=== PATIENT | female | born 1935 | race Caucasian/White ===

== ENCOUNTER → 2020-04-17 08:10 | Outpatient (REF) | payer MEDICARE, SELFPAY ==
--- NOTE | 2020-04-17 08:30 | CA_ITS ---
Transthoracic Echocardiogram Patient (Last, First, Middle): Ruth Ann Nunes A Gender: Female Date of : 1935 Age: 85 Procedure Date: 04/17/2020 Procedure Type: Transthoracic Echocardiogram Location: OP Height: 152.4 cm Weight: 79.38 kg BSA: 1.76 m2 Heart Rate: bpm BP: 180 / 82 mmHg Music Arranger: Referring MD: Yovany Garibay MD Symptoms: Chest pain Study Quality: Good ECG Rhythm: Atrial Fibrillation Conclusions: - The left ventricular systolic function is normal. The visually estimated ejection fraction is between 55-60%. - The left atrium is moderately dilated. - There is mild aortic valve regurgitation. - There is mild mitral valve regurgitation. - There is mild tricuspid valve regurgitation. - Mild to moderate pulmonary hypertension is present. Findings Procedure Information Contrast agent, definity, is being given per protocol without apparent complications. Left Ventricle Normal left ventricular cavity size. There is mildly increased left ventricular wall thickness. The left ventricular systolic function is normal. The visually estimated ejection fraction is between 55-60%. There is no evidence of regional wall motion abnormalities. Right Ventricle Normal right ventricular cavity size and systolic function. Atria The left atrium is moderately dilated. The right atrium is normal in size. Aortic Valve There is a normal trileaflet aortic valve. There is no aortic valve stenosis. There is mild aortic valve regurgitation. Mitral Valve The mitral valve appears normal. There is mild mitral valve regurgitation. There is no mitral valve stenosis. Pulmonic Valve The pulmonic valve was not well visualized. There is trace pulmonic valve regurgitation. Tricuspid Valve Normal tricuspid valve structure. There is mild tricuspid valve regurgitation. The right ventricular systolic pressure is 48 mmHg. Mild to moderate pulmonary hypertension is present. Great Vessels The aortic annulus, sinuses of valsalva, and asc aorta are normal in size. Venous The inferior vena cava is normal in size and collapses greater than 50% with inspiration. Pericardium/Pleural There is no evidence of pericardial effusion. Prior Study Comparison Changes noted compared to prior study dated: 09/24/2014. RVSP is higher. Measurements 2D Linear Measurements RVADd: 0.49 RVIDd: 2.95 IVSd: 1.07 0.6-0.9/0.6-1.0 cm LVIDd: 4.63 3.9-5.3/4.2-5.9 cm LVIDs: 3.50 2.0-3.6 cm LVPWd: 1.05 0.7-1.1 cm Ao Root: 3.03 2.1-3.5 cm LA Diam: 4.50 2.7-3.8/3.0-4.0 cm LV Mass: 216.40 67-162/88-224 g LVOT Diam: 2.14 3.0+(-)1.3 cm Mitral Valve MR VTI: 1.62 Aortic Valve AoV Pk Andrew: 1.17 AoV Mn Andrew: 0.92 AoV VTI: 0.27 AoV Pk Grad: 5.52 Aov Mn Grad: 3.61 LVOT LVOT Pk Andrew: 0.94 LVOT Mn Andrew: 0.58 LVOT VTI: 0.18 LVOT Pk Grad: 3.52 LVOT Mn Grad: 1.52 LVOT Diam: 2.14 LVOT Area: 3.59 Tricuspid Valve TR Pk Andrew: 3.44 TR Pk Grad: 47.46 RA Press: 3.00 RVSP: 48.00 Great Vessels Aorta Ao Root-2D: 3.03 2.0-3.7 cm Ao Asc: 3.65 2.1-3.4 cm Ao Arch: 3.14 Updated in Other Vendor System with Status of Final Yovany Garibay MD electronically signed on 04/19/2020 9:49:47 AM with status of Final
--- NOTE | 2020-04-17 09:50 | NM_ITS ---
Lexiscan Myocardial perfusion study Indication: Chest pain, atrial fibrillation, assess for coronary disease and ischemia Technique: The patient was brought in for a Lexiscan perfusion study on 04/17/2020 and was injected 0.4 mg of Lexiscan intravenously. Within a minute of this injection 30 mCi of sestamibi was given intravenously. Images were obtained using the SPECT gamma camera interlaced with the gating device. Images were obtained in supine position. Resting perfusion study was performed on 04/21/2020. Patient was administered 30 mCi of sestamibi intravenously at rest. Images were then obtained in supine position. Total DLP 97mGy-cm. Images were processed with the software and compared side to side in short axis, horizontal long axis and vertical long axis views. Findings: Raw acquisition was reviewed. The stress perfusion study showed mildly diminished tracer uptake along the apex and apical inferior wall. With CT attenuation correction this seems to improve significantly suggestive of diaphragmatic attenuation artifact. There is also the basal septal perfusion defect that is persisting with CT attenuation correction The gated study shows normal LV systolic function with calculated LVEF of 64%. LV cavity is normal in size. The gated study shows normal wall thickening and contraction of segments. Resting study shows mildly diminished tracer uptake along the apex and apical anterior wall, most likely from soft tissue attenuation artifact. There is some improvement with CT attenuation correction. Gating at rest reveals normal wall motion with ejection fraction at 53%. The findings are consistent with reversible basal septal perfusion defect. Impression: 1. Myocardial perfusion imaging study shows mild reversible defect in the basal septum. This could be artifactual in nature. Less likely ischemic. 2. Gated LVEF is normal. 3. Transient ischemic dilatation not present. EKG component of the test reported separately.
--- NOTE | 2020-04-17 10:00 | ECG_ITS ---
Hook-up date: 2020-04-17 10:07:00 Duration: 47:59:00 Test Indications: PERSISTANT AFIB Medications: 59320 QRS complexes 59680 Ventricular ectopics which represent 11 % of total QRS comp. * Supraventricular ectopics which represent % of total QRS comp. * Paced QRS complexs which represent % of total QRS comp. VENTRICULAR ECTOPY 73925 Isolated 223 Bigeminal Cycles 20 Couplets 3 Runs 9 Beats in Runs 3 Beats LONGEST at 151 BPM at 10:22:45 2020-04-17 3 Beats FASTEST at 151 BPM at 10:22:45 2020-04-17 SUPRAVENTRICULAR ECTOPY * Isolated * Couplets * Runs * Beats in Runs * Beats LONGEST at * BPM at :: -- * Beats FASTEST at * BPM at :: -- HEART RATES 31 MIN at 20:14:21 2020-04-17 61 AVG 174 MAX at 11:09:46 2020-04-17 LONGEST RR 2.5440 secs at 20:31:38 2020-04-17 S-T LEVELS Channel 1 - 128 mm at 10:07:00 2020-04-17 - 128 mm at 10:07:00 2020-04-17 Channel 2 - 128 mm at 10:07:00 2020-04-17 - 128 mm at 10:07:00 2020-04-17 Channel 3 - 128 mm at 02:92:61 -- - 128 mm at 02:92:61 Underlying rhythm is atrial fibrillation; Average ventricular rate 61/min; range 31-174/min; Most rates are between 60-100/min; About 5% of the time, ventricular rate >100/min about 14% of rates are <60/min; Frequent ventricular ectopy- about 10,000 over 48 Hrs (12%); longest run 3 beats; Overall, reasonable rate control but also with some tachy as well as zainab episodes (lowest HR at 20:14); Shortness of breath, pain in right arm without any definite correlations. Referred By: Kanika Davis Overread By: KANIKA DAVIS
--- NOTE | 2020-04-17 10:35 | CA_ITS ---
Acquisition Time: 2020-04-17 09:27:04 Total Exercise Time: 00:02:00 Test Indications: Abnormal ECG Medications: ASA FUROSEMIDE ATENLOL VALSARTAN HYDRALAZINE COUMADIN KLOR PRILOSEC TIMOLOL EYE DROPS Protocol: LEXISCAN Max HR: 133 BPM 97% of Pred: 136 BPM Max BP: 138/072 mmHG Max Work Load: 1.0 METS Pharmacological stress test using Lexiscan while sitting. Pt tolerated well, SOB after Maria Isabel. Reversed with Aminophyline 75 mg IV. no other anginal sx. EKG with A-fib and occ. PVC's. Non-diagnostic for ischemia. Nuclear images to follow. Normotensive response to test. Test reviewed with Dr. Garibay Referred By: Yovany Garibay Overread By: Madeleine Murray
== END ==
LOC: HO.CARD 08:10
PROVIDERS: PCP Internal Medicine; Visit Provider Internal Medicine
DX: R07.2 Precordial pain (principal); I48.19 Other persistent atrial fibrillation; R06.02 Shortness of breath
CPT/HCPCS: 78452; 93017; 93225; 93226; 93306; A9500; J0280; J2785; Q9957

== ENCOUNTER 2020-04-29 08:11 | Outpatient (REF) | payer MEDICARE, SELFPAY ==
[2020-04-29 10:21] LABS: MANUAL DIFF FLAG NO
[2020-04-29 10:45] LABS: Basophils Absolute Auto 0.1 X10*3/uL (0.0-0.2); Basophils Percent Auto 0.5 % (0-2); Eosinophils Absolute Auto 0.1 X10*3/uL (0.0-0.4); Eosinophils Percent Auto 0.6 % (0-4); Hematocrit 40.5 % (37-47); Hemoglobin 12.9 g/dl (12.0-16.0); Imm Gran Abs Auto 0.03 X10*3/uL (0.00-0.03); Imm Gran Pct Auto 0.3 % (0.0-0.4); Lymphocytes Absolute Auto 1.7 X10*3/uL (1.2-4.9); Lymphocytes Percent Auto 15.8 % (20-40); Mean Corpuscular HGB Conc 31.9 g/dl (31.0-35.0); Mean Corpuscular Hemoglobin 31.4 pg (27.0-33.0); Mean Corpuscular Volume 98.5 fL (80-98); Mean Platelet Volume 11.7 fL (9.4-12.3); Monocytes Absolute Auto 1.3 X10*3/uL (0.1-1.2); Monocytes Percent Auto 11.5 % (2-11); Neutrophils Absolute Auto 7.8 X10*3/uL (2.0-8.3); Neutrophils Percent Auto 71.3 % (45-73); Platelet Count 243 X10*3/uL (160-400); Red Blood Count 4.11 X10*6/uL (4.20-5.50); Red Cell Distribution Width 14.4 % (11.0-16.0); White Blood Count 10.9 X10*3/uL (4.8-10.8)
[2020-04-29 11:27] LABS: Anion Gap 11 (12-20); Blood Urea Nitrogen 24 mg/dL (9-16); Carbon Dioxide 28 mmol/L (22-29); Chloride 104 mmol/L (96-108); Cholesterol 137 mg/dL; Estimated Glomerular Filt Rate > 60; Glucose Fasting 86 mg/dL (60-99); HDL Cholesterol 46 mg/dL; LDL Cholesterol Calculated 66 mg/dl; Potassium 4.3 mmol/l (3.3-5.1); Sodium 139 mmol/L (135-145); Triglycerides 127 mg/dL
== END 2020-04-29 08:12 | disposition home or self-care (01) ==
LOC: HO.10HDL 08:11
PROVIDERS: Visit Provider Nurse Practitioner Family
DX: I15.0 Renovascular hypertension (principal)
CPT/HCPCS: 36415; 80048; 80061; 85025

== ENCOUNTER → 2020-05-04 08:42 | Outpatient (BNVA) | payer MEDICARE, SELFPAY | PROVIDERS: PCP Internal Medicine; Visit Provider Internal Medicine | DX: I48.0 Paroxysmal atrial fibrillation (principal); Z51.81 Encounter for therapeutic drug level monitoring; Z79.01 Long term (current) use of anticoagulants | CPT/HCPCS: 85610; 99211 ==

== ENCOUNTER → 2020-05-07 12:13 | Outpatient (BNVA) | payer MEDICARE, SELFPAY | PROVIDERS: PCP Internal Medicine; Visit Provider Internal Medicine | DX: I11.0 Hypertensive heart disease with heart failure (principal); I50.32 Chronic diastolic (congestive) heart failure; R07.2 Precordial pain; I48.19 Other persistent atrial fibrillation; R94.39 Abnormal result of other cardiovascular function study; Z79.01 Long term (current) use of anticoagulants; Z79.899 Other long term (current) drug therapy | CPT/HCPCS: 99212 ==

== ENCOUNTER 2020-05-25 08:36 | Outpatient (REF) | payer MEDICARE, SELFPAY ==
[2020-05-25 10:50] LABS: Anion Gap 16 (12-20); B Type Natriuretic Peptide 318 pg/mL (<100); Blood Urea Nitrogen 29 mg/dL (9-16); Calcium 9.7 mg/dL (8.4-10.2); Carbon Dioxide 25 mmol/L (22-29); Chloride 104 mmol/L (96-108); Estimated Glomerular Filt Rate > 60; Glucose Random 91 mg/dL (60-115); Sodium 140 mmol/L (135-145)
== END 2020-05-25 08:37 | disposition home or self-care (01) ==
LOC: HO.10HDL 08:36
PROVIDERS: Visit Provider Internal Medicine
DX: I50.32 Chronic diastolic (congestive) heart failure (principal)
CPT/HCPCS: 80048; 83880

== ENCOUNTER → 2020-05-28 08:54 | Outpatient (BNVA) | payer MEDICARE, SELFPAY | PROVIDERS: PCP Internal Medicine; Visit Provider Internal Medicine | DX: I48.0 Paroxysmal atrial fibrillation (principal); Z51.81 Encounter for therapeutic drug level monitoring; Z79.01 Long term (current) use of anticoagulants | CPT/HCPCS: 85610; 99211 ==

== ENCOUNTER → 2020-06-18 08:42 | Outpatient (BNVA) | payer MEDICARE, SELFPAY | PROVIDERS: PCP Internal Medicine; Visit Provider Internal Medicine | DX: I48.0 Paroxysmal atrial fibrillation (principal); Z51.81 Encounter for therapeutic drug level monitoring; Z79.01 Long term (current) use of anticoagulants | CPT/HCPCS: 85610; 99211 ==

== ENCOUNTER → 2020-06-22 09:52 | Outpatient (BNVA) | payer MEDICARE, SELFPAY | PROVIDERS: PCP Internal Medicine; Visit Provider Internal Medicine | DX: I50.32 Chronic diastolic (congestive) heart failure (principal); I11.0 Hypertensive heart disease with heart failure; I48.19 Other persistent atrial fibrillation; R07.2 Precordial pain; R06.02 Shortness of breath; R94.39 Abnormal result of other cardiovascular function study | CPT/HCPCS: 99212 ==

== ENCOUNTER 2020-07-06 07:42 | Outpatient (REF) | payer MEDICARE, SELFPAY ==
[2020-07-06 10:56] LABS: Anion Gap 14 (12-20); Blood Urea Nitrogen 36 mg/dL (9-16); Carbon Dioxide 31 mmol/L (22-29); Chloride 101 mmol/L (96-108); Estimated Glomerular Filt Rate > 60; Glucose Random 85 mg/dL (60-115); Potassium 4.8 mmol/l (3.3-5.1); Sodium 141 mmol/L (135-145)
[2020-07-06 11:00] LABS: B Type Natriuretic Peptide 410 pg/mL (<100)
== END 2020-07-06 07:43 | disposition home or self-care (01) ==
LOC: HO.10HDL 07:42
PROVIDERS: Visit Provider Internal Medicine
DX: I50.32 Chronic diastolic (congestive) heart failure (principal)
CPT/HCPCS: 80048; 83880

== ENCOUNTER → 2020-07-16 08:52 | Outpatient (BNVA) | payer MEDICARE, SELFPAY | PROVIDERS: PCP Internal Medicine; Visit Provider Internal Medicine | DX: I48.0 Paroxysmal atrial fibrillation (principal); Z51.81 Encounter for therapeutic drug level monitoring; Z79.01 Long term (current) use of anticoagulants | CPT/HCPCS: 85610; 99211 ==

== ENCOUNTER → 2020-07-20 08:13 | Outpatient (BNVA) | payer MEDICARE, SELFPAY | PROVIDERS: PCP Internal Medicine; Visit Provider Internal Medicine | DX: I50.32 Chronic diastolic (congestive) heart failure (principal); I11.0 Hypertensive heart disease with heart failure; I48.19 Other persistent atrial fibrillation; R07.2 Precordial pain; R06.02 Shortness of breath; R94.39 Abnormal result of other cardiovascular function study | CPT/HCPCS: 99212 ==

== ENCOUNTER 2020-07-30 08:16 | Outpatient (REF) | payer MEDICARE, SELFPAY ==
[2020-07-30 10:48] LABS: Anion Gap 14 (12-20); Blood Urea Nitrogen 44 mg/dL (9-16); Calcium 9.9 mg/dL (8.4-10.2); Carbon Dioxide 30 mmol/L (22-29); Chloride 102 mmol/L (96-108); Estimated Glomerular Filt Rate > 60; Glucose Random 94 mg/dL (60-115); Potassium 4.6 mmol/l (3.3-5.1); Sodium 141 mmol/L (135-145)
[2020-07-30 11:01] LABS: B Type Natriuretic Peptide 383 pg/mL (<100)
== END 2020-07-30 08:17 | disposition home or self-care (01) ==
LOC: HO.10HDL 08:16
PROVIDERS: Visit Provider Internal Medicine
DX: I50.32 Chronic diastolic (congestive) heart failure (principal)
CPT/HCPCS: 36415; 80048; 83880

== ENCOUNTER 2020-08-12 | Outpatient (REF) | payer MEDICARE, SELFPAY | END 2020-08-12 00:01 | disposition home or self-care (01) | LOC: HO.VC | PROVIDERS: Visit Provider Internal Medicine | DX: Z23 Encounter for immunization (principal) | CPT/HCPCS: 0011A ==

== ENCOUNTER → 2020-08-13 08:53 | Outpatient (BNVA) | payer MEDICARE, SELFPAY | PROVIDERS: PCP Internal Medicine; Visit Provider Internal Medicine | DX: I48.0 Paroxysmal atrial fibrillation (principal); Z51.81 Encounter for therapeutic drug level monitoring; Z79.01 Long term (current) use of anticoagulants | CPT/HCPCS: 85610; 99211 ==

== ENCOUNTER 2020-09-08 | Outpatient (REF) | payer MEDICARE, SELFPAY | END 2020-09-08 00:01 | disposition home or self-care (01) | LOC: HO.VC | PROVIDERS: Visit Provider Internal Medicine | DX: Z23 Encounter for immunization (principal) | CPT/HCPCS: 0012A ==

== ENCOUNTER → 2020-09-08 13:17 | Outpatient (BNVA) | payer MEDICARE, SELFPAY | PROVIDERS: PCP Internal Medicine; Visit Provider Internal Medicine | DX: I48.0 Paroxysmal atrial fibrillation (principal); Z51.81 Encounter for therapeutic drug level monitoring; Z79.01 Long term (current) use of anticoagulants | CPT/HCPCS: 85610; 99211 ==

== ENCOUNTER → 2020-09-17 08:41 | Outpatient (BNVA) | payer MEDICARE, SELFPAY | PROVIDERS: PCP Internal Medicine; Visit Provider Internal Medicine | DX: R07.2 Precordial pain (principal); I11.0 Hypertensive heart disease with heart failure; I50.32 Chronic diastolic (congestive) heart failure; I48.19 Other persistent atrial fibrillation; R06.02 Shortness of breath; R94.39 Abnormal result of other cardiovascular function study; Z79.899 Other long term (current) drug therapy | CPT/HCPCS: 99212 ==

== ENCOUNTER 2020-09-22 07:54 | Outpatient (REF) | payer MEDICARE, SELFPAY ==
[2020-09-22 10:50] LABS: Anion Gap 12 (12-20); Blood Urea Nitrogen 26 mg/dL (9-16); Calcium 9.7 mg/dL (8.4-10.2); Carbon Dioxide 30 mmol/L (22-29); Chloride 105 mmol/L (96-108); Estimated Glomerular Filt Rate > 60; Glucose Random 88 mg/dL (60-115); Potassium 4.5 mmol/L (3.3-5.1); Sodium 142 mmol/L (135-145)
[2020-09-22 11:09] LABS: B Type Natriuretic Peptide 408 pg/mL (<100)
== END 2020-09-22 07:55 | disposition home or self-care (01) ==
LOC: HO.10HDL 07:54
PROVIDERS: Visit Provider Internal Medicine
DX: I50.32 Chronic diastolic (congestive) heart failure (principal)
CPT/HCPCS: 36415; 80048; 83880

== ENCOUNTER → 2020-10-01 08:34 | Outpatient (BNVA) | payer MEDICARE, SELFPAY | PROVIDERS: PCP Internal Medicine; Visit Provider Internal Medicine | DX: I48.0 Paroxysmal atrial fibrillation (principal); Z51.81 Encounter for therapeutic drug level monitoring; Z79.01 Long term (current) use of anticoagulants | CPT/HCPCS: 85610; 99211 ==

== ENCOUNTER → 2020-10-29 08:55 | Outpatient (BNVA) | payer MEDICARE, SELFPAY | PROVIDERS: PCP Internal Medicine; Visit Provider Internal Medicine | DX: I48.0 Paroxysmal atrial fibrillation (principal); Z79.01 Long term (current) use of anticoagulants; Z51.81 Encounter for therapeutic drug level monitoring | CPT/HCPCS: 85610; 99211 ==

== ENCOUNTER → 2020-11-26 08:38 | Outpatient (BNVA) | payer MEDICARE, SELFPAY | PROVIDERS: Visit Provider Internal Medicine | DX: I48.0 Paroxysmal atrial fibrillation (principal); Z51.81 Encounter for therapeutic drug level monitoring; Z79.01 Long term (current) use of anticoagulants | CPT/HCPCS: 85610; 99211 ==

== ENCOUNTER → 2020-12-24 08:47 | Outpatient (BNVA) | payer MEDICARE, SELFPAY | PROVIDERS: PCP Internal Medicine; Visit Provider Internal Medicine | DX: I48.0 Paroxysmal atrial fibrillation (principal); Z51.81 Encounter for therapeutic drug level monitoring; Z79.01 Long term (current) use of anticoagulants | CPT/HCPCS: 85610; 99211 ==

== ENCOUNTER → 2021-01-04 08:44 | Outpatient (BNVA) | payer MEDICARE, SELFPAY | PROVIDERS: PCP Internal Medicine; Visit Provider Internal Medicine | DX: I11.0 Hypertensive heart disease with heart failure (principal); I50.32 Chronic diastolic (congestive) heart failure; I48.19 Other persistent atrial fibrillation; R94.39 Abnormal result of other cardiovascular function study | CPT/HCPCS: 93005; 99212 ==

== ENCOUNTER 2021-01-22 12:50 | Outpatient (REF) | payer MEDICARE, SELFPAY ==
--- NOTE | ~2021-01-22 | CT_ITS ---
EXAMINATION: CT HEAD WITHOUT CONTRAST CLINICAL INFORMATION: 85-year-old with sudden vision loss. Unspecified eye. COMPARISON: None TECHNIQUE: Contiguous axial imaging was performed from the skull base to vertex without intravenous administration of contrast. This CT examination was performed using dose optimization techniques as appropriate, variously including the following: *Automated exposure control *Adjustment of mA and/or kV according to patient size (this includes techniques or standardized protocols for targeted exams where dose is matched to indication/reason for exam; i.e. extremities or head) *Use of iterative reconstruction technique DLP: 770.00 mGy-cm FINDINGS: Brain Volume: There is [id number] generalized diffuse nonspecific brain parenchymal volume loss. Structural: No malformations. Brain and Meninges: The brain parenchyma is normal in morphology and attenuation. There is no evidence for hemorrhage, territorial infarction, extra-axial fluid collection, space-occupying process or mass effect. Roblero-white matter differentiation is maintained. Bilateral ICA and vertebral artery calcifications are noted. Ventricles and Subarachnoid Spaces: The ventricular system and subarachnoid spaces are consistent with [id number] volume loss. There is no hydrocephalus. Orbital Structures: Grossly unremarkable within the limitations of the study. Bony Structures: Intact. Air Spaces: Unopacified. 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 CT/CT head/brain wo con IMPRESSION: 1. No acute intracranial process. Specifically, no evidence for infarction, hemorrhage, space-occupying process or mass effect. 2. Mild to moderate generalized volume loss without hydrocephalus.
== END 2021-01-22 12:51 | disposition home or self-care (01) ==
LOC: HO.CT 12:50
PROVIDERS: PCP Internal Medicine; Visit Provider Internal Medicine
DX: H53.139 Sudden visual loss, unspecified eye (principal)
CPT/HCPCS: 70450

== ENCOUNTER → 2021-01-28 08:48 | Outpatient (BNVA) | payer MEDICARE, SELFPAY | PROVIDERS: PCP Internal Medicine; Visit Provider Internal Medicine | DX: I48.0 Paroxysmal atrial fibrillation (principal); Z51.81 Encounter for therapeutic drug level monitoring; Z79.01 Long term (current) use of anticoagulants | CPT/HCPCS: 85610; 99211 ==

== ENCOUNTER 2021-02-03 07:45 | Outpatient (REF) | payer MEDICARE, SELFPAY ==
[2021-02-03 08:48] LABS: Anion Gap 16 (12-20); Blood Urea Nitrogen 39 mg/dL (9-16); Calcium 10.2 mg/dL (8.4-10.2); Carbon Dioxide 28 mmol/L (22-29); Chloride 101 mmol/L (96-108); Estimated Glomerular Filt Rate 58; Glucose Random 103 mg/dL (60-115); Potassium 4.5 mmol/L (3.3-5.1); Sodium 140 mmol/L (135-145)
[2021-02-03 08:52] LABS: B Type Natriuretic Peptide 532 pg/mL (<100)
== END 2021-02-03 07:46 | disposition home or self-care (01) ==
LOC: HO.LAB 07:45
PROVIDERS: Absent Provider Internal Medicine; PCP Internal Medicine; Visit Provider Internal Medicine
DX: I50.32 Chronic diastolic (congestive) heart failure (principal)
CPT/HCPCS: 36415; 80048; 83880

== ENCOUNTER → 2021-02-25 09:16 | Outpatient (BNVA) | payer MEDICARE, SELFPAY | PROVIDERS: PCP Internal Medicine; Visit Provider Internal Medicine ==

== ENCOUNTER → 2021-03-05 08:30 | Outpatient (BNVA) | payer MEDICARE, SELFPAY | PROVIDERS: PCP Internal Medicine; Visit Provider Internal Medicine | DX: I48.0 Paroxysmal atrial fibrillation (principal); Z51.81 Encounter for therapeutic drug level monitoring; Z79.01 Long term (current) use of anticoagulants | CPT/HCPCS: 85610; 99211 ==

== ENCOUNTER → 2021-03-29 08:44 | Outpatient (BNVA) | payer MEDICARE, SELFPAY | PROVIDERS: PCP Internal Medicine; Visit Provider Internal Medicine | DX: I11.0 Hypertensive heart disease with heart failure (principal); I50.32 Chronic diastolic (congestive) heart failure; I48.19 Other persistent atrial fibrillation; R94.39 Abnormal result of other cardiovascular function study | CPT/HCPCS: 99212 ==

== ENCOUNTER → 2021-04-01 08:30 | Outpatient (BNVA) | payer MEDICARE, SELFPAY | PROVIDERS: PCP Internal Medicine; Visit Provider Internal Medicine | DX: I48.0 Paroxysmal atrial fibrillation (principal); Z51.81 Encounter for therapeutic drug level monitoring; Z79.01 Long term (current) use of anticoagulants | CPT/HCPCS: 85610; 99211 ==

== ENCOUNTER 2021-04-15 09:11 | Outpatient (REF) | payer MEDICARE, SELFPAY ==
[2021-04-15 10:58] LABS: Anion Gap 14 (12-20); Blood Urea Nitrogen 47 mg/dL (9-16); Calcium 9.8 mg/dL (8.4-10.2); Carbon Dioxide 29 mmol/L (22-29); Chloride 102 mmol/L (96-108); Estimated Glomerular Filt Rate 53; Glucose Random 100 mg/dL (60-115); Potassium 4.5 mmol/L (3.3-5.1); Sodium 140 mmol/L (135-145)
[2021-04-15 10:59] LABS: B Type Natriuretic Peptide 337 pg/mL (<100)
== END 2021-04-15 09:12 | disposition home or self-care (01) ==
LOC: HO.10HDL 09:11
PROVIDERS: Visit Provider Internal Medicine
DX: I50.32 Chronic diastolic (congestive) heart failure (principal)
CPT/HCPCS: 36415; 80048; 83880

== ENCOUNTER → 2021-04-29 08:55 | Outpatient (BNVA) | payer MEDICARE, SELFPAY | PROVIDERS: PCP Internal Medicine; Visit Provider Internal Medicine | DX: I48.0 Paroxysmal atrial fibrillation (principal); Z51.81 Encounter for therapeutic drug level monitoring; Z79.01 Long term (current) use of anticoagulants | CPT/HCPCS: 85610; 99211 ==

== ENCOUNTER → 2021-05-27 08:52 | Outpatient (BNVA) | payer MEDICARE, SELFPAY | PROVIDERS: PCP Internal Medicine; Visit Provider Internal Medicine | DX: I48.0 Paroxysmal atrial fibrillation (principal); Z51.81 Encounter for therapeutic drug level monitoring; Z79.01 Long term (current) use of anticoagulants | CPT/HCPCS: 85610; 99211 ==

== ENCOUNTER → 2021-06-24 08:55 | Outpatient (BNVA) | payer MEDICARE, SELFPAY | PROVIDERS: PCP Internal Medicine; Visit Provider Internal Medicine | DX: I48.0 Paroxysmal atrial fibrillation (principal); Z51.81 Encounter for therapeutic drug level monitoring; Z79.01 Long term (current) use of anticoagulants | CPT/HCPCS: 85610; 99211 ==

== ENCOUNTER → 2021-07-22 08:48 | Outpatient (BNVA) | payer MEDICARE, SELFPAY | PROVIDERS: PCP Internal Medicine; Visit Provider Internal Medicine | DX: I48.0 Paroxysmal atrial fibrillation (principal); Z51.81 Encounter for therapeutic drug level monitoring; Z79.01 Long term (current) use of anticoagulants | CPT/HCPCS: 85610; 99211 ==

== ENCOUNTER → 2021-07-29 08:49 | Outpatient (BNVA) | payer MEDICARE, SELFPAY | PROVIDERS: PCP Internal Medicine; Referring Provider Internal Medicine; Visit Provider Internal Medicine | DX: I11.0 Hypertensive heart disease with heart failure (principal); I50.32 Chronic diastolic (congestive) heart failure; I48.19 Other persistent atrial fibrillation; R94.39 Abnormal result of other cardiovascular function study | CPT/HCPCS: 99212 ==

== ENCOUNTER 2021-08-04 07:53 | Outpatient (REF) | payer MEDICARE, SELFPAY ==
[2021-08-04 10:43] LABS: MANUAL DIFF FLAG NO
[2021-08-04 10:48] LABS: Basophils Absolute Auto 0.1 X10*3/uL (0.0-0.2); Basophils Percent Auto 0.6 % (0-2); Eosinophils Absolute Auto 0.1 X10*3/uL (0.0-0.4); Eosinophils Percent Auto 1.5 % (0-4); Hemoglobin 13.5 g/dl (12.0-16.0); Imm Gran Abs Auto 0.07 X10*3/uL (0.00-0.03); Imm Gran Pct Auto 0.8 % (0.0-0.4); Lymphocytes Absolute Auto 1.1 X10*3/uL (1.2-4.9); Lymphocytes Percent Auto 11.7 % (20-40); Mean Corpuscular HGB Conc 32.1 g/dl (31.0-35.0); Mean Corpuscular Volume 99.5 fL (80.0-98.0); Mean Platelet Volume 11.6 fL (9.4-12.3); Monocytes Percent Auto 10.5 % (2-11); Neutrophils Absolute Auto 6.8 x10*3/uL (2.0-8.3); Neutrophils Percent Auto 74.9 % (45-73); Platelet Count 225 X10*3/uL (160-400); Red Blood Count 4.22 X10*6/uL (4.20-5.50); Red Cell Distribution Width 13.4 % (11.0-16.0); White Blood Count 9.1 X10*3/uL (4.8-10.8)
[2021-08-04 11:12] LABS: Alanine Aminotransferase 20 U/L (0-31); Albumin Level 4.6 g/dL (3.5-5.0); Alkaline Phosphatase 62 U/L (39-117); Anion Gap 15 (12-20); Aspartate Amino Transferase 22 U/L (5-31); B Type Natriuretic Peptide 342 pg/mL (<100); Bilirubin Total 0.6 mg/dL (0.0-1.0); Blood Urea Nitrogen 40 mg/dL (9-16); Calcium 10.3 mg/dL (8.4-10.2); Carbon Dioxide 28 mmol/L (22-29); Chloride 101 mmol/L (96-108); Cholesterol 179 mg/dL; Estimated Glomerular Filt Rate 44; Glucose Fasting 85 mg/dL (60-99); HDL Cholesterol 44 mg/dL; LDL Cholesterol Calculated 109 mg/dl; Potassium 4.3 mmol/L (3.3-5.1); Sodium 140 mmol/L (135-145); Total Protein 8.1 g/dL (6.5-8.0); Triglycerides 131 mg/dL
== END 2021-08-04 07:54 | disposition home or self-care (01) ==
LOC: HO.10HDL 07:53
PROVIDERS: Absent Provider Nurse Practitioner Family; Referring Provider Internal Medicine; Visit Provider Internal Medicine
DX: D64.9 Anemia, unspecified (principal); I50.32 Chronic diastolic (congestive) heart failure; E78.5 Hyperlipidemia, unspecified; Z13.1 Encounter for screening for diabetes mellitus; Z13.220 Encounter for screening for lipoid disorders
CPT/HCPCS: 36415; 80048; 80053; 80061; 83880; 85025

== ENCOUNTER → 2021-08-19 08:41 | Outpatient (BNVA) | payer MEDICARE, SELFPAY | PROVIDERS: PCP Internal Medicine; Visit Provider Internal Medicine | DX: I48.0 Paroxysmal atrial fibrillation (principal); Z51.81 Encounter for therapeutic drug level monitoring; Z79.01 Long term (current) use of anticoagulants | CPT/HCPCS: 85610; 99211 ==

== ENCOUNTER → 2021-09-21 09:19 | Outpatient (BNVA) | payer MEDICARE, SELFPAY | PROVIDERS: PCP Internal Medicine; Visit Provider Internal Medicine | DX: I48.0 Paroxysmal atrial fibrillation (principal); Z79.01 Long term (current) use of anticoagulants; Z51.81 Encounter for therapeutic drug level monitoring | CPT/HCPCS: 85610; 99211 ==

== ENCOUNTER → 2021-10-14 08:52 | Outpatient (BNVA) | payer MEDICARE, SELFPAY | PROVIDERS: PCP Internal Medicine; Visit Provider Internal Medicine | DX: I48.0 Paroxysmal atrial fibrillation (principal); Z51.81 Encounter for therapeutic drug level monitoring; Z79.01 Long term (current) use of anticoagulants | CPT/HCPCS: 85610; 99211 ==

== ENCOUNTER 2021-10-26 08:53 | Outpatient (REF) | payer MEDICARE, SELFPAY ==
[2021-10-26 10:50] LABS: B Type Natriuretic Peptide 598 pg/mL (<100)
[2021-10-26 10:53] LABS: Anion Gap 13 (12-20); Blood Urea Nitrogen 33 mg/dL (9-16); Calcium 10.6 mg/dL (8.4-10.2); Carbon Dioxide 27 mmol/L (22-29); Chloride 104 mmol/L (96-108); Cholesterol 145 mg/dL; Estimated Glomerular Filt Rate > 60; Glucose Random 101 mg/dL (60-115); HDL Cholesterol 42 mg/dL; LDL Cholesterol Calculated 84 mg/dl; Potassium 3.8 mmol/L (3.3-5.1); Sodium 140 mmol/L (135-145); Triglycerides 95 mg/dL; Uric Acid 9.3 mg/dL (2.4-5.7)
== END 2021-10-26 08:54 | disposition home or self-care (01) ==
LOC: HO.LAB 08:53
PROVIDERS: Absent Provider Nurse Practitioner Family; PCP Internal Medicine; Referring Provider Internal Medicine; Visit Provider Internal Medicine
DX: Z13.220 Encounter for screening for lipoid disorders (principal); I11.0 Hypertensive heart disease with heart failure; I50.32 Chronic diastolic (congestive) heart failure; I48.91 Unspecified atrial fibrillation; R94.39 Abnormal result of other cardiovascular function study; M10.9 Gout, unspecified
CPT/HCPCS: 36415; 80048; 80061; 83880; 84550; 99212

== ENCOUNTER → 2021-11-02 09:03 | Outpatient (BNVA) | payer MEDICARE, SELFPAY | PROVIDERS: PCP Internal Medicine; Visit Provider Internal Medicine | DX: I48.0 Paroxysmal atrial fibrillation (principal); Z79.01 Long term (current) use of anticoagulants; Z51.81 Encounter for therapeutic drug level monitoring | CPT/HCPCS: 85610; 99211 ==

== ENCOUNTER → 2021-11-25 08:54 | Outpatient (BNVA) | payer MEDICARE, SELFPAY | PROVIDERS: PCP Internal Medicine; Visit Provider Internal Medicine | DX: I48.0 Paroxysmal atrial fibrillation (principal); Z79.01 Long term (current) use of anticoagulants; Z51.81 Encounter for therapeutic drug level monitoring | CPT/HCPCS: 85610; 99211 ==

== ENCOUNTER → 2021-12-09 09:01 | Outpatient (BNVA) | payer MEDICARE, SELFPAY | PROVIDERS: PCP Internal Medicine; Visit Provider Internal Medicine | DX: I48.0 Paroxysmal atrial fibrillation (principal); Z79.01 Long term (current) use of anticoagulants; Z51.81 Encounter for therapeutic drug level monitoring | CPT/HCPCS: 85610; 99211 ==

== ENCOUNTER → 2021-12-23 09:10 | Outpatient (BNVA) | payer MEDICARE, SELFPAY | PROVIDERS: PCP Internal Medicine; Visit Provider Internal Medicine | DX: I48.0 Paroxysmal atrial fibrillation (principal); Z79.01 Long term (current) use of anticoagulants; Z51.81 Encounter for therapeutic drug level monitoring | CPT/HCPCS: 85610; 99211 ==

== ENCOUNTER → 2022-01-20 08:56 | Outpatient (BNVA) | payer MEDICARE, SELFPAY | PROVIDERS: PCP Internal Medicine; Visit Provider Internal Medicine | DX: I48.0 Paroxysmal atrial fibrillation (principal); Z79.01 Long term (current) use of anticoagulants; Z51.81 Encounter for therapeutic drug level monitoring | CPT/HCPCS: 85610; 99211 ==

== ENCOUNTER 2022-02-01 08:24 | Inpatient (IN) | payer MEDICARE, SELFPAY ==
--- NOTE | ~2022-02-01 | US_ITS ---
EXAMINATION: US VENOUS ULTRASOUND WITH DOPPLER LOWER EXTREMITY, LEFT CLINICAL INFORMATION: Lower extremity edema and pain. COMPARISON: None TECHNIQUE: Ultrasound of the deep veins is performed from the hip to the calf with compression sonography and color and pulse Doppler assessment. Spectral analysis with color-flow imaging is performed. FINDINGS: There is normal venous compression and respiratory variation and augmented flow. The visualized common femoral vein, superficial femoral vein, profunda femoral vein, popliteal vein, and the trifurcation region shows no evidence of deep venous thrombosis. There is no significant popliteal fossa cyst. If the patient's symptoms persist, followup ultrasound in 5 days 7 days might be of value to exclude proximal propagation from a non-visualized calf vein. US/US venous duplex LE IMPRESSION: No DVT identified in the left lower extremity.
--- NOTE | ~2022-02-01 | XR_ITS ---
EXAMINATION: LEFT KNEE SERIES. LEFT HIP WITH PELVIS SERIES. CLINICAL INFORMATION: Knee pain COMPARISON: X-rays of the left knee July 2015 TECHNIQUE: 4 views of the left knee. 2 views of the left hip. Single view the pelvis. FINDINGS: Left knee: There is chondrocalcinosis. There are marginal osteophytes about all compartments. Prominent marginal osteophyte in the distal patella. Joint space narrowing lateral compartment. No effusion. No fracture. Arterial calcification. Left hip: There is chondrocalcinosis. Hip joint otherwise appears normal surrounding bone normal. Pelvis: Left hip as above slight widening of the symphysis pubis compatible with degenerative and/or erosive change. Chondrocalcinosis. Chondrocalcinosis in the right hip. Spondylosis of the partially visualized lumbar sacral spine. XR/XR knee LT 4V IMPRESSION: Mild to moderate osteoarthritis of the left knee. Chondrocalcinosis. Slightly progressing degenerative changes involving the patellofemoral compartment. Left hip: Chondrocalcinosis. 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
--- NOTE | ~2022-02-01 | XR_ITS ---
EXAMINATION: LEFT KNEE SERIES. LEFT HIP WITH PELVIS SERIES. CLINICAL INFORMATION: Knee pain COMPARISON: X-rays of the left knee July 2015 TECHNIQUE: 4 views of the left knee. 2 views of the left hip. Single view the pelvis. FINDINGS: Left knee: There is chondrocalcinosis. There are marginal osteophytes about all compartments. Prominent marginal osteophyte in the distal patella. Joint space narrowing lateral compartment. No effusion. No fracture. Arterial calcification. Left hip: There is chondrocalcinosis. Hip joint otherwise appears normal surrounding bone normal. Pelvis: Left hip as above slight widening of the symphysis pubis compatible with degenerative and/or erosive change. Chondrocalcinosis. Chondrocalcinosis in the right hip. Spondylosis of the partially visualized lumbar sacral spine. XR/XR hip LT w PEL1V IMPRESSION: Mild to moderate osteoarthritis of the left knee. Chondrocalcinosis. Slightly progressing degenerative changes involving the patellofemoral compartment. Left hip: Chondrocalcinosis. 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
[2022-02-01 09:27] VITALS: BP 131/52; PULSE 71; RESP 19; TEMP 35.8; O2SAT 97; BMI 34.5
--- NOTE | 2022-02-01 10:28 | ED_ITS ---
HPI - Extremity Problem General Chief complaint: Extremity Problem <Carline Canales CNP - Last Filed: 02/01/22 15:51> Stated complaint: L leg/hip pain <Carline Canales CNP - Last Filed: 02/01/22 15:51> Time Seen by Provider: 02/01/22 08:36 <Carline Canales GAGE - Last Filed: 02/01/22 15:51> Source: patient <Carline Canales CNP - Last Filed: 02/01/22 15:51> Mode of arrival: ambulatory <Carline Canales CNP - Last Filed: 02/01/22 15:51> Limitations: no limitations <Carline Canales CNP - Last Filed: 02/01/22 15:51> History of Present Illness HPI Narrative: Patient presents emergency department for evaluation of pain to the left leg. She reports onset of pain to be 2 days ago. Pain is felt from her left knee and she feels it radiate up to the left hip. She is having difficulty getting out of bed. Feels that the pain is worse at night. She reports a history of arthritis, chronic left knee pain, and history of gout to the bilateral great toes. She denies any injury, no recent falls. She states that she is on Coumadin for AFib, has her INR checked monthly, and reports compliance. She has chronic lower extremity swelling, however the left leg is more swollen than the right, and she does feel that it is more swollen than typical. Denies fevers, chills, chest pain, palpitations, shortness of breath, difficulty breathing, rashes, redness to the leg. <Carline Canales CNP - Last Filed: 02/01/22 15:51> Related Data Home medications: Home Medications Medication Instructions Recorded Confirmed aspirin 81 mg tablet,delayed 81 mg PO DAILY 05/07/20 01/26/22 release acetaminophen 500 mg tablet 500 mg PO Q6H PRN 05/18/21 01/26/22 (Tylenol Extra Strength) brimonidine 0.025 % eye drops 1 drp ophthalmic (eye) BID 01/20/22 01/26/22 dorzolamide 2 % eye drops 1 drp ophthalmic (eye) BID 01/20/22 01/26/22 latanoprost 0.005 % eye drops 1 drp ophthalmic (eye) QPM 01/20/22 01/26/22 Previous Rx's Medication Instructions Recorded nitrofurantoin macrocrystal 100 mg 100 mg PO DAILY 90 days #90 caps 10/16/20 capsule bumetanide 1 mg tablet 2 mg PO BID 90 days #360 tabs 05/17/21 potassium chloride 10 mEq 10 meq PO DAILY #90 tabs 08/31/21 tablet,extended release valsartan 320 mg tablet 320 mg PO DAILY 90 days #90 tabs 10/02/21 metolazone 2.5 mg tablet 2.5 mg PO .twice/week #10 tabs 11/08/21 colchicine 0.6 mg tablet 0.6 mg PO BID 30 days #60 tabs 11/19/21 omeprazole 20 mg capsule,delayed 20 mg PO DAILY #90 caps 12/12/21 release amlodipine 10 mg tablet 10 mg PO DAILY 90 days #90 tabs 01/26/22 atenolol 50 mg tablet 100 mg PO DAILY #180 tabs 01/26/22 hydralazine 25 mg tablet 25 mg PO TID 90 days #270 tabs 01/26/22 warfarin 5 mg tablet 5 mg PO DAILY 90 days #90 tabs 01/26/22 <Carline Canales CNP - Last Filed: 02/01/22 15:51> Allergies/Adverse reactions: Allergies Allergy/AdvReac Type Severity Reaction Status Date / Time latex [Latex] Allergy Intermediate BLISTERS & Verified 02/01/22 09:27 ITCHING morphine [Morphine] Allergy Mild RASH, Verified 02/01/22 09:27 ITCHNG <Carline Canales [employer] - Last Filed: 02/01/22 15:51> Review of Systems Review of Systems: Constitutional: No weight loss, fever, chills, weakness or fatigue. Skin: No rash or itching. Cardiovascular: No chest pain, chest pressure or chest discomfort. No palpitations or pedal edema. Respiratory: No shortness of breath, cough or sputum production. Gastrointestinal: No anorexia, nausea, vomiting or diarrhea. No abdominal pain or blood in stool. Genitourinary: No burning micturition. No urinary frequency or incontinence. Musculoskeletal: Positive leg pain Neurologic: No numbness or tingling of the extremity Psychiatric: No depression or anxiety. <Carline Canales CNP - Last Filed: 02/01/22 15:51> Yes all other systems are reviewed and are negative <Carline Canales CNP - Last Filed: 02/01/22 15:51> [facility] Past Medical History Attestation statement: The following information was validated with the patient. <Carline Canales CNP - Last Filed: 02/01/22 15:51> Source: old records reviewed <Carline Canales CNP - Last Filed: 02/01/22 15:51> Medical History: Medical History Acute gout Afib Chronic heart failure with preserved ejection fraction (HFpEF) Essential hypertension GERD (gastroesophageal reflux disease) Hypercalcemia Persistent atrial fibrillation Precordial chest pain Shortness of breath Sudden loss of vision Swelling of both lower extremities <Carline Canales CNP - Last Filed: 02/01/22 15:51> Surgical History: Surgical History History of appendectomy History of right knee joint replacement History of tonsillectomy <Carline Canales CNP - Last Filed: 02/01/22 15:51> Family History Family History: Family History Father No problems noted. Mother No problems noted. <Carline Canales CNP - Last Filed: 02/01/22 15:51> Social History Social History: Social History Housing: Apartment Alcohol intake: never Patient Tobacco Use Status: Never used Tobacco e-Cigarette/Vaping Use: Never Used Second Hand Smoke Exposure: No Advance Directives: Yes Advance Directives Information Provided: No Advance Directives on File: No service: No Current occupational status: unemployed and disabled Cognitive needs: Yes Hearing needs: No Vision needs: Yes <Carline Canales CNP - Last Filed: 02/01/22 15:51> Physical Exam Vital Signs: Vital Signs: Last Vital Signs Temp 96.5 F L 02/01/22 09:27 Pulse 71 02/01/22 09:27 Resp 19 02/01/22 09:27 BP 131/52 L 02/01/22 09:27 Pulse Ox 97 02/01/22 09:27 O2 Del Method 02/01/22 09:27 BMI result Body Mass Index 34.5 <Carline Canales CNP - Last Filed: 02/01/22 15:51> Vital Signs: Last Vital Signs Temp 96.5 F L 02/01/22 09:27 Pulse 71 02/01/22 09:27 Resp 19 02/01/22 09:27 BP 131/52 L 02/01/22 09:27 Pulse Ox 97 02/01/22 09:27 O2 Del Method 02/01/22 09:27 BMI result Body Mass Index 34.5 <Estuardo Marquez MD - Last Filed: 02/01/22 13:52> Appearance: Alert.?Oriented to person, place and time. No acute distress.?Normal affect. Eyes: Pupils equal, round and reactive to light.? ENT: Pharynx normal.?? Neck: Normal inspection.? Neck supple.?? CVS: Heart sounds normal. Normal heart rate and rhythm.? Pulses normal.?? Respiratory: No respiratory distress.? Lung sounds clear to auscultation bilaterally?? Abdomen: Soft and non-tender. Normoactive bowel sounds. No pulsatile mass.?? Skin: Skin warm and dry.? Normal skin color.? Normal skin turgor.?? Extremities: Positive lower extremity edema 1+ right, 2+ on left, no calf tenderness to palpation. Left knee with no effusion, erythema, warmth, or rash. Upper leg and hip without erythema, warmth, or rash Neuro: Moves all extremities spontaneously. Sensation intact bilaterally. No motor deficits Ambulates with slow antalgic gait and the use of a cane <Carline Canales CNP - Last Filed: 02/01/22 15:51> Course Course Course Narrative: Patient is an 86-year-old female with a past medical history of arthritis, gout, GERD, heart failure with preserved ejection fraction, hypertension, atrial fibrillation on Coumadin presents emergency department for evaluation of left leg pain. Has chronic left knee pain reportedly due to her arthritis, h owever sudden onset of worsening pain 2 days ago, atraumatic. Neurovascularly intact distally. Not consistent with septic arthritis. Denies any lower back pain, no tenderness on exam. Will obtain CBC, CMP, INR, XR imaging of left hip and knee, in addition to ultrasound of the left lower extremity to exclude DVT, she is on Coumadin, so DVT is less likely however her leg is more swollen than usual, and INRs checked only monthly, leaving possibility for subtherapeutic level <Carline Canales CNP - Last Filed: 02/01/22 15:51> Reevaluation(s) Reevaluation #1: X-ray of the left hip and knee reveal arthritic changes no acute fractures or dislocation. Ultrasound of the left lower extremity unremarkable for DVT. CBC reveals no leukocytosis. Mildly elevated ESR at 28, CRP 1.57, uric acid 15.1. Electrolytes overall unremarkable, noted to have acute kidney injury with BUN 115 and creatinine 1.58, suspect secondary to diuretic usage and dehydration. States that she is taking metolazone twice a week on Mondays and in addition to Bumex 2 mg twice daily. States she has been voiding normally, denies any hematuria, retention, dysuria urinary frequency, will obtain urinalysis. <Carline Canales CNP - Last Filed: 02/01/22 15:51> Time: 13:47 <Carline Canales CNP - Last Filed: 02/01/22 15:51> Reevaluation #2: I have discussed with GILL Canales the LACIE. Will attempt to reach out with her primary and try and coordinate care otherwise she might need to be admitted for the renal injury and dehydration <Estuardo Marquez MD - Last Filed: 02/01/22 13:52> Time: 13:52 <Estuardo Marquez MD - Last Filed: 02/01/22 13:52> Reevaluation #3: Discussed all findings with patient. Primary care providers unable to coordinate care over the next few days. Discussed case with hospitalist, accepted for admission to Medicine Service under Dr. Marin. <Carline Canales CNP - Last Filed: 02/01/22 15:51> MDM - Extremity (Nontraumatic) Medical Records Attestation: I reviewed the patient's medical records. <Carline Garlanddelmar Canales CNP - Last Filed: 02/01/22 15:51> Lab Data Attestation: I reviewed the patient's lab results. <Carline Velasquez GAGE Canales - Last Filed: 02/01/22 15:51> Result diagrams: : 02/01/22 12:09 02/01/22 12:09 <Carline Canales CNP - Last Filed: 02/01/22 15:51> Labs: Lab Results 02/01/22 02/01/22 02/01/22 Range/Units 12:09 12:09 12:09 WBC (4.8-10.8) X10*3/uL RBC (4.20-5.50) X10*6/uL Hgb (12.0-16.0) g/dl Hct (37.0-47.0) % MCV (80.0-98.0) fL MCH (27.0-33.0) pg MCHC (31.0-35.0) g/dl RDW (11.0-16.0) % Plt Count (160-400) X10*3/uL MPV (9.4-12.3) fL Immature Gran % (Auto) (0.0-0.4) % Neut % (Auto) (45-73) % Lymph % (Auto) (20-40) % [place] % (Auto) (2-11) % Eos % (Auto) (0-4) % Baso % (Auto) (0-2) % Lymph # (Auto) (1.2-4.9) X10*3/uL [place] # (Auto) (0.1-1.2) X10*3/uL Eos # (Auto) (0.0-0.4) X10*3/uL Baso # (Auto) (0.0-0.2) X10*3/uL Abs Immat Gran (auto) (0.00-0.03) X10*3/uL Absolute Neuts (auto) (2.0-8.3) x10*3/uL Absolute Nucleated RBC (0.0-0.012) X10*3/uL Nucleated RBC % (auto) (0.0-0.2) /100WBC ESR 28 H (0-20) MM/HR PT 35.7 H (10.0-13.1) SEC INR 3.0 H (0.9-1.1) Sodium 139 (135-145) mmol/L Potassium 3.9 (3.3-5.1) mmol/L Chloride 95 L (96-108) mmol/L Carbon Dioxide 32 H (22-29) mmol/L Anion Gap 16 (12-20) BUN 115 H D (9-16) mg/dL Creatinine 1.58 H (0.5-1.4) mg/dL Estim Creat Clear Calc 23.4 Estimated GFR 31 Random Glucose 105 (60-115) mg/dL Uric Acid 15.1 H (2.4-5.7) mg/dL Calcium 10.5 H (8.4-10.2) mg/dL Total Bilirubin 0.6 (0.0-1.0) mg/dL AST 19 (5-31) U/L ALT 21 (0-31) U/L Alkaline Phosphatase 59 (39-117) U/L C-Reactive Protein 1.57 H (< or = 0.50) mg/dL Total Protein 8.5 H (6.5-8.0) g/dL Albumin 4.6 (3.5-5.0) g/dL COVID-19 ([facility]) (Negative) COVID-19 Clin Com 02/01/22 02/01/22 Range/Units 12:09 14:49 WBC 8.5 (4.8-10.8) X10*3/uL RBC 4.53 (4.20-5.50) X10*6/uL Hgb 14.0 (12.0-16.0) g/dl Hct 41.9 (37.0-47.0) % MCV 92.5 (80.0-98.0) fL MCH 30.9 (27.0-33.0) pg MCHC 33.4 (31.0-35.0) g/dl RDW 13.2 (11.0-16.0) % Plt Count 229 (160-400) X10*3/uL MPV 10.7 (9.4-12.3) fL Immature Gran % (Auto) 0.2 (0.0-0.4) % Neut % (Auto) 75.7 H (45-73) % Lymph % (Auto) 11.0 L (20-40) % [place] % (Auto) 11.5 H (2-11) % Eos % (Auto) 1.2 (0-4) % Baso % (Auto) 0.4 (0-2) % Lymph # (Auto) 0.9 L (1.2-4.9) X10*3/uL [place] # (Auto) 1.0 (0.1-1.2) X10*3/uL Eos # (Auto) 0.1 (0.0-0.4) X10*3/uL Baso # (Auto) 0.0 (0.0-0.2) X10*3/uL Abs Immat Gran (auto) 0.02 (0.00-0.03) X10*3/uL Absolute Neuts (auto) 6.5 (2.0-8.3) x10*3/uL Absolute Nucleated RBC 0.000 (0.0-0.012) X10*3/uL Nucleated RBC % (auto) 0.0 (0.0-0.2) /100WBC ESR (0-20) MM/HR PT (10.0-13.1) SEC INR (0.9-1.1) Sodium (135-145) mmol/L Potassium (3.3-5.1) mmol/L Chloride (96-108) mmol/L Carbon Dioxide (22-29) mmol/L Anion Gap (12-20) BUN (9-16) mg/dL Creatinine (0.5-1.4) mg/dL Estim Creat Clear Calc Estimated GFR Random Glucose (60-115) mg/dL Uric Acid (2.4-5.7) mg/dL Calcium (8.4-10.2) mg/dL Total Bilirubin (0.0-1.0) mg/dL AST (5-31) U/L ALT (0-31) U/L Alkaline Phosphatase (39-117) U/L C-Reactive Protein (< or = 0.50) mg/dL Total Protein (6.5-8.0) g/dL Albumin (3.5-5.0) g/dL COVID-19 ([facility]) Negative (Negative) COVID-19 Clin Com See Note <Carline Velasquez Ally, [employer] - Last Filed: 02/01/22 15:51> Lab Results 02/01/22 02/01/22 02/01/22 Range/Units 12:09 12:09 12:09 WBC (4.8-10.8) X10*3/uL RBC (4.20-5.50) X10*6/uL Hgb (12.0-16.0) g/dl Hct (37.0-47.0) % MCV (80.0-98.0) fL MCH (27.0-33.0) pg MCHC (31.0-35.0) g/dl RDW (11.0-16.0) % Plt Count (160-400) X10*3/uL MPV (9.4-12.3) fL Immature Gran % (Auto) (0.0-0.4) % Neut % (Auto) (45-73) % Lymph % (Auto) (20-40) % [place] % (Auto) (2-11) % Eos % (Auto) (0-4) % Baso % (Auto) (0-2) % Lymph # (Auto) (1.2-4.9) X10*3/uL [place] # (Auto) (0.1-1.2) X10*3/uL Eos # (Auto) (0.0-0.4) X10*3/uL Baso # (Auto) (0.0-0.2) X10*3/uL Abs Immat Gran (auto) (0.00-0.03) X10*3/uL Absolute Neuts (auto) (2.0-8.3) x10*3/uL Absolute Nucleated RBC (0.0-0.012) X10*3/uL Nucleated RBC % (auto) (0.0-0.2) /100WBC ESR 28 H (0-20) MM/HR PT 35.7 H (10.0-13.1) SEC INR 3.0 H (0.9-1.1) Sodium 139 (135-145) mmol/L Potassium 3.9 (3.3-5.1) mmol/L Chloride 95 L (96-108) mmol/L Carbon Dioxide 32 H (22-29) mmol/L Anion Gap 16 (12-20) BUN 115 H D (9-16) mg/dL Creatinine 1.58 H (0.5-1.4) mg/dL Estim Creat Clear Calc 23.4 Estimated GFR 31 Random Glucose 105 (60-115) mg/dL Uric Acid 15.1 H (2.4-5.7) mg/dL Calcium 10.5 H (8.4-10.2) mg/dL Total Bilirubin 0.6 (0.0-1.0) mg/dL AST 19 (5-31) U/L ALT 21 (0-31) U/L Alkaline Phosphatase 59 (39-117) U/L C-Reactive Protein 1.57 H (< or = 0.50) mg/dL Total Protein 8.5 H (6.5-8.0) g/dL Albumin 4.6 (3.5-5.0) g/dL COVID-19 ([facility]) (Negative) COVID-19 Clin Com 02/01/22 02/01/22 Range/Units 12:09 14:49 WBC 8.5 (4.8-10.8) X10*3/uL RBC 4.53 (4.20-5.50) X10*6/uL Hgb 14.0 (12.0-16.0) g/dl Hct 41.9 (37.0-47.0) % MCV 92.5 (80.0-98.0) fL MCH 30.9 (27.0-33.0) pg MCHC 33.4 (31.0-35.0) g/dl RDW 13.2 (11.0-16.0) % Plt Count 229 (160-400) X10*3/uL MPV 10.7 (9.4-12.3) fL Immature Gran % (Auto) 0.2 (0.0-0.4) % Neut % (Auto) 75.7 H (45-73) % Lymph % (Auto) 11.0 L (20-40) % [place] % (Auto) 11.5 H (2-11) % Eos % (Auto) 1.2 (0-4) % Baso % (Auto) 0.4 (0-2) % Lymph # (Auto) 0.9 L (1.2-4.9) X10*3/uL [place] # (Auto) 1.0 (0.1-1.2) X10*3/uL Eos # (Auto) 0.1 (0.0-0.4) X10*3/uL Baso # (Auto) 0.0 (0.0-0.2) X10*3/uL Abs Immat Gran (auto) 0.02 (0.00-0.03) X10*3/uL Absolute Neuts (auto) 6.5 (2.0-8.3) x10*3/uL Absolute Nucleated RBC 0.000 (0.0-0.012) X10*3/uL Nucleated RBC % (auto) 0.0 (0.0-0.2) /100WBC ESR (0-20) MM/HR PT (10.0-13.1) SEC INR (0.9-1.1) Sodium (135-145) mmol/L Potassium (3.3-5.1) mmol/L Chloride (96-108) mmol/L Carbon Dioxide (22-29) mmol/L Anion Gap (12-20) BUN (9-16) mg/dL Creatinine (0.5-1.4) mg/dL Estim Creat Clear Calc Estimated GFR Random Glucose (60-115) mg/dL Uric Acid (2.4-5.7) mg/dL Calcium (8.4-10.2) mg/dL Total Bilirubin (0.0-1.0) mg/dL AST (5-31) U/L ALT (0-31) U/L Alkaline Phosphatase (39-117) U/L C-Reactive Protein (< or = 0.50) mg/dL Total Protein (6.5-8.0) g/dL Albumin (3.5-5.0) g/dL COVID-19 ([facility]) Negative (Negative) COVID-19 Clin Com See Note <Estuardo Marquez MD - Last Filed: 02/01/22 13:52> Imaging Data Venous US: Radiologist's impression: US/US venous duplex LE LT IMPRESSION: No DVT identified in the left lower extremity. 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 Chondrocalcinosis. Slightly progressing degenerative changes involving the patellofemoral compartment. ? Left hip: Chondrocalcinosis. ? Pelvis: Degenerative and/or erosive changes in the symphysis pubis appears chronic ? 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 <Carline Canales CNP - Last Filed: 01/08 12/29 15:51> Discharge Plan Discharge Clinical Impression: Acute kidney injury, Dehydration, Chronic heart failure with preserved ejection fraction (HFpEF), Essential hypertension, Chronic gout, Arthritis <Carline Canales CNP - Last Filed: 02/01/22 15:51> Patient Disposition: Admitted As Inpatient <Carline Canales CNP - Last Filed: 02/01/22 15:51>
[2022-02-01] MEDS: Acetaminophen 325 MG TABLET 975 MG PO (11:08)
[2022-02-01 12:15] LABS: MANUAL DIFF FLAG NO
[2022-02-01 12:16] LABS: Basophils Percent Auto 0.4 % (0-2); Eosinophils Absolute Auto 0.1 X10*3/uL (0.0-0.4); Eosinophils Percent Auto 1.2 % (0-4); Hematocrit 41.9 % (37.0-47.0); Imm Gran Abs Auto 0.02 X10*3/uL (0.00-0.03); Imm Gran Pct Auto 0.2 % (0.0-0.4); Lymphocytes Absolute Auto 0.9 X10*3/uL (1.2-4.9); Mean Corpuscular HGB Conc 33.4 g/dl (31.0-35.0); Mean Corpuscular Hemoglobin 30.9 pg (27.0-33.0); Mean Corpuscular Volume 92.5 fL (80.0-98.0); Mean Platelet Volume 10.7 fL (9.4-12.3); Monocytes Percent Auto 11.5 % (2-11); Neutrophils Absolute Auto 6.5 x10*3/uL (2.0-8.3); Neutrophils Percent Auto 75.7 % (45-73); Platelet Count 229 X10*3/uL (160-400); Red Blood Count 4.53 X10*6/uL (4.20-5.50); Red Cell Distribution Width 13.2 % (11.0-16.0); White Blood Count 8.5 X10*3/uL (4.8-10.8)
[2022-02-01 12:23] LABS: Prothrombin Time 35.7 SEC (10.0-13.1)
[2022-02-01 12:40] LABS: Alanine Aminotransferase 21 U/L (0-31); Albumin Level 4.6 g/dL (3.5-5.0); Alkaline Phosphatase 59 U/L (39-117); Anion Gap 16 (12-20); Aspartate Amino Transferase 19 U/L (5-31); Bilirubin Total 0.6 mg/dL (0.0-1.0); C Reactive Protein 1.57 mg/dL (< or = 0.50); Calcium 10.5 mg/dL (8.4-10.2); Carbon Dioxide 32 mmol/L (22-29); Chloride 95 mmol/L (96-108); Creatinine Clr Calc Pharmacy 23.4; Estimated Glomerular Filt Rate 31; Glucose Random 105 mg/dL (60-115); Potassium 3.9 mmol/L (3.3-5.1); Sodium 139 mmol/L (135-145); Total Protein 8.5 g/dL (6.5-8.0); Uric Acid 15.1 mg/dL (2.4-5.7)
[2022-02-01 12:55] LABS: Erythrocyte Sedimentation Rate 28 MM/HR (0-20)
[2022-02-01 13:14] LABS: Blood Urea Nitrogen 115 mg/dL (9-16)
[2022-02-01 15:24] LABS: COVID-19 Test Negative (Negative)
--- NOTE | 2022-02-01 15:49 | P.HPHOSP_ITS ---
History of Present Illness Date of Service: 02/01/22 Chief Complaint: Left knee gout Patient presents emergency department for evaluation of pain to the left leg.? She reports onset of pain to be 2 days ago.? Pain is felt from her left knee and she feels it radiate up to the left hip.? She is having difficulty getting out of bed.? Feels that the pain is worse at night.? She reports a history of arthritis, chronic left knee pain, and history of gout to the bilateral great toes.? She denies any injury, no recent falls.? She states that she is on Coumadin for AFib, has her INR checked monthly, and reports compliance.? She has chronic lower extremity swelling, however the left leg is more swollen than the right, and she does feel that it is more swollen than typical.? Routine labs demonstrated a pre renal azotemia is markedly worse since last draw. Review of Systems Review of Systems: Denies chest pain Denies shortness of breath Denies nausea vomiting diarrhea Denies fever chills Admit to left knee pain progressively worse over last several days [facility] Medical History Acute gout Afib Chronic heart failure with preserved ejection fraction (HFpEF) Essential hypertension GERD (gastroesophageal reflux disease) Hypercalcemia Persistent atrial fibrillation Precordial chest pain Shortness of breath Sudden loss of vision Swelling of both lower extremities Family History Father No problems noted. Mother No problems noted. Surgical History History of appendectomy History of right knee joint replacement History of tonsillectomy Social History Housing: Apartment Alcohol intake: never Patient Tobacco Use Status: Never used Tobacco e-Cigarette/Vaping Use: Never Used Second Hand Smoke Exposure: No Advance Directives: Yes Advance Directives Information Provided: No Advance Directives on File: No service: No Current occupational status: unemployed and disabled Cognitive needs: Yes Hearing needs: No Vision needs: Yes Meds Allergies Allergy/AdvReac Type Severity Reaction Status Date / Time latex [Latex] Allergy Intermediate BLISTERS & Verified 02/01/22 09:27 ITCHING morphine [Morphine] Allergy Mild RASH, Verified 02/01/22 09:27 ITCHNG Active Medications: Current Medications Acetaminophen (Acetaminophen 325 Mg Tablet) 650 mg PO Q6H PRN PRN Reason: Pain, Mild (Pain Scale 1-3) Colchicine (Colchicine 0.6 Mg Tablet) 0.6 mg PO DAILY TIEN Stop: 02/04/22 15:44 Sodium Chloride (Ns) 1,000 mls @ 100 mls/hr IVCONT .Q10H TIEN Ondansetron HCl (Ondansetron Hcl 4 Mg/2 Ml Vial) 4 mg IVPUSH Q8H PRN PRN Reason: Nausea and Vomiting Pharmacy Consult (Consult Rx Perform Med Rec) 1 each MISCELLANE ONCE PRN PRN Reason: Consult order Pharmacy Consult (Consult Rx Perform Med Rec) 1 each MISCELLANE ONCE PRN PRN Reason: Consult order Sodium Chloride (0.9 % Sodium Chloride Flush 3 Ml Syringe) 3 ml IVFLUSH QSHIFT TIEN Tramadol HCl (Tramadol Hcl 50 Mg Tablet) 50 mg PO Q6H PRN PRN Reason: Pain, Moderate (Pain Scale 4-6 Home Medications Medication Instructions Recorded Confirmed Last Taken Type aspirin 81 mg tablet,delayed 81 mg PO DAILY 05/07/20 01/26/22 Unknown History release acetaminophen 500 mg tablet 500 mg PO Q6H PRN 05/18/21 01/26/22 Unknown History (Tylenol Extra Strength) brimonidine 0.025 % eye drops 1 drp ophthalmic (eye) BID 01/20/22 01/26/22 Unknown History dorzolamide 2 % eye drops 1 drp ophthalmic (eye) BID 01/20/22 01/26/22 Unknown History latanoprost 0.005 % eye drops 1 drp ophthalmic (eye) QPM 01/20/22 01/26/22 Unknown History Physical Exam Vital Signs and Narrative: Vital Signs: Last Vital Signs Temp 96.5 F L 02/01/22 09:27 Pulse 71 02/01/22 09:27 Resp 19 02/01/22 09:27 BP 131/52 L 02/01/22 09:27 Pulse Ox 97 02/01/22 09:27 O2 Del Method 02/01/22 09:27 BMI result Body Mass Index 34.5 Const: Other: Awake alert oriented x3 in no acute distress breathing comfortably on the stretcher Neck: Other: No JVD at 35 degrees Resp: Other: Clear to auscultation bilaterally no rales rhonchi or wheezes Cardio: Other: No S4 positive S1-S2 no S3 murmurs rubs or gallops GI: Other: Soft nontender nondistended normoactive bowel sounds Neuro: Other: Cranial nerves 2-12 grossly intact as tested. Motor is 5/5 bilaterally. Sensation intact cognition of Extrem: Other: No edema; mild left knee effusion Results Labs CBC and Chem 7: 02/01/22 12:09 02/01/22 12:09 Labs: Laboratory Results - last 24 hr 02/01/22 02/01/22 02/01/22 12:09 12:09 12:09 MCV MCH MCHC RDW Plt Count MPV Immature Gran % (Auto) Neut % (Auto) Lymph % (Auto) [place] % (Auto) Eos % (Auto) Baso % (Auto) Lymph # (Auto) [place] # (Auto) Eos # (Auto) Baso # (Auto) Abs Immat Gran (auto) Absolute Neuts (auto) Absolute Nucleated RBC Nucleated RBC % (auto) ESR 28 H PT 35.7 H INR 3.0 H Anion Gap 16 Estim Creat Clear Calc 23.4 Estimated GFR 31 Random Glucose 105 Uric Acid 15.1 H Calcium 10.5 H Total Bilirubin 0.6 AST 19 ALT 21 Alkaline Phosphatase 59 C-Reactive Protein 1.57 H Total Protein 8.5 H Albumin 4.6 COVID-19 ([facility]) COVID-19 Clin Com 02/01/22 02/01/22 12:09 14:49 MCV 92.5 MCH 30.9 MCHC 33.4 RDW 13.2 Plt Count 229 MPV 10.7 Immature Gran % (Auto) 0.2 Neut % (Auto) 75.7 H Lymph % (Auto) 11.0 L [place] % (Auto) 11.5 H Eos % (Auto) 1.2 Baso % (Auto) 0.4 Lymph # (Auto) 0.9 L [place] # (Auto) 1.0 Eos # (Auto) 0.1 Baso # (Auto) 0.0 Abs Immat Gran (auto) 0.02 Absolute Neuts (auto) 6.5 Absolute Nucleated RBC 0.000 Nucleated RBC % (auto) 0.0 ESR PT INR Anion Gap Estim Creat Clear Calc Estimated GFR Random Glucose Uric Acid Calcium Total Bilirubin AST ALT Alkaline Phosphatase C-Reactive Protein Total Protein Albumin COVID-19 ([facility]) Negative COVID-19 Clin Com See Note Imaging Radiologist's Impressions: Impressions Hip/Pelvis X-Ray 02/01/22 10:46 IMPRESSION: Mild to moderate osteoarthritis of the left knee. Chondrocalcinosis. Slightly progressing degenerative changes involving the patellofemoral compartment. Left hip: Chondrocalcinosis. 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 Knee X-Ray 02/01/22 10:46 IMPRESSION: Mild to moderate osteoarthritis of the left knee. Chondrocalcinosis. Slightly progressing degenerative changes involving the patellofemoral compartment. Left hip: Chondrocalcinosis. 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 Venous Duplex 02/01/22 11:47 IMPRESSION: No DVT identified in the left lower extremity. Assessment and Plan (1) Acute kidney injury: Status: Acute (2) Chronic heart failure with preserved ejection fraction (HFpEF): Status: Acute (3) Essential hypertension: Status: Acute (4) Persistent atrial fibrillation: Status: Acute Plan 86-year-old female with known history of gout presents initially for left knee pain and swelling that has worsened over the last 2 days. Routine labs were drawn and found to be abnormal with a BUN of 115 and creatinine that has doubled since October in the backdrop of Bumex and metolazone. 1. Acute kidney injury in backdrop of chronic heart failure with preserved ejection fraction -will hold Bumex this evening and metolazone in a.m. -1 L normal saline gently overnight-follow renals/divalents in am -consult Cards in am 2. Hypertension -acceptable control on current therapies -adjust as indicated when diuretics adjusted 3. Persistent atrial fibrillation -adequate rate control -hold Coumadin tonight; INR in a.m. 4. Acute gouty arthritis -continue colchicine 0.6 b.i.d. -pulse dose methylprednisolone while in house followed by steroid taper Full code Coumadin Will require 2 midnights going forward for volume repletion to correct over diuresis. This cannot be done and a lesser acute setting Quality Stroke Does the patient have a stroke diagnosis?: No VTE Prior VTE?: No VTE Risk Level:: Medical - moderate - high VTE Device Contraindication: Treatment Not Indicated VTE Drug Contraindication: N/A - Med Ordered
--- NOTE | 2022-02-01 15:54 | PHA.MEDREC ---
Pharmacy Consult ? Medication Reconciliation Pharmacy has completed the medication reconciliation.
[2022-02-01] MEDS: 0.9 % Sodium Chloride 1,000 ML 100 ML IVCONT (16:59)
--- NOTE | 2022-02-01 17:53 | PC.NURSE ---
Pharmacy contacted to [place] 0.[place] [facility] [place] not available in [facility].
[2022-02-01] MEDS: methylPREDNISolone Sod Succ 125 MG/2 ML VIAL IVPUSH (17:57)
[2022-02-01] MEDS: Colchicine 0.6 MG TABLET PO (19:00)
[2022-02-01] MEDS: hydrALAZINE HCl 25 MG TABLET PO (21:06)
[2022-02-01] MEDS: Potassium Chloride Packet 20 MEQ PACKET 40 MEQ PO (21:06)
[2022-02-01 21:07] VITALS: BP 148/45; PULSE 70; RESP 16; O2SAT 96
[2022-02-01] MEDS: 0.9 % Sodium Chloride Flush 3 ML SYRINGE IVFLUSH (21:07)
--- NOTE | 2022-02-01 23:31 | PC.NURSE ---
urine specimen collected and sent to lab for analysis. awaiting results.
[2022-02-01 23:42] LABS: Appearance Urine CLEAR; Color Urine YELLOW; Glucose Urine UA NEG (NEG); Leukocyte Esterase Urine NEG (NEG); Nitrite Urine NEG (NEG); PH 6.5 (5.0-8.0); Specific Gravity - Urine <= 1.005 (1.005-1.025); Urine Blood NEG (NEG); Urine Ketones NEG (NEG); Urine Protein NEG (NEG-TRACE)
--- NOTE | 2022-02-02 | ECG_ITS ---
Test Reason : afib Blood Pressure : / mmHG Vent. Rate : 063 BPM Atrial Rate : 000 BPM P-R Int : 000 ms QRS Dur : 096 ms QT Int : 428 ms P-R-T Axes : 000 007 017 degrees QTc Int : 437 ms Atrial fibrillation Cannot rule out Anterior infarct , age undetermined Abnormal ECG When compared with ECG of 19-MAR-2020 11:14, Nonspecific T wave abnormality now evident in Anterior leads Referred By: Sunday Marin Electronically Signed By:KANIKA DAVIS
[2022-02-02 04:57] LABS: Basophils Percent Auto 0.1 % (0-2); Hematocrit 39.5 % (37.0-47.0); Hemoglobin 13.4 g/dl (12.0-16.0); Imm Gran Abs Auto 0.02 X10*3/uL (0.00-0.03); Imm Gran Pct Auto 0.3 % (0.0-0.4); Lymphocytes Absolute Auto 0.5 X10*3/uL (1.2-4.9); Lymphocytes Percent Auto 6.5 % (20-40); MANUAL DIFF FLAG SCAN; Mean Corpuscular HGB Conc 33.9 g/dl (31.0-35.0); Mean Corpuscular Hemoglobin 31.3 pg (27.0-33.0); Mean Corpuscular Volume 92.3 fL (80.0-98.0); Monocytes Percent Auto 0.6 % (2-11); Neutrophils Absolute Auto 6.7 x10*3/uL (2.0-8.3); Neutrophils Percent Auto 92.5 % (45-73); Platelet Count 218 X10*3/uL (160-400); Red Blood Count 4.28 X10*6/uL (4.20-5.50); Red Cell Distribution Width 13.4 % (11.0-16.0); SCAN SMEAR FLAG 1; White Blood Count 7.3 X10*3/uL (4.8-10.8)
[2022-02-02 04:59] LABS: SLIDE REVIEW VERIFIED
[2022-02-02 05:08] LABS: INTERNATIONAL NORM RATIO 2.9 (0.9-1.1)
[2022-02-02 05:24] LABS: Alanine Aminotransferase 17 U/L (0-31); Albumin Level 4.2 g/dL (3.5-5.0); Alkaline Phosphatase 55 U/L (39-117); Anion Gap 17 (12-20); Aspartate Amino Transferase 19 U/L (5-31); Bilirubin Total 0.5 mg/dL (0.0-1.0); Blood Urea Nitrogen 111 mg/dL (9-16); Calcium 9.6 mg/dL (8.4-10.2); Carbon Dioxide 24 mmol/L (22-29); Chloride 105 mmol/L (96-108); Creatinine Clr Calc Pharmacy 26.8; Estimated Glomerular Filt Rate 36; Glucose Fasting 230 mg/dL (60-99); Potassium 3.9 mmol/L (3.3-5.1); Sodium 142 mmol/L (135-145); Total Protein 7.8 g/dL (6.5-8.0)
[2022-02-02 08:00] VITALS: BP 143/55; PULSE 74; RESP 16; O2SAT 96
[2022-02-02] MEDS: 0.9 % Sodium Chloride 1,000 ML 100 ML IVCONT (08:44)
[2022-02-02] MEDS: atenoloL 100 MG TABLET PO (09:31)
[2022-02-02] MEDS: amLODIPine Besylate 10 MG TABLET PO (09:31)
[2022-02-02] MEDS: hydrALAZINE HCl 25 MG TABLET PO (09:31)
[2022-02-02] MEDS: Aspirin Enteric Coated 81 MG TABLET.DR PO (09:32)
[2022-02-02 09:45] VITALS: BP 147/91; PULSE 82
--- NOTE | 2022-02-02 09:45 | PM.CNCAR ---
History of Present Illness History of Present Illness Date of Service: 02/02/22 Chief complaint: LACIE Narrative: This is a cardiology consultation regarding congestive heart failure/renal insufficiency. Patient is generally followed up in the office and and maintained on diuretics including Bumex and metolazone. Currently admission for pain in the left leg. She describes pain in the hip area as well as well as knee area. Some difficulty getting out of bed. However from a cardiac standpoint no specific symptoms. No angina. Shortness of breath is fairly controlled according to patient and no worse and in fact much better than before. Leg swelling is also much improved. She is noted to have elevated BUN and some elevation creatinine too. We have been asked to see her for further evaluation. Review of Systems Review of Systems: Yes all other systems are reviewed and are negative Constitutional: Constitutional: Reports as per HPI Eyes: Eyes: Reports as per HPI ENT: Reports as per HPI Cardiovascular: Cardiovascular: Reports as per HPI, Denies acrocyanosis, Denies cool extremities, Denies chest pain, Denies leg edema, Denies lightheadedness, Denies palpitations and Denies dyspnea Respiratory: Respiratory: Reports as per HPI, Reports no additional respiratory complaints and Denies dyspnea Gastrointestinal: Gastrointestinal: Reports as per HPI and Reports no additional gastrointestinal complaints Genitourinary: Genitourinary: Reports as per HPI Musculoskeletal: Musculoskeletal: Reports no additional musculoskeletal complaints, Reports as per HPI, Reports abnormal gait and Reports muscle cramps Integumentary/Breasts: Skin/Breast: Reports system reviewed and no additional complaints, except as docu Neurologic: Reports system reviewed and no additional complaints, except as documented, Reports as per HPI and Reports abnormal gait Psychiatric: Psychiatric: Reports no additional psychiatric complaints and Reports as per HPI Endocrine: Endocrine: Reports no additional endocrine complaints, Reports as per HPI and Denies palpitations Hematologic/Lymphatic: Hematologic/Lymphatic: Reports no additional hematologic/lymphatic complaints and Reports as per HPI Allergic/Immunologic: Allergic/Immunologic: Reports no additional allergic/immunologic complaints and Reports as per HPI PMF Past Medical History Medical History Acute gout Afib Chronic heart failure with preserved ejection fraction (HFpEF) Essential hypertension GERD (gastroesophageal reflux disease) Hypercalcemia Persistent atrial fibrillation Precordial chest pain Shortness of breath Sudden loss of vision Swelling of both lower extremities Family History Family History Father No problems noted. Mother No problems noted. Surgical History Surgical History History of appendectomy History of right knee joint replacement History of tonsillectomy Social History Social History Housing: Apartment Alcohol intake: never Patient Tobacco Use Status: Never used Tobacco e-Cigarette/Vaping Use: Never Used Second Hand Smoke Exposure: No Use of substances other than those prescribed or required for medical reasons: No Advance Directives: Yes Advance Directives Information Provided: No Advance Directives on File: No service: No Current occupational status: unemployed and disabled Cognitive needs: Yes Hearing needs: No Vision needs: Yes Meds Allergies Allergy/AdvReac Type Severity Reaction Status Date / Time latex [Latex] Allergy Intermediate BLISTERS & Verified 02/01/22 09:27 ITCHING morphine [Morphine] Allergy Mild RASH, Verified 02/01/22 09:27 ITCHNG Active Medications: Current Medications Acetaminophen (Acetaminophen 325 Mg Tablet) 650 mg PO Q6H PRN PRN Reason: Pain, Mild (Pain Scale 1-3) Amlodipine Besylate (Amlodipine Besylate 10 Mg Tablet) 10 mg PO DAILY [facility]; Protocol Last Admin: 02/02/22 09:31 Dose: 10 mg Aspirin (Aspirin Enteric Coated 81 Mg Tablet.Dr) 81 mg PO DAILY [facility] Last Admin: 02/02/22 09:32 Dose: 81 mg Atenolol (Atenolol 100 Mg Tablet) 100 mg PO DAILY TIEN; Protocol Last Admin: 02/02/22 09:31 Dose: 100 mg Colchicine (Colchicine 0.6 Mg Tablet) 0.6 mg PO DAILY TIEN Stop: 02/04/22 15:44 Last Admin: 02/02/22 09:32 Dose: Not Given Hydralazine HCl (Hydralazine Hcl 25 Mg Tablet) 25 mg PO TID TIEN; Protocol Last Admin: 02/02/22 09:31 Dose: 25 mg Sodium Chloride (Ns) 1,000 mls @ 100 mls/hr IVCONT .Q10H TIEN Last Admin: 02/02/22 08:44 Dose: 100 mls/hr Ondansetron HCl (Ondansetron Hcl 4 Mg/2 Ml Vial) 4 mg IVPUSH Q8H PRN PRN Reason: Nausea and Vomiting Pharmacy Consult (Consult Rx Perform Med Rec) 1 each MISCELLANE ONCE PRN PRN Reason: Consult order Pharmacy Consult (Consult Rx Perform Med Rec) 1 each MISCELLANE ONCE PRN PRN Reason: Consult order Potassium Chloride (Potassium Chloride Er 10 Meq Capsule.Er) 10 meq PO DAILY [facility] Last Admin: 02/02/22 09:32 Dose: 10 meq Sodium Chloride (0.9 % Sodium Chloride Flush 3 Ml Syringe) 3 ml IVFLUSH QSHIFT [facility] Last Admin: 02/02/22 08:45 Dose: Not Given Tramadol HCl (Tramadol Hcl 50 Mg Tablet) 50 mg PO Q6H PRN PRN Reason: Pain, Moderate (Pain Scale 4-6 Home Medications Medication Instructions Recorded Confirmed Last Taken Type aspirin 81 mg tablet,delayed 81 mg PO DAILY 05/07/20 02/01/22 02/01/22 08:00 History release acetaminophen 500 mg tablet 500 mg PO Q6H PRN Pain 05/18/21 02/01/22 02/01/22 08:00 History (Tylenol Extra Strength) brimonidine 0.025 % eye drops 1 drp ophthalmic (eye) BID 01/20/22 02/01/22 02/01/22 08:00 History dorzolamide 2 % eye drops 1 drp ophthalmic (eye) BID 01/20/22 02/01/22 02/01/22 08:00 History latanoprost 0.005 % eye drops 1 drp ophthalmic (eye) QPM 01/20/22 02/01/22 02/01/22 08:00 History Physical Exam Vital Signs: Vital Signs: Last Vital Signs Temp 96.5 F L 02/01/22 09:27 Pulse 74 02/02/22 08:00 Resp 16 02/02/22 08:00 BP 143/55 H 02/02/22 08:00 Pulse Ox 96 02/02/22 08:00 O2 Del Method 02/02/22 08:00 BMI result Body Mass Index 34.5 Const: General: comfortable and no acute distress Orientation/consciousness: patient oriented x3 HEENT: Other: Unremarkable Head: Yes normal to inspection Neck: Neck: Yes normal visual inspection Chest: Chest palpation & inspection: normal inspection of the chest Resp: Auscultation: clear to auscultation bilaterally Cardio: Palpation: normal PMI Heart sounds: S1 normal heart sound present, S2 normal heart sound present, no gallops, no murmurs and no rubs GI: Palpation (GI): Soft to palpation Back/Spine/Pelvis: Other: unremarkable Skin: General skin exam: no rashes or lesions noted Neuro: General: patient oriented x3 Extrem: Other: No significant edema. General: Yes normal to inspection Psych: Mental Status: mental status grossly normal Objective Labs and Meds Result diagrams: 02/02/22 04:46 02/02/22 04:46 Lab results: Laboratory Results - last 24 hr 02/01/22 02/01/22 02/01/22 12:09 12:09 12:09 WBC RBC Hgb Hct MCV MCH MCHC RDW Plt Count MPV Immature Gran % (Auto) Neut % (Auto) Lymph % (Auto) [place] % (Auto) Eos % (Auto) Baso % (Auto) Lymph # (Auto) [place] # (Auto) Eos # (Auto) Baso # (Auto) Abs Immat Gran (auto) Absolute Neuts (auto) Absolute Nucleated RBC Nucleated RBC % (auto) Smear Tech's Comments ESR 28 H PT 35.7 H INR 3.0 H Sodium 139 Potassium 3.9 Chloride 95 L Carbon Dioxide 32 H Anion Gap 16 BUN 115 H D Creatinine 1.58 H Estim Creat Clear Calc 23.4 Estimated GFR 31 Random Glucose 105 Fasting Glucose Uric Acid 15.1 H Calcium 10.5 H Total Bilirubin 0.6 AST 19 ALT 21 Alkaline Phosphatase 59 C-Reactive Protein 1.57 H Total Protein 8.5 H Albumin 4.6 Urine Color Urine Appearance Urine pH Ur Specific [place] Urine Protein Urine Glucose (UA) Urine Ketones Urine Blood Urine Nitrite Ur Leukocyte Esterase COVID-19 ([facility]) COVID-19 Clin Com 02/01/22 02/01/22 02/01/22 12:09 14:49 23:31 WBC 8.5 RBC 4.53 Hgb 14.0 Hct 41.9 MCV 92.5 MCH 30.9 MCHC 33.4 RDW 13.2 Plt Count 229 MPV 10.7 Immature Gran % (Auto) 0.2 Neut % (Auto) 75.7 H Lymph % (Auto) 11.0 L [place] % (Auto) 11.5 H Eos % (Auto) 1.2 Baso % (Auto) 0.4 Lymph # (Auto) 0.9 L [place] # (Auto) 1.0 Eos # (Auto) 0.1 Baso # (Auto) 0.0 Abs Immat Gran (auto) 0.02 Absolute Neuts (auto) 6.5 Absolute Nucleated RBC 0.000 Nucleated RBC % (auto) 0.0 Smear Tech's Comments ESR PT INR Sodium Potassium Chloride Carbon Dioxide Anion Gap BUN Creatinine Estim Creat Clear Calc Estimated GFR Random Glucose Fasting Glucose Uric Acid Calcium Total Bilirubin AST ALT Alkaline Phosphatase C-Reactive Protein Total Protein Albumin Urine Color YELLOW Urine Appearance CLEAR Urine pH 6.5 Ur Specific [place] <= 1.005 Urine Protein NEG Urine Glucose (UA) NEG Urine Ketones NEG Urine Blood NEG Urine Nitrite NEG Ur Leukocyte Esterase NEG COVID-19 ([facility]) Negative COVID-19 Clin Com See Note 02/02/22 02/02/22 02/02/22 04:46 04:46 04:46 WBC 7.3 RBC 4.28 Hgb 13.4 Hct 39.5 MCV 92.3 MCH 31.3 MCHC 33.9 RDW 13.4 Plt Count 218 MPV 11.0 Immature Gran % (Auto) 0.3 Neut % (Auto) 92.5 H Lymph % (Auto) 6.5 L [place] % (Auto) 0.6 L Eos % (Auto) 0.0 Baso % (Auto) 0.1 Lymph # (Auto) 0.5 L [place] # (Auto) 0.0 L Eos # (Auto) 0.0 Baso # (Auto) 0.0 Abs Immat Gran (auto) 0.02 Absolute Neuts (auto) 6.7 Absolute Nucleated RBC 0.000 Nucleated RBC % (auto) 0.0 Smear Tech's Comments VERIFIED ESR PT 35.0 H INR 2.9 H Sodium 142 Potassium 3.9 Chloride 105 Carbon Dioxide 24 Anion Gap 17 BUN 111 H Creatinine 1.38 Estim Creat Clear Calc 26.8 Estimated GFR 36 Random Glucose Fasting Glucose 230 H Uric Acid Calcium 9.6 D Total Bilirubin 0.5 AST 19 ALT 17 Alkaline Phosphatase 55 C-Reactive Protein Total Protein 7.8 Albumin 4.2 Urine Color Urine Appearance Urine pH Ur Specific [place] Urine Protein Urine Glucose (UA) Urine Ketones Urine Blood Urine Nitrite Ur Leukocyte Esterase COVID-19 ([facility]) COVID-19 Clin Com ECG Interpretation: No EKG in the chart. Requested to hospitalist. Imaging Radiologist's impression: Impressions Hip/Pelvis X-Ray 02/01/22 10:46 IMPRESSION: Mild to moderate osteoarthritis of the left knee. Chondrocalcinosis. Slightly progressing degenerative changes involving the patellofemoral compartment. Left hip: Chondrocalcinosis. 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 Knee X-Ray 02/01/22 10:46 IMPRESSION: Mild to moderate osteoarthritis of the left knee. Chondrocalcinosis. Slightly progressing degenerative changes involving the patellofemoral compartment. Left hip: Chondrocalcinosis. 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 Venous Duplex 02/01/22 11:47 IMPRESSION: No DVT identified in the left lower extremity. Assessment and Plan (1) Persistent atrial fibrillation: Status: Acute (2) Chronic heart failure with preserved ejection fraction (HFpEF): Status: Acute (3) Acute kidney injury: Status: Acute Plan We do not have any EKG in the system. With regard to labs, creatinine 1.38. BUN is 111. In October, it was 33. Creatinine is 1.38. In October it was 0.8. Overall, acute kidney injury that could be from diuretics use. It seems that she is getting some IV fluids that is quite reasonable. Otherwise, she is on Bumex metolazone at home and we will need to adjust dosing accordingly. Probably just keep her on Bumex and use metolazone only as needed or chest once a week. Otherwise, she also has elevated uric acid and CRP/ESR. Not sure if she also has gout. Will check with Dr. Marin. Procedures Date of Service Date of Service: 02/02/22
--- NOTE | 2022-02-02 09:46 | PC.NURSE ---
pt alert and oriented on first contact, pleasant in conversation, rr even/unlabored. no distress noted at this time. pt is sitting upright, reports eating breakfast this morning. took morning medications without issue, iv fluids infusing at this time. pt reports feeling comfortable in stretcher at this time, refusing morning colchicine d/t i took a dose yesterday and when i take it at home i get incredible diarrhea, and i had a dose yesterday and i dont even think im having a gout flare .
--- NOTE | 2022-02-02 11:13 | MHC.CM.PN ---
Met with patient in regards to discharge planning. Patient lives with her daughter, ambulates with a cane and had no services prior to coming to the hospital. No services anticipated to be needed because patient is not homebound. PCP verified. Patient received 3 Moderna vaccines. Patient has a HCP at home and will attempt to obtain a copy. IMM explained and signed. Patient's son will transport her home when medically stable. Continue to monitor for d/c needs.
--- NOTE | 2022-02-02 14:05 | P.DS_ITS ---
DS: Providers Provider Date of Service: 02/02/22 Date of admission: 02/01/22 15:32 Date of discharge: 02/02/22 Primary care physician: Marybel Whitley MD Consults: 02/02/22 09:07 Consult to Cardiology Stat Consulting Provider: Yovany Garibay Reason for consultation: Afib Has provider been notified: Yes DS: Diagnosis Discharge Diagnosis (1) Persistent atrial fibrillation: Status: Acute (2) Chronic heart failure with preserved ejection fraction (HFpEF): Status: Acute (3) Acute kidney injury: Status: Acute DS: Summary Hospital Course Hospital Course: Patient presents emergency department for evaluation of pain to the left leg.? She reports onset of pain to be 2 days ago.? Pain is felt from her left knee and she feels it radiate up to the left hip.? She is having difficulty getting out of bed.? Feels that the pain is worse at night.? She reports a history of arthritis, chronic left knee pain, and history of gout to the bilateral great toes.? She denies any injury, no recent falls.? She states that she is on Coumadin for AFib, has her INR checked monthly, and reports compliance.? She has chronic lower extremity swelling, however the left leg is more swollen than the right, and she does feel that it is more swollen than typical.? Routine labs demonstrated a pre renal azotemia is markedly worse since last draw. Hospital course Patient admitted given Solu-Medrol and colchicine for gouty pain. Also given gentle IV fluids overnight and diuresis held. Seen in consultation by her [employer] and b [employer] worker, Dr. Garibay and was decided that she would be discharged home to resume Bumex and hold metolazone. On the day of discharge she is pain-free from her gout standpoint and will complete a course of tapering prednisone. She will get follow-up labs in 1 week in follow-up with Dr. Gordillo for Time Spent with Patient Time attestation: Total time spent providing and/or coordinating discharge services: Discharge coordination time: Greater than 30 minutes Quality: Safe Use of Opioids Does Pt have an Active Cancer Diagnosis on the Problem List?: No Quality: Stroke Does the patient have a stroke diagnosis?: No Physical Exam Vital Signs: Vital Signs: Last Vital Signs Temp 96.5 F L 02/01/22 09:27 Pulse 82 07/27/22 09:45 Resp 16 02/02/22 08:00 BP 147/91 H 02/02/22 09:45 Pulse Ox 96 02/02/22 08:00 O2 Del Method 02/02/22 08:00 BMI result Body Mass Index 34.5 Const: Other: Awake alert oriented x3 in no acute distress breathing comfortably on the stretcher Neck: Other: No JVD at 35 degrees Resp: Other: Clear to auscultation bilaterally no rales rhonchi or wheezes Cardio: Other: No S4 positive S1-S2 no S3 murmurs rubs or gallops GI: Other: Soft nontender nondistended normoactive bowel sounds Neuro: Other: Cranial nerves 2-12 grossly intact as tested. Motor is 5/5 bilaterally. Sensation intact cognition of Extrem: Other: No edema; mild left knee effusion DS: Data Data Completed and Pending Labs on day of discharge: Laboratory Results - last 24 hr 02/01/22 02/01/22 02/02/22 14:49 23:31 04:46 WBC 7.3 RBC 4.28 Hgb 13.4 Hct 39.5 MCV 92.3 MCH 31.3 MCHC 33.9 RDW 13.4 Plt Count 218 MPV 11.0 Immature Gran % (Auto) 0.3 Neut % (Auto) 92.5 H Lymph % (Auto) 6.5 L [place] % (Auto) 0.6 L Eos % (Auto) 0.0 Baso % (Auto) 0.1 Lymph # (Auto) 0.5 L [place] # (Auto) 0.0 L Eos # (Auto) 0.0 Baso # (Auto) 0.0 Abs Immat Gran (auto) 0.02 Absolute Neuts (auto) 6.7 Absolute Nucleated RBC 0.000 Nucleated RBC % (auto) 0.0 Smear Tech's Comments VERIFIED PT INR Sodium Potassium Chloride Carbon Dioxide Anion Gap BUN Creatinine Estim Creat Clear Calc Estimated GFR Fasting Glucose Calcium Total Bilirubin AST ALT Alkaline Phosphatase Total Protein Albumin Urine Color YELLOW Urine Appearance CLEAR Urine pH 6.5 Ur Specific [place] <= 1.005 Urine Protein NEG Urine Glucose (UA) NEG Urine Ketones NEG Urine Blood NEG Urine Nitrite NEG Ur Leukocyte Esterase NEG COVID-19 ([facility]) Negative COVID-19 Clin Com See Note 02/02/22 02/02/22 04:46 04:46 WBC RBC Hgb Hct MCV MCH MCHC RDW Plt Count MPV Immature Gran % (Auto) Neut % (Auto) Lymph % (Auto) [place] % (Auto) Eos % (Auto) Baso % (Auto) Lymph # (Auto) [place] # (Auto) Eos # (Auto) Baso # (Auto) Abs Immat Gran (auto) Absolute Neuts (auto) Absolute Nucleated RBC Nucleated RBC % (auto) Smear Tech's Comments PT 35.0 H INR 2.9 H Sodium 142 Potassium 3.9 Chloride 105 Carbon Dioxide 24 Anion Gap 17 BUN 111 H Creatinine 1.38 Estim Creat Clear Calc 26.8 Estimated GFR 36 Fasting Glucose 230 H Calcium 9.6 D Total Bilirubin 0.5 AST 19 ALT 17 Alkaline Phosphatase 55 Total Protein 7.8 Albumin 4.2 Urine Color Urine Appearance Urine pH Ur Specific [place] Urine Protein Urine Glucose (UA) Urine Ketones Urine Blood Urine Nitrite Ur Leukocyte Esterase COVID-19 ([facility]) COVID-19 Clin Com Discharge Plan Discharge Patient Disposition: Home, Self-Care Discharge Diagnosis: acute kidney injury Referrals: Marybel Ko MD [Primary Care Provider] - 1 Week Discharge Medications: New prednisone 20 mg tablet See Rx Instructions .Route .COMPLEX Qty: 18 0RF Rx Instructions: 20 mg orally; 3 tabs daily for 3 days, 2 tabs daily for 3 days, 1 tab daily for 3 days Continued nitrofurantoin macrocrystal 100 mg capsule 100 mg PO DAILY 90 Days Qty: 90 2RF bumetanide 1 mg tablet 2 mg PO BID 90 Days Qty: 360 3RF potassium chloride 10 mEq tablet extended release 10 meq PO DAILY Qty: 90 3RF valsartan 320 mg tablet 320 mg PO DAILY 90 Days Qty: 90 3RF colchicine 0.6 mg tablet 0.6 mg PO BID 30 Days Qty: 60 0RF omeprazole 20 mg capsule,delayed release(DR/EC) 20 mg PO DAILY Qty: 90 2RF acetaminophen [Tylenol Extra Strength] 500 mg tablet 500 mg PO Q6H PRN (Reason: Pain) amlodipine 10 mg tablet 10 mg PO DAILY 90 Days Qty: 90 3RF atenolol 50 mg tablet 100 mg PO DAILY Qty: 180 2RF warfarin 5 mg tablet 5 mg PO DAILY 90 Days Qty: 90 2RF Protocol: Dose Management Condition: Monday (Week One) Dose/Route: 5 mg Instruction: 1 x 5 mg tablet Condition: Monday Dose/Route: 5 mg Instruction: 1 x 5 mg tablet Condition: Monday Dose/Route: 5 mg Instruction: 1 x 5 mg tablet Condition: Monday Dose/Route: 5 mg Instruction: 1 x 5 mg tablet Condition: Dose/Route: 5 mg Instruction: 1 x 5 mg tablet Condition: Monday Dose/Route: 5 mg Instruction: 1 x 5 mg tablet Condition: Monday Dose/Route: 5 mg Instruction: 1 x 5 mg tablet Condition: Monday (Week Two) Dose/Route: 5 mg Instruction: 1 x 5 mg tablet Condition: Monday Dose/Route: 5 mg Instruction: 1 x 5 mg tablet Condition: Monday Dose/Route: 5 mg Instruction: 1 x 5 mg tablet Condition: Monday Dose/Route: 5 mg Instruction: 1 x 5 mg tablet Condition: Dose/Route: 5 mg Instruction: 1 x 5 mg tablet Condition: Monday Dose/Route: 5 mg Instruction: 1 x 5 mg tablet Condition: Monday Dose/Route: 5 mg Instruction: 1 x 5 mg tablet Protocol Text: Adjustment Start Date: 01/20/22 INR Value: 3.1 INR Date: 01/20/22 Recheck Date: 02/17/22 Additional Instructions: cont reg dosing eat greens for 2 days call with any medication changes hydralazine 25 mg tablet 25 mg PO TID 90 Days Qty: 270 1RF aspirin 81 mg tablet,delayed release (DR/EC) 81 mg PO DAILY latanoprost 0.005 % drops 1 drp ophthalmic (eye) QPM dorzolamide 2 % drops 1 drp ophthalmic (eye) BID brimonidine 0.025 % drops 1 drp ophthalmic (eye) BID Discontinued metolazone 2.5 mg tablet 2.5 mg PO .twice/week Qty: 10 5RF Discharge Orders: Discharge Order (Routine); Ordered 02/02/22 Ordered By: Sunday Marin Diet: Advance to usual diet Activity on Discharge: As tolerated Stand Alone Forms: Patient Portal Discharge page Care Plan Goals: Continue Bumex at previous dosing. Stop metolazone. Complete prednisone taper as ordered follow instructions on bottle Health Concerns: Continue to drink fluids Plan of Treatment: Will need to have labs drawn 1 week; labs will be in computer just come to outpatient and they will register you. Follow-up with Dr. Garibay:02/14/22 2:45pm Assessment: See discharge summary
== END 2022-02-02 14:39 | disposition home or self-care (01) | DRG 683 ==
LOC: HO.ED 15:19 → HO.EDOVER 15:39 → HO.S3 02-02 11:06 → HO.EDOVER 02-02 11:44
PROVIDERS: Nurse Practitioner Family; Admitting Provider Hospitalist; Emergency Provider Emergency Medicine; PCP Internal Medicine; Visit Provider Hospitalist
DX: N17.9 Acute kidney failure, unspecified (principal); I48.19 Other persistent atrial fibrillation; I50.32 Chronic diastolic (congestive) heart failure; I11.0 Hypertensive heart disease with heart failure; E86.0 Dehydration; M10.9 Gout, unspecified; Z96.651 Presence of right artificial knee joint; Z91.040 Latex allergy status; Z20.822 Contact with and (suspected) exposure to COVID-19; Z88.5 Allergy status to narcotic agent; Z79.01 Long term (current) use of anticoagulants; Z79.82 Long term (current) use of aspirin; Z79.899 Other long term (current) drug therapy
CPT/HCPCS: 36415; 73502; 73564; 80053; 81003; 84550; 85025; 85610; 85652; 86140; 87635; 93005; 93971; 99284; 99285; J2930

== ENCOUNTER 2022-02-07 07:48 | Outpatient (REF) | payer MEDICARE, SELFPAY ==
[2022-02-07 08:16] LABS: MANUAL DIFF FLAG NO
[2022-02-07 08:29] LABS: Basophils Percent Auto 0.1 % (0-2); Eosinophils Percent Auto 0.2 % (0-4); Hematocrit 41.3 % (37.0-47.0); Hemoglobin 13.9 g/dl (12.0-16.0); Imm Gran Abs Auto 0.07 X10*3/uL (0.00-0.03); Imm Gran Pct Auto 0.6 % (0.0-0.4); Lymphocytes Absolute Auto 1.2 X10*3/uL (1.2-4.9); Lymphocytes Percent Auto 10.5 % (20-40); Mean Corpuscular HGB Conc 33.7 g/dl (31.0-35.0); Mean Corpuscular Hemoglobin 31.2 pg (27.0-33.0); Mean Corpuscular Volume 92.6 fL (80.0-98.0); Mean Platelet Volume 10.9 fL (9.4-12.3); Monocytes Absolute Auto 0.9 X10*3/uL (0.1-1.2); Monocytes Percent Auto 7.6 % (2-11); Neutrophils Absolute Auto 9.4 x10*3/uL (2.0-8.3); Platelet Count 245 X10*3/uL (160-400); Red Blood Count 4.46 X10*6/uL (4.20-5.50); Red Cell Distribution Width 13.3 % (11.0-16.0); White Blood Count 11.6 X10*3/uL (4.8-10.8)
[2022-02-07 08:45] LABS: Alanine Aminotransferase 32 U/L (0-31); Albumin Level 4.5 g/dL (3.5-5.0); Alkaline Phosphatase 45 U/L (39-117); Anion Gap 17 (12-20); Aspartate Amino Transferase 23 U/L (5-31); Bilirubin Total 0.8 mg/dL (0.0-1.0); Blood Urea Nitrogen 61 mg/dL (9-16); Calcium 9.7 mg/dL (8.4-10.2); Carbon Dioxide 28 mmol/L (22-29); Chloride 101 mmol/L (96-108); Cholesterol 168 mg/dL; Estimated Glomerular Filt Rate 45; Glucose Fasting 111 mg/dL (60-99); HDL Cholesterol 49 mg/dL; LDL Cholesterol Calculated 93 mg/dl; Potassium 3.7 mmol/L (3.3-5.1); Sodium 142 mmol/L (135-145); Total Protein 7.9 g/dL (6.5-8.0); Triglycerides 132 mg/dL; Uric Acid 13.6 mg/dL (2.4-5.7)
[2022-02-09 05:15] LABS: NT-proBNP 3010 pg/mL
== END 2022-02-07 07:49 | disposition home or self-care (01) ==
LOC: HO.LAB 07:48
PROVIDERS: PCP Internal Medicine; Visit Provider Internal Medicine
DX: I11.0 Hypertensive heart disease with heart failure (principal); I50.32 Chronic diastolic (congestive) heart failure; E78.5 Hyperlipidemia, unspecified; M10.9 Gout, unspecified; I48.19 Other persistent atrial fibrillation
CPT/HCPCS: 36415; 80053; 80061; 83880; 84550; 85025

== ENCOUNTER → 2022-02-09 09:32 | Outpatient (BNVA) | payer MEDICARE, SELFPAY | PROVIDERS: PCP Internal Medicine; Referring Provider Internal Medicine; Visit Provider Internal Medicine | DX: I50.32 Chronic diastolic (congestive) heart failure (principal); I48.19 Other persistent atrial fibrillation; I10 Essential (primary) hypertension; R94.39 Abnormal result of other cardiovascular function study; Z79.899 Other long term (current) drug therapy; Z79.01 Long term (current) use of anticoagulants | CPT/HCPCS: 99212 ==

== ENCOUNTER → 2022-02-17 08:53 | Outpatient (BNVA) | payer MEDICARE, SELFPAY | PROVIDERS: PCP Internal Medicine; Visit Provider Internal Medicine | DX: I48.0 Paroxysmal atrial fibrillation (principal); Z79.01 Long term (current) use of anticoagulants; Z51.81 Encounter for therapeutic drug level monitoring | CPT/HCPCS: 85610; 99211 ==

== ENCOUNTER → 2022-03-01 08:13 | Outpatient (REF) | payer MEDICARE, SELFPAY ==
--- NOTE | 2022-03-01 08:18 | CA_ITS ---
Transthoracic Echocardiogram Patient (Last, First, Middle): Ruth Ann Nunes A Gender: Female Date of : 1935 Age: 86 Procedure Date: 03/01/2022 Procedure Type: Transthoracic Echocardiogram Location: OP Height: 149.86 cm Weight: 77.57 kg BSA: 1.73 m2 Heart Rate: bpm BP: 110 / 50 mmHg Barmaid: TO Referring MD: Marybel Whitley MD Symptoms: I50.32 - Chronic diastolic (congestive) heart failure Study Quality: Technically Difficult/ No IV access x4 ECG Rhythm: Atrial Fibrillation Conclusions: - The left ventricular systolic function is normal. The calculated ejection fraction is 56% by biplane method. - The left atrium is moderately dilated. - There is mild aortic valve regurgitation. Findings Left Ventricle Normal left ventricular cavity size. There is mildly increased left ventricular wall thickness. The left ventricular systolic function is normal. The calculated ejection fraction is 56% by biplane method. There is no evidence of regional wall motion abnormalities. Diastolic function is indeterminate on the basis of available data. There is moderate septal asymmetric hypertrophy. Right Ventricle Normal right ventricular cavity size and systolic function. Atria The left atrium is moderately dilated. The right atrium is normal in size. Aortic Valve There is a normal trileaflet aortic valve. There is mild calcification of the aortic valve. There is no aortic valve stenosis. There is mild aortic valve regurgitation. Mitral Valve The mitral valve appears normal. There is mild mitral annular calcification. There is trace mitral valve regurgitation. There is no mitral valve stenosis. Pulmonic Valve The pulmonic valve is likely normal. Tricuspid Valve Normal tricuspid valve structure. There is trace tricuspid valve regurgitation. The pulmonary artery systolic pressure is normal. Great Vessels The aortic annulus, sinuses of valsalva, and asc aorta are normal in size. Venous The inferior vena cava is normal in size and collapses greater than 50% with inspiration. Pericardium/Pleural There is no evidence of pericardial effusion. Prior Study Comparison No significant change compared to prior study dated: 04/17/2020. Measurements 2D Linear Measurements IVSd: 1.37 0.6-0.9/0.6-1.0 cm LVIDd: 4.15 3.9-5.3/4.2-5.9 cm LVIDd Index: 2.40 2.4-3.2/2.2-3.1 cm/m2 LVIDs: 3.19 2.0-3.6 cm LVPWd: 1.06 0.7-1.1 cm LA Diam: 4.40 2.7-3.8/3.0-4.0 cm LAIDs Index: 2.54 1.5-2.3 cm/m2 LV Mass: 221.95 67-162/88-224 g LV Mass Index: 128.30 43-95/49-115 g/m2 LVOT Diam: 2.00 3.0+(-)1.3 cm 2D Systolic Function EF 4C: 57.60 >55% EF 2C: 52.70 >55% EF BiP: 56.10 >55% Mitral Valve MV Pk E: 1.07 MV Decel Time: 222.00 E'Lateral: 8.05 E'Medial: 6.74 E/E' Med: 15.90 E/E' Lat: 13.30 PHT: 65.00 MVA PHT: 3.38 Decel Bath: 4.81 Aortic Valve AoV Pk Andrew: 1.08 AoV Mn Andrew: 0.67 AoV VTI: 0.22 AoV Pk Grad: 5.00 Aov Mn Grad: 2.00 BONILLA Cont.VTI: 2.58 LVOT LVOT Pk Andrew: 0.76 LVOT Mn Andrew: 0.49 LVOT VTI: 0.18 LVOT Pk Grad: 2.00 LVOT Mn Grad: 1.00 LVOT Diam: 2.00 LVOT Area: 3.14 Diastolic Function MV Pk E: 1.07 E'Medial: 6.74 E/E' Med: 15.90 E' Laterial: 8.05 E/E' Lat: 13.30 Right Ventricle TAPSE (mm): 20.00 TVS' Andrew: 9.79 Tricuspid Valve TR Pk Andrew: 2.10 TR Pk Grad: 18.00 RA Press: 3.00 RVSP: 21.00 Great Vessels Aorta Sinus of Valsalva: 3.75 2.0-3.5 cm Ao Asc: 3.80 2.1-3.4 cm Updated in Other Vendor System with Status of Final Yovany Garibay MD electronically signed on 03/02/2022 12:56:41 PM with status of Final
== END ==
LOC: HO.CARD 08:13
PROVIDERS: Visit Provider Internal Medicine
DX: I50.32 Chronic diastolic (congestive) heart failure (principal)
CPT/HCPCS: 93306

== ENCOUNTER 2022-03-08 09:00 | Emergency (ER) | payer MEDICARE, SELFPAY ==
--- NOTE | 2022-03-08 09:25 | ECG_ITS ---
Test Reason : LOW BACK PAIN Blood Pressure : / mmHG Vent. Rate : 075 BPM Atrial Rate : 069 BPM P-R Int : 000 ms QRS Dur : 096 ms QT Int : 388 ms P-R-T Axes : 000 019 029 degrees QTc Int : 433 ms Atrial fibrillation Nonspecific ST and T wave abnormality Abnormal ECG When compared with ECG of 02-FEB-2022 11:40, Minimal criteria for Anterior infarct are no longer Present Referred By: Beatriz Hooker Electronically Signed By:DEANNA WILKES
[2022-03-08 09:42] VITALS: BP 132/68; BP 134/60; PULSE 70; PULSE 80; RESP 16; TEMP 37; O2SAT 96; BMI 34.5
--- NOTE | 2022-03-08 09:48 | ED_ITS ---
HPI - General Adult General Chief complaint: Back Pain/Injury Stated complaint: BACK & LEG PAIN W/ HX OF PER EMS Time Seen by Provider: 03/08/22 09:14 Source: patient Mode of arrival: ambulatory History of Present Illness HPI narrative: 86-year-old female with a past medical history of AFib on Coumadin, arthritis, chronic knee pain, gout, presenting to the ED via EMS complaining of left low back pain radiating down LLE x4 days. Call PCP and started muscle relaxers without relief. Admits to similar symptoms in the past. Reports pain is for happening her from ambulating. Also reports acute on chronic bilateral LE edema. Denies known injury/trauma or fall, numbness, tingling, weakness, urinary incontinence/retention, fever, new or worsening SOB, CP Onset (ago): day(s) Related Data Home Medications Medication Instructions Recorded Confirmed aspirin 81 mg tablet,delayed 81 mg PO DAILY 05/07/20 02/17/22 release acetaminophen 500 mg tablet 500 mg PO Q6H PRN Pain 05/18/21 02/17/22 (Tylenol Extra Strength) brimonidine 0.025 % eye drops 1 drp ophthalmic (eye) BID 01/20/22 02/17/22 dorzolamide 2 % eye drops 1 drp ophthalmic (eye) BID 01/20/22 02/17/22 latanoprost 0.005 % eye drops 1 drp ophthalmic (eye) QPM 01/20/22 02/17/22 Previous Rx's Medication Instructions Recorded bumetanide 1 mg tablet 2 mg PO BID 90 days #360 tabs 05/17/21 potassium chloride 10 mEq 10 meq PO DAILY #90 tabs 08/31/21 tablet,extended release valsartan 320 mg tablet 320 mg PO DAILY 90 days #90 tabs 10/02/21 colchicine 0.6 mg tablet 0.6 mg PO BID 30 days #60 tabs 11/19/21 omeprazole 20 mg capsule,delayed 20 mg PO DAILY #90 caps 12/12/21 release amlodipine 10 mg tablet 10 mg PO DAILY 90 days #90 tabs 01/26/22 atenolol 50 mg tablet 100 mg PO DAILY #180 tabs 01/26/22 hydralazine 25 mg tablet 25 mg PO TID 90 days #270 tabs 01/26/22 warfarin 5 mg tablet 5 mg PO DAILY 90 days #90 tabs 01/26/22 metolazone 2.5 mg tablet 2.5 mg PO DAILY PRN edema 30 days 02/17/22 #14 tabs cyclobenzaprine 10 mg tablet 10 mg PO BEDTIME PRN muscle spasm 03/07/22 7 days #7 tabs acetaminophen 500 mg tablet 500 mg PO Q6H PRN fever or pain 03/08/22 (Tylenol Extra Strength) #14 tabs lidocaine 5 % topical patch 1 patch topical DAILY PRN pain #30 03/08/22 (Lidoderm) ea prednisone 20 mg tablet 40 mg PO DAILY 5 days #10 tabs 03/08/22 tramadol 50 mg tablet 50 mg PO Q8H PRN pain, severe #9 03/08/22 tabs Allergies Allergy/AdvReac Type Severity Reaction Status Date / Time latex [Latex] Allergy Intermediate BLISTERS & Verified 02/17/22 10:07 ITCHING morphine [Morphine] Allergy Mild RASH, Verified 02/17/22 10:07 ITCHNG Review of Systems Review of Systems: Constitutional: No Fever, No Chills, No Fatigue, No Malaise ENT/Mouth: No Ear Pain, No Nasal Congestion, No sore throat, No Rhinorrhea Eyes: No Eye Pain, No Swelling, No Redness, No Vision Changes Cardiovascular: No Chest Pain, No SOB, No Dyspnea on Exertion, +chronic Edema, No Palpitations Respiratory: No Cough, No Sputum, No Dyspnea Gastrointestinal: No Nausea, No Vomiting, No Diarrhea, No Constipation, No Abdominal pain Genitourinary: No Dysuria, No Urinary Frequency, No Hematuria, No Urinary Incontinence/retention, No Flank Pain, No Urinary Flow Changes Musculoskeletal: + joint pain, No Myalgias, No Joint Swelling Skin: No Skin Lesions, No rash Neuro: No Weakness, No Numbness, No Paresthesias, No Loss of Consciousness, No Dizziness, No Headache Yes all other systems are reviewed and are negative Constitutional: Constitutional: Reports as per [facility] Past Medical History Attestation statement: The following information was validated with the patient. Medical History Acute gout Afib Chronic heart failure with preserved ejection fraction (HFpEF) Essential hypertension GERD (gastroesophageal reflux disease) Hypercalcemia Persistent atrial fibrillation Precordial chest pain Shortness of breath Sudden loss of vision Swelling of both lower extremities Surgical History History of appendectomy History of right knee joint replacement History of tonsillectomy Family History Family History Father No problems noted. Mother No problems noted. Social History Social History Housing: Apartment Alcohol intake: never Patient Tobacco Use Status: Never used Tobacco e-Cigarette/Vaping Use: Never Used Second Hand Smoke Exposure: No Use of substances other than those prescribed or required for medical reasons: No Advance Directives: Yes Advance Directives Information Provided: No Advance Directives on File: No service: No Current occupational status: unemployed Cognitive needs: Yes Hearing needs: No Vision needs: Yes Physical Exam ED Vital Signs: Vital Signs - 24 hr 03/08/22 09:42 03/08/22 11:39 03/08/22 12:42 Temperature 98.6 F 98.6 F 98.6 F Pulse Rate 80 63 66 Respiratory Rate 16 16 16 Blood Pressure 134/60 135/46 L 119/43 L Pulse Oximetry 96 98 95 Oxygen Delivery Method Room Air Room Air Room Air 03/08/22 14:35 Temperature 98.0 F Pulse Rate 78 Respiratory Rate 16 Blood Pressure 117/56 L Pulse Oximetry 98 Oxygen Delivery Method Room Air BMI result Body Mass Index 34.5 Const General: cooperative, healthy appearing and no acute distress Orientation/consciousness: patient oriented x3 Limitations: no limitations [facility] Head: Yes normal to inspection and Yes atraumatic Ears: hearing grossly normal bilaterally General nose exam: Normal external nose present Face and sinus: Yes normal facial exam Eyes General: appearance normal, both eyes and all related structures EOM: EOMs intact bilaterally Neck Neck: Yes normal visual inspection and Yes no meningeal signs Chest Chest palpation & inspection: normal inspection of the chest Resp Effort & Inspection: normal respiratory effort and no respiratory distress Auscultation: clear to auscultation bilaterally Cardio Rate: regular rate Heart sounds: S1 normal heart sound present and S2 normal heart sound present GI Inspection: Yes normal to inspection Palpation (GI): Soft to palpation, nontender, no guarding and not rigid General: Yes no CVA tenderness Back/Spine/Pelvis Other: No midline thoracic/lumbar spinous tenderness/step-off or deformity. +Left lower lumbar/buttock MSK ttp. Left hip nontender/pelvis stable. Neurovascular intact distally Back: no CVA tenderness Skin Rashes: no rashes Wounds: no wounds Neuro Other: Strength intact throughout. No saddle anesthesia. Sensation intact to light touch. Neurovascular intact distally General: patient oriented x3, tone normal and no meningeal signs Extrem Other: + bilateral lower extremity pitting edema. No calf tenderness. General: Yes normal to inspection Course Course Course Narrative: -1043--no leukocytosis. INR therapeutic. BUN chronically elevated. Uric acid 12.9 > will give short course of prednisone p.o. for gouty arthritis -CRP elevated to 7.44. BNP acute on chronically elevated to 456 -1112--ESR elevated to 25. Initial troponin 9.5 > will obtain 3 hour repeat -UA with moderate leuks and 11-20 wbc's however 11-20 squamous cells > likely contaminant will hold on antibiotic treatment until culture results -1300--on re-evaluation patient was sleeping, does report symptomatic improvement. Will attempt ambulation trial and reassess >> patient was unable to ambulate in the ED secondary to pain, discussed PT/case management however patient would like to try ambulation trial again after additional p.o. medications -1413--repeat troponin without 50% rise, MS unlikely -on re-evaluation patient reports symptomatic improvement, is ambulating in the ED with steady gait without assistance. Feels safe for discharge home at this time. Reports her sons are very helpful at home and feels comfortable with discharge Results discussed with patient including worrisome signs and symptoms and strict return precautions, and when to return to the emergency department. They verbalized understanding and feel safe for discharge at this time. Medical Decision Making [facility] Narrative Medical decision making narrative: 86-year-old female with a past medical history of AFib on Coumadin, arthritis, chronic knee pain, gout, presenting to the ED via EMS complaining of left low back pain radiating down LLE x4 days. On exam vital signs stable, NAD, nontoxic appearing, no midline spinous tenderness or red flag symptoms, left lower lumbar MSK/buttock tenderness elicited in pain with left lower extremity ROM. Neurovascular intact distally. Abdomen soft/nontender. Concern for MSK pain/sciatica vs muscle spasming vs LACIE vs CHF. Lower suspicion for renal st one/pyelo. Lower suspicion for fracture or septic joint/arthritis Plan: EKG, labs, UA, pain management, re-evaluate Medical Records Medical records reviewed: Yes I reviewed the patient's medical records. Lab Data Lab results reviewed: Yes I reviewed the patient's lab results. Result diagrams: 03/08/22 10:12 03/08/22 10:12 Labs: Lab Results 03/08/22 03/08/22 03/08/22 Range/Units 10:12 10:12 10:12 WBC 9.2 (4.8-10.8) X10*3/uL RBC 3.92 L (4.20-5.50) X10*6/uL Hgb 12.5 (12.0-16.0) g/dl Hct 37.4 (37.0-47.0) % MCV 95.4 (80.0-98.0) fL MCH 31.9 (27.0-33.0) pg MCHC 33.4 (31.0-35.0) g/dl RDW 14.4 (11.0-16.0) % Plt Count 208 (160-400) X10*3/uL MPV 11.3 (9.4-12.3) fL Immature Gran % (Auto) 0.2 (0.0-0.4) % Neut % (Auto) 81.4 H (45-73) % Lymph % (Auto) 7.6 L (20-40) % [place] % (Auto) 10.5 (2-11) % Eos % (Auto) 0.1 (0-4) % Baso % (Auto) 0.2 (0-2) % Lymph # (Auto) 0.7 L (1.2-4.9) X10*3/uL [place] # (Auto) 1.0 (0.1-1.2) X10*3/uL Eos # (Auto) 0.0 (0.0-0.4) X10*3/uL Baso # (Auto) 0.0 (0.0-0.2) X10*3/uL Abs Immat Gran (auto) 0.02 (0.00-0.03) X10*3/uL Absolute Neuts (auto) 7.5 (2.0-8.3) x10*3/uL Absolute Nucleated RBC 0.000 (0.0-0.012) X10*3/uL Nucleated RBC % (auto) 0.0 (0.0-0.2) /100WBC ESR 25 H (0-20) MM/HR PT (10.0-13.1) SEC INR (0.9-1.1) Sodium 144 (135-145) mmol/L Potassium 3.7 (3.3-5.1) mmol/L Chloride 106 (96-108) mmol/L Carbon Dioxide 25 (22-29) mmol/L Anion Gap 17 (12-20) BUN 61 H (9-16) mg/dL Creatinine 1.15 (0.5-1.4) mg/dL Estim Creat Clear Calc 32.1 Estimated GFR 45 Random Glucose 117 H (60-115) mg/dL Uric Acid (2.4-5.7) mg/dL Calcium 9.7 (8.4-10.2) mg/dL Total Bilirubin 0.7 (0.0-1.0) mg/dL Direct Bilirubin 0.3 (0.0-0.5) mg/dL AST 17 (5-31) U/L ALT 15 (0-31) U/L Alkaline Phosphatase 54 (39-117) U/L Troponin I High Sens (<3.5-17.0) ng/L C-Reactive Protein 7.44 H (< or = 0.50) mg/dL B-Natriuretic Peptide (<100) pg/mL Total Protein 7.1 (6.5-8.0) g/dL Albumin 4.0 (3.5-5.0) g/dL Urine Color Urine Appearance Urine pH (5.0-9.0) Ur Specific [place] (1.005-1.025) Urine Protein (Neg-Trace) mg/dL Urine Glucose (UA) (Negative) mg/dL Urine Ketones (Negative) mg/dL Urine Blood (Negative) Urine Nitrite (Negative) Ur Leukocyte Esterase (Negative) Urine RBC (0-2) /HPF Urine WBC (0-5) /HPF Ur Squamous Epith Cells (0-2) /HPF Urine Bacteria (None Seen) Hyaline Casts (0-2) /LPF 03/08/22 03/08/22 03/08/22 Range/Units 10:12 10:12 10:12 WBC (4.8-10.8) X10*3/uL RBC (4.20-5.50) X10*6/uL Hgb (12.0-16.0) g/dl Hct (37.0-47.0) % MCV (80.0-98.0) fL MCH (27.0-33.0) pg MCHC (31.0-35.0) g/dl RDW (11.0-16.0) % Plt Count (160-400) X10*3/uL MPV (9.4-12.3) fL Immature Gran % (Auto) (0.0-0.4) % Neut % (Auto) (45-73) % Lymph % (Auto) (20-40) % [place] % (Auto) (2-11) % Eos % (Auto) (0-4) % Baso % (Auto) (0-2) % Lymph # (Auto) (1.2-4.9) X10*3/uL [place] # (Auto) (0.1-1.2) X10*3/uL Eos # (Auto) (0.0-0.4) X10*3/uL Baso # (Auto) (0.0-0.2) X10*3/uL Abs Immat Gran (auto) (0.00-0.03) X10*3/uL Absolute Neuts (auto) (2.0-8.3) x10*3/uL Absolute Nucleated RBC (0.0-0.012) X10*3/uL Nucleated RBC % (auto) (0.0-0.2) /100WBC ESR (0-20) MM/HR PT 31.8 H (10.0-13.1) SEC INR 2.7 H (0.9-1.1) Sodium (135-145) mmol/L Potassium (3.3-5.1) mmol/L Chloride (96-108) mmol/L Carbon Dioxide (22-29) mmol/L Anion Gap (12-20) BUN (9-16) mg/dL Creatinine (0.5-1.4) mg/dL Estim Creat Clear Calc Estimated GFR Random Glucose (60-115) mg/dL Uric Acid 12.9 H (2.4-5.7) mg/dL Calcium (8.4-10.2) mg/dL Total Bilirubin (0.0-1.0) mg/dL Direct Bilirubin (0.0-0.5) mg/dL AST (5-31) U/L ALT (0-31) U/L Alkaline Phosphatase (39-117) U/L Troponin I High Sens (<3.5-17.0) ng/L C-Reactive Protein (< or = 0.50) mg/dL B-Natriuretic Peptide 456 H (<100) pg/mL Total Protein (6.5-8.0) g/dL Albumin (3.5-5.0) g/dL Urine Color Urine Appearance Urine pH (5.0-9.0) Ur Specific [place] (1.005-1.025) Urine Protein (Neg-Trace) mg/dL Urine Glucose (UA) (Negative) mg/dL Urine Ketones (Negative) mg/dL Urine Blood (Negative) Urine Nitrite (Negative) Ur Leukocyte Esterase (Negative) Urine RBC (0-2) /HPF Urine WBC (0-5) /HPF Ur Squamous Epith Cells (0-2) /HPF Urine Bacteria (None Seen) Hyaline Casts (0-2) /LPF 03/08/22 03/08/22 03/08/22 Range/Units 10:12 11:42 13:40 WBC (4.8-10.8) X10*3/uL RBC (4.20-5.50) X10*6/uL Hgb (12.0-16.0) g/dl Hct (37.0-47.0) % MCV (80.0-98.0) fL MCH (27.0-33.0) pg MCHC (31.0-35.0) g/dl RDW (11.0-16.0) % Plt Count (160-400) X10*3/uL MPV (9.4-12.3) fL Immature Gran % (Auto) (0.0-0.4) % Neut % (Auto) (45-73) % Lymph % (Auto) (20-40) % [place] % (Auto) (2-11) % Eos % (Auto) (0-4) % Baso % (Auto) (0-2) % Lymph # (Auto) (1.2-4.9) X10*3/uL [place] # (Auto) (0.1-1.2) X10*3/uL Eos # (Auto) (0.0-0.4) X10*3/uL Baso # (Auto) (0.0-0.2) X10*3/uL Abs Immat Gran (auto) (0.00-0.03) X10*3/uL Absolute Neuts (auto) (2.0-8.3) x10*3/uL Absolute Nucleated RBC (0.0-0.012) X10*3/uL Nucleated RBC % (auto) (0.0-0.2) /100WBC ESR (0-20) MM/HR PT (10.0-13.1) SEC INR (0.9-1.1) Sodium (135-145) mmol/L Potassium (3.3-5.1) mmol/L Chloride (96-108) mmol/L Carbon Dioxide (22-29) mmol/L Anion Gap (12-20) BUN (9-16) mg/dL Creatinine (0.5-1.4) mg/dL Estim Creat Clear Calc Estimated GFR Random Glucose (60-115) mg/dL Uric Acid (2.4-5.7) mg/dL Calcium (8.4-10.2) mg/dL Total Bilirubin (0.0-1.0) mg/dL Direct Bilirubin (0.0-0.5) mg/dL AST (5-31) U/L ALT (0-31) U/L Alkaline Phosphatase (39-117) U/L Troponin I High Sens 9.5 11.2 (<3.5-17.0) ng/L C-Reactive Protein (< or = 0.50) mg/dL B-Natriuretic Peptide (<100) pg/mL Total Protein (6.5-8.0) g/dL Albumin (3.5-5.0) g/dL Urine Color Yellow Urine Appearance Clear Urine pH 7.0 (5.0-9.0) Ur Specific [place] 1.015 (1.005-1.025) Urine Protein Trace (Neg-Trace) mg/dL Urine Glucose (UA) Negative (Negative) mg/dL Urine Ketones Negative (Negative) mg/dL Urine Blood Negative (Negative) Urine Nitrite Negative (Negative) Ur Leukocyte Esterase Moderate (2+) H (Negative) Urine RBC 0-2 (0-2) /HPF Urine WBC 11-20 H (0-5) /HPF Ur Squamous Epith Cells 11-20 (0-2) /HPF Urine Bacteria Trace (None Seen) Hyaline Casts 0-2 (0-2) /LPF ECG Data Attestation: I personally reviewed and interpreted this ECG as follows: Prior ECG tracings: available for review Interpretation: EKG normal sinus rhythm rate 83. QTC 425. Left axis deviation. No significant change when compared to priors. No STEMI Discharge Plan Discharge Clinical Impression: Gouty arthritis, Sciatica Patient Disposition: Home, Self-Care Instructions: Gout (ED), Sciatica (ED) Additional Instructions: Your blood work was reassuring today in the emergency department. Continue taking previously prescribed muscle relaxer as needed. Muscle relaxers acute drowsy In addition tramadol as opiate pain medication, take only when pain is severe for the next [address], drink alcohol, or operate machinery while taking You should also take Tylenol. Prednisone as a steroid which will help with gout. Please have close follow-up with her doctor, call them to make an appointment for this week. If symptoms persist or worsen return to the emergency department Prescriptions: New lidocaine [Lidoderm] 5 % adhesive patch,medicated 1 patch topical DAILY MDD remove after 12 hours PRN (Reason: pain) Qty: 30 0RF Rx Instructions: leave on most painful area for up to 12 hrs prednisone 20 mg tablet 40 mg PO DAILY 5 Days Qty: 10 0RF tramadol 50 mg tablet 50 mg PO Q8H PRN (Reason: pain, severe) Qty: 9 0RF acetaminophen [Tylenol Extra Strength] 500 mg tablet 500 mg PO Q6H PRN (Reason: fever or pain) Qty: 14 0RF No Action bumetanide 1 mg tablet 2 mg PO BID 90 Days Qty: 360 3RF potassium chloride 10 mEq tablet extended release 10 meq PO DAILY Qty: 90 3RF valsartan 320 mg tablet 320 mg PO DAILY 90 Days Qty: 90 3RF colchicine 0.6 mg tablet 0.6 mg PO BID 30 Days Qty: 60 0RF omeprazole 20 mg capsule,delayed release(DR/EC) 20 mg PO DAILY Qty: 90 2RF metolazone 2.5 mg tablet 2.5 mg PO DAILY PRN (Reason: edema) 30 Days Qty: 14 3RF Rx Instructions: Take one dose if needed for leg swelling, weight gain. No more than 1 in a day. cyclobenzaprine 10 mg tablet 10 mg PO BEDTIME PRN (Reason: muscle spasm) 7 Days Qty: 7 0RF acetaminophen [Tylenol Extra Strength] 500 mg tablet 500 mg PO Q6H PRN (Reason: Pain) amlodipine 10 mg tablet 10 mg PO DAILY 90 Days Qty: 90 3RF atenolol 50 mg tablet 100 mg PO DAILY Qty: 180 2RF warfarin 5 mg tablet 5 mg PO DAILY 90 Days Qty: 90 2RF Protocol: Dose Management Condition: Monday (Week One) Dose/Route: 5 mg Instruction: 1 x 5 mg tablet Condition: Monday Dose/Route: 5 mg Instruction: 1 x 5 mg tablet Condition: Monday Dose/Route: 5 mg Instruction: 1 x 5 mg tablet Condition: Monday Dose/Route: 5 mg Instruction: 1 x 5 mg tablet Condition: Dose/Route: 5 mg Instruction: 1 x 5 mg tablet Condition: Monday Dose/Route: 5 mg Instruction: 1 x 5 mg tablet Condition: Monday Dose/Route: 5 mg Instruction: 1 x 5 mg tablet Condition: Monday (Week Two) Dose/Route: 5 mg Instruction: 1 x 5 mg tablet Condition: Monday Dose/Route: 5 mg Instruction: 1 x 5 mg tablet Condition: Monday Dose/Route: 5 mg Instruction: 1 x 5 mg tablet Condition: Monday Dose/Route: 5 mg Instruction: 1 x 5 mg tablet Condition: Dose/Route: 5 mg Instruction: 1 x 5 mg tablet Condition: Monday Dose/Route: 5 mg Instruction: 1 x 5 mg tablet Condition: Monday Dose/Route: 5 mg Instruction: 1 x 5 mg tablet Protocol Text: Adjustment Start Date: 02/17/22 INR Value: 2.3 INR Date: 02/17/22 Recheck Date: 03/17/22 Additional Instructions: cont reg dosing call with any medication changes hydralazine 25 mg tablet 25 mg PO TID 90 Days Qty: 270 1RF aspirin 81 mg tablet,delayed release (DR/EC) 81 mg PO DAILY latanoprost 0.005 % drops 1 drp ophthalmic (eye) QPM dorzolamide 2 % drops 1 drp ophthalmic (eye) BID brimonidine 0.025 % drops 1 drp ophthalmic (eye) BID Referrals: Marybel Ko MD [Primary Care Provider] - 2 days
--- NOTE | 2022-03-08 09:55 | PC.NURSE ---
pt is a/o x 3 no sob/aliyah noted skin pink warm dry speaks in full sentences. no lower back with immobilization, increase pain with movement.
[2022-03-08 10:16] LABS: MANUAL DIFF FLAG NO
[2022-03-08 10:18] LABS: Basophils Percent Auto 0.2 % (0-2); Eosinophils Percent Auto 0.1 % (0-4); Hematocrit 37.4 % (37.0-47.0); Hemoglobin 12.5 g/dl (12.0-16.0); Imm Gran Abs Auto 0.02 X10*3/uL (0.00-0.03); Imm Gran Pct Auto 0.2 % (0.0-0.4); Lymphocytes Absolute Auto 0.7 X10*3/uL (1.2-4.9); Lymphocytes Percent Auto 7.6 % (20-40); Mean Corpuscular HGB Conc 33.4 g/dl (31.0-35.0); Mean Corpuscular Hemoglobin 31.9 pg (27.0-33.0); Mean Corpuscular Volume 95.4 fL (80.0-98.0); Mean Platelet Volume 11.3 fL (9.4-12.3); Monocytes Percent Auto 10.5 % (2-11); Neutrophils Absolute Auto 7.5 x10*3/uL (2.0-8.3); Neutrophils Percent Auto 81.4 % (45-73); Platelet Count 208 X10*3/uL (160-400); Red Blood Count 3.92 X10*6/uL (4.20-5.50); Red Cell Distribution Width 14.4 % (11.0-16.0); White Blood Count 9.2 X10*3/uL (4.8-10.8)
[2022-03-08 10:23] LABS: INTERNATIONAL NORM RATIO 2.7 (0.9-1.1); Prothrombin Time 31.8 SEC (10.0-13.1)
[2022-03-08 10:33] LABS: Uric Acid 12.9 mg/dL (2.4-5.7)
[2022-03-08 10:38] LABS: Alanine Aminotransferase 15 U/L (0-31); Alkaline Phosphatase 54 U/L (39-117); Anion Gap 17 (12-20); Aspartate Amino Transferase 17 U/L (5-31); Bilirubin Direct 0.3 mg/dL (0.0-0.5); Bilirubin Total 0.7 mg/dL (0.0-1.0); Blood Urea Nitrogen 61 mg/dL (9-16); C Reactive Protein 7.44 mg/dL (< or = 0.50); Calcium 9.7 mg/dL (8.4-10.2); Carbon Dioxide 25 mmol/L (22-29); Chloride 106 mmol/L (96-108); Creatinine Clr Calc Pharmacy 32.1; Estimated Glomerular Filt Rate 45; Glucose Random 117 mg/dL (60-115); Potassium 3.7 mmol/L (3.3-5.1); Sodium 144 mmol/L (135-145); Total Protein 7.1 g/dL (6.5-8.0)
[2022-03-08 10:39] LABS: B Type Natriuretic Peptide 456 pg/mL (<100); Troponin-I High Sensitivity 9.5 ng/L (<3.5-17.0)
[2022-03-08] MEDS: Acetaminophen 325 MG TABLET 650 MG PO (10:43)
[2022-03-08] MEDS: Cyclobenzaprine HCl 10 MG TABLET PO (10:43)
[2022-03-08] MEDS: Lidocaine 4 % Patch ADH..PATCH 1 PATCH TRANSDERMA (10:44)
[2022-03-08] MEDS: predniSONE 20 MG TABLET 40 MG PO (10:51)
[2022-03-08 11:01] LABS: Erythrocyte Sedimentation Rate 25 MM/HR (0-20)
[2022-03-08 11:39] VITALS: BP 135/46; PULSE 63; RESP 16; TEMP 37; O2SAT 98
[2022-03-08 11:59] LABS: Appearance Urine Clear; Color Urine Yellow; Glucose Urine UA Negative (Negative); Leukocyte Esterase Urine Moderate (2+) (Negative); Nitrite Urine Negative (Negative); Specific Gravity - Urine 1.015 (1.005-1.025); Urine Blood Negative (Negative); Urine Ketones Negative (Negative); Urine Protein Trace mg/dL (Neg-Trace)
[2022-03-08 12:13] LABS: Bacteria Urine Trace (None Seen); Hyaline Casts Urine 0-2 /LPF (0-2); RBC Urine 0-2 /HPF (0-2); UACC Culture Trigger YES
[2022-03-08 12:42] VITALS: BP 119/43; PULSE 66; RESP 16; TEMP 37; O2SAT 95
[2022-03-08] MEDS: traMADoL HCL 50 MG TABLET PO (13:28)
[2022-03-08 14:05] LABS: Troponin-I High Sensitivity 11.2 ng/L (<3.5-17.0)
[2022-03-08 14:35] VITALS: BP 117/56; PULSE 78; RESP 16; TEMP 36.7; O2SAT 98
== END 2022-03-08 15:47 | disposition home or self-care (01) ==
PROVIDERS: Physician Assistant; Emergency Provider Emergency Medicine; PCP Internal Medicine
DX: M10.9 Gout, unspecified (principal); M54.42 Lumbago with sciatica, left side; R60.0 Localized edema; R06.02 Shortness of breath; I48.19 Other persistent atrial fibrillation; Z79.01 Long term (current) use of anticoagulants; Z79.82 Long term (current) use of aspirin; Z79.899 Other long term (current) drug therapy
CPT/HCPCS: 36415; 80048; 80076; 81001; 83880; 84484; 84550; 85025; 85610; 85652; 86140; 87086; 93005; 99283; 99285

== ENCOUNTER → 2022-03-10 09:25 | Outpatient (BNVA) | payer MEDICARE, SELFPAY | PROVIDERS: PCP Internal Medicine; Visit Provider Internal Medicine | DX: I48.0 Paroxysmal atrial fibrillation (principal); Z79.01 Long term (current) use of anticoagulants; Z51.81 Encounter for therapeutic drug level monitoring | CPT/HCPCS: Q3014 ==

== ENCOUNTER → 2022-03-17 08:40 | Outpatient (BNVA) | payer MEDICARE, SELFPAY | PROVIDERS: PCP Internal Medicine; Visit Provider Internal Medicine | DX: I48.0 Paroxysmal atrial fibrillation (principal); Z79.01 Long term (current) use of anticoagulants; Z51.81 Encounter for therapeutic drug level monitoring | CPT/HCPCS: 85610; 99211 ==

== ENCOUNTER → 2022-03-25 08:47 | Outpatient (BNVA) | payer MEDICARE, SELFPAY | PROVIDERS: PCP Internal Medicine; Visit Provider Internal Medicine Endocrinology, Diabetes & Metabolism | DX: E83.52 Hypercalcemia (principal) | CPT/HCPCS: 99202 ==

== ENCOUNTER → 2022-04-11 08:51 | Outpatient (BNVA) | payer MEDICARE, SELFPAY | PROVIDERS: PCP Internal Medicine; Visit Provider Urology | DX: N39.0 Urinary tract infection, site not specified (principal); N17.9 Acute kidney failure, unspecified | CPT/HCPCS: 99202 ==

== ENCOUNTER → 2022-04-14 08:42 | Outpatient (BNVA) | payer MEDICARE, SELFPAY | PROVIDERS: PCP Internal Medicine; Visit Provider Internal Medicine | DX: I48.0 Paroxysmal atrial fibrillation (principal); Z79.01 Long term (current) use of anticoagulants; Z51.81 Encounter for therapeutic drug level monitoring | CPT/HCPCS: 85610; 99211 ==

== ENCOUNTER 2022-04-25 08:27 | Outpatient (REF) | payer MEDICARE, SELFPAY ==
[2022-04-25 10:27] LABS: MANUAL DIFF FLAG NO
[2022-04-25 10:35] LABS: Basophils Absolute Auto 0.1 X10*3/uL (0.0-0.2); Basophils Percent Auto 1.2 % (0-2); Eosinophils Absolute Auto 0.6 X10*3/uL (0.0-0.4); Eosinophils Percent Auto 8.5 % (0-4); Hematocrit 40.9 % (37.0-47.0); Hemoglobin 13.2 g/dl (12.0-16.0); Imm Gran Abs Auto 0.02 X10*3/uL (0.00-0.03); Imm Gran Pct Auto 0.3 % (0.0-0.4); Lymphocytes Absolute Auto 1.1 X10*3/uL (1.2-4.9); Lymphocytes Percent Auto 16.4 % (20-40); Mean Corpuscular HGB Conc 32.3 g/dl (31.0-35.0); Mean Corpuscular Hemoglobin 30.6 pg (27.0-33.0); Mean Corpuscular Volume 94.7 fL (80.0-98.0); Mean Platelet Volume 11.9 fL (9.4-12.3); Monocytes Absolute Auto 0.9 X10*3/uL (0.1-1.2); Monocytes Percent Auto 13.2 % (2-11); Neutrophils Absolute Auto 3.9 x10*3/uL (2.0-8.3); Neutrophils Percent Auto 60.4 % (45-73); Platelet Count 240 X10*3/uL (160-400); Red Blood Count 4.32 X10*6/uL (4.20-5.50); Red Cell Distribution Width 13.9 % (11.0-16.0); White Blood Count 6.5 X10*3/uL (4.8-10.8)
[2022-04-25 11:00] LABS: Alanine Aminotransferase 19 U/L (0-31); Albumin Level 4.4 g/dL (3.5-5.0); Alkaline Phosphatase 66 U/L (39-117); Anion Gap 19 (12-20); Aspartate Amino Transferase 22 U/L (5-31); Bilirubin Total 0.6 mg/dL (0.0-1.0); Blood Urea Nitrogen 61 mg/dL (9-16); Calcium 10.4 mg/dL (8.4-10.2); Carbon Dioxide 27 mmol/L (22-29); Chloride 100 mmol/L (96-108); Estimated Glomerular Filt Rate 45; Glucose Random 104 mg/dL (60-115); Potassium 4.1 mmol/L (3.3-5.1); Sodium 142 mmol/L (135-145); Total Protein 7.7 g/dL (6.5-8.0); Uric Acid 13.3 mg/dL (2.4-5.7)
[2022-04-27 12:13] LABS: NT-proBNP 1740 pg/mL
== END 2022-04-25 08:28 | disposition home or self-care (01) ==
LOC: HO.10HDL 08:27
PROVIDERS: Visit Provider Internal Medicine
DX: I50.32 Chronic diastolic (congestive) heart failure (principal); M10.9 Gout, unspecified; D64.9 Anemia, unspecified
CPT/HCPCS: 36415; 80053; 83880; 84550; 85025

== ENCOUNTER 2022-05-02 08:15 | Outpatient (REF) | payer MEDICARE, SELFPAY ==
--- NOTE | ~2022-05-02 | US_ITS ---
EXAMINATION: US RETROPERITONEAL LIMITED (RENAL ONLY) CLINICAL INFORMATION: Urinary tract infection, site not specified. COMPARISON: Ultrasound retroperitoneal limited (renal only) 01/20/2020 and 01/03/2019. TECHNIQUE: Real-time imaging of the kidneys. FINDINGS: RIGHT KIDNEY: 9.1 x 4.8 x 3.9 cm (SAG x AP x TRV). The kidney is normal in size, contour, and echogenicity. Renal cortical thickness is normal. No renal calculi or hydronephrosis. Echogenic well-circumscribed 7 mm angiomyolipoma of the posterior cortex of the upper pole the right kidney is again seen; no imaging follow-up recommended. LEFT KIDNEY: 10.1 x 5.6 x 5.1 cm (SAG x AP x TRV). The kidney is normal in size, contour, and echogenicity. Renal cortical thickness is normal. No renal calculi or hydronephrosis. 8 mm 4 mm echogenic angiomyolipomas of the left mid-upper and mid kidney. Lastly there is an echogenic 4.3 x 3.3 x 4.8 cm solid mass of the lower pole of the left kidney consistent with previously seen angiomyolipoma. It is only slightly increased in size from the prior study in 2019, at most 4.6 cm at that time. There is some fullness of the left renal pelvis but no hydronephrosis. US/US renal BI IMPRESSION: Bilateral angiomyolipomas seen. The largest measures 4.8 cm in greatest dimension in the lower pole of left kidney. Given the size greater than 4 cm, this is at increased risk of bleeding.
== END 2022-05-02 08:16 | disposition home or self-care (01) ==
LOC: HO.US 08:15
PROVIDERS: PCP Urology; Visit Provider Urology
DX: N39.0 Urinary tract infection, site not specified (principal)
CPT/HCPCS: 76775

== ENCOUNTER → 2022-05-13 09:17 | Outpatient (BNVA) | payer MEDICARE, SELFPAY | PROVIDERS: PCP Internal Medicine; Visit Provider Urology | DX: N39.0 Urinary tract infection, site not specified (principal); N17.9 Acute kidney failure, unspecified; D17.71 Benign lipomatous neoplasm of kidney; Z87.442 Personal history of urinary calculi | CPT/HCPCS: Q3014 ==

== ENCOUNTER → 2022-05-19 09:19 | Outpatient (BNVA) | payer MEDICARE, SELFPAY | PROVIDERS: PCP Internal Medicine; Visit Provider Internal Medicine | DX: I48.0 Paroxysmal atrial fibrillation (principal); Z79.01 Long term (current) use of anticoagulants; Z51.81 Encounter for therapeutic drug level monitoring | CPT/HCPCS: 85610; 99211 ==

== ENCOUNTER → 2022-06-01 08:57 | Outpatient (BNVA) | payer MEDICARE, SELFPAY | PROVIDERS: PCP Internal Medicine; Visit Provider Internal Medicine | DX: I48.0 Paroxysmal atrial fibrillation (principal); Z79.01 Long term (current) use of anticoagulants; Z51.81 Encounter for therapeutic drug level monitoring | CPT/HCPCS: 85610; 99211 ==

== ENCOUNTER → 2022-06-23 09:12 | Outpatient (BNVA) | payer MEDICARE, SELFPAY | PROVIDERS: PCP Internal Medicine; Visit Provider Internal Medicine | DX: I48.0 Paroxysmal atrial fibrillation (principal); Z79.01 Long term (current) use of anticoagulants; Z51.81 Encounter for therapeutic drug level monitoring | CPT/HCPCS: 85610; 99211 ==

== ENCOUNTER 2022-06-27 09:19 | Outpatient (REF) | payer MEDICARE, SELFPAY ==
[2022-06-27 11:01] LABS: Anion Gap 13 (12-20); Blood Urea Nitrogen 64 mg/dL (9-16); Calcium 10.3 mg/dL (8.4-10.2); Carbon Dioxide 30 mmol/L (22-29); Chloride 104 mmol/L (96-108); Estimated Glomerular Filt Rate 41; Glucose Random 94 mg/dL (60-115); Sodium 143 mmol/L (135-145)
== END 2022-06-27 09:20 | disposition home or self-care (01) ==
LOC: HO.LAB 09:19
PROVIDERS: PCP Internal Medicine; Referring Provider Internal Medicine; Visit Provider Internal Medicine
DX: I11.0 Hypertensive heart disease with heart failure (principal); I50.32 Chronic diastolic (congestive) heart failure; I48.19 Other persistent atrial fibrillation; R94.39 Abnormal result of other cardiovascular function study
CPT/HCPCS: 36415; 80048; 99212

== ENCOUNTER → 2022-07-28 09:05 | Outpatient (BNVA) | payer MEDICARE, SELFPAY | PROVIDERS: PCP Internal Medicine; Visit Provider Internal Medicine | DX: I48.0 Paroxysmal atrial fibrillation (principal); Z79.01 Long term (current) use of anticoagulants; Z51.81 Encounter for therapeutic drug level monitoring | CPT/HCPCS: 85610; 99211 ==

== ENCOUNTER 2022-08-01 08:56 | Outpatient (REF) | payer MEDICARE, SELFPAY ==
[2022-08-01 10:32] LABS: Alanine Aminotransferase 19 U/L (0-31); Albumin Level 4.5 g/dL (3.5-5.0); Alkaline Phosphatase 68 U/L (39-117); Anion Gap 17 (12-20); Aspartate Amino Transferase 22 U/L (5-31); Bilirubin Total 0.6 mg/dL (0.0-1.0); Blood Urea Nitrogen 52 mg/dL (9-16); Calcium 10.3 mg/dL (8.4-10.2); Carbon Dioxide 28 mmol/L (22-29); Chloride 104 mmol/L (96-108); Cholesterol 155 mg/dL; Estimated Glomerular Filt Rate 48; Glucose Fasting 96 mg/dL (60-99); HDL Cholesterol 39 mg/dL; LDL Cholesterol Calculated 90 mg/dl; Potassium 4.2 mmol/L (3.3-5.1); Sodium 145 mmol/L (135-145); Total Protein 7.3 g/dL (6.5-8.0); Triglycerides 131 mg/dL; Uric Acid 11.9 mg/dL (2.4-5.7)
[2022-08-01 10:56] LABS: Vitamin D 25-OH Total 14.3 ng/mL (>30)
[2022-08-02 12:38] LABS: NT-proBNP 1210 pg/mL
== END 2022-08-01 08:57 | disposition home or self-care (01) ==
LOC: HO.LAB 08:56
PROVIDERS: PCP Internal Medicine; Visit Provider Internal Medicine
DX: E78.5 Hyperlipidemia, unspecified (principal); I50.32 Chronic diastolic (congestive) heart failure; M10.9 Gout, unspecified; E55.9 Vitamin D deficiency, unspecified
CPT/HCPCS: 36415; 80053; 80061; 82306; 83880; 84550

== ENCOUNTER 2022-08-05 08:45 | Outpatient (REF) | payer MEDICARE, SELFPAY ==
--- NOTE | ~2022-08-05 | CT_ITS ---
EXAMINATION: CT ABDOMEN WITHOUT AND WITH CONTRAST CLINICAL INFORMATION: Benign lipomatous neoplasm of kidney. COMPARISON: Renal ultrasound 05/02/2022. CT abdomen 05/02/2007. TECHNIQUE: Contiguous axial thin section helical images of the abdomen were performed before and after the administration of 85 mL of Omnipaque 350 intravenous contrast. The data set was reformatted in the coronal and sagittal planes and reviewed on an independent workstation. This CT examination was performed using dose optimization techniques as appropriate, variously including the following: *Automated exposure control *Adjustment of mA and/or kV according to patient size (this includes techniques or standardized protocols for targeted exams where dose is matched to indication/reason for exam; i.e. extremities or head) *Use of iterative reconstruction technique DLP: 730 mGy-cm FINDINGS: LUNG BASES: There are tiny sub-6 mm nodules at the lung bases which are stable compared to 2007. No imaging follow-up is recommended. LIVER, GALLBLADDER, AND BILIARY TREE: Bilobed water density cyst in segment 7 of the liver. No imaging follow-up is recommended. No biliary ductal dilatation. The gallbladder appears normal. Common bile duct is not dilated. PANCREAS: There is a new 1.8 x 1.0 x 1.0 cm cystic lesion in the body the pancreas with intermediate attenuation of 28 units. There is no pancreatic ductal dilatation. No parenchymal atrophy. SPLEEN: The spleen appears normal. ADRENAL GLANDS AND KIDNEYS: The kidneys have symmetric nephrograms. No nephrolithiasis or hydronephrosis. There are masses containing macroscopic fat. 1. Left upper kidney 2.1 x 1.9 cm. Stable compared to 1.9 x 1.7 cm in 2007. 2. Left lower kidney 4.7 x 4.1 cm. Mildly enlarged from 3.9 x 3.8 cm in 2007. 3. Right mid kidney 0.5 x 0.6 cm. Stable compared to 0.5 x 0.4 cm in 2007 BOWEL LOOPS: The visible segments of small and large bowel are unremarkable LYMPH NODES: No lymphadenopathy VASCULAR: No aortic aneurysm. RCA coronary calcium included in the [id number]. Aortoiliac calcific disease. BONES: No suspicious osseous lesions. CT/CT abdomen wo/w IV con IMPRESSION: Multiple bilateral renal angiomyolipomas. The left lower lesion measures 4.7 x 4.1 cm mildly enlarged from 3.9 x 3.8 cm in 2006 and the other lesions are stable. Consider IR consultation for embolization due to size greater than 4 cm as these demonstrate a greater risk of spontaneous hemorrhage. Fleischner guidelines were followed.
[2022-08-05] MEDS: iohexoL 350 MG/ML 100 ML INFUS..BTL 85 ML IV (09:35)
== END 2022-08-05 08:46 | disposition home or self-care (01) ==
LOC: HO.CT 08:45
PROVIDERS: PCP Internal Medicine; Visit Provider Urology
DX: D17.71 Benign lipomatous neoplasm of kidney (principal)
CPT/HCPCS: 74170; Q9967

== ENCOUNTER 2022-08-09 09:23 | Emergency (ER) | payer MEDICARE, SELFPAY ==
--- NOTE | ~2022-08-09 | CT_ITS ---
EXAMINATION: CT ABDOMEN AND PELVIS WITH CONTRAST CLINICAL INFORMATION: Lower abdominal pain. Known angiomyolipoma COMPARISON: CT abdomen pelvis 08/05/2022 TECHNIQUE: Multidetector volumetric images were obtained from the superior aspect of the liver through the pubic symphysis following administration 85 mL of Omnipaque 350 intravenous contrast. Sagittal and coronal reformatted images were obtained on the technologist's workstation. Oral contrast: No This CT examination was performed using dose optimization techniques as appropriate, variously including the following: *Automated exposure control *Adjustment of mA and/or kV according to patient size (this includes techniques or standardized protocols for targeted exams where dose is matched to indication/reason for exam; i.e. extremities or head) *Use of iterative reconstruction technique DLP: 845 mGy-cm FINDINGS: LUNG BASES: Heart size enlarged. No pericardial effusion. Coronary calcification. Lung bases normally aerated. No pleural effusion. LIVER, GALLBLADDER, AND BILIARY TREE: Stable small cyst at dome of liver segment 7. No new or suspicious liver lesions. No intrahepatic bile duct dilatation. The gallbladder is unremarkable with no evidence of radiopaque gallstones, gallbladder wall thickening, or obvious pericholecystic inflammatory changes. PANCREAS: Stable cyst at the body the pancreas measuring 1.8 cm. No surrounding inflammation. No pancreatic duct dilatation. SPLEEN: Unremarkable. ADRENAL GLANDS: Unremarkable. KIDNEYS AND URETERS: Redemonstration of the multiple renal masses containing macroscopic fat. These are consistent with angiomyolipomas. No change since recent CAT scan. 1. Left upper kidney 2.1 x 1.9 cm. 2. Left lower kidney 4.7 x 4.1 cm. 3. Right mid kidney. 0.5-0.6 cm. BLADDER: Bladder partially filled. Mild bladder wall thickening. No bladder mass or calculus. GASTROINTESTINAL TRACT: The small and large bowel are unremarkable. The appendix is nonvisualized. ABDOMINAL WALL: No significant hernia is appreciated. LYMPH NODES: Normal. VASCULAR: Atherosclerotic vascular calcifications of aorta and iliac arteries. PELVIC VISCERA: Uterus is anteverted. Small calcifications in the body of the uterus likely small calcified fibroids. No adnexal abnormality. OSSEOUS STRUCTURES: Multilevel degenerative spondylosis spine. Degenerative joint disease of hips. CT/CT abdomen pelvis w IV con IMPRESSION: 1. No acute abnormality CT scan abdomen pelvis. 2. Stable bilateral renal angiomyolipomas. 3. Stable cyst at the body of pancreas. Fleischner guidelines were followed.
[2022-08-09 09:35] VITALS: BP 139/92; BP 141/54; PULSE 71; PULSE 76; RESP 18; TEMP 36.8; O2SAT 97; O2SAT 99; BMI 35.3
--- NOTE | 2022-08-09 12:14 | ED_ITS ---
HPI - Abdominal Pain General Chief Complaint: Abdominal Pain Stated Complaint: LUQ PAIN X'S DAYS PER EMS Time Seen by Provider: 08/09/22 11:54 Source: patient and old records reviewed History of Present Illness HPI narrative: Patient with a history of bilateral renal angiomyolipomas. She complains of sudden onset lower abdominal pain which started on the left side and radiated gradually to the right side. No upper abdominal pain. No flank pain. No fevers or chills. Pain started 3 days ago. She cleans and only had a CT scan 4 days ago for evaluation of her angiomyolipomas which showed some growth from a prior CT. Radiology was recommending consultation with Interventional Radiology due to risk for spontaneous bleeding. Her pain started the day after the scan. It was sudden onset in not precipitated by anything of which the patient is aware. She started having some urinary symptoms consisting of dysuria and hesitancy today. No urinary symptoms prior to this. Positive nausea but no vomiting No diarrhea No prior history of similar pain. No fevers or chills. Pain is exacerbated by movement, especially standing Related Data Home Medications Medication Instructions Recorded Confirmed aspirin 81 mg tablet,delayed 81 mg PO DAILY 05/07/20 06/27/22 release dorzolamide 2 % eye drops 1 drp ophthalmic (eye) BID 01/20/22 06/27/22 latanoprost 0.005 % eye drops 1 drp ophthalmic (eye) QPM 01/20/22 06/27/22 ammonium lactate 12 % topical cream appl topical 04/11/22 06/27/22 Previous Rx's Medication Instructions Recorded potassium chloride 10 mEq 10 meq PO DAILY #90 tabs 08/31/21 tablet,extended release valsartan 320 mg tablet 320 mg PO DAILY 90 days #90 tabs 10/02/21 omeprazole 20 mg capsule,delayed 20 mg PO DAILY #90 caps 12/12/21 release amlodipine 10 mg tablet 10 mg PO DAILY 90 days #90 tabs 01/26/22 atenolol 50 mg tablet 100 mg PO DAILY #180 tabs 01/26/22 warfarin 5 mg tablet 5 mg PO DAILY 90 days #90 tabs 01/26/22 cyclobenzaprine 10 mg tablet 10 mg PO BEDTIME PRN muscle spasm 03/07/22 7 days #7 tabs acetaminophen 500 mg tablet 500 mg PO Q6H PRN fever or pain 03/08/22 (Tylenol Extra Strength) #14 tabs lidocaine 5 % topical patch 1 patch topical DAILY PRN pain #30 03/08/22 (Lidoderm) ea tramadol 50 mg tablet 50 mg PO Q8H PRN pain, severe #9 03/08/22 tabs nitrofurantoin macrocrystal 50 mg 50 mg PO BEDTIME #90 caps 04/11/22 capsule (Macrodantin) bumetanide 1 mg tablet 2 mg PO BID #360 tabs 05/23/22 metolazone 2.5 mg tablet 2.5 mg PO .COMPLEX PRN edema 30 06/27/22 days #14 tabs hydralazine 25 mg tablet 25 mg PO TID 90 days #270 tabs 07/07/22 colchicine 0.6 mg tablet 0.6 mg PO BID PRN gout 15 days #30 07/27/22 tabs cholecalciferol (vitamin D3) 25 25 mcg PO DAILY 90 days #90 caps 08/02/22 mcg (1,000 unit) capsule cephalexin 500 mg capsule 1,000 mg PO BID #14 caps 08/09/22 Allergies Allergy/AdvReac Type Severity Reaction Status Date / Time latex [Latex] Allergy Intermediate BLISTERS & Verified 07/28/22 09:25 ITCHING morphine [Morphine] Allergy Mild RASH, Verified 07/28/22 09:25 ITCHNG Review of Systems Comments: No fevers or chills Comments: No chest pain or palpitations Comments: No dyspnea or cough Comments: Abdominal pain is described Comments: Dysuria and hesitancy as described. No hematuria Comments: No low back pain Comments: No skin changes Comments: No focal weakness PMFSH Past Medical History Medical History Acute gout Afib Chronic heart failure with preserved ejection fraction (HFpEF) Essential hypertension GERD (gastroesophageal reflux disease) Hypercalcemia Persistent atrial fibrillation Precordial chest pain Shortness of breath Sudden loss of vision Swelling of both lower extremities Surgical History History of appendectomy History of right knee joint replacement History of tonsillectomy Family History Family History Father No problems noted. Mother No problems noted. Social History Social History Housing: Apartment Alcohol intake: never Patient Tobacco Use Status: Never used Tobacco Smoked in Last 30 Days: No e-Cigarette/Vaping Use: Never Used Second Hand Smoke Exposure: No Use of substances other than those prescribed or required for medical reasons: No Advance Directives: Yes Advance Directives on File: Yes Advance Directives Date on File: 06/13/22 service: No Current occupational status: unemployed Cognitive needs: Yes Hearing needs: No Vision needs: Yes Physical Exam ED Vital Signs: Vital Signs - 24 hr 08/09/22 09:35 08/09/22 14:41 Temperature 98.3 F 97.7 F Pulse Rate 71 61 Respiratory Rate 18 18 Blood Pressure 141/54 H 146/50 H Pulse Oximetry 97 96 Oxygen Delivery Method Room Air Room Air BMI result Body Mass Index 35.3 Const Other: Awake and alert. No acute distress. Vital signs are stable Resp Other: Clear and equal bilaterally. Good air entry Cardio Other: Irregular rhythm. Positive systolic murmur. GI Other: Soft. Nondistended. Nontender even in low abdomen or patient states the pain is most significant. No flank tenderness to percussion Skin Other: Warm pink and dry without rash Neuro Other: Nonfocal neuro exam Medical Decision Making Medical Decision Making MDM Narrative: Patient with sudden onset low abdominal pain. She has a history significant for bilateral renal angiomyolipomas. Given the sudden onset nature, it is concerning for a potential spontaneous hemorrhage. Will order CT scan to further differentiate. Patient also has urinary symptoms of dysuria and hesitancy. Pyelonephritis or urinary tract infection could certainly cause the symptoms, but typically not sudden onset like patient describes. Await urinalysis, blood work, CT scan 15:49. CT scan shows no evidence of rupture of angiomyolipoma. Blood work is unremarkable. Urinalysis is significant for urinary tract infection. Will treat with ceftriaxone IV 1 dose and then discharge home on Keflex p.o.. Lab Data 08/09/22 12:26 08/09/22 12:26 Labs: Lab Results 08/09/22 08/09/22 08/09/22 Range/Units 12:17 12:18 12:26 WBC 7.2 (4.8-10.8) X10*3/uL RBC 4.55 (4.20-5.50) X10*6/uL Hgb 14.1 (12.0-16.0) g/dl Hct 42.7 (37.0-47.0) % MCV 93.8 (80.0-98.0) fL MCH 31.0 (27.0-33.0) pg MCHC 33.0 (31.0-35.0) g/dl RDW 13.2 (11.0-16.0) % Plt Count 189 (160-400) X10*3/uL MPV 11.8 (9.4-12.3) fL Immature Gran % (Auto) 0.3 (0.0-0.4) % Neut % (Auto) 75.4 H (45-73) % Lymph % (Auto) 12.8 L (20-40) % [place] % (Auto) 10.4 (2-11) % Eos % (Auto) 0.8 (0-4) % Baso % (Auto) 0.3 (0-2) % Lymph # (Auto) 0.9 L (1.2-4.9) X10*3/uL [place] # (Auto) 0.8 (0.1-1.2) X10*3/uL Eos # (Auto) 0.1 (0.0-0.4) X10*3/uL Baso # (Auto) 0.0 (0.0-0.2) X10*3/uL Abs Immat Gran (auto) 0.02 (0.00-0.03) X10*3/uL Absolute Neuts (auto) 5.4 (2.0-8.3) x10*3/uL Absolute Nucleated RBC 0.000 (0.0-0.012) X10*3/uL Nucleated RBC % (auto) 0.0 (0.0-0.2) /100WBC Sodium (135-145) mmol/L Potassium (3.3-5.1) mmol/L Chloride (96-108) mmol/L Carbon Dioxide (22-29) mmol/L Anion Gap (12-20) BUN (9-16) mg/dL Creatinine (0.5-1.4) mg/dL Estim Creat Clear Calc Estimated GFR Random Glucose (60-115) mg/dL Lactic Acid (0.5-2.0) mmol/L Calcium (8.4-10.2) mg/dL Total Bilirubin (0.0-1.0) mg/dL AST (5-31) U/L ALT (0-31) U/L Alkaline Phosphatase (39-117) U/L Total Protein (6.5-8.0) g/dL Albumin (3.5-5.0) g/dL Urine Color Yellow Urine Appearance Clear Urine pH 6.0 (5.0-9.0) Ur Specific [place] 1.015 (1.005-1.025) Urine Protein Negative (Neg-Trace) mg/dL Urine Glucose (UA) Negative (Negative) mg/dL Urine Ketones Negative (Negative) mg/dL Urine Blood Moderate (2+) H (Negative) Urine Nitrite Negative (Negative) Ur Leukocyte Esterase Moderate (2+) H (Negative) Urine RBC >20 H (0-2) /HPF Urine WBC >50 H (0-5) /HPF Ur Squamous Epith Cells 0-2 (0-2) /HPF Urine Bacteria 4+ (None Seen) Hyaline Casts 0-2 (0-2) /LPF COVID-19 ([facility]) Negative (Negative) COVID-19 Clin Com See Note 08/09/22 08/09/22 Range/Units 12:26 12:26 WBC (4.8-10.8) X10*3/uL RBC (4.20-5.50) X10*6/uL Hgb (12.0-16.0) g/dl Hct (37.0-47.0) % MCV (80.0-98.0) fL MCH (27.0-33.0) pg MCHC (31.0-35.0) g/dl RDW (11.0-16.0) % Plt Count (160-400) X10*3/uL MPV (9.4-12.3) fL Immature Gran % (Auto) (0.0-0.4) % Neut % (Auto) (45-73) % Lymph % (Auto) (20-40) % [place] % (Auto) (2-11) % Eos % (Auto) (0-4) % Baso % (Auto) (0-2) % Lymph # (Auto) (1.2-4.9) X10*3/uL [place] # (Auto) (0.1-1.2) X10*3/uL Eos # (Auto) (0.0-0.4) X10*3/uL Baso # (Auto) (0.0-0.2) X10*3/uL Abs Immat Gran (auto) (0.00-0.03) X10*3/uL Absolute Neuts (auto) (2.0-8.3) x10*3/uL Absolute Nucleated RBC (0.0-0.012) X10*3/uL Nucleated RBC % (auto) (0.0-0.2) /100WBC Sodium 144 (135-145) mmol/L Potassium 4.1 (3.3-5.1) mmol/L Chloride 105 (96-108) mmol/L Carbon Dioxide 28 (22-29) mmol/L Anion Gap 15 (12-20) BUN 82 H (9-16) mg/dL Creatinine 1.21 (0.5-1.4) mg/dL Estim Creat Clear Calc 30.3 Estimated GFR 42 Random Glucose 106 (60-115) mg/dL Lactic Acid 1.0 (0.5-2.0) mmol/L Calcium 10.5 H (8.4-10.2) mg/dL Total Bilirubin 0.7 (0.0-1.0) mg/dL AST 22 (5-31) U/L ALT 18 (0-31) U/L Alkaline Phosphatase 68 (39-117) U/L Total Protein 7.5 (6.5-8.0) g/dL Albumin 4.5 (3.5-5.0) g/dL Urine Color Urine Appearance Urine pH (5.0-9.0) Ur Specific [place] (1.005-1.025) Urine Protein (Neg-Trace) mg/dL Urine Glucose (UA) (Negative) mg/dL Urine Ketones (Negative) mg/dL Urine Blood (Negative) Urine Nitrite (Negative) Ur Leukocyte Esterase (Negative) Urine RBC (0-2) /HPF Urine WBC (0-5) /HPF Ur Squamous Epith Cells (0-2) /HPF Urine Bacteria (None Seen) Hyaline Casts (0-2) /LPF COVID-19 ([facility]IB[facility]) (Negative) COVID-19 Clin Com Medications Administered Discontinued Medications Generic Name Dose Route Start Last Admin Trade Name Freq PRN Reason Stop Dose Admin Iohexol 100 ml 08/09/22 14:37 08/09/22 14:37 Iohexol 350 Mg/Ml 100 Ml Infus..Btl IV 08/09/22 14:38 85 ml ONCE ONE Administration Discharge Plan Discharge Clinical Impression: Urinary tract infection Patient Disposition: Home, Self-Care Instructions: Urinary Tract Infection in Older Adults (ED) Prescriptions: New cephalexin 500 mg capsule 1,000 mg PO BID Qty: 14 0RF No Action potassium chloride 10 mEq tablet extended release 10 meq PO DAILY Qty: 90 3RF valsartan 320 mg tablet 320 mg PO DAILY 90 Days Qty: 90 3RF omeprazole 20 mg capsule,delayed release(DR/EC) 20 mg PO DAILY Qty: 90 2RF cyclobenzaprine 10 mg tablet 10 mg PO BEDTIME PRN (Reason: muscle spasm) 7 Days Qty: 7 0RF bumetanide 1 mg tablet 2 mg PO BID Qty: 360 3RF hydralazine 25 mg tablet 25 mg PO TID 90 Days Qty: 270 1RF colchicine 0.6 mg tablet 0.6 mg PO BID PRN (Reason: gout) 15 Days Qty: 30 1RF cholecalciferol (vitamin D3) 25 mcg (1,000 unit) capsule 25 mcg PO DAILY 90 Days Qty: 90 1RF lidocaine [Lidoderm] 5 % adhesive patch,medicated 1 patch topical DAILY MDD remove after 12 hours PRN (Reason: pain) Qty: 30 0RF Rx Instructions: leave on most painful area for up to 12 hrs tramadol 50 mg tablet 50 mg PO Q8H PRN (Reason: pain, severe) Qty: 9 0RF acetaminophen [Tylenol Extra Strength] 500 mg tablet 500 mg PO Q6H PRN (Reason: fever or pain) Qty: 14 0RF amlodipine 10 mg tablet 10 mg PO DAILY 90 Days Qty: 90 3RF atenolol 50 mg tablet 100 mg PO DAILY Qty: 180 2RF warfarin 5 mg tablet 5 mg PO DAILY 90 Days Qty: 90 2RF Protocol: Dose Management Condition: Monday (Week One) Dose/Route: 5 mg Instruction: 1 x 5 mg tablet Condition: Monday Dose/Route: 5 mg Instruction: 1 x 5 mg tablet Condition: Monday Dose/Route: 5 mg Instruction: 1 x 5 mg tablet Condition: Monday Dose/Route: 2.5 mg Instruction: 0.5 x 5 mg tablets Condition: Dose/Route: 5 mg Instruction: 1 x 5 mg tablet Condition: Monday Dose/Route: 5 mg Instruction: 1 x 5 mg tablet Condition: Monday Dose/Route: 5 mg Instruction: 1 x 5 mg tablet Condition: Monday (Week Two) Dose/Route: 5 mg Instruction: 1 x 5 mg tablet Condition: Monday Dose/Route: 5 mg Instruction: 1 x 5 mg tablet Condition: Monday Dose/Route: 5 mg Instruction: 1 x 5 mg tablet Condition: Monday Dose/Route: 2.5 mg Instruction: 0.5 x 5 mg tablets Condition: Dose/Route: 5 mg Instruction: 1 x 5 mg tablet Condition: Monday Dose/Route: 5 mg Instruction: 1 x 5 mg tablet Condition: Monday Dose/Route: 5 mg Instruction: 1 x 5 mg tablet Protocol Text: Adjustment Start Date: 07/28/22 INR Value: 2.3 INR Date: 07/28/22 Recheck Date: 08/25/22 Additional Instructions: cont reg dosing balance reds and greens call with any medication changes aspirin 81 mg tablet,delayed release (DR/EC) 81 mg PO DAILY ammonium lactate 12 % cream topical nitrofurantoin macrocrystal [Macrodantin] 50 mg capsule 50 mg PO BEDTIME Qty: 90 0RF Rx Instructions: must administer with a meal/food latanoprost 0.005 % drops 1 drp ophthalmic (eye) QPM dorzolamide 2 % drops 1 drp ophthalmic (eye) BID metolazone 2.5 mg tablet 2.5 mg PO .COMPLEX PRN (Reason: edema) 30 Days Qty: 14 3RF Rx Instructions: 2.5 mg orally weekly PRN;
[2022-08-09 12:33] LABS: MANUAL DIFF FLAG NO
[2022-08-09 12:37] LABS: Appearance Urine Clear; Color Urine Yellow; Glucose Urine UA Negative (Negative); Leukocyte Esterase Urine Moderate (2+) (Negative); Nitrite Urine Negative (Negative); Specific Gravity - Urine 1.015 (1.005-1.025); UMIC TRIGGER UACC YES; Urine Blood Moderate (2+) (Negative); Urine Ketones Negative (Negative); Urine Protein Negative (Neg-Trace)
[2022-08-09 12:41] LABS: Basophils Percent Auto 0.3 % (0-2); Eosinophils Absolute Auto 0.1 X10*3/uL (0.0-0.4); Eosinophils Percent Auto 0.8 % (0-4); Hematocrit 42.7 % (37.0-47.0); Hemoglobin 14.1 g/dl (12.0-16.0); Imm Gran Abs Auto 0.02 X10*3/uL (0.00-0.03); Imm Gran Pct Auto 0.3 % (0.0-0.4); Lymphocytes Absolute Auto 0.9 X10*3/uL (1.2-4.9); Lymphocytes Percent Auto 12.8 % (20-40); Mean Corpuscular Volume 93.8 fL (80.0-98.0); Mean Platelet Volume 11.8 fL (9.4-12.3); Monocytes Absolute Auto 0.8 X10*3/uL (0.1-1.2); Monocytes Percent Auto 10.4 % (2-11); Neutrophils Absolute Auto 5.4 x10*3/uL (2.0-8.3); Neutrophils Percent Auto 75.4 % (45-73); Platelet Count 189 X10*3/uL (160-400); Red Blood Count 4.55 X10*6/uL (4.20-5.50); Red Cell Distribution Width 13.2 % (11.0-16.0); White Blood Count 7.2 X10*3/uL (4.8-10.8)
[2022-08-09 12:42] LABS: Bacteria Urine 4+ (None Seen); Hyaline Casts Urine 0-2 /LPF (0-2); RBC Urine >20 /HPF (0-2); Squamous Epithelial Cell Urine 0-2 /HPF (0-2); UACC Culture Trigger YES; WBC Urine >50 /HPF (0-5)
[2022-08-09 12:52] LABS: COVID-19 Test Negative (Negative); IDNOW Serial# BCCEAD1C
[2022-08-09 12:54] LABS: Alanine Aminotransferase 18 U/L (0-31); Albumin Level 4.5 g/dL (3.5-5.0); Alkaline Phosphatase 68 U/L (39-117); Anion Gap 15 (12-20); Aspartate Amino Transferase 22 U/L (5-31); Bilirubin Total 0.7 mg/dL (0.0-1.0); Blood Urea Nitrogen 82 mg/dL (9-16); Calcium 10.5 mg/dL (8.4-10.2); Carbon Dioxide 28 mmol/L (22-29); Chloride 105 mmol/L (96-108); Creatinine Clr Calc Pharmacy 30.3; Estimated Glomerular Filt Rate 42; Glucose Random 106 mg/dL (60-115); Potassium 4.1 mmol/L (3.3-5.1); Sodium 144 mmol/L (135-145); Total Protein 7.5 g/dL (6.5-8.0)
[2022-08-09] MEDS: iohexoL 350 MG/ML 100 ML INFUS..BTL IV (14:37)
[2022-08-09 14:41] VITALS: BP 146/50; PULSE 61; RESP 18; TEMP 36.5; O2SAT 96
[2022-08-09] MEDS: cefTRIAXone sodium 1 GM in 0.9 % Sodium Chloride 50 ML IV (16:19)
[2022-08-09] MEDS: Phenazopyridine HCL 200 MG TABLET PO (16:19)
== END 2022-08-09 17:04 | disposition home or self-care (01) ==
PROVIDERS: Emergency Provider Emergency Medicine; PCP Internal Medicine
DX: N39.0 Urinary tract infection, site not specified (principal); B96.20 Unspecified Escherichia coli [E. coli] as the cause of diseases classified elsewhere; R10.30 Lower abdominal pain, unspecified; Z20.822 Contact with and (suspected) exposure to COVID-19; I11.0 Hypertensive heart disease with heart failure; I50.32 Chronic diastolic (congestive) heart failure; D17.71 Benign lipomatous neoplasm of kidney; I48.19 Other persistent atrial fibrillation; Z87.440 Personal history of urinary (tract) infections; Z79.82 Long term (current) use of aspirin; Z79.899 Other long term (current) drug therapy; Z79.01 Long term (current) use of anticoagulants
CPT/HCPCS: 74177; 80053; 81001; 83605; 85025; 87086; 87088; 87186; 87635; 96374; 99284; 99285; J0696; Q9967

== ENCOUNTER 2022-08-11 16:52 | Outpatient (REF) | payer MEDICARE, SELFPAY | END 2022-08-11 16:53 | disposition home or self-care (01) | LOC: HO.LAB 16:52 | PROVIDERS: Visit Provider Nurse Practitioner Family | DX: N39.0 Urinary tract infection, site not specified (principal) | CPT/HCPCS: 87086 ==

== ENCOUNTER 2022-08-14 08:11 | Emergency (ER) | payer MEDICARE, SELFPAY ==
--- NOTE | ~2022-08-14 | US_ITS ---
EXAMINATION: US PELVIS CLINICAL INFORMATION: pelvic pain dysuria unable to walk negative CT 5 d - TA ONLY PER ER DOC COMPARISON: CT dated 08/09/2022. MRI pelvis dated 10/26/2015. Ultrasound dated 10/19/2015. TECHNIQUE: Ultrasound of the pelvis is performed using transabdominal technique with Doppler. FINDINGS: Uterus: The uterus is anteverted and measures 8.3 x 3.1 x 3.9 cm. A partially calcified uterine fibroid is noted at the posterior aspect of the uterine fundus, measuring 2.1 x 2 x 1.9 cm. A second subserosal fibroid is noted at the uterine body anteriorly measuring 1.3 x 0.8 x 1.3 cm. Uterus otherwise has a smooth contour. The thin endometrial measures 3 mm. No fluid in the cul-de-sac. Adnexa: Ovaries are not identified sonographically. US/US pelvic complete IMPRESSION: 1. Two uterine fibroids are identified, the largest of which is partially calcified and measures 2.1 cm. No acute findings. 2. Ovaries are not identified sonographically.
[2022-08-14 08:26] VITALS: BP 145/60; BP 155/58; PULSE 66; PULSE 72; RESP 16; TEMP 36.6; O2SAT 96; O2SAT 97; BMI 35.1
--- NOTE | 2022-08-14 09:12 | ED.ABDPAIN ---
HPI - Abdominal Pain General Chief Complaint: Abdominal Pain Stated Complaint: Low abd pain per EMS Time Seen by Provider: 08/14/22 08:54 Source: patient Mode of arrival: ambulatory Limitations: no limitations History of Present Illness HPI narrative: 87-year-old female presents the emergency department for the 3rd time with abdominal pain. Patient seen here approximately 5 days ago had negative CT scan at that time was found to have UTI was sent home on antibiotics she states she has completed 2 full courses of antibiotics and has been having the pain for 2 weeks she states this point she cannot walk. She states the pain is intermittent and it is in her pelvis. She denies fevers chills cough or chest pain. MD elicited complaint: abdominal pain Related Data Home Medications Medication Instructions Recorded Confirmed aspirin 81 mg tablet,delayed 81 mg PO DAILY 05/07/20 08/11/22 release dorzolamide 2 % eye drops 1 drp ophthalmic (eye) BID 01/20/22 08/11/22 latanoprost 0.005 % eye drops 1 drp ophthalmic (eye) QPM 01/20/22 08/11/22 ammonium lactate 12 % topical cream appl topical 04/11/22 08/11/22 Previous Rx's Medication Instructions Recorded potassium chloride 10 mEq 10 meq PO DAILY #90 tabs 08/31/21 tablet,extended release valsartan 320 mg tablet 320 mg PO DAILY 90 days #90 tabs 10/02/21 omeprazole 20 mg capsule,delayed 20 mg PO DAILY #90 caps 12/12/21 release amlodipine 10 mg tablet 10 mg PO DAILY 90 days #90 tabs 01/26/22 atenolol 50 mg tablet 100 mg PO DAILY #180 tabs 01/26/22 warfarin 5 mg tablet 5 mg PO DAILY 90 days #90 tabs 01/26/22 cyclobenzaprine 10 mg tablet 10 mg PO BEDTIME PRN muscle spasm 03/07/22 7 days #7 tabs acetaminophen 500 mg tablet 500 mg PO Q6H PRN fever or pain 03/08/22 (Tylenol Extra Strength) #14 tabs lidocaine 5 % topical patch 1 patch topical DAILY PRN pain #30 03/08/22 (Lidoderm) ea tramadol 50 mg tablet 50 mg PO Q8H PRN pain, severe #9 03/08/22 tabs nitrofurantoin macrocrystal 50 mg 50 mg PO BEDTIME #90 caps 04/11/22 capsule (Macrodantin) bumetanide 1 mg tablet 2 mg PO BID #360 tabs 05/23/22 metolazone 2.5 mg tablet 2.5 mg PO .COMPLEX PRN edema 30 06/27/22 days #14 tabs hydralazine 25 mg tablet 25 mg PO TID 90 days #270 tabs 07/07/22 colchicine 0.6 mg tablet 0.6 mg PO BID PRN gout 15 days #30 07/27/22 tabs cholecalciferol (vitamin D3) 25 25 mcg PO DAILY 90 days #90 caps 08/02/22 mcg (1,000 unit) capsule nitrofurantoin 100 mg PO Q12H 7 days #14 caps 08/11/22 monohydrate/macrocrystals 100 mg capsule (Macrobid) phenazopyridine 200 mg tablet 200 mg PO TID PRN pain 6 doses #6 08/11/22 (Pyridium) tabs Allergies Allergy/AdvReac Type Severity Reaction Status Date / Time latex [Latex] Allergy Intermediate BLISTERS & Verified 08/11/22 10:46 ITCHING morphine [Morphine] Allergy Mild RASH, Verified 08/11/22 10:46 ITCHNG Review of Systems Review of Systems Review of systems: General: Patient denies any fever chills recent illness or falls Musculoskeletal: Denies back pain or body aches or other injuries HEENT: denies headache, runny nose, ear pain Respiratory: denies shortness of breath, cough Cardiovascular: no chest pain or palpitations : denies dysuria, frequency Abdomen: no nausea vomiting she states she has abdominal pain Extremities: no swelling, no pain Skin: no diaphoresis Yes all other systems are reviewed and are negative [facility] Past Medical History Medical History Acute gout Afib Chronic heart failure with preserved ejection fraction (HFpEF) Essential hypertension GERD (gastroesophageal reflux disease) Hypercalcemia Persistent atrial fibrillation Precordial chest pain Shortness of breath Sudden loss of vision Swelling of both lower extremities Surgical History History of appendectomy History of right knee joint replacement History of tonsillectomy Family History Family History Father No problems noted. Mother No problems noted. Social History Social History Housing: Apartment Alcohol intake: never Patient Tobacco Use Status: Never used Tobacco e-Cigarette/Vaping Use: Never Used Second Hand Smoke Exposure: No Advance Directives: Yes Advance Directives on File: Yes Advance Directives Date on File: 06/13/22 service: No Current occupational status: unemployed Cognitive needs: Yes Hearing needs: No Vision needs: Yes Physical Exam ED Vital Signs: Vital Signs - 24 hr 08/14/22 08:26 08/14/22 10:00 Temperature 98 F 97.8 F Pulse Rate 66 54 Respiratory Rate 16 14 Blood Pressure 155/58 H 154/57 H Pulse Oximetry 96 97 Oxygen Delivery Method Room Air Room Air BMI result Body Mass Index 35.1 General: Well-appearing well-nourished in no signs of distress HEENT: Normocephalic atraumatic Neck: No signs of JVD, no masses no tenderness or lymphadenopathy Cardiovascular: Regular rate and rhythm Respiratory: Clear to auscultation bilaterally Abdomen: Soft nontender no masses Extremities: Normal pedal pulses no signs of edema Skin: Dry warm no rashes Back: No tenderness full ROM Medical Decision Making Medical Decision Making MDM Narrative: Patient had a negative CT scan x2 in the past week do not think there is another need for any further imaging patient looks well her pain is very benign at this point I cannot reproduce any tenderness her vitals are all stable I will check labs send patient for ultrasound as CT scan did show any bony abnormalities and ultrasounds and other tests that coud give any different information. Labs urine and US are all unremarkable for any acute disease. She states she has follow up with her kidney doctor and has a Urologist too that she will see. I did do a bedside vaginal exam no discharge no abscess or abnormal growth. She had seen Dr. Floyd in the past and states she had a growth. I will have her follow up with OB as well. Lab Data 08/14/22 09:15 08/14/22 09:15 Labs: Lab Results 08/14/22 08/14/22 08/14/22 Range/Units 08:59 09:15 09:15 WBC 6.7 (4.8-10.8) X10*3/uL RBC 4.19 L (4.20-5.50) X10*6/uL Hgb 13.0 (12.0-16.0) g/dl Hct 39.9 (37.0-47.0) % MCV 95.2 (80.0-98.0) fL MCH 31.0 (27.0-33.0) pg MCHC 32.6 (31.0-35.0) g/dl RDW 13.2 (11.0-16.0) % Plt Count 178 (160-400) X10*3/uL MPV 11.4 (9.4-12.3) fL Immature Gran % (Auto) 0.3 (0.0-0.4) % Neut % (Auto) 79.4 H (45-73) % Lymph % (Auto) 10.5 L (20-40) % [place] % (Auto) 7.9 (2-11) % Eos % (Auto) 1.6 (0-4) % Baso % (Auto) 0.3 (0-2) % Lymph # (Auto) 0.7 L (1.2-4.9) X10*3/uL [place] # (Auto) 0.5 (0.1-1.2) X10*3/uL Eos # (Auto) 0.1 (0.0-0.4) X10*3/uL Baso # (Auto) 0.0 (0.0-0.2) X10*3/uL Abs Immat Gran (auto) 0.02 (0.00-0.03) X10*3/uL Absolute Neuts (auto) 5.3 (2.0-8.3) x10*3/uL Absolute Nucleated RBC 0.000 (0.0-0.012) X10*3/uL Nucleated RBC % (auto) 0.0 (0.0-0.2) /100WBC PT 25.8 H (10.0-13.1) SEC INR 2.2 H (0.9-1.1) Sodium (135-145) mmol/L Potassium (3.3-5.1) mmol/L Chloride (96-108) mmol/L Carbon Dioxide (22-29) mmol/L Anion Gap (12-20) BUN (9-16) mg/dL Creatinine (0.5-1.4) mg/dL Estim Creat Clear Calc Estimated GFR Random Glucose (60-115) mg/dL Calcium (8.4-10.2) mg/dL Urine Color Urine Appearance Urine pH (5.0-9.0) Ur Specific [place] (1.005-1.025) Urine Protein (Neg-Trace) mg/dL Urine Glucose (UA) (Negative) mg/dL Urine Ketones (Negative) mg/dL Urine Blood (Negative) Urine Nitrite (Negative) Ur Leukocyte Esterase (Negative) Urine RBC (0-2) /HPF Urine WBC (0-5) /HPF Ur Squamous Epith Cells (0-2) /HPF Urine Bacteria (None Seen) Hyaline Casts (0-2) /LPF COVID-19 ([facility]IB[facility]) Negative (Negative) COVID-19 Clin Com See Note 08/14/22 08/14/22 Range/Units 09:15 10:11 WBC (4.8-10.8) X10*3/uL RBC (4.20-5.50) X10*6/uL Hgb (12.0-16.0) g/dl Hct (37.0-47.0) % MCV (80.0-98.0) fL MCH (27.0-33.0) pg MCHC (31.0-35.0) g/dl RDW (11.0-16.0) % Plt Count (160-400) X10*3/uL MPV (9.4-12.3) fL Immature Gran % (Auto) (0.0-0.4) % Neut % (Auto) (45-73) % Lymph % (Auto) (20-40) % [place] % (Auto) (2-11) % Eos % (Auto) (0-4) % Baso % (Auto) (0-2) % Lymph # (Auto) (1.2-4.9) X10*3/uL [place] # (Auto) (0.1-1.2) X10*3/uL Eos # (Auto) (0.0-0.4) X10*3/uL Baso # (Auto) (0.0-0.2) X10*3/uL Abs Immat Gran (auto) (0.00-0.03) X10*3/uL Absolute Neuts (auto) (2.0-8.3) x10*3/uL Absolute Nucleated RBC (0.0-0.012) X10*3/uL Nucleated RBC % (auto) (0.0-0.2) /100WBC PT (10.0-13.1) SEC INR (0.9-1.1) Sodium 143 (135-145) mmol/L Potassium 4.0 (3.3-5.1) mmol/L Chloride 108 (96-108) mmol/L Carbon Dioxide 23 (22-29) mmol/L Anion Gap 16 (12-20) BUN 41 H (9-16) mg/dL Creatinine 0.95 (0.5-1.4) mg/dL Estim Creat Clear Calc 38.5 Estimated GFR 56 Random Glucose 99 (60-115) mg/dL Calcium 10.4 H (8.4-10.2) mg/dL Urine Color Dark Yellow Urine Appearance Clear Urine pH 7.0 (5.0-9.0) Ur Specific [place] 1.010 (1.005-1.025) Urine Protein Trace (Neg-Trace) mg/dL Urine Glucose (UA) Negative (Negative) mg/dL Urine Ketones Negative (Negative) mg/dL Urine Blood Negative (Negative) Urine Nitrite Positive H (Negative) Ur Leukocyte Esterase Negative (Negative) Urine RBC 0-2 (0-2) /HPF Urine WBC 0-5 (0-5) /HPF Ur Squamous Epith Cells 0-2 (0-2) /HPF Urine Bacteria None Seen (None Seen) Hyaline Casts 0-2 (0-2) /LPF COVID-19 ([facility]IB[facility]) (Negative) COVID-19 Clin Com Medications Administered Generic Name Dose Route Start Last Admin Trade Name Freq PRN Reason Stop Dose Admin Sodium Chloride 1,000 mls @ 999 mls/hr 08/14/22 11:15 08/14/22 11:22 Ns IV 08/14/22 12:15 999 mls/hr .[id number] TIEN Administration Discontinued Medications Generic Name Dose Route Start Last Admin Trade Name Freq PRN Reason Stop Dose Admin Ceftriaxone Sodium 1 gm/ 50 mls @ 100 mls/hr 08/14/22 10:22 08/14/22 11:10 Sodium Chloride IV 08/14/22 10:51 Infused ONCE ONE Infusion Discharge Plan Discharge Clinical Impression: Acute pelvic pain Patient Disposition: Home, Self-Care Instructions: Pelvic Pain (ED), Warm Compress or Soak (ED) Additional Instructions: Please follow up with your Urologist or who we provide. Please follo wup with OB as well. Prescriptions: No Action potassium chloride 10 mEq tablet extended release 10 meq PO DAILY Qty: 90 3RF valsartan 320 mg tablet 320 mg PO DAILY 90 Days Qty: 90 3RF omeprazole 20 mg capsule,delayed release(DR/EC) 20 mg PO DAILY Qty: 90 2RF cyclobenzaprine 10 mg tablet 10 mg PO BEDTIME PRN (Reason: muscle spasm) 7 Days Qty: 7 0RF bumetanide 1 mg tablet 2 mg PO BID Qty: 360 3RF hydralazine 25 mg tablet 25 mg PO TID 90 Days Qty: 270 1RF colchicine 0.6 mg tablet 0.6 mg PO BID PRN (Reason: gout) 15 Days Qty: 30 1RF cholecalciferol (vitamin D3) 25 mcg (1,000 unit) capsule 25 mcg PO DAILY 90 Days Qty: 90 1RF lidocaine [Lidoderm] 5 % adhesive patch,medicated 1 patch topical DAILY MDD remove after 12 hours PRN (Reason: pain) Qty: 30 0RF Rx Instructions: leave on most painful area for up to 12 hrs tramadol 50 mg tablet 50 mg PO Q8H PRN (Reason: pain, severe) Qty: 9 0RF acetaminophen [Tylenol Extra Strength] 500 mg tablet 500 mg PO Q6H PRN (Reason: fever or pain) Qty: 14 0RF amlodipine 10 mg tablet 10 mg PO DAILY 90 Days Qty: 90 3RF atenolol 50 mg tablet 100 mg PO DAILY Qty: 180 2RF warfarin 5 mg tablet 5 mg PO DAILY 90 Days Qty: 90 2RF Protocol: Dose Management Condition: Monday (Week One) Dose/Route: 5 mg Instruction: 1 x 5 mg tablet Condition: Monday Dose/Route: 5 mg Instruction: 1 x 5 mg tablet Condition: Monday Dose/Route: 5 mg Instruction: 1 x 5 mg tablet Condition: Monday Dose/Route: 2.5 mg Instruction: 0.5 x 5 mg tablets Condition: Dose/Route: 5 mg Instruction: 1 x 5 mg tablet Condition: Monday Dose/Route: 5 mg Instruction: 1 x 5 mg tablet Condition: Monday Dose/Route: 5 mg Instruction: 1 x 5 mg tablet Condition: Monday (Week Two) Dose/Route: 5 mg Instruction: 1 x 5 mg tablet Condition: Monday Dose/Route: 5 mg Instruction: 1 x 5 mg tablet Condition: Monday Dose/Route: 5 mg Instruction: 1 x 5 mg tablet Condition: Monday Dose/Route: 2.5 mg Instruction: 0.5 x 5 mg tablets Condition: Dose/Route: 5 mg Instruction: 1 x 5 mg tablet Condition: Monday Dose/Route: 5 mg Instruction: 1 x 5 mg tablet Condition: Monday Dose/Route: 5 mg Instruction: 1 x 5 mg tablet Protocol Text: Adjustment Start Date: 07/28/22 INR Value: 2.3 INR Date: 07/28/22 Recheck Date: 08/25/22 Additional Instructions: cont reg dosing balance reds and greens call with any medication changes nitrofurantoin monohyd/m-cryst [Macrobid] 100 mg capsule 100 mg PO Q12H 7 Days Qty: 14 0RF Rx Instructions: must administer with a meal/food phenazopyridine [Pyridium] 200 mg tablet 200 mg PO TID PRN (Reason: pain) Qty: 6 0RF aspirin 81 mg tablet,delayed release (DR/EC) 81 mg PO DAILY ammonium lactate 12 % cream topical nitrofurantoin macrocrystal [Macrodantin] 50 mg capsule 50 mg PO BEDTIME Qty: 90 0RF Rx Instructions: must administer with a meal/food latanoprost 0.005 % drops 1 drp ophthalmic (eye) QPM dorzolamide 2 % drops 1 drp ophthalmic (eye) BID metolazone 2.5 mg tablet 2.5 mg PO .COMPLEX PRN (Reason: edema) 30 Days Qty: 14 3RF Rx Instructions: 2.5 mg orally weekly PRN; Referrals: Mick Jones MD [Physician] - (Please call to follow up for your recurrent pelvic pain.) Rafael Floyd MD [Physician] - (Please call to follow up.)
[2022-08-14 09:22] LABS: MANUAL DIFF FLAG NO
[2022-08-14 09:24] LABS: Basophils Percent Auto 0.3 % (0-2); Eosinophils Absolute Auto 0.1 X10*3/uL (0.0-0.4); Eosinophils Percent Auto 1.6 % (0-4); Hematocrit 39.9 % (37.0-47.0); Imm Gran Abs Auto 0.02 X10*3/uL (0.00-0.03); Imm Gran Pct Auto 0.3 % (0.0-0.4); Lymphocytes Absolute Auto 0.7 X10*3/uL (1.2-4.9); Lymphocytes Percent Auto 10.5 % (20-40); Mean Corpuscular HGB Conc 32.6 g/dl (31.0-35.0); Mean Corpuscular Volume 95.2 fL (80.0-98.0); Mean Platelet Volume 11.4 fL (9.4-12.3); Monocytes Absolute Auto 0.5 X10*3/uL (0.1-1.2); Monocytes Percent Auto 7.9 % (2-11); Neutrophils Absolute Auto 5.3 x10*3/uL (2.0-8.3); Neutrophils Percent Auto 79.4 % (45-73); Platelet Count 178 X10*3/uL (160-400); Red Blood Count 4.19 X10*6/uL (4.20-5.50); Red Cell Distribution Width 13.2 % (11.0-16.0); White Blood Count 6.7 X10*3/uL (4.8-10.8)
[2022-08-14 09:33] LABS: INTERNATIONAL NORM RATIO 2.2 (0.9-1.1); Prothrombin Time 25.8 SEC (10.0-13.1)
[2022-08-14 09:38] LABS: COVID-19 Test Negative (Negative); IDNOW Serial# 16C4AD1C
[2022-08-14 09:48] LABS: Anion Gap 16 (12-20); Blood Urea Nitrogen 41 mg/dL (9-16); Calcium 10.4 mg/dL (8.4-10.2); Carbon Dioxide 23 mmol/L (22-29); Chloride 108 mmol/L (96-108); Creatinine Clr Calc Pharmacy 38.5; Estimated Glomerular Filt Rate 56; Glucose Random 99 mg/dL (60-115); Sodium 143 mmol/L (135-145)
[2022-08-14 10:00] VITALS: BP 154/57; PULSE 54; RESP 14; TEMP 36.6; O2SAT 97
[2022-08-14 10:17] LABS: Appearance Urine Clear; Color Urine Dark Yellow; Glucose Urine UA Negative (Negative); Leukocyte Esterase Urine Negative (Negative); Nitrite Urine Positive (Negative); UMIC TRIGGER UACC YES; Urine Blood Negative (Negative); Urine Ketones Negative (Negative); Urine Protein Trace mg/dL (Neg-Trace)
[2022-08-14 10:33] LABS: Bacteria Urine None Seen (None Seen); Hyaline Casts Urine 0-2 /LPF (0-2); RBC Urine 0-2 /HPF (0-2); Squamous Epithelial Cell Urine 0-2 /HPF (0-2); UACC Culture Trigger YES; WBC Urine 0-5 /HPF (0-5)
[2022-08-14] MEDS: cefTRIAXone sodium 1 GM in 0.9 % Sodium Chloride 50 ML IV (10:38)
[2022-08-14] MEDS: 0.9 % Sodium Chloride 1,000 ML 999 ML IV (11:22)
--- NOTE | 2022-08-14 11:42 | PC.NURSE ---
UP TO BEDSIDE COMMODE. VOID APPROX 300ML
[2022-08-14 15:15] VITALS: BP 149/74; PULSE 74; RESP 16; O2SAT 96
--- NOTE | 2022-08-14 15:16 | PC.NURSE ---
PT ASSISTED TO BEDSIDE COMMODE AGAIN, VOID 250ML SHE HAS GROIN PAIN WITH MOBILITY, EDEMA IN LOWER LEGS AND FEET
== END 2022-08-14 15:20 | disposition home or self-care (01) ==
PROVIDERS: Emergency Provider Student in an Organized Health Care Education/Training Program; PCP Internal Medicine
DX: R10.2 Pelvic and perineal pain (principal); Z20.822 Contact with and (suspected) exposure to COVID-19; Z20.828 Contact with and (suspected) exposure to other viral communicable diseases; Z79.899 Other long term (current) drug therapy
CPT/HCPCS: 76856; 80048; 81001; 85025; 85610; 87086; 87635; 96361; 96374; 99284; J0696

== ENCOUNTER 2022-08-17 10:22 | Emergency (ER) | payer MEDICARE, SELFPAY ==
--- NOTE | ~2022-08-17 | CT_ITS ---
EXAMINATION: CT PELVIS WITHOUT CONTRAST CLINICAL INFORMATION: Right-sided pain COMPARISON: 08/09/2022 and prior pelvic ultrasound dated 08/14/2022 TECHNIQUE: Helical scanning was performed with submillimeter collimation through the pelvis. Sagittal and coronal multiplanar 2-D reconstructions were obtained. This CT examination was performed using dose optimization techniques as appropriate, variously including the following: *Automated exposure control *Adjustment of mA and/or kV according to patient size (this includes techniques or standardized protocols for targeted exams where dose is matched to indication/reason for exam; i.e. extremities or head) *Use of iterative reconstruction technique DLP: 325 mGy-cm FINDINGS: Senescent uterus containing small punctate calcifications likely small fibroids. These were described on the recent pelvic ultrasound. Adnexa regions unremarkable. No ascites. There is mild sigmoid diverticular disease but no diverticulitis. No right or left lower quadrant inflammatory change. Vascular structures unremarkable. No free air. Bladder distended but unremarkable. There is degenerative change of both hips. No fracture or destructive lesion in the pelvis or hips. Facet degenerative change seen in the lower lumbar spine. CT/CT pelvis wo IV con IMPRESSION: Stable calcifications within the senescent uterus likely tiny fibroids. No acute findings.
[2022-08-17 10:29] VITALS: BP 149/62; BP 151/91; PULSE 107; PULSE 99; RESP 24; TEMP 36.9; O2SAT 95; O2SAT 98; BMI 33.9
[2022-08-17 10:52] VITALS: BP 149/54; PULSE 94; RESP 24; TEMP 36.9; O2SAT 96
--- NOTE | 2022-08-17 11:19 | ED_ITS ---
HPI - Back Pain/Injury General Chief Complaint: Back Pain/Injury <NETTE Purcell Last Filed: 08/17/22 17:31> Stated Complaint: L low back/buttock/leg pain per EMS <NETTE Purcell Last Filed: 08/17/22 17:31> Time Seen by Provider: 08/17/22 10:39 <NETTE Purcell - Last Filed: 08/17/22 17:31> Source: patient and EMS <NETTE Purcell Last Filed: 08/17/22 17:31> Mode of arrival: EMS <NETTE Purcell Last Filed: 08/17/22 17:31> History of Present Illness HPI Narrative: 87-year-old female with a past medical history of AFib on Coumadin, arthritis, chronic knee pain, gout, HTN, presenting to the ED via EMS complaining of progressively worsening left low back/buttock pain radiating down LLE x 2 weeks. Normally independent but unable to ambulate this AM d/t pain. Reports constant left buttock pain worse on palpation and with movement. Also reports left groin pain. Denies trauma/heavy lifting. Denies loss of bow el/bladder function/saddle paresthesia, hematuria/dysuria, abdominal pain. Of note patient recently seen and treated in ED 2 times for similar symptoms in the past week <NETTE Purcell - Last Filed: 08/17/22 17:31> MD elicited complaint: back pain <NETTE Purcell - Last Filed: 08/17/22 17:31> Onset (ago): week(s) <NETTE Purcell - Last Filed: 08/17/22 17:31> Related Data Home Medications: Home Medications Medication Instructions Recorded Confirmed aspirin 81 mg tablet,delayed 81 mg PO DAILY 05/07/20 08/17/22 release dorzolamide 2 % eye drops 1 drp ophthalmic-Right BID 01/20/22 08/17/22 latanoprost 0.005 % eye drops 1 drp ophthalmic (eye) BEDTIME 01/20/22 08/17/22 Previous Rx's Medication Instructions Recorded potassium chloride 10 mEq 10 meq PO DAILY #90 tabs 08/31/21 tablet,extended release valsartan 320 mg tablet 320 mg PO DAILY 90 days #90 tabs 10/02/21 omeprazole 20 mg capsule,delayed 20 mg PO DAILY #90 caps 12/12/21 release amlodipine 10 mg tablet 10 mg PO DAILY 90 days #90 tabs 01/26/22 atenolol 50 mg tablet 100 mg PO DAILY #180 tabs 01/26/22 warfarin 5 mg tablet 5 mg PO DAILY 90 days #90 tabs 01/26/22 acetaminophen 500 mg tablet 500 mg PO Q6H PRN fever or pain 03/08/22 (Tylenol Extra Strength) #14 tabs lidocaine 5 % topical patch 1 patch topical DAILY PRN pain #30 03/08/22 (Lidoderm) ea nitrofurantoin macrocrystal 50 mg 50 mg PO BEDTIME #90 caps 04/11/22 capsule (Macrodantin) bumetanide 1 mg tablet 2 mg PO BID #360 tabs 05/23/22 hydralazine 25 mg tablet 25 mg PO TID 90 days #270 tabs 07/07/22 colchicine 0.6 mg tablet 0.6 mg PO BID PRN gout 15 days #30 07/27/22 tabs cholecalciferol (vitamin D3) 25 25 mcg PO DAILY 90 days #90 caps 08/02/22 mcg (1,000 unit) capsule <NETTE Purcell - Last Filed: 08/17/22 17:31> Allergies/Adverse Reactions: Allergies Allergy/AdvReac Type Severity Reaction Status Date / Time latex [Latex] Allergy Intermediate BLISTERS & Verified 08/11/22 10:46 ITCHING morphine [Morphine] Allergy Mild RASH, Verified 08/11/22 10:46 ITCHNG <NETTE Purcell Last Filed: 08/17/22 17:31> Review of Systems Review of Systems: Constitutional: No Fever, No Chills, No Fatigue, ENT/Mouth: No Ear Pain, No Nasal Congestion, No Sinus Pain, No Hoarseness, No so re throat, No Rhinorrhea, Eyes: No Eye Pain, No Swelling, No Redness, No Vision Changes Cardiovascular: No Chest Pain, No SOB, No Edema, No Palpitations Respiratory: No Cough, No Sputum, No Dyspnea Gastrointestinal: No Nausea, No Vomiting, No Diarrhea, + Constipation, No Abdominal pain Genitourinary: No irregular bleeding, No Dysuria, No Urinary Frequency, No Hematuria, No Urinary Incontinence/retention, No Flank Pain Musculoskeletal: No joint pain, No Myalgias, No Joint Swelling, +LLE pain Skin: No Skin Lesions, No rash Neuro: No Weakness, No Numbness, + Paresthesias, No Loss of Consciousness, No Dizziness, No Headache <NETTE Purcell - Last Filed: 08/17/22 17:31> Yes all other systems are reviewed and are negative <NETTE Purcell - Last Filed: 08/17/22 17:31> Constitutional: Constitutional: Reports as per HPI <NETTE Purcell - Last Filed: 08/17/22 17:31> [facility] Past Medical History Attestation statement: The following information was validated with the patient. <NETTE Purcell - Last Filed: 08/17/22 17:31> Medical History: Medical History Acute gout Afib Chronic heart failure with preserved ejection fraction (HFpEF) Essential hypertension GERD (gastroesophageal reflux disease) Hypercalcemia Persistent atrial fibrillation Precordial chest pain Shortness of breath Sudden loss of vision Swelling of both lower extremities <NETTE Purcell - Last Filed: 08/17/22 17:31> Surgical History: Surgical History History of appendectomy History of right knee joint replacement History of tonsillectomy <NETTE Purcell - Last Filed: 08/17/22 17:31> Family History Family History: Family History Father No problems noted. Mother No problems noted. <NETTE Purcell - Last Filed: 08/17/22 17:31> Social History Social History: Social History Housing: Apartment Alcohol intake: never Patient Tobacco Use Status: Never used Tobacco Smoked in Last 30 Days: No e-Cigarette/Vaping Use: Never Used Second Hand Smoke Exposure: No Use of substances other than those prescribed or required for medical reasons: No Advance Directives: Yes Advance Directives on File: Yes Advance Directives Date on File: 06/13/22 service: No Current occupational status: unemployed Cognitive needs: Yes Hearing needs: No Vision needs: Yes <NETTE Purcell - Last Filed: 08/17/22 17:31> Physical Exam Vital Signs: Vital Signs: Last Vital Signs Temp 98.8 F 08/18/22 06:39 Pulse 86 08/18/22 09:26 Resp 19 08/18/22 09:26 BP 137/64 08/18/22 09:26 Pulse Ox 99 08/18/22 09:26 O2 Del Method 08/18/22 09:26 BMI result Body Mass Index 33.9 <NETTE Purcell - Last Filed: 08/17/22 17:31> Vital Signs: Last Vital Signs Temp 98.8 F 08/18/22 06:39 Pulse 86 08/18/22 09:26 Resp 08/18/22 09:26 BP 137/64 08/18/22 09:26 Pulse Ox 99 08/18/22 09:26 O2 Del Method 08/18/22 09:26 BMI result Body Mass Index 33.9 <NETTE Cotton - Last Filed: 08/18/22 13:31> Const: Other: in pain <NETTE Purcell - Last Filed: 08/17/22 17:31> General: cooperative, healthy appearing and no acute distress <NETTE Purcell - Last Filed: 08/17/22 17:31> Orientation/consciousness: patient oriented x3 <NETTE Purcell - Last Filed: 08/17/22 17:31> Limitations: no limitations <NETTE Purcell - Last Filed: 08/17/22 17:31> HEENT: Head: Yes normal to inspection and Yes atraumatic <NETTE Purcell - Last Filed: 08/17/22 17:31> Ears: hearing grossly normal bilaterally <NETTE Purcell - Last Filed: 08/17/22 17:31> General nose exam: Normal external nose present <NETTE Purcell - Last Filed: 08/17/22 17:31> Face and sinus: Yes normal facial exam <NETTE Purcell - Last Filed: 08/17 17:31> Eyes: General: appearance normal, both eyes and all related structures <Beatriz Hooker PA - Last Filed: 08/17/22 17:31> EOM: EOMs intact bilaterally <Beatriz Briannashey PA - Last Filed: 08/17/22 17:31> Neck: Neck: Yes normal visual inspection and Yes no meningeal signs <Beatriz Hooker PA - Last Filed: 08/17/22 17:31> Resp: Effort & Inspection: normal respiratory effort and no respiratory distress <Beatriz Hooker PA - Last Filed: 08/17/22 17:31> Auscultation: clear to auscultation bilaterally <Beatriz Hokoer PA - Last Filed: 08/17/22 17:31> Cardio: Rate: regular rate <Beatriz Hooker PA - Last Filed: 08/17/22 17:31> Heart sounds: S1 normal heart sound present and S2 normal heart sound present <Beatriz Hooker PA - Last Filed: 08/17/22 17:31> GI: Inspection: Yes normal to inspection <Beatriz Hooker PA - Last Filed: 08/17/22 17:31> Palpation (GI): Soft to palpation, nontender, no guarding and not rigid <Beatriz Hooker PA - Last Filed: 08/17/22 17:31> Auscultation: normal bowel sounds <Beatriz Hooker PA - Last Filed: 08/17/22 17:31> : General: Yes no CVA tenderness <Beatriz Hooker PA - Last Filed: 08/17/22 17:31> Back/Spine/Pelvis: Other: No midline thoracic/lumbar spinous tenderness/step-off or deformity. + left lower lumbar paraspinal/MSK and buttock tenderness to palpation reproducing subjective complaint. No erythema/ecchymosis or crepitus <Beatriz Hooker PA - Last Filed: 08/17/22 17:31> Back: no CVA tenderness <Beatriz Hooker PA - Last Filed: 08/17/22 17:31> Pelvis: buttock tenderness on the left <Beatriz Hooker PA - Last Filed: 08/17/22 17:31> Skin: Rashes: no rashes <NETTE Purcell - Last Filed: 08/17/22 17:31> Wounds: no wounds <NETTE Purcell Last Filed: 08/17/22 17:31> Neuro: Other: Strength intact throughout. No saddle anesthesia. Sensation intact to light touch. Neurovascular intact distally <NETTE Purcell Last Filed: 08/17/22 17:31> General: patient oriented x3, tone normal, moves all extremities and no meningeal signs <NETTE Purcell Last Filed: 08/17/22 17:31> Extrem: Other: + pain with passive ROM of left hip <NETTE Purcell - Last Filed: 08/17/22 17:31> General: Yes normal to inspection <NETTE Purcell - Last Filed: 08/17/22 17:31> Right lower extremity: normal capillary refill <NETTE Purcell Last Filed: 08/17/22 17:31> Left lower extremity: normal capillary refill, edema Details: 1+ and hip/thigh Details: no crepitus, no deformity and no unusual warmth <NETTE Purcell Last Filed: 08/17/22 17:31> Course Course Course Narrative: CT pelvis wo IV con IMPRESSION: Stable calcifications within the senescent uterus likely tiny fibroids. No acute findings. >> patient reports continued pain after Flexeril and Lidoderm patch. > will try tramadol and re-evaluate -plan for PT/Case Management. Physician observation initiated -1520--physical therapy evaluated patient and recommended short-term rehab. -1800--ED care transferred to [facility] pending CM placement <NETTE Purcell Last Filed: 08/17/22 17:31> Reevaluation(s) Reevaluation #1: Physician observation continued overnight. Patient is complaining of constipation, no BM in the last 3 or 4 days. likely due to 2 doses of oxycodone that she received. She has abdominal cramping. Will start MiraLax, senna, Colace. Per case management patient has a bed today at [facility] for short- term rehab. She is stable for discharge. <NETTE Cotton - Last Filed: 08/18/22 13:31> Medications Administered Generic Name Dose Route Start Last Admin Trade Name Keri PRN Reason Stop Dose Admin Acetaminophen 650 mg 08/17/22 15:34 08/18/22 06:16 Acetaminophen 325 Mg Tablet PO 650 mg Q6H PRN Administration fever or pain Amlodipine Besylate 10 mg 08/18/22 09:00 08/18/22 09:23 Amlodipine Besylate 10 Mg Tablet PO 10 mg DAILY TIEN Administration Protocol Aspirin 81 mg 08/18/22 09:00 08/18/22 09:23 Aspirin Enteric Coated 81 Mg Tablet. PO 81 mg DAILY TIEN Administration Atenolol 100 mg 08/18/22 09:00 08/18/22 09:23 Atenolol 100 Mg Tablet PO 100 mg DAILY TIEN Administration Protocol Bumetanide 2 mg 08/17/22 21:00 08/18/22 09:23 Bumetanide 1 Mg Tablet PO 2 mg BID TIEN Administration Protocol Docusate Sodium 100 mg 08/18/22 10:10 08/18/22 10:58 Docusate Sodium 100 Mg Capsule PO 100 mg BID TIEN Administration Dorzolamide HCl 1 drop 08/17/22 21:00 08/18/22 10:58 Dorzolamide Hcl 2 % Ophth Jojo 10 Ml Drpbtl EYE-RIGHT 1 drop BID TIEN Administration Hydralazine HCl 25 mg 08/17/22 21:00 08/18/22 09:23 Hydralazine Hcl 25 Mg Tablet PO 25 mg TID TIEN Administration Protocol Latanoprost 1 drop 08/17/22 21:00 08/17/22 21:30 Latanoprost 0.005 % Ophth Jojo 2.5 Ml Drops EYE-BOTH 1 drop BEDTIME TIEN Administration Lidocaine 1 patch 08/17/22 15:35 08/18/22 03:33 Lidocaine 4 % Patch Adh..Patch TRANSDERMA 1 patch DAILY PRN Administration pain Nitrofurantoin Macrocrystals 50 mg 08/17/22 21:00 08/17/22 21:30 Nitrofurantoin Macrocrystal 50 Mg Capsule PO 50 mg BEDTIME TIEN Administration Omeprazole 20 mg 08/18/22 06:30 08/18/22 06:16 Omeprazole 20 Mg Capsule. PO 20 mg DAILY@0630 [facility] Administration Polyethylene Glycol 17 gm 08/18/22 09:00 08/18/22 10:58 Polyethylene Glycol 3350 17 Gm Powd.Pack PO 17 gm DAILY TIEN Administration Potassium Chloride 10 meq 08/18/22 09:00 08/18/22 09:23 Potassium Chloride Er 10 Meq Capsule.Er PO 10 meq DAILY TIEN Administration Senna 15 ml 08/18/22 10:10 08/18/22 10:58 Senna [place] Extract Oral Syrup 15 Ml Syrup PO 15 ml DAILY TIEN Administration Valsartan 320 mg 08/18/22 09:00 08/18/22 10:59 Valsartan 320 Mg Tablet PO Not Given DAILY [facility] Protocol Vitamin D 25 mcg 08/18/22 09:00 08/18/22 09:24 Cholecalciferol (Vitamin D3) 25 Mcg Tablet PO 25 mcg DAILY TIEN Administration Warfarin Sodium 5 mg 08/18/22 18:00 08/17/22 22:36 Warfarin Sodium 5 Mg Tablet PO 5 mg DAILY@1800 [facility] Administration Discontinued Medications Generic Name Dose Route Start Last Admin Trade Name Marvinq PRN Reason Stop Dose Admin Acetaminophen 650 mg 08/17/22 11:15 08/17/22 11:49 Acetaminophen 325 Mg Tablet PO 08/17/22 11:16 650 mg ONCE ONE Administration Cyclobenzaprine HCl 10 mg 08/17/22 11:15 08/17/22 11:49 Cyclobenzaprine Hcl 10 Mg Tablet PO 08/17/22 11:16 10 mg ONCE ONE Administration Diphenhydramine HCl 12.5 mg 08/17/22 16:27 08/17/22 17:22 Diphenhydramine Hcl 50 Mg/Ml Vial IVPUSH 08/17/22 16:28 12.5 mg ONCE ONE Administration Lidocaine 1 patch 08/17/22 11:15 08/17/22 11:49 Lidocaine 4 % Patch Adh..Patch TRANSDERMA 08/17/22 11:16 1 patch ONCE ONE Administration Protocol Oxycodone HCl 5 mg 08/17/22 16:27 08/17/22 17:22 Oxycodone Hcl Immed Release 5 Mg Tablet PO 08/17/22 16:28 5 mg ONCE ONE Administration Oxycodone HCl 5 mg 08/18/22 02:02 08/18/22 02:21 Oxycodone Hcl Immed Release 5 Mg Tablet PO 08/18/22 02:03 5 mg ONCE ONE Administration Tramadol HCl 50 mg 08/17/22 13:13 08/17/22 13:39 Tramadol Hcl 50 Mg Tablet PO 08/17/22 13:14 50 mg ONCE ONE Administration <NETTE Purcell - Last Filed: 08/17/22 17:31> Medications Administered Generic Name Dose Route Start Last Admin Trade Name Frepauline PRN Reason Stop Dose Admin Acetaminophen 650 mg 08/17/22 15:34 08/18/22 06:16 Acetaminophen 325 Mg Tablet PO 650 mg Q6H PRN Administration fever or pain Amlodipine Besylate 10 mg 08/18/22 09:00 08/18/22 09:23 Amlodipine Besylate 10 Mg Tablet PO 10 mg DAILY TIEN Administration Protocol Aspirin 81 mg 08/18/22 09:00 08/18/22 09:23 Aspirin Enteric Coated 81 Mg Tablet.Dr PO 81 mg DAILY TIEN Administration Atenolol 100 mg 08/18/22 09:00 08/18/22 09:23 Atenolol 100 Mg Tablet PO 100 mg DAILY TIEN Administration Protocol Bumetanide 2 mg 08/17/22 21:00 08/18/22 09:23 Bumetanide 1 Mg Tablet PO 2 mg BID TIEN Administration Protocol Docusate Sodium 100 mg 08/18/22 10:10 08/18/22 10:58 Docusate Sodium 100 Mg Capsule PO 100 mg BID TIEN Administration Dorzolamide HCl 1 drop 08/17/22 21:00 08/18/22 10:58 Dorzolamide Hcl 2 % Ophth Jojo 10 Ml Drpbtl EYE-RIGHT 1 drop BID TIEN Administration Hydralazine HCl 25 mg 08/17/22 21:00 08/18/22 09:23 Hydralazine Hcl 25 Mg Tablet PO 25 mg TID TIEN Administration Protocol Latanoprost 1 drop 08/17/22 21:00 08/17/22 21:30 Latanoprost 0.005 % Ophth Jojo 2.5 Ml Drops EYE-BOTH 1 drop BEDTIME TIEN Administration Lidocaine 1 patch 08/17/22 15:35 08/18/22 03:33 Lidocaine 4 % Patch Adh..Patch TRANSDERMA 1 patch DAILY PRN Administration pain Nitrofurantoin Macrocrystals 50 mg 08/17/22 21:00 08/17/22 21:30 Nitrofurantoin Macrocrystal 50 Mg Capsule PO 50 mg BEDTIME TIEN Administration Omeprazole 20 mg 08/18/22 06:30 08/18/22 06:16 Omeprazole 20 Mg Capsule.Dr PO 20 mg DAILY@0630 TIEN Administration Polyethylene Glycol 17 gm 08/18/22 09:00 08/18/22 10:58 Polyethylene Glycol 3350 17 Gm Powd.Pack PO 17 gm DAILY TIEN Administration Potassium Chloride 10 meq 08/18/22 09:00 08/18/22 09:23 Potassium Chloride Er 10 Meq Capsule.Er PO 10 meq DAILY TIEN Administration Senna 15 ml 08/18/22 10:10 08/18/22 10:58 Senna [place] Extract Oral Syrup 15 Ml Syrup PO 15 ml DAILY [facility] Administration Valsartan 320 mg 08/18/22 09:00 08/18/22 10:59 Valsartan 320 Mg Tablet PO Not Given DAILY [facility] Protocol Vitamin D 25 mcg 08/18/22 09:00 08/18/22 09:24 Cholecalciferol (Vitamin D3) 25 Mcg Tablet PO 25 mcg DAILY TIEN Administration Warfarin Sodium 5 mg 08/18/22 18:00 08/17/22 22:36 Warfarin Sodium 5 Mg Tablet PO 5 mg DAILY@1800 [facility] Administration Discontinued Medications Generic Name Dose Route Start Last Admin Trade Name Marvinq PRN Reason Stop Dose Admin Acetaminophen 650 mg 08/17/22 11:15 08/17/22 11:49 Acetaminophen 325 Mg Tablet PO 08/17/22 11:16 650 mg ONCE ONE Administration Cyclobenzaprine HCl 10 mg 08/17/22 11:15 08/17/22 11:49 Cyclobenzaprine Hcl 10 Mg Tablet PO 08/17/22 11:16 10 mg ONCE ONE Administration Diphenhydramine HCl 12.5 mg 08/17/22 16:27 08/17/22 17:22 Diphenhydramine Hcl 50 Mg/Ml Vial IVPUSH 08/17/22 16:28 12.5 mg ONCE ONE Administration Lidocaine 1 patch 08/17/22 11:15 08/17/22 11:49 Lidocaine 4 % Patch Adh..Patch TRANSDERMA 08/17/22 11:16 1 patch ONCE ONE Administration Protocol Oxycodone HCl 5 mg 08/17/22 16:27 08/17/22 17:22 Oxycodone Hcl Immed Release 5 Mg Tablet PO 08/17/22 16:28 5 mg ONCE ONE Administration Oxycodone HCl 5 mg 08/18/22 02:02 08/18/22 02:21 Oxycodone Hcl Immed Release 5 Mg Tablet PO 08/18/22 02:03 5 mg ONCE ONE Administration Tramadol HCl 50 mg 08/17/22 13:13 08/17/22 13:39 Tramadol Hcl 50 Mg Tablet PO 08/17/22 13:14 50 mg ONCE ONE Administration <NETTE Cotton - Last Filed: 08/18/22 13:31> Medical Decision Making Medical Decision Making MDM Narrative: 87-year-old female with a past medical history of AFib on Coumadin, arthritis, chronic knee pain, gout, HTN, presenting to the ED via EMS complaining of progressively worsening left low back/buttock pain radiating down LLE x 2 weeks. On exam mildly hypertensive, tachypneic likely from pain, no midline spinous tenderness throughout or red flag symptoms, no saddle anesthesia. Pain elicited on passive ROM left hip. Neurovascular intact distally, no abnormal pedal edema/calf tenderness. Concern for acute on chronic MSK pain/strain/sciatica vs osteoarthritis vs ?Gout vs occult fracture. Low suspicion for intra-abdominal process, epidural abscess, cauda equina, or septic joint Lab/imaging reviewed from recent visits without acute findings. Plan: Pelvis/hip CT, pain control, PT/case management <NETTE Purcell - Last Filed: 08/17/22 17:31> Differential Diagnosis Differential Diagnoses: The differential diagnosis associated with the presentation includes <NETTE Purcell - Last Filed: 08/17/22 17:31> as above <NETTE Purcell - Last Filed: 08/17/22 17:31> Lab Data Labs: Lab Results 08/17/22 08/17/22 08/18/22 Range/Units 17:08 17:32 12:52 PT 28.3 H 30.5 H (10.0-13.1) SEC INR 2.4 H 2.6 H (0.9-1.1) Influenza Type A (PCR) NEGATIVE (Negative) Influenza Type B (PCR) NEGATIVE (Negative) RSV RNA Qual (PCR) NEGATIVE (Negative) SARS-CoV-2 RNA (RT-PCR) NEGATIVE (Negative) <NETTE Purcell Last Filed: 08/17/22 17:31> Lab Results 08/17/22 08/17/22 08/18/22 Range/Units 17:08 17:32 12:52 PT 28.3 H 30.5 H (10.0-13.1) SEC INR 2.4 H 2.6 H (0.9-1.1) Influenza Type A (PCR) NEGATIVE (Negative) Influenza Type B (PCR) NEGATIVE (Negative) RSV RNA Qual (PCR) NEGATIVE (Negative) SARS-CoV-2 RNA (RT-PCR) NEGATIVE (Negative) <NETTE Cotton - Last Filed: 08/18/22 13:31> Independent Interpretation I performed an independent interpretation of an: CT Scan <NETTE Purcell Last Filed: 08/17/22 17:31> Radiology Impression Discussion of test interpretation with radiology: I have reviewed the radiologist's reading. <NETTE Purcell Last Filed: 08/17/22 17:31> External Record Review External record reviewed: Office record and Outpatient record <NETTE Purcell Last Filed: 03/01 17:31> Prescription Management I considered prescription management with: Pain Medication <NETTE Purcell Last Filed: 08/17/22 17:31> Discharge Plan Discharge Clinical Impression: Sciatica, Constipation <NETTE Purcell Last Filed: 08/17/22 17:31> Patient Disposition: Xfer Inpatient Rehab Fac <NETTE Purcell Last Filed: 08/17/22 17:31> Instructions: Constipation (ED), Sciatica (ED) <NETTE Purcell Last Filed: 08/17/22 17:31> Additional Instructions: Take all her medications as prescribed. Recommend [id number] MiraLax, senna, Colace as needed for constipation. Follow-up with your doctor. <NETTE Purcell Last Filed: 08/17/22 17:31> Prescriptions: No Action potassium chloride 10 mEq tablet extended release 10 meq PO DAILY Qty: 90 3RF valsartan 320 mg tablet 320 mg PO DAILY 90 Days Qty: 90 3RF omeprazole 20 mg capsule,delayed release(DR/EC) 20 mg PO DAILY Qty: 90 2RF bumetanide 1 mg tablet 2 mg PO BID Qty: 360 3RF hydralazine 25 mg tablet 25 mg PO TID 90 Days Qty: 270 1RF colchicine 0.6 mg tablet 0.6 mg PO BID PRN (Reason: gout) 15 Days Qty: 30 1RF cholecalciferol (vitamin D3) 25 mcg (1,000 unit) capsule 25 mcg PO DAILY 90 Days Qty: 90 1RF lidocaine [Lidoderm] 5 % adhesive patch,medicated 1 patch topical DAILY MDD remove after 12 hours PRN (Reason: pain) Qty: 30 0RF Rx Instructions: leave on most painful area for up to 12 hrs acetaminophen [Tylenol Extra Strength] 500 mg tablet 500 mg PO Q6H PRN (Reason: fever or pain) Qty: 14 0RF amlodipine 10 mg tablet 10 mg PO DAILY 90 Days Qty: 90 3RF atenolol 50 mg tablet 100 mg PO DAILY Qty: 180 2RF warfarin 5 mg tablet 5 mg PO DAILY 90 Days Qty: 90 2RF Protocol: Dose Management Condition: Monday (Week One) Dose/Route: 5 mg Instruction: 1 x 5 mg tablet Condition: Monday Dose/Route: 5 mg Instruction: 1 x 5 mg tablet Condition: Monday Dose/Route: 5 mg Instruction: 1 x 5 mg tablet Condition: Monday Dose/Route: 2.5 mg Instruction: 0.5 x 5 mg tablets Condition: Dose/Route: 5 mg Instruction: 1 x 5 mg tablet Condition: Monday Dose/Route: 5 mg Instruction: 1 x 5 mg tablet Condition: Monday Dose/Route: 5 mg Instruction: 1 x 5 mg tablet Condition: Monday (Week Two) Dose/Route: 5 mg Instruction: 1 x 5 mg tablet Condition: Monday Dose/Route: 5 mg Instruction: 1 x 5 mg tablet Condition: Monday Dose/Route: 5 mg Instruction: 1 x 5 mg tablet Condition: Monday Dose/Route: 2.5 mg Instruction: 0.5 x 5 mg tablets Condition: Dose/Route: 5 mg Instruction: 1 x 5 mg tablet Condition: Monday Dose/Route: 5 mg Instruction: 1 x 5 mg tablet Condition: Monday Dose/Route: 5 mg Instruction: 1 x 5 mg tablet Protocol Text: Adjustment Start Date: 07/28/22 INR Value: 2.3 INR Date: 07/28/22 Recheck Date: 08/25/22 Additional Instructions: cont reg dosing balance reds and greens call with any medication changes aspirin 81 mg tablet,delayed release (DR/EC) 81 mg PO DAILY nitrofurantoin macrocrystal [Macrodantin] 50 mg capsule 50 mg PO BEDTIME Qty: 90 0RF Rx Instructions: must administer with a meal/food latanoprost 0.005 % drops 1 drp ophthalmic (eye) BEDTIME dorzolamide 2 % drops 1 drp ophthalmic-Right BID <NETTE Purcell - Last Filed: 08/17/22 17:31> Referrals: [facility] [Outside] <NETTE Purcell - Last Filed: 08/17/22 17:31>
[2022-08-17] MEDS: Acetaminophen 325 MG TABLET 650 MG PO ×2 (11:49→22:09)
[2022-08-17] MEDS: Cyclobenzaprine HCl 10 MG TABLET PO (11:49)
[2022-08-17] MEDS: Lidocaine 4 % Patch ADH..PATCH 1 PATCH TRANSDERMA (11:49)
--- NOTE | 2022-08-17 12:11 | PHA.MEDREC ---
Pharmacy Consult ? Medication Reconciliation Pharmacy has completed the medication reconciliation.
[2022-08-17] MEDS: traMADoL HCL 50 MG TABLET PO (13:39)
[2022-08-17] MEDS: diphenhydrAMINE HCL 50 MG/ML VIAL 12.5 MG IVPUSH (17:22)
[2022-08-17] MEDS: oxyCODONE HCl Immed Release 5 MG TABLET PO (17:22)
[2022-08-17 17:50] LABS: INTERNATIONAL NORM RATIO 2.4 (0.9-1.1); Prothrombin Time 28.3 SEC (10.0-13.1)
[2022-08-17 18:16] LABS: Influenza A PCR NEGATIVE (Negative); Influenza B PCR NEGATIVE (Negative); Resp Syncy Virus RNA Qual PCR NEGATIVE (Negative); SARS COV2 PCR INHOUSE NEGATIVE (Negative)
--- NOTE | 2022-08-17 18:20 | PC.NURSE ---
Patient AOx 4 no respiratory distress noted denies chest pain or SOB rpeorts pain in left butock going down leg. +CSM noted able to move all 4 ext. Reports some relief post pain medication, patient refusing dinner currently but does tolerate PO fluids will CTM
--- NOTE | 2022-08-17 18:24 | MHC.CM.ED ---
CM met with patient at request of Beatriz PERDUE. Pt was independent, driving, caring for herself and disabled daughter up until 2 weeks ago. No injury. Negative medical work up. Hx of recent UTI, treated. Back pain inhibiting pt ability to ambulate. PT recommends STR. Pt and family agreeable. Pt's son's will care for their sister, who is intellectually disabled with medical issues per brother. Uses walker and cane. No services. HCP not on file. Reviewed, completed, and signed. Copies given. Uploaded into [employer] and [facility] [employer]. HCP #1/son Cheng Nunes ([phone]) and HCP #@/son Jj Nunes ([phone]). [employer] x3. Pt is Covid Negative. Pt and family request local STR with 3 stars or above on [facility]. Referrals placed. Contact card given. Pt to overflow unit for comfort. CM to follow for discharge planning.
[2022-08-17 20:00] VITALS: BP 137/71; PULSE 65; RESP 18; TEMP 36.3; O2SAT 97
[2022-08-17 21:15] VITALS: BP 128/49; PULSE 77; RESP 18; TEMP 36.3; O2SAT 95
[2022-08-17] MEDS: Bumetanide 1 MG TABLET 2 MG PO (21:29)
[2022-08-17] MEDS: nitrofurantoin macrocrystaL 50 MG CAPSULE PO (21:30)
[2022-08-17] MEDS: Latanoprost 0.005 % Ophth Sol 2.5 ML DROPS 1 DROP EYE-BOTH (21:30)
[2022-08-17] MEDS: Dorzolamide HCl 2 % Ophth Sol 10 ML DRPBTL 1 DROP EYE-RIGHT (21:30)
[2022-08-17] MEDS: hydrALAZINE HCl 25 MG TABLET PO (21:31)
--- NOTE | 2022-08-17 21:40 | PC.NURSE ---
Pt's eye drops placed in patient specific bin in ED overflow Pyxis Bed 7 .
--- NOTE | 2022-08-17 21:44 | PC.NURSE ---
Pt received night meds and then afterwards stated that she had not taken her daily Coumadin. Next dose was due tomrrow at 1800 and none was given earlier today. This RN will call pharmacy to request med administration for today.
[2022-08-17] MEDS: Warfarin Sodium 5 MG TABLET PO (22:36)
--- NOTE | 2022-08-18 02:14 | PC.NURSE ---
Pt complaining of 10/10 left hip pain that is unrelieved by tylenol. This RN requested another dose of oxycodone for this pt. Pt repositioned in bed. Will continue to monitor to pt for pain.
[2022-08-18] MEDS: oxyCODONE HCl Immed Release 5 MG TABLET PO (02:21)
[2022-08-18] MEDS: Lidocaine 4 % Patch ADH..PATCH 1 PATCH TRANSDERMA (03:33)
[2022-08-18] MEDS: Omeprazole 20 MG CAPSULE.DR PO (06:16)
[2022-08-18] MEDS: Acetaminophen 325 MG TABLET 650 MG PO ×2 (06:16→16:05)
[2022-08-18 06:39] VITALS: BP 153/49; PULSE 92; RESP 17; TEMP 37.1; O2SAT 98
[2022-08-18] MEDS: amLODIPine Besylate 10 MG TABLET PO (09:23)
[2022-08-18] MEDS: atenoloL 100 MG TABLET PO (09:23)
[2022-08-18] MEDS: hydrALAZINE HCl 25 MG TABLET PO ×2 (09:23→16:49)
[2022-08-18] MEDS: Aspirin Enteric Coated 81 MG TABLET.DR PO (09:23)
[2022-08-18] MEDS: Bumetanide 1 MG TABLET 2 MG PO (09:23)
[2022-08-18] MEDS: Cholecalciferol (Vitamin D3) 25 MCG TABLET PO (09:24)
[2022-08-18 09:26] VITALS: BP 137/64; PULSE 86; RESP 19; O2SAT 99
--- NOTE | 2022-08-18 09:37 | PC.NURSE ---
pharmacy contacted for valsartan .
--- NOTE | 2022-08-18 09:38 | MHC.EDTECH ---
tried to put patient on the commode. patient states that she has not had a BM in 3 days. patient was in excrutiating pain, and did not handle well. she states that she has arthritis and gout and has alot of pain in her ankle, foot and leg (L). RN and myself suggested using the bed oliva, not the commode.
--- NOTE | 2022-08-18 10:37 | MHC.CM.ED ---
Patient remains in ER overflow. Attempted to meet with patient in regards to discharge planning. Nursing care currently being provided. Spoke with patient's son, Cheng, via telephone at [phone]. Cheng's brother, Heri, will be en route to the hospital this morning. [facility]. [facility] aware and can offer a bed today. Will contact CM with time patient can transfer from ER. Heri made aware via telephone at [phone]. Continue to monitor for d/c needs.
[2022-08-18] MEDS: Dorzolamide HCl 2 % Ophth Sol 10 ML DRPBTL 1 DROP EYE-RIGHT (10:58)
[2022-08-18] MEDS: polyethylene glycoL 3350 17 GM POWD.PACK PO (10:58)
[2022-08-18] MEDS: Docusate Sodium 100 MG CAPSULE PO (10:58)
--- NOTE | 2022-08-18 11:14 | PC.NURSE ---
pt reports no BM in 4 days. Provider contacted and ordered stool softener; given per SEP.
--- NOTE | 2022-08-18 12:40 | MHC.CM.ED ---
Patient can leave ER at 330pm for [facility] via BLS. Ronnie CLEMENTE booked. Med nec with chart. Patient, son Brissa Liriano RN and Chelsea PERDUE aware. Continue to monitor for d/c needs.
[2022-08-18 13:21] LABS: INTERNATIONAL NORM RATIO 2.6 (0.9-1.1); Prothrombin Time 30.5 SEC (10.0-13.1)
[2022-08-18 15:56] VITALS: BP 141/48; PULSE 89; RESP 16; O2SAT 94
== END 2022-08-18 17:15 ==
PROVIDERS: Physician Assistant; Emergency Provider Emergency Medicine Emergency Medical Services; PCP Internal Medicine
DX: M54.42 Lumbago with sciatica, left side (principal); K59.00 Constipation, unspecified; Z20.822 Contact with and (suspected) exposure to COVID-19; Z20.828 Contact with and (suspected) exposure to other viral communicable diseases; I11.0 Hypertensive heart disease with heart failure; I50.32 Chronic diastolic (congestive) heart failure; I48.19 Other persistent atrial fibrillation; Z87.440 Personal history of urinary (tract) infections; Z79.01 Long term (current) use of anticoagulants; Z79.82 Long term (current) use of aspirin; Z79.899 Other long term (current) drug therapy
CPT/HCPCS: 0241U; 36415; 72192; 85610; 96374; 97162; 99284; 99285; J1200

== ENCOUNTER → 2022-09-06 14:16 | Outpatient (BNVA) | payer MEDICARE, SELFPAY | PROVIDERS: PCP Internal Medicine; Visit Provider Internal Medicine | DX: I48.0 Paroxysmal atrial fibrillation (principal); Z79.01 Long term (current) use of anticoagulants; Z51.81 Encounter for therapeutic drug level monitoring | CPT/HCPCS: 85610; 99211 ==

== ENCOUNTER → 2022-09-08 10:03 | Outpatient (BNVA) | payer MEDICARE, SELFPAY | PROVIDERS: PCP Internal Medicine; Visit Provider Internal Medicine | DX: Z79.01 Long term (current) use of anticoagulants (principal) ==

== ENCOUNTER 2022-09-15 08:26 | Outpatient (REF) | payer MEDICARE, SELFPAY ==
[2022-09-15 10:48] LABS: MANUAL DIFF FLAG NO
[2022-09-15 11:06] LABS: Basophils Percent Auto 0.5 % (0-2); Eosinophils Absolute Auto 0.2 X10*3/uL (0.0-0.4); Hematocrit 34.5 % (37.0-47.0); Hemoglobin 10.9 g/dl (12.0-16.0); Imm Gran Abs Auto 0.04 X10*3/uL (0.00-0.03); Imm Gran Pct Auto 0.6 % (0.0-0.4); Lymphocytes Absolute Auto 0.9 X10*3/uL (1.2-4.9); Lymphocytes Percent Auto 13.7 % (20-40); Mean Corpuscular HGB Conc 31.6 g/dl (31.0-35.0); Mean Corpuscular Hemoglobin 30.9 pg (27.0-33.0); Mean Corpuscular Volume 97.7 fL (80.0-98.0); Mean Platelet Volume 11.3 fL (9.4-12.3); Monocytes Absolute Auto 0.7 X10*3/uL (0.1-1.2); Monocytes Percent Auto 10.7 % (2-11); Neutrophils Absolute Auto 4.6 x10*3/uL (2.0-8.3); Neutrophils Percent Auto 71.5 % (45-73); Platelet Count 263 X10*3/uL (160-400); Red Blood Count 3.53 X10*6/uL (4.20-5.50); Red Cell Distribution Width 15.2 % (11.0-16.0); White Blood Count 6.4 X10*3/uL (4.8-10.8)
[2022-09-15 11:22] LABS: Alanine Aminotransferase 14 U/L (0-31); Albumin Level 4.1 g/dL (3.5-5.0); Alkaline Phosphatase 61 U/L (39-117); Anion Gap 14 (12-20); Aspartate Amino Transferase 18 U/L (5-31); Bilirubin Total 0.6 mg/dL (0.0-1.0); Blood Urea Nitrogen 30 mg/dL (9-16); Calcium 10.2 mg/dL (8.4-10.2); Carbon Dioxide 29 mmol/L (22-29); Chloride 102 mmol/L (96-108); Estimated Glomerular Filt Rate 55; Glucose Random 96 mg/dL (60-115); Potassium 4.7 mmol/L (3.3-5.1); Sodium 140 mmol/L (135-145)
[2022-09-15 11:58] LABS: Free T4 (Free Thyroxine) 1.07 ng/dL (0.71-1.85); Thyroid Stimulating Hormone 2.09 uIU/mL (0.32-4.0)
[2022-09-15 16:19] LABS: Rheumatoid Factor < 13.0 IU/mL (<15.0)
[2022-09-17 14:14] LABS: Calcium, Ionized 5.5 mg/dL (4.8-5.6)
[2022-09-19 11:54] LABS: Anti Nuclear Antibody Screen NEGATIVE (NEGATIVE)
== END 2022-09-15 08:27 | disposition home or self-care (01) ==
LOC: HO.10HDL 08:26
PROVIDERS: Internal Medicine Endocrinology, Diabetes & Metabolism; Visit Provider Nurse Practitioner Family
DX: E83.52 Hypercalcemia (principal); M19.90 Unspecified osteoarthritis, unspecified site; N17.9 Acute kidney failure, unspecified; Z13.0 Encounter for screening for diseases of the blood and blood-forming organs and certain disorders involving the immune mechanism
CPT/HCPCS: 36415; 80053; 82330; 83735; 84439; 84443; 85025; 86038; 86039; 86431; 99212

== ENCOUNTER → 2022-09-22 11:44 | Outpatient (BNVA) | payer MEDICARE, SELFPAY | PROVIDERS: PCP Internal Medicine; Visit Provider Internal Medicine | DX: Z79.01 Long term (current) use of anticoagulants (principal) ==

== ENCOUNTER 2022-10-10 18:55 | Outpatient (REF) | payer MEDICARE, SELFPAY ==
[2022-10-10 19:27] LABS: Vancomycin Trough 14.5 mcg/mL (10.0-20.0)
== END 2022-10-10 18:56 | disposition home or self-care (01) ==
LOC: HO.MMNH2L 18:55
PROVIDERS: Visit Provider Family Medicine
DX: Z13.89 Encounter for screening for other disorder (principal)
CPT/HCPCS: 36415; 80202

== ENCOUNTER → 2022-11-16 15:38 | Outpatient (BNVA) | payer MEDICARE, SELFPAY | PROVIDERS: PCP Internal Medicine; Visit Provider Internal Medicine ==

== ENCOUNTER → 2022-11-18 10:18 | Outpatient (BNVA) | payer MEDICARE, SELFPAY | PROVIDERS: PCP Internal Medicine; Visit Provider Internal Medicine | DX: I48.0 Paroxysmal atrial fibrillation (principal); Z79.01 Long term (current) use of anticoagulants; Z51.81 Encounter for therapeutic drug level monitoring | CPT/HCPCS: 85610; 99211 ==

== ENCOUNTER → 2022-11-22 14:25 | Outpatient (BNVA) | payer MEDICARE, SELFPAY | PROVIDERS: PCP Internal Medicine; Visit Provider Internal Medicine ==

== ENCOUNTER → 2022-11-28 11:02 | Outpatient (BNVA) | payer MEDICARE, SELFPAY | PROVIDERS: PCP Internal Medicine; Visit Provider Internal Medicine ==

== ENCOUNTER → 2022-12-07 15:15 | Outpatient (BNVA) | payer MEDICARE, SELFPAY | PROVIDERS: PCP Internal Medicine; Visit Provider Internal Medicine ==

== ENCOUNTER → 2022-12-14 14:27 | Outpatient (BNVA) | payer MEDICARE, SELFPAY | PROVIDERS: PCP Internal Medicine; Visit Provider Internal Medicine ==

== ENCOUNTER → 2022-12-21 14:53 | Outpatient (BNVA) | payer MEDICARE, SELFPAY | PROVIDERS: PCP Internal Medicine; Visit Provider Internal Medicine ==

== ENCOUNTER → 2022-12-28 14:54 | Outpatient (BNVA) | payer MEDICARE, SELFPAY | PROVIDERS: PCP Internal Medicine; Visit Provider Internal Medicine ==

== ENCOUNTER → 2023-01-03 08:49 | Outpatient (BNVA) | payer MEDICARE, SELFPAY | PROVIDERS: PCP Internal Medicine; Referring Provider Internal Medicine; Visit Provider Internal Medicine | DX: I11.0 Hypertensive heart disease with heart failure (principal); I50.32 Chronic diastolic (congestive) heart failure; I48.19 Other persistent atrial fibrillation; R94.39 Abnormal result of other cardiovascular function study; Z79.01 Long term (current) use of anticoagulants; Z79.899 Other long term (current) drug therapy | CPT/HCPCS: 93005; 99212 ==

== ENCOUNTER → 2023-01-04 12:44 | Outpatient (BNVA) | payer MEDICARE, SELFPAY | PROVIDERS: PCP Internal Medicine Cardiovascular Disease; Visit Provider Internal Medicine ==

== ENCOUNTER → 2023-01-11 14:06 | Outpatient (BNVA) | payer MEDICARE, SELFPAY | PROVIDERS: PCP Internal Medicine Cardiovascular Disease; Visit Provider Internal Medicine ==

== ENCOUNTER 2023-01-26 13:02 | Outpatient (AMB) | payer MEDICARE, SELFPAY ==
[2023-01-26 13:16] LABS: ~PT, ~INR - Anti Coag Clinic 2.4 (0.9-1.1)
--- NOTE | 2023-01-26 13:16 | MHC.OFFVISCO ---
Intake Intake Visit Reasons: Anticoagulation Allergies latex [Latex] Allergy (Intermediate, Verified 01/26/23 13:08) BLISTERS & ITCHING morphine [Morphine] Allergy (Mild, Verified 01/26/23 13:08) RASH, ITCHNG Medication List - Last Reconciled 01/26/23 by Katie Gay, RN acetaminophen 1,000 mg PO TID amlodipine 10 mg PO DAILY 90 days aspirin 81 mg PO DAILY atenolol 50 mg PO DAILY 30 days bumetanide 2 mg (2 x 1 mg) PO BID cholecalciferol (vitamin D3) 25 mcg PO DAILY 90 days colchicine 0.6 mg PO BID PRN 15 days diclofenac sodium 1% 2 grams topical TID PRN dorzolamide 2% 1 drp ophthalmic-Right BID latanoprost 0.005% 1 drp ophthalmic (eye) BEDTIME lidocaine 5% (Lidoderm) 1 patch topical DAILY PRN MDD remove after 12 hours omeprazole 20 mg PO DAILY tramadol 50 mg PO BID PRN valsartan 320 mg PO DAILY 90 days warfarin See Protocol 5 mg X 6 DAYS/ 2.5MG X 1 DAY Nursing Note INR: 2.4- in therapeutic range Medications and supplements reviewed with pt and son No changes in health, diet, medications, or supplements, Denies any signs and symptoms of bleeding or bruising or clotting. Bleeding, bruising, clotting discussed Nutritional guidance given Dose: 5mg x 6, 2.5mg x 1 F/U INR: 4 weeks Patient verbalizes understanding of instructions given pt recent d/c vna. accompanied by son. amb with walker Anti-Coag Initial Assessment Social Hx Patient Tobacco Use Status: Never used Tobacco alcohol intake: never Coding Level of Care Code Est Patient Level 1 Diagnoses Current use of anticoagulant therapy Z79.01 Assessment & Plan Assessment & Plan (1) Current use of anticoagulant therapy: Code(s): Z79.01 - [facility] (current) use of anticoagulants Category: Medical
== END 2023-01-26 13:25 | disposition home or self-care (01) ==
LOC: HO.ACS 13:02
PROVIDERS: PCP Internal Medicine Cardiovascular Disease; Visit Provider Internal Medicine
DX: Z79.01 Long term (current) use of anticoagulants (principal)

== ENCOUNTER → 2023-01-26 13:02 | Outpatient (BNVA) | payer MEDICARE, SELFPAY | PROVIDERS: PCP Internal Medicine Cardiovascular Disease; Visit Provider Internal Medicine | DX: I48.0 Paroxysmal atrial fibrillation (principal); Z79.01 Long term (current) use of anticoagulants; Z51.81 Encounter for therapeutic drug level monitoring | CPT/HCPCS: 85610; 99211 ==

== ENCOUNTER 2023-02-23 09:01 | Outpatient (AMB) | payer MEDICARE, SELFPAY ==
[2023-02-23 09:12] LABS: ~PT, ~INR - Anti Coag Clinic 2.4 (0.9-1.1)
--- NOTE | 2023-02-23 09:14 | MHC.OFFVISCO ---
Intake Intake Visit Reasons: Anticoagulation Allergies latex [Latex] Allergy (Intermediate, Verified 02/23/23 09:05) BLISTERS & ITCHING morphine [Morphine] Allergy (Mild, Verified 02/23/23 09:05) RASH, ITCHNG Medication List - Last Reconciled 02/23/23 by Deepika Bruce, RN acetaminophen 1,000 mg PO TID amlodipine 10 mg PO DAILY 90 days aspirin 81 mg PO DAILY atenolol 50 mg PO DAILY 30 days bumetanide 2 mg (2 x 1 mg) PO BID cholecalciferol (vitamin D3) 25 mcg PO DAILY 90 days colchicine (gout) 0.6 mg PO BID PRN 15 days diclofenac sodium 1% 2 grams topical TID PRN dorzolamide 2% 1 drp ophthalmic-Right BID latanoprost 0.005% 1 drp ophthalmic (eye) BEDTIME lidocaine 5% (Lidoderm) 1 patch topical DAILY PRN MDD remove after 12 hours omeprazole 20 mg PO DAILY valsartan 320 mg PO DAILY 90 days warfarin See Protocol 5 mg X 6 DAYS/ 2.5MG X 1 DAY Nursing Note Amb to [facility] using walker, accomp by son feeling well other than my knees and legs Medications and supplements reviewed, no longer on tramadol for pain, taking tylenol 2x daily and sometimes 3x, discussed can raise INR, pt has good greens in diet No other changes in health, diet, medications, or supplements Denies any unusual signs and symptoms of bruising, bleeding Denies any new Chest pain, SOB, or clotting INR: 2.4 in therapeutic range Nutritional guidance given:continue to balance greens and reds in diet Dose: continue usual dosing; 2.5mg x 1 day, and 5mg x 6 days F/U INR: 4 weeks Patient verbalizes understanding of instructions given with accurate read back/ teach back of dosing Anti-Coag Initial Assessment Social Hx Patient Tobacco Use Status: Never used Tobacco alcohol intake: never Coding Level of Care Code Est Patient Level 1 Diagnoses Current use of anticoagulant therapy Z79.01 Time Spent (min) 15 Assessment & Plan Assessment & Plan (1) Current use of anticoagulant therapy: Code(s): Z79.01 - care home (current) use of anticoagulants Category: Medical
== END 2023-02-23 09:21 | disposition home or self-care (01) ==
LOC: HO.ACS 09:01
PROVIDERS: PCP Internal Medicine Cardiovascular Disease; Visit Provider Internal Medicine
DX: Z79.01 Long term (current) use of anticoagulants (principal)

== ENCOUNTER → 2023-02-23 09:01 | Outpatient (BNVA) | payer MEDICARE, SELFPAY | PROVIDERS: PCP Internal Medicine Cardiovascular Disease; Visit Provider Internal Medicine | DX: I48.0 Paroxysmal atrial fibrillation (principal); Z79.01 Long term (current) use of anticoagulants; Z51.81 Encounter for therapeutic drug level monitoring | CPT/HCPCS: 85610; 99211 ==

== ENCOUNTER 2023-03-23 09:05 | Outpatient (AMB) | payer MEDICARE, SELFPAY ==
[2023-03-23 09:23] LABS: Prothrombin Time Whole Bld POC 34.8 sec (11.1-13.5); ~PT, ~INR - Anti Coag Clinic 2.9 (0.9-1.1)
--- NOTE | 2023-03-23 09:31 | MHC.OFFVISCO ---
Intake Intake Visit Reasons: Anticoagulation Allergies latex [Latex] Allergy (Intermediate, Verified 03/23/23 09:12) BLISTERS & ITCHING morphine [Morphine] Allergy (Mild, Verified 03/23/23 09:12) RASH, ITCHNG Medication List - Last Reconciled 03/23/23 by Noemi Torre, RN acetaminophen 1,000 mg PO TID allopurinol 100 mg PO DAILY amlodipine 10 mg PO DAILY 90 days aspirin 81 mg PO DAILY atenolol 50 mg PO DAILY 30 days bumetanide 2 mg (2 x 1 mg) PO BID cholecalciferol (vitamin D3) 25 mcg PO DAILY 90 days colchicine (gout) 0.6 mg PO BID PRN 15 days diclofenac sodium 1% 2 grams topical TID PRN dorzolamide 2% 1 drp ophthalmic-Right BID estradiol 0.01%(0.1mg/gram) vaginal latanoprost 0.005% 1 drp ophthalmic (eye) BEDTIME lidocaine 5% (Lidoderm) 1 patch topical DAILY PRN MDD remove after 12 hours omeprazole 20 mg PO DAILY valsartan 320 mg PO DAILY 90 days warfarin See Protocol 5 mg X 6 DAYS/ 2.5MG X 1 DAY Nursing Note INR: 2.9 in therapeutic range Medications and supplements reviewed STARTING LOW DOSE ALLOPURINOL FOR GOUT ALONG WITH DARK NATARAJAN JUICE AND BLUEBERRIES Denies any signs and symptoms of bleeding or bruising or clotting. Bleeding, bruising, clotting discussed Nutritional guidance given - EAT AMIX OF FRUITS AND VEGETABLES, COOKED GREENS WILL LOWER YOUR INR MORE Dose: DECREASE TO 2.5MG X 2 DAYS/ 5MG X 5 DAYS F/U INR: 2 WEEK Patient verbalizes understanding of instructions given PT MAY GO ON [employer] FINANCIAL FORM GIVEN TO PT AND HER SON Anti-Coag Initial Assessment Social Hx Patient Tobacco Use Status: Never used Tobacco alcohol intake: never Coding Level of Care Code Est Patient Level 1 Diagnoses Current use of anticoagulant therapy Z79.01 Assessment & Plan Assessment & Plan (1) Current use of anticoagulant therapy: Code(s): Z79.01 - group home (current) use of anticoagulants Category: Medical
== END 2023-03-23 09:34 | disposition home or self-care (01) ==
LOC: HO.ACS 09:05
PROVIDERS: PCP Internal Medicine Cardiovascular Disease; Visit Provider Internal Medicine
DX: Z79.01 Long term (current) use of anticoagulants (principal)

== ENCOUNTER → 2023-03-23 09:05 | Outpatient (BNVA) | payer MEDICARE, SELFPAY | PROVIDERS: PCP Internal Medicine Cardiovascular Disease; Visit Provider Internal Medicine | DX: I48.0 Paroxysmal atrial fibrillation (principal); Z79.01 Long term (current) use of anticoagulants; Z51.81 Encounter for therapeutic drug level monitoring | CPT/HCPCS: 85610; 99211 ==

== ENCOUNTER 2023-04-06 09:04 | Outpatient (AMB) | payer MEDICARE, SELFPAY ==
[2023-04-06 09:21] LABS: ~PT, ~INR - Anti Coag Clinic 2.1 (0.9-1.1)
--- NOTE | 2023-04-06 09:23 | MHC.OFFVISCO ---
Intake Intake Visit Reasons: Anticoagulation Allergies latex [Latex] Allergy (Intermediate, Verified 04/06/23 09:13) BLISTERS & ITCHING morphine [Morphine] Allergy (Mild, Verified 04/06/23 09:13) RASH, ITCHNG Medication List - Last Reconciled 04/06/23 by Deepika Bruce, RN acetaminophen 1,000 mg PO TID allopurinol 100 mg PO DAILY amlodipine 10 mg PO DAILY 90 days aspirin 81 mg PO DAILY atenolol 50 mg PO DAILY 30 days bumetanide 2 mg (2 x 1 mg) PO BID cholecalciferol (vitamin D3) 25 mcg PO DAILY 90 days colchicine (gout) 0.6 mg PO BID PRN 15 days diclofenac sodium 1% 2 grams topical TID PRN dorzolamide 2% 1 drp ophthalmic-Right BID estradiol 0.01%(0.1mg/gram) vaginal latanoprost 0.005% 1 drp ophthalmic (eye) BEDTIME lidocaine 5% (Lidoderm) 1 patch topical DAILY PRN MDD remove after 12 hours omeprazole 20 mg PO DAILY valsartan 320 mg PO DAILY 90 days warfarin See Protocol 5 mg X 6 DAYS/ 2.5MG X 1 DAY Nursing Note Amb to [facility] using walker, feeling better, sts no gout attacks since starting on allopurinol Medications and supplements reviewed No changes in health, diet, medications, or supplements, sts she didn't start the roland juice yet Denies any unusual signs and symptoms of bruising, bleeding Denies any new Chest pain, SOB, or clotting INR:2.1 in therapeutic range Nutritional guidance given: ok to start the roland juice, add an extra green during the week then balance greens and reds in diet Dose: continue new dosing; 2.5mg x 2 days and 5mg x 5 days F/U INR: 2 weeks Patient verbalizes understanding of instructions given with accurate read back/ teach back of dosing Anti-Coag Initial Assessment Social Hx Patient Tobacco Use Status: Never used Tobacco alcohol intake: never Coding Level of Care Code Est Patient Level 1 Diagnoses Current use of anticoagulant therapy Z79.01 Time Spent (min) 1 Assessment & Plan Assessment & Plan (1) Current use of anticoagulant therapy: Code(s): Z79.01 - [facility] (current) use of anticoagulants Category: Medical
== END 2023-04-06 09:28 | disposition home or self-care (01) ==
LOC: HO.ACS 09:04
PROVIDERS: PCP Internal Medicine Cardiovascular Disease; Visit Provider Internal Medicine
DX: Z79.01 Long term (current) use of anticoagulants (principal)

== ENCOUNTER → 2023-04-06 09:04 | Outpatient (BNVA) | payer MEDICARE, SELFPAY | PROVIDERS: PCP Internal Medicine Cardiovascular Disease; Visit Provider Internal Medicine | DX: I48.0 Paroxysmal atrial fibrillation (principal); Z79.01 Long term (current) use of anticoagulants; Z51.81 Encounter for therapeutic drug level monitoring | CPT/HCPCS: 85610; 99211 ==

== ENCOUNTER 2023-04-21 09:21 | Outpatient (AMB) | payer MEDICARE, SELFPAY ==
[2023-04-21 09:36] LABS: Prothrombin Time Whole Bld POC 20.6 sec (11.1-13.5); ~PT, ~INR - Anti Coag Clinic 1.7 (0.9-1.1)
--- NOTE | 2023-04-21 09:45 | MHC.OFFVISCO ---
Intake Intake Visit Reasons: Anticoagulation Allergies latex [Latex] Allergy (Intermediate, Verified 04/21/23 09:29) BLISTERS & ITCHING morphine [Morphine] Allergy (Mild, Verified 04/21/23 09:29) RASH, ITCHNG Medication List - Last Reconciled 04/21/23 by Noemi Torre, RN acetaminophen 1,000 mg PO TID amlodipine 10 mg PO DAILY 90 days aspirin 81 mg PO DAILY atenolol 50 mg PO DAILY 30 days bumetanide 2 mg (2 x 1 mg) PO BID cholecalciferol (vitamin D3) 25 mcg PO DAILY 90 days colchicine (gout) 0.6 mg PO BID PRN 15 days diclofenac sodium 1% 2 grams topical TID PRN dorzolamide 2% 1 drp ophthalmic-Right BID estradiol 0.01%(0.1mg/gram) vaginal latanoprost 0.005% 1 drp ophthalmic (eye) BEDTIME lidocaine 5% (Lidoderm) 1 patch topical DAILY PRN MDD remove after 12 hours omeprazole 20 mg PO DAILY valsartan 320 mg PO DAILY 90 days warfarin See Protocol 5 mg X 6 DAYS/ 2.5MG X 1 DAY Nursing Note INR: 1.7 OUT OF therapeutic range Medications and supplements reviewed PT IS OFF ALLOPURINOL PER MD - HER B/P AND HER WERE ELEVATED, SHE HAS PRN CHOLCHINE AND HER NATARAJAN JUICE (TAKES ABOUT X2 / WK) Denies any signs and symptoms of bleeding or bruising or clotting. 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
== END 2023-04-21 09:48 | disposition home or self-care (01) ==
LOC: HO.ACS 09:21
PROVIDERS: PCP Internal Medicine Cardiovascular Disease; Visit Provider Internal Medicine
DX: Z79.01 Long term (current) use of anticoagulants (principal)

== ENCOUNTER → 2023-04-21 09:21 | Outpatient (BNVA) | payer MEDICARE, SELFPAY | PROVIDERS: PCP Internal Medicine Cardiovascular Disease; Visit Provider Internal Medicine | DX: I48.0 Paroxysmal atrial fibrillation (principal); Z79.01 Long term (current) use of anticoagulants; Z51.81 Encounter for therapeutic drug level monitoring | CPT/HCPCS: 85610; 99211 ==

== ENCOUNTER 2023-05-05 09:11 | Outpatient (AMB) | payer MEDICARE, SELFPAY ==
--- NOTE | 2023-05-05 09:21 | MHC.OFFVISCO ---
Intake Intake Visit Reasons: Anticoagulation Allergies latex [Latex] Allergy (Intermediate, Verified 05/05/23 09:20) BLISTERS & ITCHING morphine [Morphine] Allergy (Mild, Verified 05/05/23 09:20) RASH, ITCHNG Medication List - Last Reconciled 05/05/23 by Noemi Torre RN acetaminophen 1,000 mg PO TID amlodipine 10 mg PO DAILY 90 days aspirin 81 mg PO DAILY atenolol 50 mg PO DAILY 30 days bumetanide 2 mg (2 x 1 mg) PO BID cholecalciferol (vitamin D3) 25 mcg PO DAILY 90 days colchicine (gout) 0.6 mg PO BID PRN 15 days diclofenac sodium 1% 2 grams topical TID PRN dorzolamide 2% 1 drp ophthalmic-Right BID estradiol 0.01%(0.1mg/gram) vaginal latanoprost 0.005% 1 drp ophthalmic (eye) BEDTIME lidocaine 5% (Lidoderm) 1 patch topical DAILY PRN MDD remove after 12 hours omeprazole 20 mg PO DAILY valsartan 320 mg PO DAILY 90 days warfarin See Protocol 5 mg X 6 DAYS/ 2.5MG X 1 DAY Nursing Note PT CAME WITH SON NIK TODAY WALKING WITH WALKER IN [employer] EATING A DIET TO KEEP GOUT AWAY MUCH POSSBILE GOUT EDUCATION PROVIDED TO PT , FAMILY IS AWARE OF DIET NEEDS INR: 2.1 in therapeutic range Medications and supplements reviewed- OFF ALLOPURINOL No changes in health, diet, medications, or supplements, Denies any signs and symptoms of bleeding or bruising or clotting. Bleeding, bruising, clotting discussed Nutritional guidance given KEEP YOUR NATARAJAN JUICE WITH WATER TO HELP YOUR GOUT 2-3 X S / WK Dose: KEEP SAME DOSE FOR NOW 2.5MG X 2 DAYS/ 5MG X 6 DAYS F/U INR: 3 WEEKS PER PT RWEQUEST Patient verbalizes understanding of instructions given Anti-Coag Initial Assessment Social Hx Patient Tobacco Use Status: Never used Tobacco alcohol intake: never Coding Level of Care Code Est Patient Level 1 Diagnoses Current use of anticoagulant therapy Z79.01 Results AMB INR Fingerstick AMB INR Fingerstick 2.1 Last Edit by Noemi Torre RN on 05/05/23 09:30 manual entry Assessment & Plan Assessment & Plan (1) Current use of anticoagulant therapy: Code(s): 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
[2023-05-05 10:24] LABS: Prothrombin Time Whole Bld POC 24.9 sec (11.1-13.5); ~PT, ~INR - Anti Coag Clinic 2.1 (0.9-1.1)
== END 2023-05-05 09:40 | disposition home or self-care (01) ==
LOC: HO.ACS 09:11
PROVIDERS: PCP Internal Medicine Cardiovascular Disease; Visit Provider Internal Medicine
DX: Z79.01 Long term (current) use of anticoagulants (principal)

== ENCOUNTER → 2023-05-05 09:11 | Outpatient (BNVA) | payer MEDICARE, SELFPAY | PROVIDERS: PCP Internal Medicine Cardiovascular Disease; Visit Provider Internal Medicine | DX: I48.0 Paroxysmal atrial fibrillation (principal); Z79.01 Long term (current) use of anticoagulants; Z51.81 Encounter for therapeutic drug level monitoring | CPT/HCPCS: 85610; 99211 ==

== ENCOUNTER 2023-05-26 09:28 | Outpatient (AMB) | payer MEDICARE, SELFPAY ==
[2023-05-26 09:39] LABS: Prothrombin Time Whole Bld POC 22.8 sec (11.1-13.5); ~PT, ~INR - Anti Coag Clinic 1.9 (0.9-1.1)
--- NOTE | 2023-05-26 09:44 | MHC.OFFVISCO ---
Intake Intake Visit Reasons: Anticoagulation Allergies latex [Latex] Allergy (Intermediate, Verified 05/26/23 09:32) BLISTERS & ITCHING morphine [Morphine] Allergy (Mild, Verified 05/26/23 09:32) RASH, ITCHNG Medication List - Last Reconciled 05/26/23 by Deepika Bruce, RN acetaminophen 1,000 mg PO TID amlodipine 10 mg PO DAILY 90 days aspirin 81 mg PO DAILY atenolol 50 mg PO DAILY 30 days bumetanide 2 mg (2 x 1 mg) PO BID cholecalciferol (vitamin D3) 25 mcg PO DAILY 90 days colchicine (gout) 0.6 mg PO BID PRN 15 days dorzolamide 2% 1 drp ophthalmic-Right BID estradiol 0.01%(0.1mg/gram) vaginal latanoprost 0.005% 1 drp ophthalmic (eye) BEDTIME lidocaine 5% (Lidoderm) 1 patch topical DAILY PRN MDD remove after 12 hours omeprazole 20 mg PO DAILY valsartan 320 mg PO DAILY 90 days warfarin See Protocol 5 mg X 6 DAYS/ 2.5MG X 1 DAY Nursing Note Amb to [facility] using walker, accomp by son feeling ok, noted bruising to left eye lid upper and lateral aspect sts she is not sure how that happened, son sts it looks better today then Monday Medications and supplements reviewed No other changes in health, diet, medications, or supplements Denies any other unusual signs and symptoms of bruising, bleeding Denies any new Chest pain, SOB, or clotting INR: 1.9 below therapeutic range Nutritional guidance given: no greens x 2 days, reds to help raise then balance greens and reds in diet, has not started on roland juice Dose: continue usual dosing; 2.5mg x 1 day and 5mg x 6 days as noted eye lid bruising F/U INR:2 weeks Patient verbalizes understanding of instructions given with accurate read back/ teach back of dosing Anti-Coag Initial Assessment Social Hx Patient Tobacco Use Status: Never used Tobacco alcohol intake: never Coding Level of Care Code Est Patient Level 1 Diagnoses Current use of anticoagulant therapy Z79.01 Time Spent (min) 15 Assessment & Plan Assessment & Plan (1) Current use of anticoagulant therapy: Code(s): Z79.01 - correction (current) use of anticoagulants Category: Medical
== END 2023-05-26 09:56 | disposition home or self-care (01) ==
LOC: HO.ACS 09:28
PROVIDERS: PCP Internal Medicine Cardiovascular Disease; Visit Provider Internal Medicine
DX: Z79.01 Long term (current) use of anticoagulants (principal)

== ENCOUNTER → 2023-05-26 09:28 | Outpatient (BNVA) | payer MEDICARE, SELFPAY | PROVIDERS: PCP Internal Medicine Cardiovascular Disease; Visit Provider Internal Medicine | DX: I48.0 Paroxysmal atrial fibrillation (principal); Z79.01 Long term (current) use of anticoagulants; Z51.81 Encounter for therapeutic drug level monitoring | CPT/HCPCS: 85610; 99211 ==

== ENCOUNTER 2023-06-08 08:57 | Outpatient (AMB) | payer MEDICARE, SELFPAY ==
[2023-06-08 09:03] LABS: Prothrombin Time Whole Bld POC 39.2 sec (11.1-13.5); ~PT, ~INR - Anti Coag Clinic 3.3 (0.9-1.1)
--- NOTE | 2023-06-08 09:10 | MHC.OFFVISCO ---
Intake Intake Visit Reasons: Anticoagulation Allergies latex [Latex] Allergy (Intermediate, Verified 06/08/23 09:05) BLISTERS & ITCHING morphine [Morphine] Allergy (Mild, Verified 06/08/23 09:05) RASH, ITCHNG Medication List - Last Reconciled 06/08/23 by Noemi Torre, RN acetaminophen 1,000 mg PO TID amlodipine 10 mg PO DAILY 90 days aspirin 81 mg PO DAILY atenolol 50 mg PO DAILY 30 days bumetanide 2 mg (2 x 1 mg) PO BID cholecalciferol (vitamin D3) 25 mcg PO DAILY 90 days colchicine 0.6 mg PO BID PRN 15 days dorzolamide 2% 1 drp ophthalmic-Right BID estradiol 0.01%(0.1mg/gram) vaginal latanoprost 0.005% 1 drp ophthalmic (eye) BEDTIME lidocaine 5% (Lidoderm) 1 patch topical DAILY PRN MDD remove after 12 hours omeprazole 20 mg PO DAILY valsartan 320 mg PO DAILY 90 days warfarin See Protocol 5 mg X 6 DAYS/ 2.5MG X 1 DAY Nursing Note INR: 3.3 JUST OUT therapeutic range Medications and supplements reviewed No changes in health, medications, or supplements, ATE LESS GREENS THE WEEK OF AND AFTER Denies any signs and symptoms of bleeding or bruising or clotting. 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
== END 2023-06-08 09:13 | disposition home or self-care (01) ==
LOC: HO.ACS 08:57
PROVIDERS: PCP Internal Medicine Cardiovascular Disease; Visit Provider Internal Medicine
DX: Z79.01 Long term (current) use of anticoagulants (principal)

== ENCOUNTER → 2023-06-08 08:57 | Outpatient (BNVA) | payer MEDICARE, SELFPAY | PROVIDERS: PCP Internal Medicine Cardiovascular Disease; Visit Provider Internal Medicine | DX: I48.0 Paroxysmal atrial fibrillation (principal); Z79.01 Long term (current) use of anticoagulants; Z51.81 Encounter for therapeutic drug level monitoring | CPT/HCPCS: 85610; 99211 ==

== ENCOUNTER 2023-06-20 08:52 | Outpatient (AMB) | payer MEDICARE, SELFPAY ==
[2023-06-20 08:55] VITALS: BP 168/66; PULSE 76; BMI 34.0
--- NOTE | 2023-06-20 08:55 | MHC.OFFVIS ---
Intake Vital Signs 06/20/23 08:55 Height 4 ft 11 in Weight 168 lb 6.931 oz BMI 34.0 BP 168/66 H Blood Pressure Location Lt brachial Position Sitting Pulse 76 Intake Visit Reasons: 6 month follow up Intake Note: 6 month follow up [employer] Manager Required: No Accompanied by: Son Allergies latex [Latex] Allergy (Intermediate, Verified 06/20/23 08:58) BLISTERS & ITCHING morphine [Morphine] Allergy (Mild, Verified 06/20/23 08:58) RASH, ITCHNG Medication List - Last Reconciled 06/20/23 by Yovany Garibay MD acetaminophen 1,000 mg PO TID amlodipine 10 mg PO DAILY 90 days aspirin 81 mg PO DAILY atenolol 50 mg PO BID bumetanide 2 mg (2 x 1 mg) PO BID cholecalciferol (vitamin D3) 25 mcg PO DAILY 90 days colchicine 0.6 mg PO BID PRN 15 days dorzolamide 2% 1 drp ophthalmic-Right BID estradiol 0.01%(0.1mg/gram) vaginal latanoprost 0.005% 1 drp ophthalmic (eye) BEDTIME lidocaine 5% (Lidoderm) 1 patch topical DAILY PRN MDD remove after 12 hours omeprazole 20 mg PO DAILY valsartan 320 mg PO DAILY 90 days warfarin See Protocol 5 mg X 6 DAYS/ 2.5MG X 1 DAY HPI HPI Comments History of Present Illness Details Ruth Ann returns for follow-up regarding various issues including chronic diastolic heart failure, chronic atrial fibrillation, hypertension. She states that she gets short of breath with even mild activity. No clear anginal-type symptoms. Has had leg swelling but has been chronic. Several months ago she had some lumbar spine infection and was hospitalized and that also made her weak. There is also lot of stress according to son, patient is going to see a therapist soon. That also apparently adds to lot of symptoms. [facility] Medical History Acute gout Afib Anemia Chronic heart failure with preserved ejection fraction (HFpEF) Essential hypertension GERD (gastroesophageal reflux disease) Hypercalcemia Persistent atrial fibrillation Precordial chest pain Shortness of breath Sudden loss of vision Swelling of both lower extremities Surgical History History of tonsillectomy History of right knee joint replacement History of appendectomy Family History Father No problems noted. Mother No problems noted. Social History Housing: Apartment Alcohol intake: never Patient Tobacco Use Status: Never used Tobacco e-Cigarette/Vaping Use: Never Used Second Hand Smoke Exposure: No Advance Directives Date on File: 06/13/22 service: No Current occupational status: unemployed Cognitive needs: Yes Hearing needs: No Vision needs: Yes Review of Systems Const Denies weakness ENT Denies dizziness Card Denies chest pain, Denies chest pain with activity, Denies syncope, Denies rapid heart rate, Denies pedal edema, Denies edema, Denies leg edema, Denies lightheadedness, Denies palpitations, Denies dyspnea on exertion and Denies orthopnea Resp Denies cough and Denies dyspnea on exertion GI Denies hematochezia and Denies change in stool character Musc Denies abnormal gait, Denies muscle cramps, Denies muscle weakness, Denies numbness, Denies radiating pain into limb and Denies tingling Neuro Denies abnormal gait, Denies dizziness, Denies syncope, Denies numbness, Denies tingling and Denies weakness Endo Denies palpitations Physical Exam Vital Signs: Last Vital Signs Pulse 76 06/20/23 08:55 BP 168/66 H 06/20/23 08:55 BMI result Body Mass Index 34.0 Const General: comfortable and no acute distress Orientation/consciousness: patient oriented x3 HEENT Other: Unremarkable Head: Yes normal to inspection Neck Neck: Yes normal visual inspection Chest Chest palpation & inspection: normal inspection of the chest Resp Auscultation: clear to auscultation bilaterally Cardio Palpation: normal PMI Heart sounds: S1 normal heart sound present, S2 normal heart sound present, no gallops, no murmurs and no rubs GI Palpation (GI): Soft to palpation Back/Spine/Pelvis Other: unremarkable Skin General skin exam: no rashes or lesions noted Neuro General: patient oriented x3 Extrem Other: 1-2+ leg swelling; General: Yes normal to inspection Psych Mental Status: mental status grossly normal Assessment & Plan Assessment & Plan (1) Chronic heart failure with preserved ejection fraction (HFpEF): Code(s): I50.32 - Chronic diastolic (congestive) heart failure Plan: Some acute exacerbation as she complaints more shortness of breath. Check basic metabolic panel. Probably increase the diuretics-increase Bumex or add Zaroxolyn. To be decided. Last echo from [facility] [place]-EF 55-60% no wall motion abnormalities. Left atrium dilated. Question of mitral stenosis but she has never had this before. Pulmonary hypertension with RVSP of 50-55 mm Hg. IVC dilated with blunted inspiratory collapse. (2) Persistent atrial fibrillation: Code(s): I48.19 - Other persistent atrial fibrillation Plan: Continue atenolol/warfarin. Patient is stating that PCP not prescribing her warfarin. Will try to see if she can qualify for income based low lynch Eliquis. If not, will need to contact PCP to ensure warfarin is appropriately prescribed. (3) Essential hypertension: Code(s): I10 - Essential (primary) hypertension Plan: Meds include atenolol, valsartan, amlodipine. Resume the hydralazine that she was on the past. Possible spironolactone as well but she has had potassium upto 5 in the past. (4) Abnormal myocardial perfusion study: Code(s): R94.39 - Abnormal result of other cardiovascular function study Plan: Stress perfusion imaging in the past with mild reversible basal septal defect. Suspected to be probably artifactual and less likely ischemic. Based on lack of angina, patient preference, age, frailty, comorbidities medical management. Plan Discussed with son who came for appointment. Total time spent in the encounter including review of data, counseling, documentation, coordination care-40 minutes. Medications: New hydralazine 50 mg PO TID 90 days 270 tabs 3RF I10 - Essential (primary) hypertension Changed From atenolol 50 mg PO DAILY 30 days 30 tabs 2RF To atenolol 50 mg PO BID Coding Level of Care Code Est Pt Level 4 (16425) Diagnoses Chronic heart failure with preserved ejection fraction (HFpEF) I50.32 Persistent atrial fibrillation I48.19 Essential hypertension I10 Abnormal myocardial perfusion study R94.39
== END 2023-06-20 09:26 | disposition home or self-care (01) ==
PROVIDERS: PCP Internal Medicine Cardiovascular Disease; Visit Provider Internal Medicine
DX: I50.32 Chronic diastolic (congestive) heart failure (principal); I48.19 Other persistent atrial fibrillation; I10 Essential (primary) hypertension; R94.39 Abnormal result of other cardiovascular function study
CPT/HCPCS: 99214

== ENCOUNTER 2023-06-20 08:52 | Outpatient (REF) | payer MEDICARE, SELFPAY ==
[2023-06-20 10:35] LABS: Anion Gap 12 (12-20); Blood Urea Nitrogen 30 mg/dL (9-16); Calcium 10.6 mg/dL (8.4-10.2); Carbon Dioxide 27 mmol/L (22-29); Chloride 106 mmol/L (96-108); Estimated Glomerular Filt Rate > 60; Glucose Random 95 mg/dL (60-115); Potassium 3.9 mmol/L (3.3-5.1); Sodium 141 mmol/L (135-145)
[2023-06-20 10:36] LABS: B Type Natriuretic Peptide 759 pg/mL (<100)
== END 2023-06-20 08:53 | disposition home or self-care (01) ==
LOC: HO.LAB 08:52
PROVIDERS: PCP Internal Medicine Cardiovascular Disease; Visit Provider Internal Medicine
DX: I11.0 Hypertensive heart disease with heart failure (principal); I50.32 Chronic diastolic (congestive) heart failure; I48.19 Other persistent atrial fibrillation; R94.39 Abnormal result of other cardiovascular function study; Z79.899 Other long term (current) drug therapy
CPT/HCPCS: 36415; 80048; 83880; 99212

== ENCOUNTER 2023-06-29 08:45 | Outpatient (AMB) | payer MEDICARE, SELFPAY ==
[2023-06-29 08:54] LABS: Prothrombin Time Whole Bld POC 29.8 sec (11.1-13.5); ~PT, ~INR - Anti Coag Clinic 2.5 (0.9-1.1)
--- NOTE | 2023-06-29 08:59 | MHC.OFFVISCO ---
Intake Intake Visit Reasons: Anticoagulation Allergies latex [Latex] Allergy (Intermediate, Verified 06/29/23 08:47) BLISTERS & ITCHING morphine [Morphine] Allergy (Mild, Verified 06/29/23 08:47) RASH, ITCHNG Medication List - Last Reconciled 06/29/23 by Noemi Torre, RN acetaminophen 1,000 mg PO TID amlodipine 10 mg PO DAILY 90 days aspirin 81 mg PO DAILY atenolol 50 mg PO BID bumetanide 2 mg (2 x 1 mg) PO BID cholecalciferol (vitamin D3) 25 mcg PO DAILY 90 days colchicine 0.6 mg PO BID PRN 15 days dorzolamide 2% 1 drp ophthalmic-Right BID estradiol 0.01%(0.1mg/gram) vaginal hydralazine 50 mg PO TID 90 days latanoprost 0.005% 1 drp ophthalmic (eye) BEDTIME lidocaine 5% (Lidoderm) 1 patch topical DAILY PRN MDD remove after 12 hours metolazone 2.5 mg PO DIRECTED 30 days omeprazole 20 mg PO DAILY valsartan 320 mg PO DAILY 90 days warfarin See Protocol 5 mg X 6 DAYS/ 2.5MG X 1 DAY Nursing Note INR: 2.5 in therapeutic range Medications and supplements reviewed No changes in health, diet, medications, or supplements, Denies any signs and symptoms of bleeding or bruising or clotting. Bleeding, bruising, clotting discussed Nutritional guidance given Dose: 5MG X 6 DAYS/ 2.5MG X 1 DAY F/U INR: 4 WEEKS Patient verbalizes understanding of instructions given Anti-Coag Initial Assessment Social Hx Patient Tobacco Use Status: Never used Tobacco alcohol intake: never Coding Level of Care Code Est Patient Level 1 Diagnoses Current use of anticoagulant therapy Z79.01 Assessment & Plan Assessment & Plan (1) Current use of anticoagulant therapy: Code(s): Z79.01 - detention (current) use of anticoagulants Category: Medical
== END 2023-06-29 09:03 | disposition home or self-care (01) ==
LOC: HO.ACS 08:45
PROVIDERS: PCP Internal Medicine Cardiovascular Disease; Visit Provider Internal Medicine
DX: Z79.01 Long term (current) use of anticoagulants (principal)

== ENCOUNTER → 2023-06-29 08:45 | Outpatient (BNVA) | payer MEDICARE, SELFPAY | PROVIDERS: PCP Internal Medicine Cardiovascular Disease; Visit Provider Internal Medicine | DX: I48.0 Paroxysmal atrial fibrillation (principal); Z51.81 Encounter for therapeutic drug level monitoring; Z79.01 Long term (current) use of anticoagulants | CPT/HCPCS: 85610; 99211 ==

== ENCOUNTER 2023-07-07 10:00 | Outpatient (REF) | payer MEDICARE, SELFPAY ==
[2023-07-07 10:51] LABS: Anion Gap 15 (12-20); Blood Urea Nitrogen 70 mg/dL (9-16); Calcium 10.6 mg/dL (8.4-10.2); Carbon Dioxide 30 mmol/L (22-29); Chloride 99 mmol/L (96-108); Estimated Glomerular Filt Rate 42; Glucose Random 90 mg/dL (60-115); Potassium 3.7 mmol/L (3.3-5.1); Sodium 140 mmol/L (135-145)
== END 2023-07-07 10:01 | disposition home or self-care (01) ==
LOC: HO.LAB 10:00
PROVIDERS: PCP Internal Medicine Cardiovascular Disease; Visit Provider Internal Medicine
DX: I50.32 Chronic diastolic (congestive) heart failure (principal); I48.20 Chronic atrial fibrillation, unspecified; M79.89 Other specified soft tissue disorders
CPT/HCPCS: 36415; 80048

== ENCOUNTER 2023-07-27 08:58 | Outpatient (AMB) | payer MEDICARE, SELFPAY ==
[2023-07-27 09:08] LABS: Prothrombin Time Whole Bld POC 37.3 sec (11.1-13.5); ~PT, ~INR - Anti Coag Clinic 3.1 (0.9-1.1)
--- NOTE | 2023-07-27 09:18 | MHC.OFFVISCO ---
Intake Intake Visit Reasons: Anticoagulation Allergies latex [Latex] Allergy (Intermediate, Verified 07/27/23 09:00) BLISTERS & ITCHING morphine [Morphine] Allergy (Mild, Verified 07/27/23 09:00) RASH, ITCHNG Medication List - Last Reconciled 07/27/23 by Noemi Torre, RN acetaminophen 1,000 mg PO TID amlodipine 10 mg PO DAILY 90 days aspirin 81 mg PO DAILY atenolol 50 mg PO BID bumetanide 2 mg (2 x 1 mg) PO BID cholecalciferol (vitamin D3) 25 mcg PO DAILY 90 days colchicine 0.6 mg PO BID PRN 15 days dorzolamide 2% 1 drp ophthalmic-Right BID estradiol 0.01%(0.1mg/gram) vaginal hydralazine 50 mg PO TID 90 days latanoprost 0.005% 1 drp ophthalmic (eye) BEDTIME lidocaine 5% (Lidoderm) 1 patch topical DAILY PRN MDD remove after 12 hours metolazone 2.5 mg PO DIRECTED 30 days omeprazole 20 mg PO DAILY sulfamethoxazole-trimethoprim 800-160 mg 1 tab PO BID valsartan 320 mg PO DAILY 90 days warfarin See Protocol 5 mg X 6 DAYS/ 2.5MG X 1 DAY Nursing Note INR 3.1 out of therapeutic range Medications and supplements reviewed Patient status: HAS UTI Medications or supplements: ON SULFAMETHOXAZOLE Diet: LITTLE LESS Denies any signs and symptoms of bleeding or clotting or unusual bruising Bleeding, bruising, clotting discussed Nutritional guidance given: EAT GREENS TODAY AND WEEKLY, REVIEW FOOD LIST - HAVE AN EXTRA GREEN DUE TO ANTBX Dose: DECREASE DOSE X 2 WEEKS DUE TO ANTBX 2.5MG WED SAT/ 5MG X 5 DAYS F/U INR Date : 2 WEEKS ?? Patient verbalizing understanding of instructions given. 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
== END 2023-07-27 09:21 | disposition home or self-care (01) ==
LOC: HO.ACS 08:58
PROVIDERS: PCP Internal Medicine Cardiovascular Disease; Visit Provider Internal Medicine
DX: Z79.01 Long term (current) use of anticoagulants (principal)

== ENCOUNTER → 2023-07-27 08:58 | Outpatient (BNVA) | payer MEDICARE, SELFPAY | PROVIDERS: PCP Internal Medicine Cardiovascular Disease; Visit Provider Internal Medicine | DX: I48.0 Paroxysmal atrial fibrillation (principal); Z79.01 Long term (current) use of anticoagulants; Z51.81 Encounter for therapeutic drug level monitoring | CPT/HCPCS: 85610; 99211 ==

== ENCOUNTER 2023-08-10 08:51 | Outpatient (REF) | payer MEDICARE, SELFPAY ==
[2023-08-10 11:08] LABS: Anion Gap 13 (12-20); Blood Urea Nitrogen 69 mg/dL (9-16); Calcium 10.7 mg/dL (8.4-10.2); Carbon Dioxide 25 mmol/L (22-29); Chloride 102 mmol/L (96-108); Estimated Glomerular Filt Rate 30; Glucose Random 80 mg/dL (60-115); Potassium 4.5 mmol/L (3.3-5.1); Sodium 135 mmol/L (135-145)
== END 2023-08-10 08:52 | disposition home or self-care (01) ==
LOC: HO.LAB 08:51
PROVIDERS: PCP Internal Medicine Cardiovascular Disease; Visit Provider Internal Medicine
DX: I48.0 Paroxysmal atrial fibrillation (principal); I50.32 Chronic diastolic (congestive) heart failure; Z51.81 Encounter for therapeutic drug level monitoring; Z79.01 Long term (current) use of anticoagulants
CPT/HCPCS: 36415; 80048; 85610; 99211

== ENCOUNTER 2023-08-10 08:55 | Outpatient (AMB) | payer MEDICARE, SELFPAY ==
[2023-08-10 09:26] LABS: Prothrombin Time Whole Bld POC 37.8 sec (11.1-13.5); ~PT, ~INR - Anti Coag Clinic 3.2 (0.9-1.1)
--- NOTE | 2023-08-10 09:31 | MHC.OFFVISCO ---
Intake Intake Visit Reasons: Anticoagulation Allergies latex [Latex] Allergy (Intermediate, Verified 08/10/23 09:17) BLISTERS & ITCHING morphine [Morphine] Allergy (Mild, Verified 08/10/23 09:17) RASH, ITCHNG Medication List - Last Reconciled 08/10/23 by Deepika Bruce, RN acetaminophen 1,000 mg PO TID amlodipine 10 mg PO DAILY 90 days aspirin 81 mg PO DAILY atenolol 50 mg PO BID bumetanide 2 mg (2 x 1 mg) PO BID cholecalciferol (vitamin D3) 25 mcg PO DAILY 90 days colchicine 0.6 mg PO BID PRN 15 days dorzolamide 2% 1 drp ophthalmic-Right BID estradiol 0.01%(0.1mg/gram) vaginal hydralazine 50 mg PO TID 90 days latanoprost 0.005% 1 drp ophthalmic (eye) BEDTIME lidocaine 5% (Lidoderm) 1 patch topical DAILY PRN MDD remove after 12 hours metolazone 2.5 mg PO DIRECTED 30 days omeprazole 20 mg PO DAILY sulfamethoxazole-trimethoprim 800-160 mg 1 tab PO BID valsartan 320 mg PO DAILY 90 days warfarin See Protocol 5 mg X 6 DAYS/ 2.5MG X 1 DAY Nursing Note Amb to [facility] using cane accomp by son, feeling well Medications and supplements reviewed, see prev compose note, pt restarted on Bactrim 08/06 has been on sl decrease warfarin and eating greens also going to start colchicine daily vs PRN, no warfarin interaction per micromedex but can cause disrrhea No other changes in health, diet, medications, or supplements Denies any unusual signs and symptoms of bruising, bleeding Denies any new Chest pain, SOB, or clotting INR: 3.2 just above therapeutic range Nutritional guidance given: continue with greens while completing antibiotic then balance greens and reds in diet Dose: decrease dose today to 2.5mg then resume usual dosing schedule (2.5mg x 1 day and 5mg x 6 days) F/U INR: 1 week Patient verbalizes understanding of instructions given with accurate read back/ teach back of dosing Anti-Coag Initial Assessment Social Hx Patient Tobacco Use Status: Never used Tobacco alcohol intake: never Questionnaires HAS-BLED Does the patient had uncontrolled Hypertension?: Yes Does the patient have renal disease?: Yes Does the patient have liver disease?: No Does the patient have a history of stroke?: No Has the patient had major bleeding or predisposition to bleeding?: No Does the patient have labile INRs?: No Is the patient over 65 years of age?: Yes Is the patient on medications that gives them a predisposition to bleeding?: Yes Does the patient use alcohol?: No HAS-BLED Score: 4 CHADSVASC Age: 75 or over Gender: Female Does the patient have a history of CHF?: No Does the patient have a history of Hypertension?: Yes Does the patient have a history of Stroke/TIA/Thromboembolism?: No Does the patient have a history of Vascular Disease (prior FL, PAD or aortic plaque)?: No Does the patient have a history of Diabetes?: No CHADS VACS Score: 4 David Prediction Score Rsk VTE Active Cancer: No Previous VTE, excluding superficial vein thrombosis: No Reduced mobility: Yes Already known Thrombophilic Condition: Yes With-in last month Trauma and/or Surgery: No Elderly 70 year or older: Yes Heart and/or Respiratory Failure: No Acute Myocardial infarction and/or Ischemic Stroke: No Acute Infection and/or Rheumatologic Disorder: Yes Obesity (BMI 30 or greater): No Ongoing Hormonal Treatment: No Score: 8 David Score less than 4; Low Risk of VTE David Score 4 or greater; High Risk of VTE Coding Level of Care Code Est Patient Level 1 Diagnoses Current use of anticoagulant therapy Z79.01 Time Spent (min) 15 Assessment & Plan Assessment & Plan (1) Current use of anticoagulant therapy: Code(s): 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
== END 2023-08-10 09:43 | disposition home or self-care (01) ==
LOC: HO.ACS 08:55
PROVIDERS: PCP Internal Medicine Cardiovascular Disease; Visit Provider Internal Medicine
DX: Z79.01 Long term (current) use of anticoagulants (principal)

== ENCOUNTER 2023-08-17 09:01 | Outpatient (AMB) | payer MEDICARE, SELFPAY ==
[2023-08-17 09:18] LABS: Prothrombin Time Whole Bld POC 27.8 sec (11.1-13.5); ~PT, ~INR - Anti Coag Clinic 2.3 (0.9-1.1)
--- NOTE | 2023-08-17 09:26 | MHC.OFFVISCO ---
Intake Intake Visit Reasons: Anticoagulation Allergies latex [Latex] Allergy (Intermediate, Verified 08/17/23 09:14) BLISTERS & ITCHING morphine [Morphine] Allergy (Mild, Verified 08/17/23 09:14) RASH, ITCHNG Medication List - Last Reconciled 08/17/23 by Deepika Henning, RN acetaminophen 1,000 mg PO TID amlodipine 10 mg PO DAILY 90 days aspirin 81 mg PO DAILY atenolol 50 mg PO BID bumetanide 2 mg (2 x 1 mg) PO BID cholecalciferol (vitamin D3) 25 mcg PO DAILY 90 days colchicine 0.6 mg PO DAILY dorzolamide 2% 1 drp ophthalmic-Right BID estradiol 0.01%(0.1mg/gram) vaginal hydralazine 50 mg PO TID 90 days latanoprost 0.005% 1 drp ophthalmic (eye) BEDTIME lidocaine 5% (Lidoderm) 1 patch topical DAILY PRN MDD remove after 12 hours metolazone 2.5 mg PO DIRECTED 30 days omeprazole 20 mg PO DAILY sulfamethoxazole-trimethoprim 800-160 mg 1 tab PO BID valsartan 320 mg PO DAILY 90 days warfarin See Protocol 5 mg X 6 DAYS/ 2.5MG X 1 DAY Nursing Note INR: 2.3 in therapeutic range Medications and supplements reviewed completed course of Bactrim 1 week ago, states she feels well No changes in health, diet, medications, or supplements, Denies any signs and symptoms of bleeding or bruising or clotting. Bleeding, bruising, clotting discussed Nutritional guidance given Dose: same of 2.5mg X1 day and 5mg X6 days F/U INR: 3 weeks Patient verbalizes understanding of instructions given Anti-Coag Initial Assessment Social Hx Patient Tobacco Use Status: Never used Tobacco alcohol intake: never Coding Level of Care Code Est Patient Level 1 Diagnoses Current use of anticoagulant therapy Z79.01 Results AMB INR Fingerstick AMB INR Fingerstick 2.3 Last Edit by Deepika Henning, TAMANNA on 08/17/23 09:20 interface delay Assessment & Plan Assessment & Plan (1) Current use of anticoagulant therapy: Code(s): 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
== END 2023-08-17 09:30 | disposition home or self-care (01) ==
LOC: HO.ACS 09:01
PROVIDERS: PCP Internal Medicine Cardiovascular Disease; Visit Provider Internal Medicine
DX: Z79.01 Long term (current) use of anticoagulants (principal)

== ENCOUNTER → 2023-08-17 09:01 | Outpatient (BNVA) | payer MEDICARE, SELFPAY | PROVIDERS: PCP Internal Medicine Cardiovascular Disease; Visit Provider Internal Medicine | DX: I48.0 Paroxysmal atrial fibrillation (principal); Z79.01 Long term (current) use of anticoagulants; Z51.81 Encounter for therapeutic drug level monitoring | CPT/HCPCS: 85610; 99211 ==

== ENCOUNTER 2023-08-31 09:41 | Outpatient (AMB) | payer MEDICARE, SELFPAY ==
--- NOTE | 2023-08-31 09:56 | MHC.OFFVISCO ---
Intake Intake Visit Reasons: Anticoagulation Allergies latex [Latex] Allergy (Intermediate, Verified 08/31/23 09:51) BLISTERS & ITCHING morphine [Morphine] Allergy (Mild, Verified 08/31/23 09:51) RASH, ITCHNG Medication List - Last Reconciled 08/31/23 by Katie Gay, RN acetaminophen 1,000 mg PO TID allopurinol 100 mg PO DAILY amlodipine 10 mg PO DAILY 90 days aspirin 81 mg PO DAILY atenolol 50 mg PO BID bumetanide 2 mg (2 x 1 mg) PO BID celecoxib (Celebrex) 100 mg PO DAILY cholecalciferol (vitamin D3) 25 mcg PO DAILY 90 days dorzolamide 2% 1 drp ophthalmic-Right BID estradiol 0.01%(0.1mg/gram) vaginal hydralazine 50 mg PO TID 90 days latanoprost 0.005% 1 drp ophthalmic (eye) BEDTIME lidocaine 5% (Lidoderm) 1 patch topical DAILY PRN MDD remove after 12 hours metolazone 2.5 mg PO DIRECTED 30 days omeprazole 20 mg PO DAILY valsartan 320 mg PO DAILY 90 days warfarin See Protocol 5 mg X 6 DAYS/ 2.5MG X 1 DAY Nursing Note INR: 2.2- in therapeutic range of 2-3 Medications and supplements reviewed- started allopurinol last week which can raise inr per micromedex and celebrex- aware risk of bleeding, pt taking with food, dose of warfarin adjusted on monday last week from 5mg to 2.5mg No changes in health, diet, medications, or supplements, Denies any signs and symptoms of bleeding or bruising or clotting. Bleeding, bruising, clotting discussed Nutritional guidance given Dose: cont 2.5mg x 2, 5mg x 5 F/U INR: 09/07/23 Patient verbalizes understanding of instructions given pt interested in doac, son alon present for visit - composed note to cardiology Anti-Coag Initial Assessment Social Hx Patient Tobacco Use Status: Never used Tobacco alcohol intake: never Coding Level of Care Code Est Patient Level 1 Diagnoses Current use of anticoagulant therapy Z79.01 Assessment & Plan Assessment & Plan (1) Current use of anticoagulant therapy: Code(s): Z79.01 - residential (current) use of anticoagulants Category: Medical
[2023-08-31 09:58] LABS: Prothrombin Time Whole Bld POC 26.9 sec (11.1-13.5); ~PT, ~INR - Anti Coag Clinic 2.2 (0.9-1.1)
== END 2023-08-31 10:51 | disposition home or self-care (01) ==
LOC: HO.ACS 09:41
PROVIDERS: PCP Family Medicine; Visit Provider Internal Medicine
DX: Z79.01 Long term (current) use of anticoagulants (principal)

== ENCOUNTER → 2023-08-31 09:41 | Outpatient (BNVA) | payer MEDICARE, SELFPAY | PROVIDERS: PCP Family Medicine; Visit Provider Internal Medicine | DX: I48.0 Paroxysmal atrial fibrillation (principal); Z79.01 Long term (current) use of anticoagulants; Z51.81 Encounter for therapeutic drug level monitoring | CPT/HCPCS: 85610; 99211 ==

== ENCOUNTER 2023-09-07 08:51 | Outpatient (AMB) | payer MEDICARE, SELFPAY ==
[2023-09-07 09:00] LABS: Prothrombin Time Whole Bld POC 24.3 sec (11.1-13.5)
--- NOTE | 2023-09-07 09:03 | MHC.OFFVISCO ---
Intake Intake Visit Reasons: Anticoagulation Allergies latex [Latex] Allergy (Intermediate, Verified 09/07/23 08:52) BLISTERS & ITCHING morphine [Morphine] Allergy (Mild, Verified 09/07/23 08:52) RASH, ITCHNG Medication List - Last Reconciled 09/07/23 by Deepika Bruce, RN acetaminophen 1,000 mg PO TID allopurinol 100 mg PO DAILY amlodipine 10 mg PO DAILY 90 days aspirin 81 mg PO DAILY atenolol 50 mg PO BID bumetanide 2 mg (2 x 1 mg) PO BID celecoxib (Celebrex) 100 mg PO DAILY cholecalciferol (vitamin D3) 25 mcg PO DAILY 90 days dorzolamide 2% 1 drp ophthalmic-Right BID estradiol 0.01%(0.1mg/gram) vaginal hydralazine 50 mg PO TID 90 days latanoprost 0.005% 1 drp ophthalmic (eye) BEDTIME lidocaine 5% (Lidoderm) 1 patch topical DAILY PRN MDD remove after 12 hours metolazone 2.5 mg PO DIRECTED omeprazole 20 mg PO DAILY valsartan 320 mg PO DAILY 90 days warfarin See Protocol 5 mg X 6 DAYS/ 2.5MG X 1 DAY Nursing Note Amb to [facility] using walker, accomp by son feeling Ok, having a flare up over the night, I usually use a cane but today needed the walker Medications and supplements reviewed No new changes in health, diet, medications, or supplements Denies any unusual signs and symptoms of bruising, bleeding Denies any new Chest pain, SOB, or clotting INR: 2.0 low in therapeutic range Nutritional guidance given: balance greens and reds in diet Dose: continue usual dosing; 2.5mg x 2 days and 5mg x 5 days F/U INR: 2 weeks due to dosing changes, allopurinol, celebebrex, asa and possible med changes- seeing arthritis Dr burkett Patient verbalizes understanding of instructions given with accurate read back/ teach back of dosing Anti-Coag Initial Assessment Social Hx Patient Tobacco Use Status: Never used Tobacco alcohol intake: never Coding Level of Care Code Est Patient Level 1 Diagnoses Current use of anticoagulant therapy Z79.01 Time Spent (min) 15 Assessment & Plan Assessment & Plan (1) Current use of anticoagulant therapy: Code(s): Z79.01 - residential (current) use of anticoagulants Category: Medical
== END 2023-09-07 09:11 | disposition home or self-care (01) ==
LOC: HO.ACS 08:51
PROVIDERS: PCP Family Medicine; Visit Provider Internal Medicine
DX: Z79.01 Long term (current) use of anticoagulants (principal)

== ENCOUNTER → 2023-09-07 08:51 | Outpatient (BNVA) | payer MEDICARE, SELFPAY | PROVIDERS: PCP Family Medicine; Visit Provider Internal Medicine | DX: I48.0 Paroxysmal atrial fibrillation (principal); Z79.01 Long term (current) use of anticoagulants; Z51.81 Encounter for therapeutic drug level monitoring | CPT/HCPCS: 85610; 99211 ==

== ENCOUNTER 2023-09-12 09:24 | Outpatient (REF) | payer MEDICARE, SELFPAY ==
[2023-09-12 10:34] LABS: Anion Gap 12 (12-20); Blood Urea Nitrogen 69 mg/dL (9-16); Calcium 10.4 mg/dL (8.4-10.2); Carbon Dioxide 29 mmol/L (22-29); Chloride 102 mmol/L (96-108); Estimated Glomerular Filt Rate 44; Glucose Random 82 mg/dL (60-115); Sodium 139 mmol/L (135-145)
== END 2023-09-12 09:25 | disposition home or self-care (01) ==
LOC: HO.LAB 09:24
PROVIDERS: PCP Family Medicine; Visit Provider Internal Medicine
DX: I50.32 Chronic diastolic (congestive) heart failure (principal); N17.9 Acute kidney failure, unspecified
CPT/HCPCS: 36415; 80048

== ENCOUNTER 2023-09-21 08:50 | Outpatient (AMB) | payer MEDICARE, SELFPAY ==
[2023-09-21 08:59] LABS: Prothrombin Time Whole Bld POC 21.8 sec (11.1-13.5); ~PT, ~INR - Anti Coag Clinic 1.8 (0.9-1.1)
--- NOTE | 2023-09-21 09:06 | MHC.OFFVISCO ---
Intake Intake Visit Reasons: Anticoagulation Allergies latex [Latex] Allergy (Intermediate, Verified 09/21/23 08:52) BLISTERS & ITCHING morphine [Morphine] Allergy (Mild, Verified 09/21/23 08:52) RASH, ITCHNG Medication List - Last Reconciled 09/21/23 by Deepika Bruce, RN acetaminophen 1,000 mg PO TID allopurinol 300 mg PO DAILY amlodipine 10 mg PO DAILY 90 days aspirin 81 mg PO DAILY atenolol 50 mg PO BID bumetanide 2 mg (2 x 1 mg) PO BID celecoxib (Celebrex) 100 mg PO BID cholecalciferol (vitamin D3) 25 mcg PO DAILY 90 days dorzolamide 2% 1 drp ophthalmic-Right BID estradiol 0.01%(0.1mg/gram) vaginal hydralazine 50 mg PO TID 90 days latanoprost 0.005% 1 drp ophthalmic (eye) BEDTIME lidocaine 5% (Lidoderm) 1 patch topical DAILY PRN MDD remove after 12 hours metolazone 2.5 mg PO DIRECTED omeprazole 20 mg PO DAILY valsartan 320 mg PO DAILY 90 days warfarin See Protocol 5 mg X 6 DAYS/ 2.5MG X 1 DAY Nursing Note Amb to [facility] using cane, feeling well, accomp by son Medications and supplements reviewed recent increase in allopurinol from 200mg to 300mg and celebrex to BID vs daily No other changes in health, diet, medications, or supplements Denies any unusual signs and symptoms of bruising, bleeding Denies any new Chest pain, SOB, or clotting INR:1.8 below therapeutic range Nutritional guidance given: no greens today then balance greens and reds in diet- pt likes good greens , asparagus, brocolli and brussels sprouts- discussion to have in moderation Dose: increase dose today to 7.5mg then resume usual dosing; 2.5mg x 2 days and 5mg x 5 days F/U INR: 1 week Patient and son verbalizes understanding of instructions given with accurate read back/ teach back of dosing Anti-Coag Initial Assessment Social Hx Patient Tobacco Use Status: Never used Tobacco alcohol intake: never Coding Level of Care Code Est Patient Level 1 Diagnoses Current use of anticoagulant therapy Z79.01 Time Spent (min) 15 Assessment & Plan Assessment & Plan (1) Current use of anticoagulant therapy: Code(s): Z79.01 - correction (current) use of anticoagulants Category: Medical
== END 2023-09-21 09:17 | disposition home or self-care (01) ==
LOC: HO.ACS 08:50
PROVIDERS: PCP Family Medicine; Visit Provider Internal Medicine
DX: Z79.01 Long term (current) use of anticoagulants (principal)

== ENCOUNTER → 2023-09-21 08:50 | Outpatient (BNVA) | payer MEDICARE, SELFPAY | PROVIDERS: PCP Family Medicine; Visit Provider Internal Medicine | DX: I48.0 Paroxysmal atrial fibrillation (principal); Z79.01 Long term (current) use of anticoagulants; Z51.81 Encounter for therapeutic drug level monitoring | CPT/HCPCS: 85610; 99211 ==

== ENCOUNTER 2023-09-28 09:15 | Outpatient (AMB) | payer MEDICARE, SELFPAY ==
[2023-09-28 09:34] LABS: Prothrombin Time Whole Bld POC 25.3 sec (11.1-13.5); ~PT, ~INR - Anti Coag Clinic 2.1 (0.9-1.1)
--- NOTE | 2023-09-28 09:41 | MHC.OFFVISCO ---
Intake Intake Visit Reasons: Anticoagulation Allergies latex [Latex] Allergy (Intermediate, Verified 09/28/23 09:28) BLISTERS & ITCHING morphine [Morphine] Allergy (Mild, Verified 09/28/23 09:28) RASH, ITCHNG Medication List - Last Reconciled 09/28/23 by Deepika Henning, RN acetaminophen 1,000 mg PO TID allopurinol 300 mg PO DAILY amlodipine 10 mg PO DAILY 90 days aspirin 81 mg PO DAILY atenolol 50 mg PO BID bumetanide 2 mg (2 x 1 mg) PO BID celecoxib (Celebrex) 100 mg PO BID cholecalciferol (vitamin D3) 25 mcg PO DAILY 90 days dorzolamide 2% 1 drp ophthalmic-Right BID estradiol 0.01%(0.1mg/gram) vaginal hydralazine 50 mg PO TID 90 days latanoprost 0.005% 1 drp ophthalmic (eye) BEDTIME lidocaine 5% (Lidoderm) 1 patch topical DAILY PRN MDD remove after 12 hours metolazone 2.5 mg PO DIRECTED omeprazole 20 mg PO DAILY valsartan 320 mg PO DAILY 90 days warfarin See Protocol 5 mg X 6 DAYS/ 2.5MG X 1 DAY Nursing Note INR: 2.1 in therapeutic range of 2-3 Medications and supplements reviewed, no changes No changes in health, diet, medications, or supplements, Denies any signs and symptoms of bleeding or bruising or clotting. Bleeding, bruising, clotting discussed, no unusual S/S of bleeding Nutritional guidance given, pt to review the food list and to have foods from the reds list for next 2 days, (INR last was 1.8, now 2.1) and to avoid greens next 2 days Dose: continue same dose of 5 mg X 5 days and 2.5mg X 2 days F/U INR: 2 weeks Patient verbalizes understanding of instructions given Anti-Coag Initial Assessment Social Hx Patient Tobacco Use Status: Never used Tobacco alcohol intake: never Coding Level of Care Code Est Patient Level 1 Diagnoses Current use of anticoagulant therapy Z79.01 Assessment & Plan Assessment & Plan (1) Current use of anticoagulant therapy: Code(s): Z79.01 - 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
== END 2023-09-28 09:46 | disposition home or self-care (01) ==
LOC: HO.ACS 09:15
PROVIDERS: PCP Family Medicine; Visit Provider Internal Medicine
DX: Z79.01 Long term (current) use of anticoagulants (principal)

== ENCOUNTER → 2023-09-28 09:15 | Outpatient (BNVA) | payer MEDICARE, SELFPAY | PROVIDERS: PCP Family Medicine; Visit Provider Internal Medicine | DX: I48.0 Paroxysmal atrial fibrillation (principal); Z79.01 Long term (current) use of anticoagulants; Z51.81 Encounter for therapeutic drug level monitoring | CPT/HCPCS: 85610; 99211 ==

== ENCOUNTER 2023-10-02 09:12 | Outpatient (AMB) | payer MEDICARE, SELFPAY ==
[2023-10-02 09:21] VITALS: BP 128/66; PULSE 73; BMI 34.8
--- NOTE | 2023-10-02 09:21 | A.OFFVIS_ITS ---
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: No Accompanied by: Son Allergies latex [Latex] Allergy (Intermediate, Verified 10/02/23 09:24) BLISTERS & ITCHING morphine [Morphine] Allergy (Mild, Verified 10/02/23 09:24) RASH, ITCHNG Medication List - Last Reconciled 10/02/23 by Yovany Garibay MD acetaminophen 1,000 mg PO TID allopurinol 300 mg PO DAILY amlodipine 10 mg PO DAILY 90 days aspirin 81 mg PO DAILY atenolol 50 mg PO BID bumetanide 2 mg (2 x 1 mg) PO BID celecoxib (Celebrex) 100 mg PO BID cholecalciferol (vitamin D3) 25 mcg PO DAILY 90 days dorzolamide 2% 1 drp ophthalmic-Right BID estradiol 0.01%(0.1mg/gram) vaginal hydralazine 50 mg PO TID 90 days latanoprost 0.005% 1 drp ophthalmic (eye) BEDTIME lidocaine 5% (Lidoderm) 1 patch topical DAILY PRN MDD remove after 12 hours metolazone 2.5 mg PO DIRECTED omeprazole 20 mg PO DAILY valsartan 320 mg PO DAILY 90 days warfarin See Protocol 5 mg X 6 DAYS/ 2.5MG X 1 DAY HPI HPI Comments History of Present Illness Details Ruth Ann returns for follow-up regarding various issues including chronic diastolic heart failure, chronic atrial fibrillation, hypertension. Overall, she states she is actually doing quite well. Shortness of breath is at baseline. Leg swelling is also improved. She is on reasonable diuretic regimen and well compensated overall. She is quite depressed and tearful because she has to put her daughter with lot of mental health issues in intermediate recently. She apparently took care of her for almost 6 decades. [facility] Medical History Acute gout Afib Anemia Chronic heart failure with preserved ejection fraction (HFpEF) Essential hypertension GERD (gastroesophageal reflux disease) Hypercalcemia Persistent atrial fibrillation Precordial chest pain Shortness of breath Sudden loss of vision Swelling of both lower extremities Surgical History History of tonsillectomy History of right knee joint replacement History of appendectomy Family History Father No problems noted. Mother No problems noted. Social History Housing: Apartment Alcohol intake: never Patient Tobacco Use Status: Never used Tobacco e-Cigarette/Vaping Use: Never Used Second Hand Smoke Exposure: No Advance Directives Date on File: 06/13/22 service: No Current occupational status: unemployed Cognitive needs: Yes Hearing needs: No Vision needs: Yes Review of Systems Const All systems reviewed & are unremarkable except as noted in HPI and below Reports as per HPI and Reports no additional complaints Eyes Reports as per HPI and Denies no additional complaints ENT Denies no additional complaints and Reports as per HPI Card Reports as per HPI, Reports no additional complaints, Denies acrocyanosis, Denies chest pain, Denies leg edema, Denies lightheadedness, Denies palpitations and Denies dyspnea Resp Reports as per HPI, Denies no additional complaints and Denies dyspnea GI Reports as per HPI and Denies no additional complaints Reports as per HPI Musc Reports no additional complaints and Reports as per HPI Skin/Breast Reports system reviewed and no additional complaints, except as documented Neuro Reports no additional complaints and Reports as per HPI Psych Reports no additional complaints and Reports as per HPI Endo Reports no additional complaints, Reports as per HPI and Denies palpitations Ulises/Lymph Reports no additional complaints and Reports as per HPI Aller/Immun Reports no additional complaints and Reports as per HPI Physical Exam Vital Signs: Last Vital Signs Pulse 73 10/02/23 09:21 BP 128/66 10/02/23 09:21 BMI result Body Mass Index 34.8 Const General: comfortable and no acute distress Orientation/consciousness: patient oriented x3 HEENT Other: Unremarkable Head: Yes normal to inspection Neck Neck: Yes normal visual inspection Chest Chest palpation & inspection: normal inspection of the chest Resp Auscultation: clear to auscultation bilaterally Cardio Palpation: normal PMI Heart sounds: S1 normal heart sound present, S2 normal heart sound present, no gallops, no murmurs and no rubs GI Palpation (GI): Soft to palpation Back/Spine/Pelvis Other: unremarkable Skin General skin exam: no rashes or lesions noted Neuro General: patient oriented x3 Extrem Other: 1+ leg swelling; General: Yes normal to inspection Psych Mental Status: mental status grossly normal Assessment & Plan Assessment & Plan (1) Chronic heart failure with preserved ejection fraction (HFpEF): Code(s): I50.32 - Chronic diastolic (congestive) heart failure Plan: She is stable on current regimen of diuretics including Bumex and metolazone. No changes. We will periodically follow up on the BNP is. Her BUN runs quite high but there is no choice otherwise. Will have to accept it. Last echo from [facility] [place] 55-60% no wall motion abnormalities. Left atrium dilated. Question of mitral stenosis but she has never had this before. Pulmonary hypertension with RVSP of 50-55 mm Hg. IVC dilated with blunted inspiratory collapse. We will recheck with next visit. (2) Persistent atrial fibrillation: Code(s): I48.19 - Other persistent atrial fibrillation Plan: Continue atenolol/warfarin. We are still awaiting the approval for Eliquis based on her income. If this is indeed approved, can switch. Will ask our RN to follow-up. (3) Essential hypertension: Code(s): I10 - Essential (primary) hypertension Plan: Seems generally stable. (4) Abnormal myocardial perfusion study: Code(s): R94.39 - Abnormal result of other cardiovascular function study Plan: Stress perfusion imaging in the past with mild reversible basal septal defect. Suspected to be probably artifactual and less likely ischemic. Based on lack of angina, patient preference, age, frailty, comorbidities medical management. Plan Discussed with son who came for appointment. Orders: Orders Basic Metabolic Panel 4 Weeks I50.32 - Chronic diastolic (congestive) heart failure CA echo transthoracic complete 6 Months I05.0 - Rheumatic mitral stenosis, I50.32 - Chronic diastolic (congestive) heart failure Coding Level of Care Code Est Pt Level 4 (49098) Diagnoses Chronic heart failure with preserved ejection fraction (HFpEF) I50.32 Persistent atrial fibrillation I48.19 Essential hypertension I10 Abnormal myocardial perfusion study R94.39
== END 2023-10-02 10:09 | disposition home or self-care (01) ==
PROVIDERS: PCP Family Medicine; Visit Provider Internal Medicine
DX: I50.32 Chronic diastolic (congestive) heart failure (principal); I48.19 Other persistent atrial fibrillation; I10 Essential (primary) hypertension; R94.39 Abnormal result of other cardiovascular function study
CPT/HCPCS: 99214

== ENCOUNTER → 2023-10-02 09:12 | Outpatient (BNVA) | payer MEDICARE, SELFPAY | PROVIDERS: PCP Family Medicine; Visit Provider Internal Medicine | DX: I11.0 Hypertensive heart disease with heart failure (principal); I50.32 Chronic diastolic (congestive) heart failure; I48.19 Other persistent atrial fibrillation; R94.39 Abnormal result of other cardiovascular function study | CPT/HCPCS: 99212 ==

== ENCOUNTER 2023-10-11 09:14 | Outpatient (AMB) | payer MEDICARE, SELFPAY ==
--- NOTE | 2023-10-11 09:33 | MHC.OFFVISCO ---
Intake Intake Visit Reasons: Anticoagulation Allergies latex [Latex] Allergy (Intermediate, Verified 10/11/23 09:27) BLISTERS & ITCHING morphine [Morphine] Allergy (Mild, Verified 10/11/23 09:27) RASH, ITCHNG Medication List - Last Reconciled 10/11/23 by Katie Gay RN acetaminophen 1,000 mg PO TID allopurinol 300 mg PO DAILY amlodipine 10 mg PO DAILY 90 days apixaban (Eliquis) 5 mg PO BID atenolol 50 mg PO BID bumetanide 2 mg (2 x 1 mg) PO BID celecoxib (Celebrex) 100 mg PO BID cholecalciferol (vitamin D3) 25 mcg PO DAILY 90 days dorzolamide 2% 1 drp ophthalmic-Right BID estradiol 0.01%(0.1mg/gram) vaginal hydralazine 50 mg PO TID 90 days latanoprost 0.005% 1 drp ophthalmic (eye) BEDTIME lidocaine 5% (Lidoderm) 1 patch topical DAILY PRN MDD remove after 12 hours metolazone 2.5 mg PO DIRECTED omeprazole 20 mg PO DAILY valsartan 320 mg PO DAILY 90 days warfarin 5 mg PO DAILY Nursing Note INR: 2.4- in therapeutic range of 2-3 Medications and supplements reviewed- stopped baby asa per cardiology No changes in health, diet, medications, or supplements, Denies any signs and symptoms of bleeding or bruising or clotting. Bleeding, bruising, clotting discussed Nutritional guidance given Dose: 2.5mg x 2, 5mg x 5 F/U INR: 2 weeks Patient verbalizes understanding of instructions given pt to have cataract surg on 10/27/23 and 11/09/23 amb with cane, son present for visit pt hopes to transition to eliquis soon - awaiting med, aware to call acs to transition Anti-Coag Initial Assessment Social Hx Patient Tobacco Use Status: Never used Tobacco alcohol intake: never Coding Level of Care Code Est Patient Level 1 Diagnoses Current use of anticoagulant therapy Z79.01 Assessment & Plan Assessment & Plan (1) Current use of anticoagulant therapy: Code(s): 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
[2023-10-11 09:34] LABS: Prothrombin Time Whole Bld POC 28.3 sec (11.1-13.5); ~PT, ~INR - Anti Coag Clinic 2.4 (0.9-1.1)
== END 2023-10-11 09:41 | disposition home or self-care (01) ==
LOC: HO.ACS 09:14
PROVIDERS: PCP Family Medicine; Visit Provider Internal Medicine
DX: Z79.01 Long term (current) use of anticoagulants (principal)

== ENCOUNTER → 2023-10-11 09:14 | Outpatient (BNVA) | payer MEDICARE, SELFPAY | PROVIDERS: PCP Family Medicine; Visit Provider Internal Medicine | DX: I48.0 Paroxysmal atrial fibrillation (principal); Z51.81 Encounter for therapeutic drug level monitoring; Z79.01 Long term (current) use of anticoagulants | CPT/HCPCS: 85610; 99211 ==

== ENCOUNTER 2023-10-25 09:16 | Outpatient (AMB) | payer MEDICARE, SELFPAY ==
--- NOTE | 2023-10-25 09:27 | MHC.OFFVISCO ---
Intake Intake Visit Reasons: Anticoagulation Allergies latex [Latex] Allergy (Intermediate, Verified 10/25/23 09:22) BLISTERS & ITCHING morphine [Morphine] Allergy (Mild, Verified 10/25/23 09:22) RASH, ITCHNG Medication List - Last Reconciled 10/25/23 by Katie Gay, RN acetaminophen 1,000 mg PO TID allopurinol 300 mg PO DAILY amlodipine 10 mg PO DAILY 90 days apixaban (Eliquis) 5 mg PO BID atenolol 50 mg PO BID bumetanide 2 mg (2 x 1 mg) PO BID celecoxib (Celebrex) 100 mg PO BID cholecalciferol (vitamin D3) 25 mcg PO DAILY 90 days dorzolamide 2% 1 drp ophthalmic-Right BID estradiol 0.01%(0.1mg/gram) vaginal hydralazine 50 mg PO TID 90 days latanoprost 0.005% 1 drp ophthalmic (eye) BEDTIME lidocaine 5% (Lidoderm) 1 patch topical DAILY PRN MDD remove after 12 hours metolazone 2.5 mg PO DIRECTED omeprazole 20 mg PO DAILY valsartan 320 mg PO DAILY 90 days warfarin 5 mg See Protocol PO DAILY Nursing Note INR 1.7-?? out of therapeutic range of 2-3 Medications and supplements reviewed Patient status: pt for cataract surg on monday10/27/23 Medications or supplements: pt transitioning to apixaban Diet: same Denies any signs and symptoms of bleeding or clotting or unusual bruising Bleeding, bruising, clotting discussed Nutritional guidance given: none nec Dose: STOP WARFARIN , START ELIQUIS q 12 hours F/U INR Date : N/A Patient and son Heri verbalizing understanding of instructions given. 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
[2023-10-25 09:28] LABS: Prothrombin Time Whole Bld POC 20.3 sec (11.1-13.5); ~PT, ~INR - Anti Coag Clinic 1.7 (0.9-1.1)
== END 2023-10-25 09:42 | disposition home or self-care (01) ==
LOC: HO.ACS 09:16
PROVIDERS: PCP Family Medicine; Visit Provider Internal Medicine
DX: Z79.01 Long term (current) use of anticoagulants (principal)

== ENCOUNTER → 2023-10-25 09:16 | Outpatient (BNVA) | payer MEDICARE, SELFPAY | PROVIDERS: PCP Family Medicine; Visit Provider Internal Medicine | DX: I48.0 Paroxysmal atrial fibrillation (principal); Z79.01 Long term (current) use of anticoagulants; Z51.81 Encounter for therapeutic drug level monitoring | CPT/HCPCS: 85610; 99211 ==

== ENCOUNTER 2023-11-20 10:22 | Outpatient (REF) | payer MEDICARE, SELFPAY ==
[2023-11-20 11:34] LABS: Anion Gap 15 (12-20); Blood Urea Nitrogen 93 mg/dL (9-16); Calcium 10.7 mg/dL (8.4-10.2); Carbon Dioxide 27 mmol/L (22-29); Chloride 105 mmol/L (96-108); Estimated Glomerular Filt Rate 42; Glucose Random 92 mg/dL (60-115); Potassium 4.1 mmol/L (3.3-5.1); Sodium 143 mmol/L (135-145)
== END 2023-11-20 10:23 | disposition home or self-care (01) ==
LOC: HO.LAB 10:22
PROVIDERS: PCP Family Medicine; Visit Provider Internal Medicine
DX: I50.32 Chronic diastolic (congestive) heart failure (principal)
CPT/HCPCS: 36415; 80048

== ENCOUNTER 2024-02-20 10:04 | Outpatient (REF) | payer MEDICARE, SELFPAY ==
[2024-02-20 11:27] LABS: Anion Gap 12 (12-20); Blood Urea Nitrogen 72 mg/dL (9-16); Calcium 10.6 mg/dL (8.4-10.2); Carbon Dioxide 30 mmol/L (22-29); Chloride 102 mmol/L (96-108); Estimated Glomerular Filt Rate 40; Glucose Random 97 mg/dL (60-115); Potassium 3.9 mmol/L (3.3-5.1); Sodium 140 mmol/L (135-145)
== END 2024-02-20 10:05 | disposition home or self-care (01) ==
LOC: HO.LAB 10:04
PROVIDERS: PCP Family Medicine; Visit Provider Internal Medicine
DX: I50.32 Chronic diastolic (congestive) heart failure (principal)
CPT/HCPCS: 36415; 80048

== ENCOUNTER → 2024-04-01 08:43 | Outpatient (REF) | payer MEDICARE, SELFPAY ==
--- NOTE | 2024-04-01 08:49 | CA_ITS ---
Transthoracic Echocardiogram Patient (Last, First, Middle): Ruth Ann Nunes A Gender: Female Date of : 1935 Age: 89 Procedure Date: 04/01/2024 Procedure Type: Transthoracic Echocardiogram Location: OP Height: 149.86 cm Weight: 79.38 kg BSA: 1.74 m2 Heart Rate: bpm BP: 124 / 80 mmHg Premium Auditor: Referring MD: Yovany Garibay MD Symptoms: I50.32 - Chronic diastolic (congestive) heart failure Study Quality: Adequate ECG Rhythm: Atrial Fibrillation Conclusions: - The left ventricular systolic function is normal. The calculated ejection fraction is 66% by biplane method. - There is mild aortic valve regurgitation. - There is mild to moderate mitral valve regurgitation. - There is mild tricuspid valve regurgitation. - Mild pulmonary hypertension is present. Findings Left Ventricle Normal left ventricular cavity size. There is mildly increased left ventricular wall thickness. The left ventricular systolic function is normal. The calculated ejection fraction is 66% by biplane method. There is no evidence of regional wall motion abnormalities. Diastolic function is indeterminate on the basis of available data. Right Ventricle Normal right ventricular cavity size. There is mildly decreased right ventricular systolic function. Atria Severe biatrial enlargement. Aortic Valve There is a normal trileaflet aortic valve. There is no aortic valve stenosis. There is mild aortic valve regurgitation. Mitral Valve There is mild mitral annular calcification. There is mild to moderate mitral valve regurgitation. There is no mitral valve stenosis. Pulmonic Valve There is trace pulmonic valve regurgitation. Tricuspid Valve There is mild tricuspid valve regurgitation. Mild pulmonary hypertension is present. Great Vessels The asc aorta is normal in size. Venous The inferior vena cava is normal in size and collapses greater than 50% with inspiration. Pericardium/Pleural There is no evidence of pericardial effusion. Prior Study Comparison Changes noted compared to prior study dated: 03/01/2022. see comments on valves. Measurements 2D Linear Measurements IVSd: 1.26 0.6-0.9/0.6-1.0 cm LVIDd: 5.05 3.9-5.3/4.2-5.9 cm LVIDd Index: 2.90 2.4-3.2/2.2-3.1 cm/m2 LVIDs: 3.10 2.0-3.6 cm LVPWd: 1.20 0.7-1.1 cm Ao Root: 3.10 2.1-3.5 cm LA Diam: 4.70 2.7-3.8/3.0-4.0 cm LAIDs Index: 2.70 1.5-2.3 cm/m2 LV Mass: 306.57 67-162/88-224 g LV Mass Index: 176.19 43-95/49-115 g/m2 LVOT Diam: 2.00 3.0+(-)1.3 cm 2D Systolic Function EF 4C: 63.60 >55% EF 2C: 63.70 >55% EF BiP: 65.60 >55% Mitral Valve MV VTI: 0.36 MV Pk Andrew: 1.16 MV Mn Andrew: 0.57 MV Pk Grad: 5.00 MV Mn Grad: 2.00 MV Pk E: 1.27 MV Decel Time: 182.00 E'Lateral: 10.00 E'Medial: 5.66 E/E' Med: 22.40 E/E' Lat: 12.70 PHT: 53.00 MVA PHT: 4.15 MVA Continuity: 2.13 Decel [place]: 6.99 MR Vol - PW Dopp: 41.58 MR VTI: 1.89 MR ERO: 22.00 MR Alias Andrew: 0.38 MR RAD: 0.70 Aortic Valve AoV Pk Andrew: 1.36 AoV Mn Andrew: 0.87 AoV VTI: 0.36 AoV Pk Grad: 7.00 Aov Mn Grad: 4.00 B[place]ILL[place] Cont.VTI: 2.13 AI Pk Andrew: 3.84 AI [place]: 2.75 LVOT LVOT Pk Andrew: 0.83 LVOT Mn Andrew: 0.58 LVOT VTI: 0.25 LVOT Pk Grad: 3.00 LVOT Mn Grad: 2.00 LVOT Diam: 2.00 LVOT Area: 3.14 Diastolic Function MV Pk E: 1.27 E'Medial: 5.66 E/E' Med: 22.40 E' Laterial: 10.00 E/E' Lat: 12.70 Right Ventricle TAPSE (mm): 17.00 TVS' Andrew: 9.00 Tricuspid Valve TR Pk Andrew: 3.19 TR Pk Grad: 41.00 RA Press: 3.00 RVSP: 44.00 Great Vessels Aorta Ao Root-2D: 3.10 2.0-3.7 cm Ao Asc: 3.60 2.1-3.4 cm Pulmonary Valve PV Pk Andrew: 0.84 Peak PV Grad: 3.00 Updated in Other Vendor System with Status of Final Yovany Garibay MD electronically signed on 04/03/2024 10:46:07 AM with status of Final
== END ==
LOC: HO.CARD 08:43
PROVIDERS: PCP Family Medicine; Visit Provider Internal Medicine
DX: I50.32 Chronic diastolic (congestive) heart failure (principal); I05.0 Rheumatic mitral stenosis
CPT/HCPCS: 93306

== ENCOUNTER → 2024-04-01 08:49 | Outpatient (BNV) | payer MEDICARE, SELFPAY | PROVIDERS: PCP Family Medicine; Visit Provider Internal Medicine | DX: I35.1 Nonrheumatic aortic (valve) insufficiency (principal); I34.0 Nonrheumatic mitral (valve) insufficiency; I36.1 Nonrheumatic tricuspid (valve) insufficiency; I27.20 Pulmonary hypertension, unspecified | CPT/HCPCS: 93306 ==

== ENCOUNTER 2024-04-08 09:39 | Outpatient (AMB) | payer MEDICARE, SELFPAY ==
[2024-04-08 09:46] VITALS: BP 146/68; PULSE 63; BMI 35.1
--- NOTE | 2024-04-08 09:46 | MHC.OFFVIS ---
Vital Signs 04/08/24 09:46 Height 4 ft 11 in Weight 173 lb 11.588 oz BMI 35.1 BP 146/68 H Blood Pressure Location Lt brachial Position Sitting Pulse 63 Intake Visit Reasons: 6 month follow-up Public Information Specialist Required: No Accompanied by: Son Allergies latex [Latex] Allergy (Intermediate, Verified 10/25/23 09:22) BLISTERS & ITCHING morphine [Morphine] Allergy (Mild, Verified 10/25/23 09:22) RASH, ITCHNG Medication List - Last Reconciled 04/08/24 by Yovany Garibay MD acetaminophen 1,000 mg PO TID allopurinol 300 mg PO DAILY amlodipine 10 mg PO DAILY 90 days apixaban (Eliquis) 5 mg PO BID atenolol 50 mg PO BID bumetanide 2 mg PO BID celecoxib (Celebrex) 100 mg PO BID cholecalciferol (vitamin D3) 25 mcg PO DAILY 90 days dorzolamide 2% 1 drp ophthalmic-Right BID estradiol 0.01%(0.1mg/gram) vaginal hydralazine 25 mg PO TID PRN latanoprost 0.005% 1 drp ophthalmic (eye) BEDTIME metolazone 2.5 mg PO DIRECTED omeprazole 20 mg PO DAILY prednisone 5 mg PO DIRECTED valsartan 320 mg PO DAILY 90 days HPI Comments Details: Ruth Ann returns for follow-up regarding various issues including chronic diastolic heart failure, chronic atrial fibrillation, hypertension. She is feeling just about the same as before. Shortness of breath is at baseline. Leg swelling is controlled. Otherwise, getting along. [facility] Medical History Acute gout Afib Anemia Chronic heart failure with preserved ejection fraction (HFpEF) Essential hypertension GERD (gastroesophageal reflux disease) Hypercalcemia Persistent atrial fibrillation Precordial chest pain Shortness of breath Sudden loss of vision Swelling of both lower extremities Surgical History History of tonsillectomy History of right knee joint replacement History of appendectomy Family History Father No problems noted. Mother No problems noted. Social History Housing: Apartment Alcohol intake: never Patient Tobacco Use Status: Never used Tobacco e-Cigarette/Vaping Use: Never Used Second Hand Smoke Exposure: No Advance Directives Date on File: 06/13/22 service: No Current occupational status: unemployed Cognitive needs: Yes Hearing needs: No Vision needs: Yes Review of Systems Const Denies chills, Denies fatigue, Denies fever(s), Denies weight gain and Denies weight loss ENT Denies dizziness Card Denies chest pain, Denies leg edema, Denies lightheadedness, Denies palpitations, Denies dyspnea on exertion, Denies orthopnea and Denies other Resp Denies cough and Denies dyspnea on exertion GI Denies hematochezia and Denies change in stool character Musc Denies abnormal gait, Denies muscle weakness, Denies numbness, Denies radiating pain into limb and Denies tingling Neuro Denies abnormal gait, Denies dizziness, Denies numbness and Denies tingling Endo Denies fatigue and Denies palpitations Physical Exam Vital Signs: Last Vital Signs Pulse 63 04/08/24 09:46 BP 146/68 H 04/08/24 09:46 BMI result Body Mass Index 35.1 Const General: comfortable and no acute distress Orientation/consciousness: patient oriented x3 HEENT Other: Unremarkable Head: Yes normal to inspection Neck Neck: Yes normal visual inspection Chest Chest palpation & inspection: normal inspection of the chest Resp Auscultation: clear to auscultation bilaterally Cardio Palpation: normal PMI Heart sounds: S1 normal heart sound present, S2 normal heart sound present, no gallops, no murmurs and no rubs GI Palpation (GI): Soft to palpation Back/Spine/Pelvis Other: unremarkable Skin General skin exam: no rashes or lesions noted Neuro General: patient oriented x3 Extrem Other: 1+ leg swelling; General: Yes normal to inspection Psych Mental Status: mental status grossly normal Office Procedures EKG Details: EKG with atrial fibrillation at a rate of 63/Min. [id number], Complete Assessment & Plan Assessment & Plan (1) Chronic heart failure with preserved ejection fraction (HFpEF): Code(s): I50.32 - Chronic diastolic (congestive) heart failure Category: Medical Plan: She was taking Bumex 2 mg twice a day. She states this has been cut down to 2 mg a.m. and 1 mg p.m by her PCP due to renal function. However, she states she is feeling more edematous with this dose. Hence advised her that she can try to use her original 2 mg b.i.d. does as and when necessary. She understands. (2) Persistent atrial fibrillation: Code(s): I48.19 - Other persistent atrial fibrillation Category: Medical Plan: Well rate controlled. Continue beta-blockers. On Eliquis. Previously, was taking warfarin. (3) Essential hypertension: Code(s): I10 - Essential (primary) hypertension Category: Medical Plan: Slightly high today but no changes made. (4) Abnormal myocardial perfusion study: Code(s): R94.39 - Abnormal result of other cardiovascular function study Category: Medical Plan: Stress perfusion imaging in the past with mild reversible basal septal defect. Suspected to be probably artifactual and less likely ischemic. Based on lack of angina, patient preference, age, frailty, comorbidities, medical management. Plan Discussed with son who came for appointment. Medications: Changed From hydralazine 25 mg PO TID 90 days 270 tabs 3RF To hydralazine 25 mg PO TID PRN Alba Middleton NP From bumetanide 2 mg (2 x 1 mg) PO BID 360 tabs 3RF To bumetanide 2 tabs in am 1 in pm 2 mg PO BID Yovany Garibay MD Coding Level of Care Code Est Pt Level 4 (42183) Diagnoses Chronic heart failure with preserved ejection fraction (HFpEF) I50.32 Persistent atrial fibrillation I48.19 Essential hypertension I10 Abnormal myocardial perfusion study R94.39 CPT Codes EKG - CPT: 69356-[id number], Complete ([id number])
== END 2024-04-08 10:15 | disposition home or self-care (01) ==
PROVIDERS: PCP Family Medicine; Visit Provider Internal Medicine
DX: I50.32 Chronic diastolic (congestive) heart failure (principal); I48.19 Other persistent atrial fibrillation; I10 Essential (primary) hypertension; R94.39 Abnormal result of other cardiovascular function study
CPT/HCPCS: 93010; 99214

== ENCOUNTER → 2024-04-08 09:39 | Outpatient (BNVA) | payer MEDICARE, SELFPAY | PROVIDERS: PCP Family Medicine; Visit Provider Internal Medicine | DX: I11.0 Hypertensive heart disease with heart failure (principal); I50.32 Chronic diastolic (congestive) heart failure; I48.19 Other persistent atrial fibrillation; R94.39 Abnormal result of other cardiovascular function study | CPT/HCPCS: 93005; 99212 ==

== ENCOUNTER 2024-10-03 08:56 | Outpatient (REF) | payer MEDICARE, SELFPAY ==
[2024-10-03 10:54] LABS: Hematocrit 39.2 % (37.0-47.0); Hemoglobin 12.9 g/dl (12.0-16.0); Mean Corpuscular HGB Conc 32.9 g/dl (31.0-35.0); Mean Corpuscular Hemoglobin 30.6 pg (27.0-33.0); Mean Corpuscular Volume 92.9 fL (80.0-98.0); Mean Platelet Volume 11.2 fL (9.4-12.3); Platelet Count 194 X10*3/uL (160-400); Red Blood Count 4.22 X10*6/uL (4.20-5.50); White Blood Count 7.8 X10*3/uL (4.8-10.8)
[2024-10-03 11:13] LABS: B Type Natriuretic Peptide 297 pg/mL (<100)
[2024-10-03 11:22] LABS: Anion Gap 12 (12-20); Blood Urea Nitrogen 62 mg/dL (9-16); Calcium 10.6 mg/dL (8.4-10.2); Carbon Dioxide 27 mmol/L (22-29); Chloride 104 mmol/L (96-108); Estimated Glomerular Filt Rate 46; Glucose Random 95 mg/dL (60-115); Potassium 4.3 mmol/L (3.3-5.1); Sodium 139 mmol/L (135-145)
== END 2024-10-03 08:57 | disposition home or self-care (01) ==
LOC: HO.LAB 08:56
PROVIDERS: PCP Family Medicine; Visit Provider Internal Medicine
DX: I50.32 Chronic diastolic (congestive) heart failure (principal); I48.19 Other persistent atrial fibrillation; I10 Essential (primary) hypertension; R94.39 Abnormal result of other cardiovascular function study
CPT/HCPCS: 36415; 80048; 83880; 85027; 99212

== ENCOUNTER 2024-10-03 08:56 | Outpatient (AMB) | payer MEDICARE, SELFPAY ==
[2024-10-03 09:06] VITALS: BP 124/68; PULSE 77; BMI 33.4
--- NOTE | 2024-10-03 09:06 | MHC.OFFVIS ---
Vital Signs 10/03/24 09:06 Height 4 ft 11 in Weight 165 lb 5.547 oz BMI 33.4 BP 124/68 Blood Pressure Location Lt brachial Position Sitting Pulse 77 Pulse Source Pulse Oximeter Intake Visit Reasons: 6 mth f/up Allergies latex [Latex] Allergy (Intermediate, Verified 10/25/23 09:22) BLISTERS & ITCHING morphine [Morphine] Allergy (Mild, Verified 10/25/23 09:22) RASH, ITCHNG Medication List - Last Reconciled 10/03/24 by Yovany Garibay MD acetaminophen 1,000 mg PO TID allopurinol 300 mg PO DAILY amlodipine 10 mg PO DAILY 90 days apixaban (Eliquis) 5 mg PO BID atenolol 50 mg PO BID bumetanide 2 mg (2 x 1 mg) PO BID cholecalciferol (vitamin D3) 25 mcg PO DAILY 90 days dorzolamide 2% 1 drp ophthalmic-Right BID hydralazine 25 mg PO TID PRN latanoprost 0.005% 1 drp ophthalmic (eye) BEDTIME metolazone 2.5 mg PO QWEEK omeprazole 20 mg PO DAILY valsartan 320 mg PO DAILY 90 days HPI Comments Details: Ruth Ann returns for follow-up regarding various issues including chronic diastolic heart failure, chronic atrial fibrillation, hypertension. She states that her primary care doctor had advised her to cut back on the metolazone dosing and whenever she does that she feels more short of breath. She really wants to take it once a week as it keeps her going. No other complaints. No angina. Leg swelling is about the same as before. Frailty from age. [facility] Medical History Acute gout Afib Anemia Chronic heart failure with preserved ejection fraction (HFpEF) Essential hypertension GERD (gastroesophageal reflux disease) Hypercalcemia Persistent atrial fibrillation Precordial chest pain Shortness of breath Sudden loss of vision Swelling of both lower extremities Surgical History History of tonsillectomy History of right knee joint replacement History of appendectomy Family History Father No problems noted. Mother No problems noted. Social History Housing: Apartment Alcohol intake: never Patient Tobacco Use Status: Never used Tobacco e-Cigarette/Vaping Use: Never Used Second Hand Smoke Exposure: No Advance Directives Date on File: 06/13/22 service: No Current occupational status: unemployed Cognitive needs: Yes Hearing needs: No Vision needs: Yes Review of Systems Const Reports difficulty sleeping and Denies weakness ENT Denies dizziness Card Denies chest pain, Denies chest pain with activity, Denies syncope, Denies rapid heart rate, Denies pedal edema, Denies edema, Denies leg edema, Denies lightheadedness, Reports palpitations, Reports dyspnea, Denies dyspnea on exertion and Denies orthopnea Resp Denies cough, Reports dyspnea and Denies dyspnea on exertion GI Denies hematochezia and Denies change in stool character Musc Denies abnormal gait, Reports joint swelling, Denies muscle cramps, Denies muscle weakness, Denies numbness, Denies radiating pain into limb and Denies tingling Neuro Denies abnormal gait, Denies dizziness, Denies syncope, Denies numbness, Denies tingling and Denies weakness Endo Reports palpitations Physical Exam Vital Signs: Last Vital Signs Pulse 77 10/03/24 09:06 BP 124/68 10/03/24 09:06 BMI result Body Mass Index 33.4 Const General: comfortable and no acute distress Orientation/consciousness: patient oriented x3 HEENT Other: Unremarkable Head: Yes normal to inspection Neck Neck: Yes normal visual inspection Chest Chest palpation & inspection: normal inspection of the chest Resp Auscultation: clear to auscultation bilaterally Cardio Palpation: normal PMI Heart sounds: S1 normal heart sound present, S2 normal heart sound present, no gallops, no murmurs and no rubs GI Palpation (GI): Soft to palpation Back/Spine/Pelvis Other: unremarkable Skin General skin exam: no rashes or lesions noted Neuro General: patient oriented x3 Extrem Other: 1+ leg swelling; General: Yes normal to inspection Psych Mental Status: mental status grossly normal Assessment & Plan Assessment & Plan (1) Chronic heart failure with preserved ejection fraction (HFpEF): Code(s): I50.32 - Chronic diastolic (congestive) heart failure Category: Medical Plan: Continue Bumex. With regard to metolazone, she takes it once a week. If she does not take that apparently gets very short of breath and hence okay to continue. Check labs. She does have chronically high BUN. (2) Persistent atrial fibrillation: Code(s): I48.19 - Other persistent atrial fibrillation Category: Medical Plan: Continue beta-blockers. On Eliquis. Previously, was taking warfarin. There is an issue with Eliquis pricing and we will ask RN to check that. Check labs. (3) Essential hypertension: Code(s): I10 - Essential (primary) hypertension Category: Medical Plan: Stable. No changes. (4) Abnormal myocardial perfusion study: Code(s): R94.39 - Abnormal result of other cardiovascular function study Category: Medical Plan: Stress perfusion imaging in the past with mild reversible basal septal defect. Suspected to be probably artifactual and less likely ischemic. Based on lack of angina, patient preference, age, frailty, comorbidities, medical management. Plan Discussed with son. Orders: Orders Complete Blood Count no Diff Today I50.32 - Chronic diastolic (congestive) heart failure Basic Metabolic Panel Today I50.32 - Chronic diastolic (congestive) heart failure B Type Natriuretic Peptide Today I50.32 - Chronic diastolic (congestive) heart failure Coding Level of Care Code Est Pt Level 4 (41302) Complex EM visit Add On G2211 Diagnoses Chronic heart failure with preserved ejection fraction (HFpEF) I50.32 Persistent atrial fibrillation I48.19 Essential hypertension I10 Abnormal myocardial perfusion study R94.39
--- OUTSIDE RECORDS SUMMARY | 2024-10-03 09:52 | XMS_ITS ---
Author Organization [facility] Address [address] [place] [address] Care Team Providers Care Desktop Support Associate Name Role Phone Mook Brizuela Primary Care Provider Wyatt Rasmussen Unavailable [phone] Allergies Allergen (clinical drug ingredient) Drug/Non Drug Allergy documented on EMR Reaction Allergy Type Onset Date Status furosemide Lasix Unknown Drug Allergy Active Latex Latex rash Allergy Active morphine Morphine itchy,rash Drug Allergy Active REASON FOR VISIT At Risk Footcare, Painful Nail(s) aggrevated by shoes and causing difficulty standing/walking. Medications Medication SIG (Take, Route, Frequency, Duration) Notes Start Date End Date Status Amlodipine & Diet Manage Prod 10 MG 1 tablet Once a day Active Aspirin 81 MG 1 tablet Orally Once a day Not-Taking Atenolol 50 MG as directed Orally Active Ammonium Lactate 12 % 1 application to affected area Externally Twice a day for 30 days Active Bumetanide 1 MG 1 tablet Orally Four a day Active CeleBREX Active eliquis 5 mg Active Allopurinol Active Voltaren-XR 75 MG 1 tablet Orally Once a day for 30 day(s) Not-Taking metOLazone 2.5 MG 1 tablet Orally Two times a Week Active PriLOSEC Not-Taking Klor-Con M10 Not-Isreal ing Acetaminophen PRN Not-Ta anton Furosemide Not-Takin g Latanoprost Not-Taki ng Coumadin Not-Taking Centrum Silver Not-T aking Glucosamine Not-Taki ng Nitrofurantoin Not-T aking Diovan Not-Taking Timolol Maleate Not- Taking Omeprazole 20 MG 1 capsule 30 minutes before morning meal Orally Once a day for 30 day(s) Active Potassium Chloride ER 10 MEQ 1 tablet with food Orally Not-Taking Valsartan 320 MG Orally Act ya Warfarin Sodium 5 MG as directed Orally Not-Taking hydrALAZINE HCl 25 MG 1 tablet with food Orally Three times a day for 30 day(s) Active Nitrofurantoin Macrocrystal 100 MG 1 capsule at bedtime with food or milk Orally Not-Taking Eye Drops Active Social History Tobacco Use: Social History Observation Description Date Details (start date - stop date) Never Smoker NA - NA Tobacco Use/Smoking Question Answer Notes Are you a: nonsmoker Additional Findings: Tobacco Non-User Current no n-smoker Alcohol Screen Question Answer Notes Did you have a drink containing alcohol in the p ast year? No Points 0 Interpretation Negative Tobacco use other than smoking: Question Answer Notes Are you an other tobacco user? No Vital Signs Height 5 ft in 04/23/2024 Weight 173 lbs 04/23/2024 BMI 33.78 kg/m2 04/23/2024 Procedures Procedure Date Ordered Date Performed Result Body Sit e 36726-CKUYKXQ NAIL, 6 OR MORE 04/23/2024 N/A 81774-LUPU SKIN LESIONS, OVER 4 04/23/2024 N/A Encounters Encounter Location Date Provider Diagnosis [facility] [address] [place] [address] 04/23/2024 Wyatt Rowley 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, with unspecified presence of clinical manifestation I70.203 ; Tinea unguium B35.1 ; Pain in right toe(s) M79.674 and Pain in left toe(s) M79.675 Assessments Encounter Date Diagnosis (ICD Code) Assessment Notes Treatment Notes Treatment Clinical Notes Section Notes 04/23/2024 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, with unspecified presence of clinical manifestation (ICD-10 - I70.203) 04/23/2024 Tinea unguium (ICD-10 - B35.1) 04/23/2024 Pain in right toe(s) (ICD-10 - M79.674) 04/23/2024 Pain in left toe(s) (ICD-10 - M79.675) Plan Of Treatment Pending Test Test Name Order Date 44454-HEGUMHG NAIL, 6 OR MORE 04/23/2024 01512-LQCR SKIN LESIONS, OVER 4 04/23/20 24 Next Appt Details Follow Up: prn, Reason: Provider Name:Wyatt Rowley , 10/11/2024 09:15:00 AM, [address] [place], [address], Procedure Notes * Category Sub-Category Detail Notes Debride Nail 6-10 Nail debridement Performance o f this nail treatment by a nonprofessional would put this patients foot and overall health at risk. Therefore, nail debridement was performed extensively to reduce/remove overall nail length, girth, thickness, subungual debris, and necrotic tissue, by manual and/or electrical means through the use of a nail nipper and/or dremel-type grinder needle tip, to a more viable healthy nail plate or bed tissue 6-10. Silver nitrate used for any petechial bleeding as necessary. Definitive antifungal treatment options have been reviewed and discussed with the patient. The patient chooses, no pharmaceutical tx - 49286 Keratoma Treatment Parring or Cutting o f Benign Hyperkeratotic Lesion(s) (-57) More than 4 Lesions - The Benign hyperkeratotic lesions, as described above were pared, and/or cut utilizing a sterile 15 blade, tissue nippers, and/or dremel - 26927 , Q8 Progress Notes * Ruth Ann NUNES ADOB: [birth year] (89 yo F)Acc No.[id number]:04/23/2024 Progress Note Patient:?Ruth Ann Nunes Provider:?Wyatt Rowley DPM :1935???Age:89 Y???Sex:Female D ate:04/23/2024 Address:[address] [place] [id number] Pcp:Mook Brizuela Subjective: * Chief Complaints: * ???At Risk FootcarePainful N ail(s) aggrevated by shoes and causing difficulty standing/walking. * HPI: ???At Risk footcare:?Pt States Last PCP Visit:?Date?03/20/2024 * ROS:?General/Constitutional:?Nausea?denies.?Vomiting?denies.?Hunger Thirst?denies.?Loss appetite?denies.?Chills?denies.?Fatigue?denies.?Fever?denies.?Night Sweats?denies.?Unexplained weight loss?denies.?Unexplained weight gain?denies.?HEENTM:?Dentures?denies.?Dizziness?denies.?Glasses/contacts?admits.?Retinopathy?de nies.?Blurred/double vision?denies.?TMJ?denies.?Discharge/drainage?denies.?Implants?denies.?Sore throat?denies.?Dental implants?denies.?Hard of hearing ?denies.?Difficulty chewing/swallowing/speaking?denies.?Nose bleeds?denies.?Sore mouth?denies.?Respiratory:?On Oxygen?denies.?Pneumonia/pleurisy?denies.?Bronchitis?denies.?Emphysema?denies.?C oughing?denies.?Cough blood?denies.?Shortness of breath?denies.?Wheezing?denies.?Cardiovascular:?Pacemaker?denies.?MVP?denies.?WPW?denies.?CHF?denies.?Heart attack?denies.?Septal defect?denies.?Rapid beat?denies.?Chest pain ?denies.?Atrial Fib.?denies.?Murmur/Palpitations?denies.?Gastrointestinal:?Hemorrhoids?denies.?Stomach/Abdominal pain?denies.?Dark blood stool?denies.?Irritable bowel ?denies.?Constipation?denies.?Diarrhea?denies.?Hematology:?Swelling?admits.?Clots?denies.?Varicose Veins?denies.?Bruising?admits, on anticoagulants.?Bleeding problem?admits, on anticoagulants.?Genitourinary:?Blood urine?denies.?Frequent/Painfu/urination/bladder control?denies.?Kidney stones?denies.?Infection (UTI)?denies.?Nephropathy?denies.?sex trans dis (STD)?denies.?Prostate?denies.?Musculoskeletal:?Hammertoes?admits.?Bunions?denies.?Back Pain?denies.?Muscle Cramps/ Resting?denies.?Muscle cramps / walking?denies.?Generalized aches and pains?denies.?Weakness?denies.?Integ.:?[place]?denies.?Scars?denies.?Corns/calluses?admits.?Ingrown nails?admits.?Painful nails?admits.?Open Sores?denies.?Rashes?denies.?Neurologic:?Difficulty sleeping?denies.?Brain disorder?denies.?Numbness?denies.?Balance trouble?denies.?Confusion?denies.?Fainting/blackouts?denies.?Tingling?denies.?Tr emors?denies.? * Medical History:? * Surgical History:?bladder mixon rgery 2007knee replacement 2008knee surgery 2004 * Hospitalization/Major Diagno stic Procedure:?[facility]- kidney failure 2 days 02/01-[facility]gout [facility] sciatica [facility] 1 day 03/08/22[facility]- Infection in back - affected nerves - Mouna Velasquez for special antibiotics [place] [place] body in constant pain - out of it 2022 * Family History:?Mother: dece ased, diagnosed with Family history of arthritis, Unspecified essential hypertension.?Father: , diagnosed with Other specified conditions influencing health status.?Spouse: .? * Social History:?Tobacco Use:?Tobacco Use/Smoking?Are you a:?nonsmoker ?Additional Findings: Tobacco Non-User?Current non-smoker ?Tobacco use other than smoking?Are you an other tobacco user??No ???Drugs/Alcohol:?Drugs?Have you used drugs other than those for medical reasons in the past 12 months??No ?Alcohol Screen?Did you have a drink containing alcohol in the past year??No ?Points?0 ?Interpretation?Negative ???Miscellaneous:?Caffeine: yes, frequency: decaff coffee 3 cups per day. ?Children: yes, 5. ?Exercise: yes, housework, walking, PT at home. ?Marital status: . ?Occupation: retired, [employer]. * Medications:?TakingmetOLazon e 2.5 MG Tablet 1 tablet Orally Two times a Weekeliquis 5 mg Tablet Allopurinol CeleBREX Amlodipine & Diet Manage Prod 10 MG 1 tablet Once a dayAmmonium Lactate 12 % Cream 1 application to affected area Externally Twice a dayAtenolol 50 MG Tablet as directed Orally Bumetanide 1 MG Tablet 1 tablet Orally Four a dayEye Drops hydrALAZINE HCl 25 MG Tablet 1 tablet with food Orally Three times a dayOmeprazole 20 MG Capsule Delayed Release 1 capsule 30 minutes before morning meal Orally Once a dayValsartan 320 MG Tablet Orally Taking metOLazone 2.5 MG Tablet 1 tablet Orally Two times a WeekTaking eliquis 5 mg Tablet Taking Allopurinol Taking CeleBREX Taking Amlodipine & Diet Manage Prod 10 MG 1 tablet Once a dayTaking Ammonium Lactate 12 % Cream 1 application to affected area Externally Twice a dayTaking Atenolol 50 MG Tablet as directed Orally Taking Bumetanide 1 MG Tablet 1 tablet Orally Four a dayTaking Eye Drops Taking hydrALAZINE HCl 25 MG Tablet 1 tablet with food Orally Three times a dayTaking Omeprazole 20 MG Capsule Delayed Release 1 capsule 30 minutes before morning meal Orally Once a dayTaking Valsartan 320 MG Tablet Orally Not-Taking/PRNAspirin 81 MG Tablet Delayed Release 1 tablet Orally Once a dayNitrofurantoin Macrocrystal 100 MG Capsule 1 capsule at bedtime with food or milk Orally Potassium Chloride ER 10 MEQ Tablet Extended Release 1 tablet with food Orally Timolol Maleate Warfarin Sodium 5 MG Tablet as directed Orally Coumadin Centrum Silver Nitrofurantoin Diovan Glucosamine Latanoprost PriLOSEC Klor-Con M10 Acetaminophen , Notes: PRNFurosemide Voltaren-XR 75 MG Tablet Extended Release 24 Hour 1 tablet Orally Once a dayMedication List reviewed and reconciled with the patientNot-Taking/PRN Aspirin 81 MG Tablet Delayed Release 1 tablet Orally Once a dayNot-Taking/PRN Nitrofurantoin Macrocrystal 100 MG Capsule 1 capsule at bedtime with food or milk Orally Not-Taking/PRN Potassium Chloride ER 10 MEQ Tablet Extended Release 1 tablet with food Orally Not-Taking/PRN Timolol Maleate Not-Taking/PRN Warfarin Sodium 5 MG Tablet as directed Orally Not-Taking/PRN Coumadin Not- Taking/PRN Centrum Silver Not-Taking/PRN Nitrofurantoin Not-Taking/PRN Diovan Not- Taking/PRN Glucosamine Not-Taking/PRN Latanoprost Not-Taking/PRN PriLOSEC Not-Taking/PRN Klor-Con M10 Not-Taking/PRN Acetaminophen , Notes: PRNNot-Taking/PRN Furosemide Not-Taking/PRN Voltaren-XR 75 MG Tablet Extended Release 24 Hour 1 tablet Orally Once a dayMedication List reviewed and reconciled with the patient * Allergies:?Morphine: itchy,r ashLatex: rashLasixyes[Allergies Verified] Objective: * Vitals:?Ht: 5 ft, Wt: 173, B MS: 33.78, Shoe size: 8, Wt-k.47 kg. * Examination: ???Vascular: ?DP PULSES(B):? 0/4, B/L.?PT PULSES(B):? 0/4, B/L.?CAPILLARY FILL TIME:? delayed, all digits, B/L.?TROPHIC CONDITION-TEXTURE/ELASTICITY/TURGOR/HAIR GROWTH(B):? decreased, fragile, thin, shiny skin, with sparse to absent hair growth, B/L.?TEMPERTURE GRADIENT(C):? decreased, cool to cool, proximal to distal, B/L.?PIGMENTATION:?rubrous, B/L.?EDEMA(C):? 1-2/4, pitting, without aching pain, B/L, Leg(s), Ankle(s), Feet.?CLAUDICATION(C):?denies, B/L.?REST PAIN:?denies, B/L.?Nails: ?NAILS are:?Elongated, overgrown, dystrophic, lytic, greater than 3mm thick, discolored and friable with crumbly malodorous subungual debris, with pain on palpation, 1-5 Right foot, TA, T1, T2.?Dermatologic: ?SKIN FINDINGS:? Skin exam reveals Keratotic lesion(s) located at, Medial, IPJ, TA, Dorsal, DIPJ, T3, Medial plantar, T5, Dorsal, DIPJ, T6, SUB MTH (s), 1, B/L , SUB MTH (s), 3, Right , Heel(s), B/L.? Assessment: * Assessment: 1.?Tinea unguium - B35.1?2.? 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 Therefore, nail debridement was performed extensively to reduce/remove overall nail length, girth, thickness, subungual debris, and necrotic tissue, by manual and/or electrical means through the use of a nail nipper and/or dremel-type grinder needle tip, to a more viable healthy nail plate or bed tissue 6-10. Silver nitrate used for any petechial bleeding as necessary. Definitive antifungal treatment options have been reviewed and discussed with the patient. The patient chooses, no pharmaceutical tx - 60109.?Keratoma Treatment:?Parring or Cutting of Benign Hyperkeratotic Lesion(s)?(-57) More than 4 Lesions - The Benign hyperkeratotic lesions, as described above were pared, and/or cut utilizing a sterile 15 blade, tissue nippers, and/or dremel - 79221 , Q8.? * Procedure Codes:?53778 DEBRI DE NAIL, 6 OR MORE, Modifiers: XS 38381 TRIM SKIN LESIONS, OVER 4, Modifiers: XS , Q8 * Follow Up:?prn * Images: * Sign off status: Completed true * Provider:?Wyatt Rowley DPM Date:?2023 Generated for Moris rao/Artemio/eTransmitting on:?10/03/2024 09:52 AM EDT History and Physical Notes * HPI (History of Present Illness) Category Sub-Category Detail Notes Category Not es At Risk footcare Pt States Last PCP Visit: Date: 4 Examination Category Sub-Category Detail Notes Category Not es Dermatologic SKIN FINDINGS: Skin exam reveal s Keratotic lesion(s) located at, Medial, IPJ, TA, Dorsal, DIPJ, T3, Medial plantar, T5, Dorsal, DIPJ, T6, SUB MTH (s), 1, B/L , SUB MTH (s), 3, Right , Heel(s), B/L Vascular DP PULSES (B): 0/4, B/L PT PULSES (B): 0/4, B/L CAPILLARY FILL TIME: delayed, all digits , B/L TEMPERTURE GRADIENT (C): decreased, cool to cool, proximal to distal, B/L TROPHIC CONDITION-TEXTURE/ELASTICITY/TURGOR/HAIR GROWTH (B): decreased, fragile, thin, shiny skin, wi th sparse to absent hair growth, B/L EDEMA (C): 1-2/4, pitting, with out aching pain, B/L, Leg(s), Ankle(s), Feet CLAUDICATION (C): denies, B/L REST PAIN: denies, B/L PIGMENTATION: rubrous, B/L Nails NAILS are: Elongated, overg rown, dystrophic, lytic, greater than 3mm thick, discolored and friable with crumbly malodorous subungual debris, with pain on palpation, 1-5 Right foot, TA, T1, T2
--- OUTSIDE RECORDS SUMMARY | 2024-10-03 09:52 | XMS_ITS | Continuity of Care Document ---
Author Organization [facility] lt Address [address] [place] [address]- Care Team Providers Care Architectural Inspector Name Role Phone Mook Brizuela DO Primary Care Physician Encounter [facility] Date(s): 08/08/24 - 09/07/24 [facility] Adult [address] [place] [address]- Encounter Diagnosis Angiomyolipoma of kidney(Discharge Diagnosis) - 08/15/23 Major depression, single episode(Discharge Diagnosis) - 06/29/24 Stress due to illness of family member(Discharge Diagnosis) - 06/29/24 Attending Physician: Nieves Orozco Admitting Physician: Nieves Orozco Referring Physician: Nieves Orozco Encounter Type: Triage Allergies, Adverse Reactions, Alerts Substance Criticality Severity Reaction Reaction Severity Status morphine Rash and itchiy Acti ve Adhesive Bandage Rash Act ya Immunizations Given and Recorded Vaccine Date Status Refusal Reason influenza virus vaccine, inactivated 1 04/30/24 Gi hammad influenza virus vaccine, inactivated 04/20/23 Give n influenza virus vaccine, inactivated 05/04/22 Chele rded influenza virus vaccine, inactivated 04/13/21 Chele rded influenza virus vaccine, inactivated 04/01/20 Chele rded influenza virus vaccine, inactivated 04/09/19 Chele rded zoster vaccine, inactivated 01/05/23 Given zoster vaccine, inactivated 11/01/22 Given pneumococcal 20-valent conjugate vaccine 11/01/22 Given SARS-CoV-2 (COVID-19) mRNA-1273 vaccine 06/22/21 R ecorded SARS-CoV-2 (COVID-19) mRNA-1273 vaccine 09/08/20 R ecorded SARS-CoV-2 (COVID-19) mRNA-1273 vaccine 08/12/20 R ecorded tetanus-diphtheria toxoids (Td) 11/02/18 Recorded pneumococcal 23-valent vaccine 11/02/18 Recorded 1Result Comment: Flu HD [facility]#[id number] checklist-done Medications allopurinol 100 mg oral tablet 100 mg, 1, tablet, By Mouth, Refills 0, Maintenance, 01/22/24 8:25:00 AM EDT, Partial fill upon patient request if the prescription is for a schedule II opioid drug. Start Date: 01/22/24 Status: Ordered Repeat number: 1 allopurinol 100 mg oral tablet 100 mg, 1, tablet, By Mouth, Daily, # 90 tablet, Refills 0, Maintenance, 09/05/23 11:19:00 AM EST, Partial fill upon patient request if the prescription is for a schedule II opioid drug. Start Date: 09/05/23 Status: Ordered Quantity: 90.0 Unit: tablet Repeat number: 1 amLODIPine 10 mg oral tablet 1 tablet, By Mouth, Daily, # 90 tablet, 3 Refills, Maintenance, 04/29/24 3:10:00 PM EDT, [facility]/pharm[facility] #[id number], 149.86, cm, 04/29/24 14:36:00 EDT, Height, 78.1, kg, 10/24/23 9:13:00 EDT, Dry Weight Start Date: 04/29/24 Status: Ordered Quantity: 90.0 Unit: tablet Repeat number: 4 atenolol 50 mg oral tablet 50 mg, 1, tablet, By Mouth, 2 times a day, # 180 tablet, Refills 3, Tot. Refills 3, Maintenance, 04/29/24 3:10:00 PM EDT, Route to Pharmacy Electronically, [facility]/pharmacy #[id number], Partial fill upon patient request if the prescription is for a schedule II opioid drug., 149.86, cm, 04/29/24 14:36:00 EDT,Height, 78.1, kg, 10/24/23 9:13:00 EDT, Dry Weight Start Date: 04/29/24 Status: Ordered Quantity: 180.0 Unit: tablet Repeat number: 4 bumetanide 2 mg oral tablet 2 tablet = 4 mg, By Mouth, 2 times a day, 0 Refills, Maintenance, 11/30/22 9:09:00 AM EDT, Tablet Start Date: 11/30/22 Status: Ordered Repeat number: 1 celecoxib 100 mg oral capsule 1 capsule = 100 mg, By Mouth, Daily, TAKE 1 CAPSULE BY MOUTH EVERY DAY Start Date: 09/05/23 Status: Ordered Repeat number: 1 Compression Stockings See Instructions, # 2 each, Refills 1, Tot. Refills 1, Maintenance, Use as directed. 30mmg. Dx: Lower extremity edema (R22.42) JESSE: [facility], 12/19/22 11:37:00 AM EDT, Supply Start Date: 12/19/22 Status: Ordered Quantity: 2.0 Unit: each Repeat number: 2 Indication: Localized edema dorzolamide 2% ophthalmic solution See Instructions, 1 drops, Right Eye, Daily at bedtime, 0 Refills, Maintenance, 12/01/22 10:34:00 AMEDT, Solution, Partial fill upon patient request if the prescription is for a schedule II opioid drug. Start Date: 12/01/22 Status: Ordered Repeat number: 1 Eliquis 5 mg oral tablet 1 tablet = 5 mg, By Mouth, 2 times a day, 0 Refills, Maintenance, 01/22/24 8:25:00 AM EDT, Partial fill upon patient request if the prescription is for a schedule II opioid drug. Start Date: 01/22/24 Status: Ordered Repeat number: 1 Fluocinonide 0.05% Topical Topically, 3 times a day, 0 Refills, Maintenance Start Date: 04/29/24 Status: Ordered Repeat number: 1 High Potency Vitamin D3 25 mcg (1000 intl units) oral capsule 1 capsule = 25 mcg, By Mouth, Daily, # 90 capsule, 3 Refills, Maintenance, 01/22/24 8:47:00 AM EDT, Capsule, [facility]/pharmacy #[id number], 149.86, cm, 01/22/24 8:42:00 EDT, Height, 78.1, kg, 10/24/23 9:13:00 EDT, Dry Weight Start Date: 01/22/24 Status: Ordered Quantity: 90.0 Unit: capsule Repeat number: 4 hydrALAZINE 25 mg oral tablet 25 mg, 1, tablet, By Mouth, 3 times a day, # 90 tablet, Refills 0, Maintenance, 01/22/24 8:45:00 AM EDT, Partial fill upon patient request if the prescription is for a schedule II opioid drug. Start Date: 01/22/24 Status: Ordered Quantity: 90.0 Unit: tablet Repeat number: 1 latanoprost 0.005% ophthalmic solution 1 drops, Eyes, Both, Daily at bedtime, # 3 mL, 0 Refills, Maintenance, 09/26/22 3:53:00 PM EDT, Ophth Solution, Partial fill upon patient request if the prescription is for a schedule II opioid drug. Start Date: 09/26/22 Status: Ordered Quantity: 3.0 Unit: mL Repeat number: 1 metolazone 2.5 mg oral tablet See Instructions, once a week, Instructions Replace Required Details Start Date: 09/05/23 Status: Ordered Repeat number: 1 omeprazole 20 mg oral enteric coated capsule 1 capsule = 20 mg, By Mouth, Daily, # 90 capsule, 3 Refills, Maintenance, 08/08/24 8:59:00 AM EST, EC Capsule, [facility]/pharmacy #[id number], Partial fill upon patient request if the prescription is for a schedule II opioid drug., 149.86, cm, 08/08/24 8:40:00 EST, Height, 78.1, kg, 10/24/23 9:13:00 EDT, Dry Weight Start Date: 08/08/24 Status: Ordered Quantity: 90.0 Unit: capsule Repeat number: 4 Tylenol Extra Strength 500 mg oral tablet 2 tablet = 1,000 mg, By Mouth, Every 8 hours, PRN Pain , Mild, 0 Refills, Maintenance, 09/26/22 3:55:00 PM EDT, Partial fill upon patient request if the prescription is for a schedule II opioid drug. Start Date: 09/26/22 Status: Ordered Repeat number: 1 valsartan 320 mg oral tablet 1 tablet = 320 mg, By Mouth, Daily, # 90 tablet, 3 Refills, Maintenance, 01/22/24 8:46:00 AM EDT, Tablet, [facility] #[id number], Partial fill upon patient request if the prescription is for a schedule IIopioid drug., 149.86, cm, 01/22/24 8:42:00 EDT, Height, 78.1, kg, 10/24/23 9:13:00 EDT, Dry Weight Start Date: 01/22/24 Status: Ordered Quantity: 90.0 Unit: tablet Repeat number: 4 Problem List Condition Confirmation Course Effective Dates Status Health Status Informant Angiomyolipoma of kidney Confirmed Active Atrial fibrillation Confirmed 08/19/22 Active Osteoarthritis of both knees Confirmed Active Chronic kidney disease stage 3 Confirmed 08/24/22 Active Congestive heart failure Confirmed 08/19/22 Active Complete hearing loss of right ear Confirmed Active ETD (eustachian tube dysfunction) Confirmed Active Edema of lower extremity Confirmed 08/26/22 Active Essential hypertension Confirmed 08/19/22 Active Gastroesophageal reflux disease without esophagitis Confirmed 08/19/22 Active Glaucoma Confirmed 10/05/22 Active Gout Confirmed 08/19/22 Active Impaired fasting glucose Confirmed Active 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 Confirmed Active Hair loss Confirmed Active Major depression, single episode Confirmed Active Arthralgia of multiple joints Confirmed Active Pain in bilateral legs Confirmed 08/19/22 Active Medicare annual wellness visit, subsequent Confirmed Active Pseudohypoparathyroidism Confirmed Active Left-sided sensorineural hearing loss Confirmed Active Severe obesity (BMI 35.0-39.9) with comorbidity Confirmed Active Stress due to illness of family member Confirmed Active Dry skin Confirmed Active Diagnosis Diagnosis Type Effective Dates Health Status Clinical Service Informant Major depression, single episode Discharge Diagnosis 06/29/24 Stress due to illness of family member Discharge Diagnosis 06/29/24 Angiomyolipoma of kidney Discharge Diagnosis 08/15/23 Social History Social History Type Response Smoking Status Former smoker, quit more than 30 days ago entered on: 10/24/23 Sex Sex Representation Female (finding) Cardiology * Event Display: Cardiology Office Note, Non-BH Authored Date: * Event Display: Cardiology Office Note, Non-BH Authored Date: * Event Display: Non BH Cardiovascular Results Authored Date: Laboratory * Event Display: Laboratory Result Scanned Authored Date: * Event Display: Non BH Lab Results Authored Date: * Event Display: Non BH Lab Results Authored Date: Cardiology Consult note * Event Display: Consult Note Cardiology Authored Date: Radiology * Event Display: X-Ray Hip/Groin, Non- BH Authored Date: * Event Display: CT Scan Head, Non- BH Authored Date: Patient Care team information Care Team Personnel Name: Mary Rodriguez RN Position: [facility] RN Member Role: Primary Care Nurse Name: Marianne Rodas RN Position: S RN Member Role: Primary Care Nurse Name: Sanchez Mckenzie RN Position: [facility] RN Member Role: Primary Care Nurse Name: Alyx Choudhary RN Position: [facility] RN Member Role: Primary Care Nurse Name: Ayah Hui RN Position: [facility] RN Member Role: Primary Care Nurse Name: Priyanka Mosqueda RN Position: [facility] RN Member Role: Primary Care Nurse Name: Camilo Smith RN Position: [facility] RN Member Role: Primary Care Nurse Name: Velvet Pan RN Position: [facility] RN Member Role: Primary Care Nurse Name: Mook Brizuela DO Position: [facility] Physician - Primary Care Member Role: PCP Address: [address] [place] [id number] Telecom: Care Team Related Persons Name: DIEUDONNE KIM Name: SANA RAMSAY Name: HALEY RAMSAY Insurance Providers Guarantor name: TYRELL RAMSAY Health Plan Information #: 1 Payer: MEDICARE PART B OUTPT Member Number: NA Policy Number: NA Group Number: NA Health Plan Information #: 2 Payer: MEDEX Member Number: NA Policy Number: NA Group Number: NA
--- OUTSIDE RECORDS SUMMARY | 2024-10-03 09:52 | XMS_ITS | Patient Health Record ---
Author Organization [facility] Address [address] [place] [address] Care Team Providers Care Rail Detector Car Operator Name Role Phone Mook Brizuela Primary Care Provider Wyatt Rasmussen Unavailable [phone] Allergies Allergen (clinical drug ingredient) Drug/Non Drug Allergy documented on EMR Reaction Allergy Type Onset Date Status furosemide Lasix Unknown Drug Allergy Active Latex Latex rash Allergy Active morphine Morphine itchy,rash Drug Allergy Active Reason For Referral No Information Medications Medication SIG (Take, Route, Frequency, Duration) Notes Start Date End Date Status Diovan Not-Taking Nitrofurantoin Not-T aking Centrum Silver Not-T aking Allopurinol Active Klor-Con M10 Not-Isreal ing eliquis 5 mg Active PriLOSEC Not-Taking metOLazone 2.5 MG 1 tablet Orally Two times a Week Active Latanoprost Not-Taki ng FLUoxetine HCl 10 MG 1 capsule Orally On ce a day Active Glucosamine Not-Taki ng Atenolol 50 MG as directed Orally Active Ammonium Lactate 12 % 1 application to affected area Externally Twice a day for 30 days Active Voltaren-XR 75 MG 1 tablet Orally Once a day for 30 day(s) Not-Taking Amlodipine & Diet Manage Prod 10 MG 1 tablet Once a day Active Furosemide Not-Takin g CeleBREX Not-Taking Acetaminophen PRN Not-Ta anton hydrALAZINE HCl 25 MG 1 tablet with food Orally Three times a day for 30 day(s) Active Eye Drops Active Nitrofurantoin Macrocrystal 100 MG 1 capsule at bedtime with food or milk Orally Not-Taking Aspirin 81 MG 1 tablet Orally Once a day Not-Taking Valsartan 320 MG Orally Act ya Omeprazole 20 MG 1 capsule 30 minutes before morning meal Orally Once a day for 30 day(s) Active Coumadin Not-Taking Warfarin Sodium 5 MG as directed Orally Not-Taking Timolol Maleate Not- Taking Potassium Chloride ER 10 MEQ 1 tablet with food Orally Not-Taking Bumetanide 1 MG 1 tablet Orally Four a day Active Immunizations Vaccine Route Administration Date Status Comme nts COVID-19 Moderna Vaccine Unknown 06/22/2021 Administered 1st 08/11/2020 2nd 09/09/2020 Influenza Unknown 04/12/2022 Administered Social History Tobacco Use: Social History Observation [...] Are you an other tobacco user? No Problems Problem Type SNOMED Code ICD Code Onset Dates Problem Status W/U Status Risk Notes Problem Bilateral peripheral neuropathy of lower limbs (41374735094793875 ) Neuropathy (G62.9) Active confirmed Problem Atherosclerosis of [place] arteries of the extremities (869073764832440) Atherosclerosis of [place] artery of both lower extremities, with unspecified presence of clinical manifestation (I70.203) Active confirmed Problem Essential hypertension (40810355) Essential hypertension (I10) Active confirmed Vital Signs Blood pressure diastolic 80 mm Hg 07/09/2024 Height 5 ft in 07/09/2024 Blood pressure systolic 120 mm Hg 07/09/2024 Weight 174 lbs 07/09/2024 BMI 33.98 kg/m2 07/09/2024 Procedures Procedure Date Ordered Date Performed Result Body Sit e 08477-RCMPQDY NAIL, 6 OR MORE 10/20/2023 N/A 48594-NUWJ SKIN LESIONS, OVER 4 10/20/2023 N/A 04023-HGJICWM NAIL, 6 OR MORE 01/16/2024 N/A 54662-NGLP SKIN LESIONS, OVER 4 01/16/2024 N/A 09993-HQNLFEH NAIL, 6 OR MORE 04/23/2024 N/A 50944-IPFX SKIN LESIONS, OVER 4 04/23/2024 N/A 26146-XWOPVGM NAIL, 6 OR MORE 07/09/2024 N/A 98210-WOLK SKIN LESIONS, OVER 4 07/09/2024 N/A Encounters Encounter Location Date Provider Diagnosis [address] [address] 10/20/2023 Wyatt Amrik Atherosclerosis of [place] artery of both lower extremities, with unspecified presence of clinical manifestation I70.203 ; Tinea unguium B35.1 ; Pain in right toe(s) M79.674 and Pain in left toe(s) M79.[address] [address] 01/16/2024 Wytat Amrik Atherosclerosis of [place] artery of both lower extremities, with unspecified presence of clinical manifestation I70.203 ; Tinea unguium B35.1 ; Pain in right toe(s) M79.674 and Pain in left toe(s) M79.[address] [address] 04/23/2024 Wyatt Amrik Atherosclerosis of [place] artery of both lower extremities, with unspecified presence of clinical manifestation I70.203 ; Tinea unguium B35.1 ; Pain in right toe(s) M79.674 and Pain in left toe(s) M79.[address] [address] 07/09/2024 Wyatt Amrik Atherosclerosis of [place] artery of both lower extremities, with unspecified presence of clinical manifestation I70.203 ; Tinea unguium B35.1 ; Pain in right toe(s) M79.674 and Pain in left toe(s) M79.675 Assessments Encounter Date Diagnosis (ICD Code) Assessment Notes Treatment Notes Treatment Clinical Notes Section Notes 10/20/2023 Tinea unguium (ICD-10 - B35.1) 10/20/2023 Atherosclerosis of [place] artery of both lower extremities, with unspecified presence of clinical manifestation (ICD-10 - I70.203) 01/16/2024 Tinea unguium (ICD-10 - B35.1) 01/16/2024 Atherosclerosis of [place] artery of both lower extremities, with unspecified presence of clinical manifestation (ICD-10 - I70.203) 04/23/2024 Tinea unguium (ICD-10 - B35.1) 04/23/2024 Atherosclerosis of [place] artery of both lower extremities, with unspecified presence of clinical manifestation (ICD-10 - I70.203) 07/09/2024 Tinea unguium (ICD-10 - B35.1) 07/09/2024 Atherosclerosis of [place] artery of both lower extremities, with unspecified presence of clinical manifestation (ICD-10 - I70.203) 04/23/2024 Pain in right toe(s) (ICD-10 - M79.674) 07/09/2024 Pain in right toe(s) (ICD-10 - M79.674) 10/20/2023 Pain in right toe(s) (ICD-10 - M79.674) 01/16/2024 Pain in right toe(s) (ICD-10 - M79.674) 01/16/2024 Pain in left toe(s) (ICD-10 - M79.675) 10/20/2023 Pain in left toe(s) (ICD-10 - M79.675) 04/23/2024 Pain in left toe(s) (ICD-10 - M79.675) 07/09/2024 Pain in left toe(s) (ICD-10 - M79.675) Plan Of Treatment Pending Test Test Name Order Date 90954-BPDIFOE NAIL, 6 OR MORE 03/18/2011 55462-IUEUXDP NAIL, 6 OR MORE 06/14/2011 52306-CYYMUJR NAIL, 6 OR MORE 08/23/2011 15674-JWVNLSR NAIL, 6 OR MORE 11/08/2011 67648-KZPLITL NAIL, 6 OR MORE 02/10/2012 53275-LNLDQQA NAIL, 6 OR MORE 04/17/2012 29552-QZVLWXE NAIL, 6 OR MORE 06/26/2012 54869-ZCZWBYI NAIL, 6 OR MORE 10/02/2012 88426-CRAWOBP NAIL, 6 OR MORE 12/25/2012 89143-ZXFKVWT NAIL, 6 OR MORE 03/15/2013 58972-PQXEXND NAIL, 6 OR MORE 06/04/2013 55240-EUBNQRS NAIL, 6 OR MORE 08/27/2013 16593-PUFMSNH NAIL, 6 OR MORE 11/26/2013 35483-HFZLAAR NAIL, 6 OR MORE 03/14/2014 69711-UNIHNSO NAIL, 6 OR MORE 05/30/2014 81965-VUNJYAW NAIL, 6 OR MORE 08/22/2014 53137-YFDAEDJ NAIL, 6 OR MORE 11/07/2014 75185-MELZWJY NAIL, 6 OR MORE 02/10/2015 63262-HBVBSUE NAIL, 6 OR MORE 05/05/2015 35831-KWJQLDJ NAIL, 6 OR MORE 07/31/2015 30081-EZUYVAK NAIL, 6 OR MORE 10/09/2015 13022-MATGYZI NAIL, 6 OR MORE 12/22/2015 80805-TFPIEYC NAIL, 6 OR MORE 03/11/2016 40195-HPSPDTN NAIL, 6 OR MORE 05/13/2016 67144-RBQRCTZ NAIL, 6 OR MORE 07/26/2016 29215-FPYWKXH NAIL, 6 OR MORE 10/11/2016 97246-TCEXWXL NAIL, 6 OR MORE 12/20/2016 36742-TPCWVAI NAIL, 6 OR MORE 02/21/2017 35188-JDTIJPZ NAIL, 6 OR MORE 05/09/2017 65565-XDVWWCL NAIL, 6 OR MORE 07/11/2017 56090-GJIULKA NAIL, 6 OR MORE 09/22/2017 14141-KFDPSZS NAIL, 6 OR MORE 12/15/2017 60916-BDVUWYR NAIL, 6 OR MORE 03/23/2018 35309-BPWDNGV NAIL, 6 OR MORE 07/13/2018 39356-FEIBWHW NAIL, 6 OR MORE 09/28/2018 64572-CYPPZST NAIL, 6 OR MORE 12/21/2018 60999-CLOQSFS NAIL, 6 OR MORE 04/02/2019 43168-XLRFSAA NAIL, 6 OR MORE 06/14/2019 48269-JIJBTBQ NAIL, 6 OR MORE 08/27/2019 17032-QHFDUHD NAIL, 6 OR MORE 11/29/2019 28126-ZFYRBLU NAIL, 6 OR MORE 02/28/2020 00822-XAZJYFS NAIL, 6 OR MORE 05/08/2020 49450-SFNCKWL NAIL, 6 OR MORE 07/24/2020 02175-QVFTXRL NAIL, 6 OR MORE 10/02/2020 63045-KMYMOPH NAIL, 6 OR MORE 12/04/2020 85572-BFYKKEQ NAIL, 6 OR MORE 02/12/2021 59500-TRQMYZQ NAIL, 6 OR MORE 05/11/2021 86855-GNKLPSD NAIL, 6 OR MORE 09/17/2021 33234-DJZFMPT NAIL, 6 OR MORE 01/04/2022 75990-CYQUFLC NAIL, 6 OR MORE 03/18/2022 57066-CLKLUQS NAIL, 6 OR MORE 06/07/2022 98126-QEZVBBA NAIL, 6 OR MORE 12/27/2022 80814-XNJDBWY NAIL, 6 OR MORE 03/17/2023 91149-EGUPSFD NAIL, 6 OR MORE 05/30/2023 22498-POCNQMC NAIL, 6 OR MORE 08/15/2023 19687-QKESGPF NAIL, 6 OR MORE 10/20/2023 44901-CAJFGCY NAIL, 6 OR MORE 01/16/2024 03594-AQUXKBH NAIL, 6 OR MORE 04/23/2024 48961-NYAPTYS NAIL, 6 OR MORE 07/09/2024 27076-Ecfr Destruction, -14 03/18/2011 67255-Qixi Destruction, 07-2307/31/2015 52303-Aoef Destruction, 07-2305/05/2015 60967-Qbpd Destruction, 07-2302/10/2015 69429-Gkbx Destruction, 07-2311/07/2014 39073-Gfje Destruction, 07-2308/22/2014 89328-Oyls Destruction, 07-2305/30/2014 49190-Tlbv Destruction, 07-2303/14/2014 77490-Lzob Destruction, 07-2311/26/2013 88817-Weil Destruction, 07-2308/27/2013 57907-Dbdj Destruction, 07-2306/04/2013 80802-Lagl Destruction, 14 03/15/2013 83713-Rcvk Destruction, 07-2312/25/2012 83252-Mwsy Destruction, 07-2310/02/2012 62152-Btqm Destruction, 07-2306/26/2012 17177-Dpci Destruction, -14 04/17/2012 67704-Bfiu Destruction, 07-2302/10/2012 57544-Xgkf Destruction, 07-2311/08/2011 12228-Nklj Destruction, 07-2308/23/2011 10176-Yeox Destruction, 1-14 06/14/2011 28848- Debride <25 sq cm 05/30/2014 77832- Debride <25 sq cm 08/22/2014 01047 I&D ABSCESS- SIMPLE,SINGLE 021 10669-EMHP SKIN LESIONS, OVER 4 07/24/19 08597-IHKO SKIN LESIONS, OVER 4 12/05/19 90099-ISKF SKIN LESIONS, OVER 4 10/03/19 60446-UMPH SKIN LESIONS, OVER 4 01/05/20 86592-JAMM SKIN LESIONS, OVER 4 09/18/19 55217-KLIC SKIN LESIONS, OVER 4 05/11/20 59586-QGZV SKIN LESIONS, OVER 4 02/13/20 40424-CWKB SKIN LESIONS, OVER 4 05/08/20 90494-USQK SKIN LESIONS, OVER 4 02/28/20 20 24686-DBMW SKIN LESIONS, OVER 4 11/29/19 20 25482-VDAD SKIN LESIONS, OVER 4 08/27/19 20 10984-WNFQ SKIN LESIONS, OVER 4 06/14/20 19 20495-MHQX SKIN LESIONS, OVER 4 04/02/20 19 94744-HKED SKIN LESIONS, OVER 4 12/22/19 19 37750-XFCX SKIN LESIONS, OVER 4 09/29/19 19 65802-KKAP SKIN LESIONS, OVER 4 07/09/20 24 19895-SVFP SKIN LESIONS, OVER 4 04/23/20 24 85277-PYFZ SKIN LESIONS, OVER 4 01/16/20 24 93919-MWIY SKIN LESIONS, OVER 4 10/20/19 24 17634-OIMR SKIN LESIONS, OVER 4 08/15/19 24 76006-PNEE SKIN LESIONS, OVER 4 05/30/20 23 62819-USZV SKIN LESIONS, OVER 4 03/17/20 23 41177-HYSL SKIN LESIONS, OVER 4 12/28/19 23 62873-NGZN SKIN LESIONS, OVER 4 06/07/20 22 74980-DKUY SKIN LESIONS, OVER 4 03/18/20 22 21553-TYYO SKIN LESIONS, OVER 4 10/09/19 16 40032-HQCR SKIN LESIONS, OVER 4 07/26/19 17 73534-SOVI SKIN LESIONS, OVER 4 05/13/20 16 57635-USGG SKIN LESIONS, OVER 4 03/11/20 16 51199-TIEX SKIN LESIONS, OVER 4 12/22/19 16 58194-AQKX SKIN LESIONS, OVER 4 07/13/19 19 32928-VUIU SKIN LESIONS, OVER 4 03/23/20 18 63504-ODCH SKIN LESIONS, OVER 4 12/16/19 18 83421-ZWEG SKIN LESIONS, OVER 4 09/23/19 18 84349-IEZZ SKIN LESIONS, OVER 4 07/11/19 18 81248-LTGT SKIN LESIONS, OVER 4 05/09/20 17 80703-MACZ SKIN LESIONS, OVER 4 02/22/20 17 45787-SEJZ SKIN LESIONS, OVER 4 10/12/19 17 55541-JKSF SKIN LESIONS, OVER 4 12/21/19 17 Next Appt Details Provider Name:Wyatt Guidry Amrik , 10/11/2024 09:15:00 AM, [address] [place], [address], Insurance Providers Payer Name Payer Address Payer Phone Subscriber Number Group Number Insured Name Patient Relationship to Insured Coverage Start Date Coverage End Date Medicare National [employer] [address] [facility] [place] [address] [id number] Ruth Ann Ng Self - patient is the insured 1 [employer] [address] [place] [address] [phone] [id number] Ruth Ann Ng Self - patient is the insured Medical (General) History Medical History History ICD Code reflux raynauds syndrome osteoporosis mumps measles joint implants/screws headaches/migraines chicken pox back, hip, knee pain Arthritis glaucoma hypertension A fib Gout Surgical History Surgery Date(Month/Year) bladder surgery 2006 knee replacement 2008 knee surgery 2005 Hospitalization History Reason Date(Month/Year) [facility]- couldnt touch pt- body in constant pain - out of it 2022 [facility]- Infection in back - aff ected nerves - Mouna Velasquez for special antibiotics 09/01 [facility]-gout and sciatica pain 1 day 03/08/22 [facility]- kidney failure 2 days 02/01-
--- OUTSIDE RECORDS SUMMARY | 2024-10-03 09:53 | XMS_ITS | Clinical Summary ---
Author Organization [facility], Address [address] [place] [address] Phone Care Team Providers Care Tripe Finisher Name Role Phone Mook Brizuela DO Primary Care Provider [phone] Allergies Active Allergy Reactions Criticality Noted Date Comments Furosemide 07/01/2024 Other Reaction(s): Unknown Latex Rash Low 07/01/2024 Morphine 08/18/2022 Other Reaction(s): itchy,rash, Rash and itchiy Medications allopurinol (ZYLOPRIM) 100 MG tablet Take 100 mg by mouth 1 (one) time each day Active amLODIPine (NORVASC) 10 MG tablet Take 10 mg by mouth 1 (one) time each day Active atenolol (TENORMIN) 50 MG tablet Take 50 mg by mouth 1 (one) time each day Active bumetanide (BUMEX) 2 MG tablet Take 2 mg by mouth 1 (one) time each day Active celecoxib (CeleBREX) 100 MG capsule Take 100 mg by mouth in the morning and 100 mg in the evening. Active apixaban (Eliquis) 5 MG tablet Take 5 mg by mouth in the morning and 5 mg in the evening. Active hydrALAZINE 25 MG tablet Take 25 mg by mouth in the morning and 25 mg in the evening and 25 mg before bedtime. Active metOLazone 2.5 MG tablet Take 2.5 mg by mouth 1 (one) time each day Active omeprazole OTC (PriLOSEC OTC) 20 MG EC tablet Take 20 mg by mouth 1 (one) time each day Do not crush, chew, or split. Active valsartan (DIOVAN) 320 MG tablet Take 320 mg by mouth 1 (one) time each day Active acetaminophen (TYLENOL) 500 MG tablet Take by mouth every 6 (six) hours if needed for mild pain Active Active Problems Problem Noted Date Diagnosed Date Stage 3b chronic kidney disease 07/02/2024 Diastolic dysfunction 07/02/2024 Cystitis 07/02/2024 Essential hypertension 07/01/2024 Chronic kidney disease stage 3 08/24/2022 Encounters Date Type Department Care Team Description 08/02/2024 Orders Only [facility] [address] [place] [address] Lai Rm MD from Last 3 Months Immunizations Name Administration Dates Next Due Influenza, Quadrivalent, With Preservative 05/04 Moderna SARS-COV-2 06/22/2021,09/08/2020, 021 Pneumococcal Polysaccharide 11/02/2018 Shingrix 01/05/2023,11/01/2022 Td, Unspecified 11/02/2018 Tetanus 11/02/2018 Social History Tobacco Use Types Packs/Day Years Used Date Smoking Tobacco: Never Assessed Comments Unknown Sex and Gender Information Value Date Recorded Sex Assigned at Not on file Legal Sex Female 12:23 PM EDT Gender Identity Not on file Sexual Orientation Not on file Plan of Treatment Upcoming Encounters Date Type Department Care Team (Late st Contact Info) Description 11/19/2024 4:00 PM EDT Office Visit [facility] [place] [address] [place] [address] Lai Rm MD [address] [place] [address] [place] [address] Health Maintenance Due Date Last Done Comments Pneumococcal Vaccine: 65+ Ye ars (2 of 2 - PCV) 11/03/2019 11/02/2018 Influenza Vaccine (#1) 2024 05/04/2022 Hepatitis B Vaccine Aged Out No longe r eligible based on patient's age to complete this topic Procedures Procedure Name Priority Date/Time Associated Diagnosis Comments URINALYSIS WITH MICROSCOPIC Routine 08/02/2024 1:30 PM EST MICROSCOPIC EXAMINATION - DO NOT USE Routine 08/02/2024 1:30 PM EST HEMOGLOBIN A1C Routine 08/02/2024 10:28 AM EST Stage 3b chronic kidney disease (HCC) URIC ACID Routine 08/02/2024 10:28 AM EST Stage 3b chronic kidney disease (HCC) CBC Routine 08/02/2024 10:28 AM EST Stage 3b chronic kidney disease (HCC) IRON PANEL (FE, TIBC, TSAT) Routine 08/02/2024 10:28 AM EST Stage 3b chronic kidney disease (HCC) PTH, INTACT Routine 08/02/2024 10:28 AM EST Stage 3b chronic kidney disease (HCC) URINALYSIS WITH MICROSCOPIC Routine 08/02/2024 10:28 AM EST Stage 3b chronic kidney disease (HCC) PROTEIN / CREATININE RATIO, URINE Routine 08/02/2024 10:28 AM EST Stage 3b chronic kidney disease (HCC) VITAMIN D 25 HYDROXY Routine 08/02/2024 10:28 AM EST Stage 3b chronic kidney disease (HCC) RENAL FUNCTION PANEL Routine 08/02/2024 10:28 AM EST Stage 3b chronic kidney disease (HCC) MICROSCOPIC EXAMINATION - DO NOT USE Routine 08/02/2024 10:28 AM EST from Last 3 Months Results * (ABNORMAL) Microscopic Examination (08/02/2024 1:30 PM EST) Only the most recent of2 resultswithin the time period is included. WBC, Urine >30(A) 0 - 5 /hpf [facility] RBC, Urine 0-2 0 - 2 /hpf [facility] Squamous Epithelial, Urine None seen 0 - 10 /hpf [facility] Casts None seen None seen /lpf [facility] Bacteria, Urine Many(A) None seen/Few [facility] 08/02/2024 1:30 PM EST 08/02/2024 us Lai Rm MD LAB MICROBIOLOGY - GENERAL ORDER AGATHA Final Result [facility] [address] [place] [address] * (ABNORMAL) Urinalysis with microscopic (08/02/2024 1:30 PM EST) Only the most recent of2 resultswithin the time period is included. Specific [place], Urine 1.014 1.005 - 1.030 [facility] pH Urine 6.5 5.0 - 7.5 [facility] Color, Urine Yellow Yellow [facility] Appearance Urine Clear Clear [facility] WBC Esterase Urine 2+(A) Negative [facility] [phone] Protein, Ur Trace Negative/Tra ce [facility] Glucose, Ur Negative Negative [facility] Ketones, Urine Negative Negative [facility] Blood Urine Negative Negative [facility] Bilirubin Urine Negative Negative [facility] Urobilinogen Urine 0.2 0.2 - 1.0 mg/dL [facility] Nitrite, Urine Negative Negative [facility] [phone] Microscopic Examination See below: [facility] Comment:Microscopic was trino cated and was performed. 08/02/2024 1:30 PM EST 08/02/2024 us Lai Rm MD LAB URINE ORDERABLES Final Resul t Performing Organization Address [facility] Co de Phone Number [email or web address] [facility] [address] [place] [address] * Iron Panel (Fe, TIBC, TSAT) (08/02/2024 10:28 AM EST) TIBC 282 250 - 450 ug/dL [facility] UIBC 235 118 - 369 ug/dL [facility] Iron 47 27 - 139 ug/dL [facility] Iron Saturation (TSat) 17 15 - 55 % [facility] Blood (Blood, Venous) 08/02/2024 10:28 AM EST 08/02/2024 us Lai Rm MD LAB BLOOD ORDERABLES Final Resul t Performing Organization Address [facility] Co de Phone Number LABJoopLoop [facility] [address] [place] [address] * (ABNORMAL) Protein, Total, Random Urine w/Creatinine (Protein/Creat Ratio) (08/02/2024 10:28 AM EST) Creatinine, Ur 74.0 Not Estab. mg/dL [facility] Protein, Ur 65.3 Not Estab. mg/dL [facility] Urine Protein/Creati nine Ratio 882(H) 0 - 200 mg/g creat [facility] Urine (Urine, Clean Catch) 08/02/2024 10:28 AM EST 08/02/2024 us Lai Rm MD LAB URINE ORDERABLES Final Resul t Performing Organization Address [facility] Co de Phone Number [facility] [address] [place] [address] * Vitamin D 25 Hydroxy (08/02/2024 10:28 AM EST) Vitamin D, 25-OH, Total 38.2 30.0 - 100.0 ng/mL [facility] Comment: Vitamin D deficiency has been defined by the [place] [employer] and an Endocrine Society practice guideline as a level of serum 25-OH vitamin D less than 20 ng/mL (1,2). The Endocrine Society went on to further define vitamin D insufficiency as a level between 21 and 29 ng/mL (2). 1. IOM ([place] of [employer]). 2010. Dietary reference ?? intakes for calcium and D. Sánchez [place]: The ?? National [employer]. 2. Armand MF, Janneth HATFIELD, Janessa INFANTE, et al. ?? Evaluation, treatment, and prevention of vitamin D ?? deficiency: an Endocrine Society clinical practice ?? guideline. JCEM. 2010; 96(7):1911-30. Blood (Blood, Venous) 08/02/2024 10:28 AM EST 08/02/2024 us Lai Rm MD LAB BLOOD ORDERABLES Final Resul t Performing Organization Address City/[facility]/ZIP Co de Phone Number [email or web address] [facility] [address] [place] [address] * (ABNORMAL) CBC (08/02/2024 10:28 AM EST) WBC 9.4 3.4 - 10.8 x10E3/uL [facility] RBC 4.12 3.77 - 5.28 x10E6/uL [facility] Hemoglobin 12.6 11.1 - 15.9 g/dL [facility] Hematocrit 41.2 34.0 - 46.6 % [facility] MCV 100(H) 79 - 97 fL [facility] MCH 30.6 26.6 - 33.0 pg [facility] MCHC 30.6(L) 31.5 - 35.7 g/dL [facility] RDW 15.2 11.7 - 15.4 % [facility] Platelets 264 150 - 450 x10E3/uL [facility] Blood (Blood, Venous) 08/02/2024 10:28 AM EST 08/02/2024 us Lai Rm MD LAB BLOOD ORDERABLES Final Resul t [facility] [address] [place] [address] * Uric Acid (08/02/2024 10:28 AM EST) Uric Acid 3.6 3.1 - 7.9 mg/dL [facility] Comment:Therapeutic target f or gout patients: <6.0 Blood (Blood, Venous) 08/02/2024 10:28 AM EST 08/02/2024 us Lai Rm MD LAB BLOOD ORDERABLES Final Resul t [facility] [address] [place] [address] * (ABNORMAL) PTH, Intact (08/02/2024 10:28 AM EST) PTH 129(H) 15 - 65 pg/mL [facility] Blood (Blood, Venous) 08/02/2024 10:28 AM EST 08/02/2024 us Lai Rm MD LAB BLOOD ORDERABLES Final Resul t Performing Organization Address City/[facility]/ZIP Co de Phone Number [email or web address] [facility] [address] [place] [address] * Hemoglobin A1c (08/02/2024 10:28 AM EST) Hemoglobin A1C 5.4 4.8 - 5.6 % [facility] Comment: ? Prediabetes: 5.7 - 6.4 ? Diabetes: >6.4 ? Glycemic control for adults with diabetes: <7.0 Blood (Blood, Venous) 08/02/2024 10:28 AM EST 08/02/2024 us Lai Rm MD LAB BLOOD ORDERABLES Final Resul t Performing Organization Address [facility] de Phone Number [email or web address] [facility] [address] [place] [address] * (ABNORMAL) Renal Function Panel (08/02/2024 10:28 AM EST) Glucose 109(H) 70 - 99 mg/dL [facility] BUN 37(H) 8 - 27 mg/dL [facility] Creatinine 1.00 0.57 - 1.00 mg/dL [facility] eGFR CKD-EPI CR 2020 54(L) >59 mL/min/1.7 3 [facility] BUN/Creatinine Ratio 37(H) 12 - 28 [facility] Sodium 142 134 - 144 mmol/L [facility] Potassium 4.4 3.5 - 5.2 mmol/L [facility] Chloride 102 96 - 106 mmol/L [facility] Bicarbonate (CO2) 22 20 - 29 mmol/L [facility] Calcium 10.6(H) 8.7 - 10.3 mg/dL [facility] Comment:Verified by repeat analysis Albumin 4.2 3.7 - 4.7 g/dL [facility] Phosphorus 3.2 3.0 - 4.3 mg/dL [facility] Blood (Blood, Venous) 08/02/2024 10:28 AM EST 08/02/2024 us Lai Rm MD LAB BLOOD ORDERABLES Final Resul t [facility] [address] [place] [address] from Last 3 Months Insurance MEDICARE [facility] Care Teams Tripe Finisher Relationship Specialty Start Date End Date Mook Brizuela DO [address] [place] [id number] PCP - General Family Medicine 04/01/24
--- OUTSIDE RECORDS SUMMARY | 2024-10-03 09:53 | XMS_ITS ---
Author Organization [facility] Address [address] [place] [address] Care Team Providers Care Physician Office Rep Name Role Phone Mook Brizuela Primary Care Provider Wyatt Rasmussen Unavailable [phone] Allergies Allergen (clinical drug ingredient) Drug/Non Drug Allergy documented on EMR Reaction Allergy Type Onset Date Status furosemide Lasix Unknown Drug Allergy Active Latex Latex rash Allergy Active morphine Morphine itchy,rash Drug Allergy Active REASON FOR VISIT At Risk Footcare, Painful Nail(s) aggrevated by shoes and causing difficulty standing/walking. Medications Medication SIG (Take, Route, Frequency, Duration) Notes Start Date End Date Status Allopurinol Active eliquis 5 mg Active metOLazone 2.5 MG 1 tablet Orally Two times a Week Active FLUoxetine HCl 10 MG 1 capsule Orally On ce a day Active Voltaren-XR 75 MG 1 tablet Orally Once a day for 30 day(s) Not-Taking Klor-Con M10 Not-Isreal ing PriLOSEC Not-Taking Latanoprost Not-Taki ng Furosemide Not-Takin g Acetaminophen PRN Not-Ta anton Diovan Not-Taking Nitrofurantoin Not-T aking Centrum Silver Not-T aking Glucosamine Not-Taki ng Coumadin Not-Taking Nitrofurantoin Macrocrystal 100 MG 1 capsule at bedtime with food or milk Orally Not-Taking Aspirin 81 MG 1 tablet Orally Once a day Not-Taking Warfarin Sodium 5 MG as directed Orally Not-Taking Timolol Maleate Not- Taking Potassium Chloride ER 10 MEQ 1 tablet with food Orally Not-Taking Bumetanide 1 MG 1 tablet Orally Four a day Active hydrALAZINE HCl 25 MG 1 tablet with food Orally Three times a day for 30 day(s) Active Eye Drops Active Valsartan 320 MG Orally Act ya Omeprazole 20 MG 1 capsule 30 minutes before morning meal Orally Once a day for 30 day(s) Active Atenolol 50 MG as directed Orally Active Ammonium Lactate 12 % 1 application to affected area Externally Twice a day for 30 days Active Amlodipine & Diet Manage Prod 10 MG 1 tablet Once a day Active CeleBREX Not-Taking Social History Tobacco Use: Social History Observation Description Date Details (start date - stop date) Never Smoker NA - NA Tobacco Use/Smoking Question Answer Notes Are you a: nonsmoker Additional Findings: Tobacco Non-User Current no n-smoker Tobacco use other than smoking: Question Answer Notes Are you an other tobacco user? No Problems Problem Type SNOMED Code ICD Code Onset Dates Problem Status W/U Status Risk Notes Problem Essential hypertension (07668709) Essential hypertension (I10) Active confirmed Vital Signs Height 5 ft in 07/09/2024 Weight 174 lbs 07/09/2024 BMI 33.98 kg/m2 07/09/2024 Blood pressure systolic 120 mm Hg 07/09/20 24 Blood pressure diastolic 80 mm Hg 024 Procedures Procedure Date Ordered Date Performed Result Body Sit e 60240-YRIXVQY NAIL, 6 OR MORE 07/09/2024 N/A 08273-DYAF SKIN LESIONS, OVER 4 07/09/2024 N/A Encounters Encounter Location Date Provider Diagnosis [facility] [place] [address] [place] [address] 07/09/2024 Wyatt Rowley Atherosclerosis of [place] artery of both lower extremities, with unspecified presence of clinical manifestation I70.203 ; Tinea unguium B35.1 ; Pain in right toe(s) M79.674 and Pain in left toe(s) M79.675 Assessments Encounter Date Diagnosis (ICD Code) Assessment Notes Treatment Notes Treatment Clinical Notes Section Notes 07/09/2024 Atherosclerosis of [place] artery of both lower extremities, with unspecified presence of clinical manifestation (ICD-10 - I70.203) 07/09/2024 Tinea unguium (ICD-10 - B35.1) 07/09/2024 Pain in right toe(s) (ICD-10 - M79.674) 07/09/2024 Pain in left toe(s) (ICD-10 - M79.675) Plan Of Treatment Pending Test Test Name Order Date 88265-YJNXPML NAIL, 6 OR MORE 07/09/2024 02962-WUAH SKIN LESIONS, OVER 4 07/09/20 24 Next Appt Details Follow Up: prn, Reason: Provider Name:Wyatt Rowley , 10/11/2024 09:15:00 AM, [address] [place] [address], [phone], Procedure Notes * Category Sub-Category Detail Notes Debride Nail 6-10 Nail debridement Due to the cl inical pathology outlined in the exam findings, performance of this nail treatment is medically necessary as its management by an unskilled/untrained nonprofessional would put this patients foot and overall health at risk. Therefore, debridement to affected nail(s), as described in exam ( TA, T1, T2, T5, T6, T7, T8, T9), was performed exclusively by the physician of record to reduce/remove overall nail length, girth, thickness, subungual debris, and necrotic tissue, by manual and/or electrical means through the use of a nail nipper and/or dremel-type glaze grinder, to a more viable healthy nail plate or bed tissue 6-10 nails in total. Silver nitrate was used for any petechial bleeding as necessary. Definitive antifungal treatment options, both pharmaceutical and surgical, have been reviewed and discussed with the patient. The patient solely prefers the use of intermittent/as needed professional debridement services for their nail condition and understands the need for additional periodic treatments to maintain effectiveness in symptomatic relief - 12040 Keratoma Treatment Parring or Cutting o f Benign Hyperkeratotic Lesion(s) (-57) More than 4 Lesions - Due to the at risk nature of the patients medical condition as documented in the exam findings, performance of this keratoderma treatment is medically necessary as its management by an unskilled/untrained nonprofessional would put this patients foot and overall health at risk. Therefore, the benign hyperkeratotic lesions, ( 9) in total, locations as stated and described in the exam ( Medial, IPJ, TA, Dorsal, DIPJ, T3, Medial plantar, T5, Dorsal, DIPJ, T6, SUB MTH (s), 1, B/L , SUB MTH (s), 3, Right ,Plantar, Heel(s), B/L), were pared, and/or cut utilizing a sterile 15 blade, tissue nippers, and/or power dremel instrumentation by the physician of record - 43709, Q8 Progress Notes * Ruth Ann NUNES ADOB: [birth year] (89 yo F)Acc No.[id number]:07/09/2024 Progress Note Patient:?Ruth Ann NUNES Provider:?Wyatt Rowley DPM :1935???Age:89 Y???Sex:Female D ate:07/09/2024 Address:[address] [place], [place] [id number] Pcp:Mook Brizuela Subjective: * Chief Complaints: * [...] Infection in back - affected nerves - [facility] 09/01[facility]- couldnt touch pt- body in constant pain - out of it 2022 * Family History:?Mother: dece ased, diagnosed with Unspecified essential hypertension, Family history of arthritis.?Father: , diagnosed with Other specified conditions influencing health status.?Spouse: .? * Social History:?Tobacco Use:?Tobacco Use/Smoking?Are you a:?nonsmoker ?Additional Findings: Tobacco Non-User?Current non-smoker ?Tobacco use other than smoking?Are you an other tobacco user??No * Medications:?TakingFLUoxetin e HCl 10 MG Capsule 1 capsule Orally Once a day metOLazone 2.5 MG Tablet 1 tablet Orally Two times a Week eliquis 5 mg Tablet Allopurinol Amlodipine & Diet Manage Prod 10 MG 1 tablet Once a day Ammonium Lactate 12 % Cream 1 application to affected area Externally Twice a day Atenolol 50 MG Tablet as directed Orally Bumetanide 1 MG Tablet 1 tablet Orally Four a day Eye Drops hydrALAZINE HCl 25 MG Tablet 1 tablet with food Orally Three times a day Omeprazole 20 MG Capsule Delayed Release 1 capsule 30 minutes before morning meal Orally Once a day Valsartan 320 MG Tablet Orally Taking FLUoxetine HCl 10 MG Capsule 1 capsule Orally Once a day Taking metOLazone 2.5 MG Tablet 1 tablet Orally Two times a Week Taking eliquis 5 mg Tablet Taking Allopurinol Taking Amlodipine & Diet Manage Prod 10 MG 1 tablet Once a day Taking Ammonium Lactate 12 % Cream 1 application to affected area Externally Twice a day Taking Atenolol 50 MG Tablet as directed Orally Taking Bumetanide 1 MG Tablet 1 tablet Orally Four a day Taking Eye Drops Taking hydrALAZINE HCl 25 MG Tablet 1 tablet with food Orally Three times a day Taking Omeprazole 20 MG Capsule Delayed Release 1 capsule 30 minutes before morning meal Orally Once a day Taking Valsartan 320 MG Tablet Orally Not-Taking/PRNCeleBREX Aspirin 81 MG Tablet Delayed Release 1 tablet Orally Once a day Nitrofurantoin Macrocrystal 100 MG Capsule 1 capsule at bedtime with food or milk Orally Potassium Chloride ER 10 MEQ Tablet Extended Release 1 tablet with food Orally Timolol Maleate Warfarin Sodium 5 MG Tablet as directed Orally Coumadin Centrum Silver Nitrofurantoin Diovan Glucosamine Latanoprost PriLOSEC Klor-Con M10 Acetaminophen , Notes to Pharmacist: PRNFurosemide Voltaren-XR 75 MG Tablet Extended Release 24 Hour 1 tablet Orally Once a day Medication List reviewed and reconciled with the patientNot-Taking/PRN CeleBREX Not-Taking/PRN Aspirin 81 MG Tablet Delayed Release 1 tablet Orally Once a day Not-Taking/PRN Nitrofurantoin Macrocrystal 100 MG Capsule 1 capsule at bedtime with food or milk Orally Not-Taking/PRN Potassium Chloride ER 10 MEQ Tablet Extended Release 1 tablet with food Orally Not-Taking/PRN Timolol Maleate Not-Taking/PRN Warfarin Sodium 5 MG Tablet as directed Orally Not-Taking/PRN Coumadin Not-Taking/PRN Centrum Silver Not-Taking/PRN Nitrofurantoin Not-Taking/PRN Diovan Not-Taking/PRN Glucosamine Not-Taking/PRN Latanoprost Not-Taking/PRN PriLOSEC Not-Taking/PRN Klor-Con M10 Not-Taking/PRN Acetaminophen , Notes to Pharmacist: PRNNot-Taking/PRN Furosemide Not-Taking/PRN Voltaren-XR 75 MG Tablet Extended Release 24 Hour 1 tablet Orally Once a day Medication List reviewed and reconciled with the patient * Allergies:?Morphine: itchy,r ashLatex: rashLasixyes[Allergies Verified] Objective: * Vitals:?Ht: 5 ft, Wt: 174, B [place]: 33.98, Shoe size: 8, BP: 120/80 mm Hg, Wt-k.93 kg. * Examination: ???Vascular: ?DP PULSES (B):? 0/4, B/L.?PT PULSES (B):? 0/4, B/L.?CAPILLARY FILL TIME:? delayed, all digits, B/L.?TROPHIC CONDITION-TEXTURE/ELASTICITY/TURGOR/HAIR GROWTH (B):? decreased, fragile, thin, shiny skin, with sparse to absent hair growth, B/L.?TEMPERTURE GRADIENT (C):? decreased, cool to cool, proximal to distal, B/L.?PIGMENTATION:?rubrous, B/L.?EDEMA (C):? 1-2/4, pitting, without aching pain, B/L, Leg(s), Ankle(s), Feet.?CLAUDICATION (C):?denies, B/L.?REST PAIN:?denies, B/L.?Nails: ?NAILS are:?Elongated, overgrown, dystrophic, lytic, greater than 3mm thick, discolored and friable with crumbly malodorous subungual debris, with pain on palpation, TA, T1, T2, T5, T6, T7, T8, T9, all other nails not described with characteristics as possessing mycosis are elongated, overgrown, and dystrophic.?Dermatologic: ?SKIN FINDINGS:? Skin exam reveals Keratotic lesion(s) located at, Medial, IPJ, TA, Dorsal, DIPJ, T3, Medial plantar, T5, Dorsal, DIPJ, T6, SUB MTH (s), 1, B/L , SUB MTH (s), 3, Right ,Plantar, Heel(s), B/L.? Assessment: * Assessment: 1.?Tinea unguium - B35.1???2 .?Atherosclerosis of [place] artery of both lower extremities, with unspecified presence of clinical manifestation - I70.203 (Primary)???3.?Pain in right toe(s) - M79.674???4.?Pain in left toe(s) - M79.675??? Plan: * Treatment: 2.?Tinea unguium?Procedure: 76220-OXHBFPT NAIL, 6 OR MORE * Procedures:?Debride Nail 6-10:?Nail debridement?Due to the clinical pathology outlined in the exam findings, performance of this nail treatment is medically necessary as its management by an unskilled/untrained nonprofessional would put this patients foot and overall health at risk. Therefore, debridement to affected nail(s), as described in exam (?TA,?T1,?T2,?T5, T6, T7, T8, T9), was performed exclusively by the physician of record to reduce/remove overall nail length, girth, thickness, subungual debris, and necrotic tissue, by manual and/or electrical means through the use of a nail nipper and/or dremel-type glaze grinder, to a more viable healthy nail plate or bed tissue 6- 10 nails in total. Silver nitrate was used for any petechial bleeding as necessary. Definitive antifungal treatment options, both pharmaceutical and surgical, have been reviewed and discussed with the patient. The patient solely prefers the use of intermittent/as needed professional debridement services for their nail condition and understands the need for additional periodic treatments to maintain effectiveness in symptomatic relief - 61259.?Keratoma Treatment:?Parring or Cutting of Benign Hyperkeratotic Lesion(s)?(-57) More than 4 Lesions - Due to the at risk nature of the patients medical condition as documented in the exam findings, performance of this keratoderma treatment is medically necessary as its management by an unskilled/untrained nonprofessional would put this patients foot and overall health at risk. Therefore, the benign hyperkeratotic lesions, ( 9) in total, locations as stated and described in the exam (?Medial,?IPJ,?TA,?Dorsal,?DIPJ,?T3,?Medial plantar,?T5,?Dorsal,?DIPJ,?T6,?SUB MTH (s),?1,?B/L?,?SUB MTH (s),?3,?Right?,Plantar,?Heel(s),?B/L), were pared, and/or cut utilizing a sterile 15 blade, tissue nippers, and/or power dremel instrumentation by the physician of record - 12609, Q8.? * Procedure Codes:?88556 DEBRI DE NAIL, 6 OR MORE, Modifiers: XS 62784 TRIM SKIN LESIONS, OVER 4, Modifiers: XS , Q8 * Follow Up:?prn * Images: * Sign off status: Completed true * Provider:?Wyatt Rowley DPM Date:?2023 Generated for Moris rao/Artemio/Samia on:?10/03/2024 09:52 AM EDT History and Physical Notes * HPI (History of Present Illness) Category Sub-Category Detail Notes Category Not es At Risk footcare Pt States Last PCP Visit: Date: Examination Category Sub-Category Detail Notes Category Not es Dermatologic SKIN FINDINGS: Skin exam reveal s Keratotic lesion(s) located at, Medial, IPJ, TA, Dorsal, DIPJ, T3, Medial plantar, T5, Dorsal, DIPJ, T6, SUB MTH (s), 1, B/L , SUB MTH (s), 3, Right ,Plantar, Heel(s), B/L Vascular DP PULSES (B): 0/4, [...] malodorous subungual debris, with pain on palpation, TA, T1, T2, T5, T6, T7, T8, T9, all other nails not described with characteristics as possessing mycosis are elongated, overgrown, and dystrophic
--- OUTSIDE RECORDS SUMMARY | 2024-10-03 09:53 | XMS_ITS ---
Author Organization [facility] Address [address] [place] [address] Care Team Providers Care Book Trimmer Name Role Phone Mook Brizuela Primary Care Provider Wyatt Rasmussen Unavailable [phone] Allergies Allergen (clinical drug ingredient) Drug/Non Drug Allergy documented on EMR Reaction Allergy Type Onset Date Status furosemide Lasix Unknown Drug Allergy Active Latex Latex rash Allergy Active morphine Morphine itchy,rash Drug Allergy Active REASON FOR VISIT At Risk Footcare, Painful Nail(s) aggrevated by shoes and causing difficulty standing/walking. Medications Medication SIG (Take, Route, Frequency, Duration) Notes Start Date End Date Status PriLOSEC Not-Taking Klor-Con M10 Not-Isreal ing Voltaren-XR 75 MG 1 tablet Orally Once a day for 30 day(s) Not-Taking Acetaminophen PRN Not-Ta anton Furosemide Not-Takin g Nitrofurantoin Not-T aking Diovan Not-Taking Centrum Silver Not-T aking Glucosamine Not-Taki ng Latanoprost Not-Taki ng Potassium Chloride ER 10 MEQ 1 tablet with food Orally Active Warfarin Sodium 5 MG as directed Orally Active Coumadin Active Timolol Maleate Acti ve Valsartan 320 MG Orally Act ya Bumetanide 1 MG 1 tablet Orally Four a day Active Eye Drops Active Omeprazole 20 MG 1 capsule 30 minutes before morning meal Orally Once a day for 30 day(s) Active hydrALAZINE HCl 25 MG 1 tablet with food Orally Three times a day for 30 day(s) Active Nitrofurantoin Macrocrystal 100 MG 1 capsule at bedtime with food or milk Orally Active Atenolol 50 MG as directed Orally Active Ammonium Lactate 12 % 1 application to affected area Externally Twice a day for 30 days Active Aspirin 81 MG 1 tablet Orally Once a day Active CeleBREX Active Amlodipine & Diet Manage Prod 10 MG 1 tablet Once a day Active Allopurinol Active Vital Signs Height 5 ft in 01/16/2024 Weight 160 lbs 01/16/2024 BMI 31.24 kg/m2 01/16/2024 Blood pressure systolic 120 mm Hg 01/16/20 24 Blood pressure diastolic 80 mm Hg 024 Procedures Procedure Date Ordered Date Performed Result Body Sit e 68202-DLVQABE NAIL, 6 OR MORE 01/16/2024 N/A 53652-WSCO SKIN LESIONS, OVER 4 01/16/2024 N/A Encounters Encounter Location Date Provider Diagnosis [facility] [address] [address] 01/16/2024 Wyatt Rowley Atherosclerosis of [place] artery of both lower extremities, with unspecified presence of clinical manifestation I70.203 ; Tinea unguium B35.1 ; Pain in right toe(s) M79.674 and Pain in left toe(s) M79.675 Assessments Encounter Date Diagnosis (ICD Code) Assessment Notes Treatment Notes Treatment Clinical Notes Section Notes 01/16/2024 Atherosclerosis of ruby artery of both lower extremities, with unspecified presence of clinical manifestation (ICD-10 - I70.203) 01/16/2024 Tinea unguium (ICD-10 - B35.1) 01/16/2024 Pain in right toe(s) (ICD-10 - M79.674) 01/16/2024 Pain in left toe(s) (ICD-10 - M79.675) Plan Of Treatment Pending Test Test Name Order Date 53516-RRWCFZW NAIL, 6 OR MORE 01/16/2024 69685-JLTU SKIN LESIONS, OVER 4 01/16/20 24 Next Appt Details Follow Up: prn, Reason: Provider Name:Wyatt Rowley , 10/11/2024 09:15:00 AM, [address] [place] [address], [phone], Procedure Notes * Category Sub-Category Detail Notes Debride Nail 6-10 Nail debridement Nail debridem ent performed extensively to reduce/remove overall nail length, girth, thickness, subungual debris, and necrotic tissue, by manual and electrical means through the use of a nail nipper and/or dremel, to more viable healthy nail plate or bed tissue 1-5. Silver nitrate used for any petechial bleeding as necessary. Patient chooses, no pharmaceutical tx (63574) Keratoma Treatment Parring or Cutting o f Benign Hyperkeratotic Lesion(s) 76259 ( >4 Lesions) - The Benign hyperkeratotic lesions, as described above were pared, and/or cut utilizing a sterile #15 blade, tissue nippers, and/or dremel, Q8 Progress Notes * Ruth Ann NUNES ADOB: [birth year] (88 yo F)Acc No.[id number]:01/16/2024 Progress Note Patient:?Ruth Ann Nunes Provider:?Wyatt Rowley DPM :1935???Age:88 Y???Sex:Female D ate:01/16/2024 Address:[address] [place], [place] [id number] Pcp:Mook Brizuela Subjective: * Chief Complaints: * ???At Risk FootcarePainful N ail(s) aggrevated by shoes and causing difficulty standing/walking. * HPI: ???At Risk footcare:?Pt States Last PCP Visit:?Date?08/28/2023 * ROS:?General/Constitutional:?Nausea?denies.?Vomiting?denies.?Hunger Thirst?denies.?Loss appetite?denies.?Chills?denies.?Fatigue?denies.?Fever?denies.?Night Sweats?denies.?Unexplained weight loss?denies.?Unexplained [...] Infection in back - affected nerves - [facility] for [facility] antibiotics 09/01[facility]- couldnt touch pt- body in constant pain - out of it 2022 * Family History:?Mother: dece ased, diagnosed with Family history of arthritis, Unspecified essential hypertension.?Father: , diagnosed with Other specified conditions influencing health status.?Spouse: .? * Medications:?TakingAllopurin ol CeleBREX Amlodipine & Diet Manage Prod 10 MG 1 tablet Once a dayAmmonium Lactate 12 % Cream 1 application to affected area Externally Twice a dayAspirin 81 MG Tablet Delayed Release 1 tablet Orally Once a dayAtenolol 50 MG Tablet as directed Orally Bumetanide 1 MG Tablet 1 tablet Orally Four a dayEye Drops hydrALAZINE HCl 25 MG Tablet 1 tablet with food Orally Three times a dayNitrofurantoin Macrocrystal 100 MG Capsule 1 capsule at bedtime with food or milk Orally Omeprazole 20 MG Capsule Delayed Release 1 capsule 30 minutes before morning meal Orally Once a dayPotassium Chloride ER 10 MEQ Tablet Extended Release 1 tablet with food Orally Timolol Maleate Valsartan 320 MG Tablet Orally Warfarin Sodium 5 MG Tablet as directed Orally Coumadin Taking Allopurinol Taking CeleBREX Taking Amlodipine & Diet Manage Prod 10 MG 1 tablet Once a dayTaking Ammonium Lactate 12 % Cream 1 application to affected area Externally Twice a dayTaking Aspirin 81 MG Tablet Delayed Release 1 tablet Orally Once a dayTaking Atenolol 50 MG Tablet as directed Orally Taking Bumetanide 1 MG Tablet 1 tablet Orally Four a dayTaking Eye Drops Taking hydrALAZINE HCl 25 MG Tablet 1 tablet with food Orally Three times a dayTaking Nitrofurantoin Macrocrystal 100 MG Capsule 1 capsule at bedtime with food or milk Orally Taking Omeprazole 20 MG Capsule Delayed Release 1 capsule 30 minutes before morning meal Orally Once a dayTaking Potassium Chloride ER 10 MEQ Tablet Extended Release 1 tablet with food Orally Taking Timolol Maleate Taking Valsartan 320 MG Tablet Orally Taking Warfarin Sodium 5 MG Tablet as directed Orally Taking Coumadin Not-Taking/PRNCentrum Silver Nitrofurantoin Diovan Glucosamine Latanoprost PriLOSEC Klor-Con M10 Acetaminophen , Notes: PRNFurosemide Voltaren-XR 75 MG Tablet Extended Release 24 Hour 1 tablet Orally Once a dayMedication List reviewed and reconciled with the patientNot-Taking/PRN Centrum Silver Not-Taking/PRN Nitrofurantoin Not-Taking/PRN Diovan Not-Taking/PRN Glucosamine Not-Taking/PRN Latanoprost Not-Taking/PRN PriLOSEC Not-Taking/PRN Klor-Con M10 Not-Taking/PRN Acetaminophen , Notes: PRNNot-Taking/PRN Furosemide Not-Taking/PRN Voltaren-XR 75 MG Tablet Extended Release 24 Hour 1 tablet Orally Once a dayMedication List reviewed and reconciled with the patient * Allergies:?Morphine: itchy,r ashLatex: rashLasixyes[Allergies Verified] Objective: * Vitals:?Ht: 5 ft, Wt:160, BM I:31.24, Shoe size:8, BP:120/80 mm Hg. * Examination: ???Vascular: ?DP PULSES:? 0/4, B/L.?PT PULSES:? 0/4, B/L.?CAPILLARY FILL TIME:? delayed, all digits, B/L.?SKIN TEMPERTURE GRADIENT OF THE LOWER EXTERMITIES:? decreased, cool to cool, proximal to distal, B/L.?HAIR GROWTH/TEXTURE/ELASTICITY/TURGOR:? decreased, B/L.?PIGMENTATION:? mottled, B/L.?EDEMA:? 1-2/4, pitting, without aching pain, B/L, Leg(s), Ankle(s), Feet.?CLAUDICATION:?denies, B/L.?REST PAIN:?denies, B/L.?Nails: ?NAILS are:?Elongated, overgrown, dystrophic, [...] Assessment: 1.?Tinea unguium - B35.1?2.? Atherosclerosis of ruby artery of both lower extremities, with unspecified presence of clinical manifestation - I70.203?3.?Pain in right toe(s) - M79.674?4.?Pain in left toe(s) - M79.675? Plan: * Treatment: 2.?Atherosclerosis of ruby artery of both lower extremities, with unspecified presence of clinical manifestation?Procedure: 57837-QQQU SKIN LESIONS, OVER 4 * Procedures:?Debride Nail 6-10:?Nail debridement?Nail debridement performed extensively to reduce/remove overall nail length, girth, thickness, subungual debris, and necrotic tissue, by manual and electrical means through the use of a nail nipper and/or dremel, to more viable healthy nail plate or bed tissue 1-5. Silver nitrate used for any petechial bleeding as necessary. Patient chooses, no pharmaceutical tx (31116).?Keratoma Treatment:?Parring or Cutting of Benign Hyperkeratotic Lesion(s)?67741 ( >4 Lesions) - The Benign hyperkeratotic lesions, as described above were pared, and/or cut utilizing a sterile #15 blade, tissue nippers, and/or dremel, Q8.? * Procedure Codes:?71961 DEBRI DE NAIL, 6 OR MORE, Modifiers: XS 40629 TRIM SKIN LESIONS, OVER 4, Modifiers: XS , Q8 * Follow Up:?prn * Images: * Sign off status: Completed Addendum: * ? true * Provider:?Wyatt Rowley DPM Date:?2023 Generated [...] distal, B/L TROPHIC CONDITION-TEXTURE/ELASTICITY/TURGOR/HAIR GROWTH (B): decreased, B/L EDEMA (C): 1-2/4, pitting, with out aching pain, B/L, Leg(s), Ankle(s), Feet CLAUDICATION (C): denies, B/L REST PAIN: denies, B/L PIGMENTATION: mottled, B/L Nails NAILS are: Elongated, overg rown, dystrophic, lytic, greater than 3mm thick, discolored and friable with crumbly malodorous subungual debris, with pain on palpation, 1-5 Right foot, TA, T1, T2
--- OUTSIDE RECORDS SUMMARY | 2024-10-03 09:53 | XMS_ITS ---
Author Organization [facility] Care Team Providers Care Ring Striker Name Role Phone Reza Fountain Unavailable Unavailable Zhane Ospina Unavailable Unavailable Brianna Manning Unavailable Unavailable Allergies and adverse reactions Code CodeSystem Substance Reaction Severity StartDate Concern Status 7052 RXNORM Morphine Unknown 08/18/2022 active Latex Unknown 08/18/2022 active Care Team Name Role Address Phone Organization Dates Reza Fountain PCP [address], [address], [facility] (Office): : [facility] 10/03/2022 - 11/15/2022 Zhane Ospina Attending Physician [address] [place] [address], [id number], [place] (Office): : [facility] 10/03/2022 - 11/15/2022 Brianna Manning Attending Physician [address] [place] [address], [id number], [place] (Office): [facility] 10/03/2022 - 11/15/2022 Immunizations Immunization Status Vaccine Details Vaccine Code CodeSystem Date Notes Tetanus completed tetanus immune globulin 13 CVX created date: 08/24/2022 administere d date: 11/02/2018 PPSV23 (Previous Pneumococcal Polysaccharide)Va ccine completed pneumococcal polysaccharide vaccine, 23 valent 33 CVX created date: 08/24/2022 administere d date: 11/02/2018 Influenza Vaccine completed Influenza, spl it virus, quadrivalent, injectable, contains preservative 158 CVX created date: 08/24/2022 administere d date: 05/04/2022 SARS-COV-2 (COVID-19) completed SARS-COV-2 (COVID-19) vaccine, mRNA, spike protein, LNP, preservative free, 100 mcg/0.5mL dose or 50 mcg/0.25mL dose Mfg: MODERNA Step 2 of Multi-step with next step required 207 CVX created date: 08/24/2022 administere d date: 09/08/2020 SARS-COV-2 (COVID-19) completed SARS-COV-2 (COVID-19) vaccine, mRNA, spike protein, LNP, preservative free, 100 mcg/0.5mL dose or 50 mcg/0.25mL dose Mfg: MODERNA Step 1 of Multi-step with next step required 207 CVX created date: 08/24/2022 administere d date: 08/12/2020 Moderna Covid-19 Booster (SARS-COV-2) vaccine completed SARS-COV-2 (COVID-19) vaccine, mRNA, spike protein, LNP, preservative free, 100 mcg/0.5mL dose or 50 mcg/0.25mL dose Mfg: MODERNA 207 CVX created date: 08/24/2022 administere d date: 06/22/2021 Mental Status Section Date Assessment Total Score Description 11/15/2022 BIMS 14 cognitively int act CAM 0 No delirium ind icated PHQ-9 01 minimal depress ion 10/07/2022 BIMS 14 cognitively int act CAM 0 No delirium ind icated PHQ-9 01 minimal depress ion Problems Problem # Description Date of onset Resolved Date Code CodeSystem Concern Status 1 ARTHRITIS DUE TO OTHER BACTERIA, VERTEBRAE [address] active 2 IMMUNODEFICIENCY DUE TO DRUGS [address] active 3 SACROILIITIS, NOT ELSEWHERE CLASSIFIED [address] active 4 UNSPECIFIED PROTEIN-CALORIE MALNUTRITION [address] active 5 ESSENTIAL (PRIMARY) HYPERTENSION [address] active 6 GASTRO-ESOPHAGEAL REFLUX DISEASE WITHOUT ESOPHAGITIS [address] active 7 GOUT, UNSPECIFIED [address] active 8 MUSCLE WASTING AND ATROPHY, NOT ELSEWHERE CLASSIFIED, RIGHT THIGH 3 10/03/[address] completed 9 OTHER LACK OF COORDINATION 3 10/03/[address] completed 10 OTHER LOW BACK PAIN [address] active 11 OTHER SPECIFIED ARTHRITIS, MULTIPLE SITES [address] active 12 PAIN IN UNSPECIFIED KNEE [address] active 13 PARTIALLY VACCINATED FOR COVID-19 3 Z28.311 ICD-10-CM active 14 UNSPECIFIED ATRIAL FIBRILLATION [address] active 15 UNSPECIFIED DIASTOLIC (CONGESTIVE) HEART FAILURE [address] active 16 UNSPECIFIED GLAUCOMA [address] active 17 UNSPECIFIED PROTEIN-CALORIE MALNUTRITION 3 10/03/[address] completed Reason for Referral No Reasons for Referral Entered Social History Social History Observation Description Start Date End Date Code Code System Current Smoking Status Tobacco smoking consumption unknown 455780323 SNOMED CT Sex Assigned At Female 1935 06196-1 [facility] Vital Signs Code Code System Vitals Name Values and Units Timing Information 03114-8 [facility] Pain Level Value=0.0 11/15/2022 70576-3 INC Weight Cidkc=273.1 Units=Lbs 03/2023 9279-1 [facility] Respiratory Rate Value=18.0 Units=/m in 11/14/2022 8462-4 LOINC Blood Pressure-Diastolic Value=71 Un its=mmHg 11/14/2022 8480-6 LOINC Blood Pressure-Systolic Fiwbn=155 Un its=mmHg 11/14/2022 8310-5 [facility] Body Temperature Value=98.2 Units=?? F 11/14/2022 8867-4 [facility] Heart rate Value=88.0 Units=/min 02/2023 38083-8 [facility] O2 % BldC Oximetry Value=96.0 Units= % 11/14/2022 8302-2 [facility] Height Value=68.0 Units=Inches 10/04/2022
--- OUTSIDE RECORDS SUMMARY | 2024-10-03 09:53 | XMS_ITS | Encounter Summary ---
Author Organization [facility] Address [address] [place] [address] Phone Care Team Providers Care Mold Capper Name Role Phone Mook Brizuela DO Primary Care Provider [phone] Encounter Details Date Type Department Care Team (Late st Contact Info) Description 04/01/2024 Documentation Only [facility] [address] [place] [address] Evette SeguraASHLEY, [place] [address] [place] [address] Social History Tobacco Use Types Packs/Day Years Used Date Smoking Tobacco: Never Assessed Comments Unknown Sex and Gender Information Value Date Recorded Sex Assigned at Not on file Legal Sex Female 12:23 PM EDT Gender Identity Not on file Sexual Orientation Not on file documented as of this encounter Plan of Treatment Upcoming Encounters Date Type Department Care Team (Late st Contact Info) Description 11/19/2024 4:00 PM EDT Office Visit [facility] [address] [place] [address] Lai Rm MD [address] [place] [address] documented as of this encounter Visit Diagnoses Not on filedocumented in this encounter Care Teams Mold Capper Relationship Specialty Start Date End Date Mook Brizuela DO [address] [place] [id number] PCP - General Family Medicine 04/01/24 documented as of this encounter
== END 2024-10-03 09:33 | disposition home or self-care (01) ==
LOC: HO.HCS 08:57
PROVIDERS: PCP Family Medicine; Visit Provider Internal Medicine
DX: I50.32 Chronic diastolic (congestive) heart failure (principal); I48.19 Other persistent atrial fibrillation; I10 Essential (primary) hypertension; R94.39 Abnormal result of other cardiovascular function study
CPT/HCPCS: 99214; G2211

== ENCOUNTER 2025-04-24 08:50 | Outpatient (AMB) | payer MEDICARE, SELFPAY ==
--- NOTE | 2025-04-24 09:07 | MHC.OFFVIS ---
Vital Signs 04/24/25 09:10 Height 4 ft 11 in Weight 168 lb 13.985 oz BMI 34.1 BP 124/62 Blood Pressure Location Rt brachial Position Sitting Pulse 63 Pulse Source Monitor Intake Visit Reasons: 6m follow up Building Economist Required: No Accompanied by: Son Allergies latex (Latex) Allergy (Intermediate, Verified 10/25/23 09:22) BLISTERS & ITCHING morphine (Morphine) Allergy (Mild, Verified 10/25/23 09:22) RASH, ITCHNG Medication List - Last Reconciled 04/24/25 by Yovany Garibay MD acetaminophen 1,000 mg PO TID allopurinol 300 mg PO DAILY amlodipine 10 mg PO DAILY 90 days apixaban (Eliquis) 5 mg PO BID atenolol 50 mg PO BID bumetanide 2 mg (2 x 1 mg) PO BID cholecalciferol (vitamin D3) 25 mcg PO DAILY 90 days dorzolamide 2% 1 drp ophthalmic-Right BID latanoprost 0.005% 1 drp ophthalmic (eye) BEDTIME metolazone 2.5 mg PO QWEEK 90 days omeprazole 20 mg PO DAILY HPI Comments Details: Ruth Ann returns for follow-up regarding various issues including chronic diastolic heart failure, chronic atrial fibrillation, hypertension. Overall, shortness of breath is just about the same as before. She is able to get around with most activities but may get short of breath with more strenuous work. Leg swelling is just about the same as well. Frailty from age. [facility] Medical History Anemia Acute gout Hypercalcemia Sudden loss of vision GERD (gastroesophageal reflux disease) Chronic heart failure with preserved ejection fraction (HFpEF) Essential hypertension Persistent atrial fibrillation Shortness of breath Precordial chest pain Afib Swelling of both lower extremities Surgical History History of tonsillectomy History of right knee joint replacement History of appendectomy Family History Father No problems noted. Mother No problems noted. Social History Housing: Apartment Alcohol intake: never Patient Tobacco Use Status: Never used Tobacco e-Cigarette/Vaping Use: Never Used Second Hand Smoke Exposure: No Advance Directives Date on File: 06/13/22 service: No Current occupational status: unemployed Cognitive needs: Yes Hearing needs: No Vision needs: Yes Review of Systems Const Denies chills, Denies fatigue, Denies fever(s), Denies frequent falls, Denies weakness, Denies weight gain and Denies weight loss ENT Denies dizziness Card Denies chest pain, Denies leg edema, Denies lightheadedness, Denies palpitations, Denies dyspnea and Denies dyspnea on exertion Resp Denies cough, Denies dyspnea and Denies dyspnea on exertion GI Denies hematochezia Musc Denies abnormal gait, Denies muscle weakness, Denies numbness, Denies radiating pain into limb and Denies tingling Neuro Denies abnormal gait, Denies dizziness, Denies frequent falls, Denies numbness, Denies tingling and Denies weakness Endo Denies fatigue and Denies palpitations Physical Exam Vital Signs: Last Vital Signs Pulse 63 04/24/25 09:10 BP 124/62 04/24/25 09:10 BMI result Body Mass Index 34.1 Const General: comfortable and no acute distress Orientation/consciousness: patient oriented x3 HEENT Other: Unremarkable Head: Yes normal to inspection Neck Neck: Yes normal visual inspection Chest Chest palpation & inspection: normal inspection of the chest Resp Auscultation: clear to auscultation bilaterally Cardio Palpation: normal PMI Heart sounds: S1 normal heart sound present, S2 normal heart sound present, no gallops, no murmurs and no rubs GI Palpation (GI): Soft to palpation Back/Spine/Pelvis Other: unremarkable Skin General skin exam: no rashes or lesions noted Neuro General: patient oriented x3 Extrem Other: 1+ leg swelling; General: Yes normal to inspection Psych Mental Status: mental status grossly normal Office Procedures EKG Details: EKG with atrial fibrillation at a rate of 63/Min; rightward axis. 25876-Hwdipsfmwyranwjrj, Complete Assessment & Plan Assessment & Plan (1) Chronic heart failure with preserved ejection fraction (HFpEF): Code(s): I50.32 - Chronic diastolic (congestive) heart failure Category: Medical Plan: She can stay on the current regimen of Bumex and as needed metolazone. Check labs. We can add Jardiance if covered by insurance. (2) Persistent atrial fibrillation: Code(s): I48.19 - Other persistent atrial fibrillation Category: Medical Plan: Continue beta-blockers. On Eliquis. Previously, was taking warfarin. (3) Essential hypertension: Code(s): I10 - Essential (primary) hypertension Category: Medical Plan: Stable. No changes. (4) Abnormal myocardial perfusion study: Code(s): R94.39 - Abnormal result of other cardiovascular function study Category: Medical Plan: Stress perfusion imaging in the past with mild reversible basal septal defect. Suspected to be probably artifactual and less likely ischemic. Based on lack of angina, patient preference, age, frailty, comorbidities, medical management. Orders: Orders Basic Metabolic Panel Today I50.32 - Chronic diastolic (congestive) heart failure NT Pro B Type Natriuretic Pept Today I50.32 - Chronic diastolic (congestive) heart failure Medications: New empagliflozin (Jardiance) 10 mg PO DAILY 90 tabs 1RF Coding Level of Care Code Est Pt Level 4 (41443) Complex EM visit Add On G2211 Diagnoses Chronic heart failure with preserved ejection fraction (HFpEF) I50.32 Persistent atrial fibrillation I48.19 Essential hypertension I10 Abnormal myocardial perfusion study R94.39 CPT Codes EKG - CPT: 29986-Ftjrqangnysxnkklx, Complete ([id number])
[2025-04-24 09:10] VITALS: BP 124/62; PULSE 63; BMI 34.1
== END 2025-04-24 09:32 | disposition home or self-care (01) ==
LOC: HO.HCS 08:51
PROVIDERS: PCP Family Medicine; Visit Provider Internal Medicine
DX: I50.32 Chronic diastolic (congestive) heart failure (principal); I48.19 Other persistent atrial fibrillation; I10 Essential (primary) hypertension; R94.39 Abnormal result of other cardiovascular function study
CPT/HCPCS: 93010; 99214; G2211

== ENCOUNTER 2025-04-24 08:50 | Outpatient (REF) | payer MEDICARE, SELFPAY ==
--- OUTSIDE RECORDS SUMMARY | 2025-04-24 11:05 | XMS_ITS | Data Portability ---
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 Plan of Treatment Reminders Order Date Submit Date Provider Last Modified By Organization Details Last Modified Time Details Appointments None record ed. Lab None record ed. Referral None record ed. Procedures None record ed. Surgeries None record ed. Imaging None record ed. Medication Orders None record ed. Patient TargetsNo targets recorded. Patient InstructionsNo instructions recorded. Reason for Referral None Reported. Problems Name Problem SNOMED Code Status Onset Date Resolution Date Notes Provider Name and Address Organization Details Recorded Time Gout 65728553 Active 2022 JHOAN IBARRA NP [address], [address], [place], [address], [facility] 3 11:24:54 Congestive heart failure 81220136 Active 2022 JHOAN IBARRA NP [address], [address], [place], [address], [facility] [employer] 3 11:25:00 Essential hypertensi on 83190563 Active 2022 JHOAN IBARRA NP [address], [address], [place], [address], [facility] [employer] 3 11:25:08 Glaucoma 74122345 Active 2022 JHOAN IBARRA NP [address], [address], [place], [address], [facility] [employer] 3 11:25:12 Urinary tract infectious disease 91889030 Active 2022 JHOAN IBARRA NP [address], [address], [place], [address], [facility] 3 11:25:30 Atrial fibrillati on 20350356 Active 2022 JHOAN IBARRA, SUPPORT SERVICES TECH [address], [address], [place], [address], [facility] 3 11:25:37 Asthenia 25609912 Active 2022 JHOAN IBARRA, GILL [address], [address], [place], [address], [facility] 3 11:25:47 Pain in bilateral legs 4087358437016 9108 Active 2022 JHOAN IBARRA, GILL [address], [address], [place], [address], [facility] 3 11:26:08 Constipati on 28269581 Active 2022 JHOAN IBARRA NP [address], [place], [address], [facility] 3 11:29:56 Gastroesop hageal reflux disease without esophagiti s 931619829 Active 2022 JHOAN IBARRA, GILL [address], [address], [place], [address], [facility] 3 11:40:05 Chronic kidney disease stage 3 274359092 Active 2022 Brianna Manning MD [address], [address], [place], [address], [facility] 3 22:34:26 Edema of lower extremity 909399066 Active 2022 JHOAN IBARRA NP [address], [address], [place], [address], [facility] 3 13:05:17 Polymyalgi a rheumatica 55608683 Active 2022 JHOAN IBARRA NP [address], [address], [place], [address], [facility] 3 15:24:17 Abscess 942649900 Active 2022 lumbar JHOAN IBARRA, GILL [address], [address], [place], [address], [facility] 3 15:26:42 Pain of bilateral knee regions 1087964586160 02 Active 2022 Brianna Manning MD [address], [address], [place], [address], [facility] 3 21:02:10 Bacterial arthritis 21931837 Active 2022 Brianna Manning MD [address], [address], [place], [address], [facility] 3 22:39:15 Glaucoma 45255684 Active 2022 Brianna Manning MD [address], [address], [place], [address], [facility] 3 22:49:40 Hypokalemi a 98855641 Active 2022 Brianna Manning MD [address], [address], [place], [address], [facility] 3 22:51:25 Problem Notes None recorded. Medical Equipment None Reported. Allergies Allergen ID Allergen Name Allergen Category Reaction Reaction Severity Criticality Documentation Date Start Date Code Code System Note Provider Name and Address Organization Details Recorded Time 95073 morphine medicatio n Not available Not available Not available 08/19/2022 7052 RxNorm JHOAN IBARRA NP [address], [address], [place], [address], [facility] 3 11:24:42 66152 latex environme nt,medica tion Not available Not available Not available 08/19/2022 46139 91 RxNorm JHOAN IBARRA, GILL [address], [address], [place], [address], [facility] 3 11:24:47 Medications Name Sig Start Date Stop Date Status Note LastModified by Organization Details LastModified Time tramadol 50 mg tablet 50 mg po q 4 hrs prn 10/05/19 23 active Not Available Not Available Not Avai lable Vitals Date Recorded Body height Heart rate Respiratory rate Body temperature Oxygen saturation Oxygen saturation in Arterial blood by Pulse oximetry Systolic And Diastolic Provider Name and Address Organization Details Last Updated DateTime 3 172.72 cm 76 /min 16 /min 97.3 [degF] 97 % 97 % 130/72 mm[Hg] JHOAN IBARRA NP [address], [address], [place], [address], [facility] 3 12:02:32 Date Recorded Body height Heart rate Respiratory rate Body temperature Oxygen saturation Oxygen saturation in Arterial blood by Pulse oximetry Inhaled oxygen flow rate Provider Name and Address Organization Details Last Updated DateTime 3 172.72 cm 76 /min 16 /min 97.6 [degF] 96 % 96 % 2 L/min JHOAN IBARRA NP [address], [facility] [address], [place], [address], [facility] 3 14:29:23 Date Recorded Body height Heart rate Respiratory rate Body temperature Oxygen saturation Oxygen saturation in Arterial blood by Pulse oximetry Inhaled oxygen flow rate Systolic And Diastolic Provider Name and Address Organization Details Last Updated DateTime 3 172.72 cm 72 /min 16 /min 98 [degF] 96 % 96 % 2 L/min 148/78 mm[Hg] JHOAN IBARRA NP [address], [address], [place], [address], [facility] 3 13:54:32 Date Recorded Body height Body mass index (BMI) Body weight Heart rate Respiratory rate Body temperature Oxygen saturation Oxygen saturation in Arterial blood by Pulse oximetry Systolic And Diastolic Provider Name and Address Organization Details Last Updated DateTime 3 172.72 cm 24.9 kg/m2 48433.7 1 g 74 /min 17 /min 98.2 [degF] 96 % 96 % 128/70 mm[Hg] Brianna Manning MD [address], [address], [place], [address], [facility] 3 13:34:33 Date Recorded Body height Heart rate Respiratory rate Body temperature Oxygen saturation Oxygen saturation in Arterial blood by Pulse oximetry Body mass index (BMI) Body weight Systolic And Diastolic Provider Name and Address Organization Details Last Updated DateTime 3 172.72 cm 87 /min 16 /min 98.1 [degF] 96 % 96 % 24.9 kg/m2 56925.1 5 g 167/64 mm[Hg] JHOAN IBARRA NP [address], [address], [place], [address], [facility] 3 11:38:36 Social History Question Answer Notes LastModified by Organization Details LastModified Time Tobacco Smoking Status Former Smoker JHOAN IBARRA NP [address], [address], [place], [address], [facility] 08/19/2022 11:26:58 Do You Have An Advance Directive? Yes Information not available 10/07/2022 What Is Your Code Status? Full Code Information not available 10/07/2022 Where Do You Live? [facility] 3 Steps To Enter. Lives With Intellectually Disabled Daughter Information not available 08/23/2022 Legal Guardian? No Information not available 08/23/2022 Do You Have A Medical Power Of Geospatial Intelligence Analyst? Yes Not Invoked Information not available 08/24/2022 What Was The Date Of Your Most Recent Tobacco Screening? 08/23/2022 Information not available 08/23/2022 Do You Have An Out Of Hospital DNR? No Information not available 08/23/2022 What Is Your Relationship Status? Information not available 08/23/2022 Has Tobacco Cessation Counseling Been Provided? No N/a As Pt No Longer Smokes Information not available 08/23/2022 Sex: Unknown Functional Status Question Answer Note LastModified by Organizat ion Details LastModified Time Do you use any illicit or recreational drugs? No Information not available 08/19/2022 Do you or have you ever used any other forms of tobacco or nicotine? No Information not available 08/23/2022 What is your level of alcohol consumption? None Information not available 08/19/2022 Mental Status None recorded. Family History Nothing Reported Notes:mother, father- d Medical History No medical history recorded. Gynecological HistoryNo gynecological history recorded. Obstetrics History GPAL:G 0 P 0 0 0 0 Immunizations Vaccine Type Date Status Note Provider Nam e and Address Organization Details Recorded Time Influenza, adjuvanted, quadrivalent, PF 2 completed [facility] 07/31/2023 11:52:12 Influenza, adjuvanted, quadrivalent, PF 3 completed [facility] 09/19/2023 10:05:58 zoster recombinant 3 completed [facility] 09/19/2023 10:06:19 zoster recombinant 3 completed [facility] 09/19/2023 10:06:34 COVID-19, mRNA, LNP-S, bivalent, PF, 30 mcg/0.3 mL dose 1 completed [facility] 09/19/2023 10:07:37 Pneumococcal conjugate PCV20, polysaccharide ISM351 conjugate, adjuvant, PF 3 completed [facility] 09/19/2023 10:07:57 pneumococcal polysaccharide PPV23 9 completed Ines [facility] 09/19/2023 10:08:17 Td (adult), 5 Lf tetanus toxoid, preservative free, adsorbed 9 completed [facility] 09/19/2023 10:08:38 Past Encounters Encounter ID Performer Location Encounter Start Date Encounter Closed Date Diagnosis/Indication Diagnosis SNOMED-CT Code Diagnosis ICD10 Code Diagnosis IMO Codes Diagnosis Note [id number] GILL CASAS [address] [facility] [place] [address] 08/19/2022 09:53:36 08/22/2022 15:31:43 Pain in bilateral legs 1617052861 4935039 M79.604 M79.605 naproxyn 500 mg bid with food for 10 daystyleno l 1000 mg g5cjconryg ol 25 mg o1rviyzyxs rm patch daily Gout 69135306 M10.9 colchicine 0.6 mg bid prnnaproxy n 500 mg bid with food for 10 days Asthenia 29371809 R53.1 PT OT eval and treatfall precaution sfrequent safety checks Atrial fibrillation 4943 6004 I48.91 asa 81 mg dailyateno lol 100 mg dailywarfa rin 5 mg dailyinr checksmoni tor heart rate Congestive heart failure 55174266 I50.9 bumetanide 2 mg bidkcl 10 meq daily Essential hypertension 17451669 I10 amlodipine 10 mg dailyateno lol 100 mg dailyhydra lazine 25 mg tidvalsart an 320 mg dailymonit or bp Glaucoma 36905764 H40.9 dorzolamid e 2% bid right eyelatanap timothy 0.005% hs Urinary tr act infectious disease 08066728 N39.0 nirtofuran toin 50 mg hsmonitor for symptoms Constipation 17889127 K5 9.00 bowel protocol Gastroesop hageal reflux disease without esophagitis 666184014 K21.9 omeprazole 20 mg daily [id number] Brianna Manning MD [address] [place] [address] 08/23/2022 18:21:04 08/25/2022 11:43:02 Pain in bilateral legs 5415606597 2064724 M79.604 M79.605 Pt says tramadol is making her too drowsy, has been refusing afternoon dose.Will change tramadol from QID scheduled to 50 mg TID scheduled and q 4 hrs prn.Contin ue naproxen 500 mg BID for 10 days, APAP 1000 mg q 8 hrs and lidoderm patch.Very deconditio jacobo.Needs PT/OT for strengthen ing, balance, gait training, safety and function.C ontinue fall precaution s.Monitor for safety.Mon itor sxs. Gout 73036809 M10.09 Will use colchicine 0.6 mg BID prn if gout flare.Cont inue naproxen as above.Gayatri tor for flare Asthenia 28684717 R53.1 As above Atrial fibrillation 4943 6004 I48.0 Rate in good control on atenolol 100 mg qd.Continu e coumadin for AC, titrated to INR 2-3.Monito r HR and bleeding risk. Congestive heart failure 01490304 I50.22 With increased edema, but no increased SOB.Contin ue meds as above.Gayatri tor resp. status, fluid status, wts and labs. Essential hypertension 56588032 I10 BP in good control on amlodipine 10 mg qd, atenolol 100 mg qd, hydralazin e 25 mg TID and valsartan 320 mg qd.Monitor BP and labs Glaucoma 76512833 H40.89 Continue dorzolamid e 2% BID right eye and latanopros t 0.005% hsF/U with eye draKrl as planned. Urinary tr act infectious disease 33464555 N30.20 Continue nitrofuran toin 50 mg qhs for prophylaxi sMonitor for sxs Constipation 22144639 K5 9.09 Went twice today, normal consistenc yContinue bowel regimen as ordered. Gastroesop hageal reflux disease without esophagitis 338675917 K21.9 Continue omeprazole 20 mg qd.Monitor sxs. Chronic ki dney disease stage 3 024338760 N18.31 With worsening renal function yest. But with increased edema.Hesi monroy to increase diuretic unless renal function improves.W ill recheck in AMContinue to avoid nephrotoxi c meds as able.Renal consult prn. Edema of l ower extremity 026608132 R60.0 As above.Cont inue bumetanide 2 mg BID and KCl 10 meq qd.Monitor edema. [id number] JHOAN IBARRA NP [address] [address] 08/26/2022 13:03:57 08/30/2022 11:57:52 Pain in bilateral legs 7424351218 7910043 M79.604 M79.605 naproxyn 500 mg bid with food for 10 daystyleno l 1000 mg r0ahcpuoqc ol 25 mg q8hr and q4hr prnlidoder m patch daily Edema of l ower extremity 443640745 R60.0 bumetanide 2 mg BIDKCl 10 meq qd.gerard wraps on am, off pmMonitor edema. [id number] JHOAN IBARRA NP [address] [address] 08/29/2022 11:10:46 08/31/2022 14:08:35 Congestive heart failure 29856612 I50.22 bumetanide 2 mg bidkcl 10 meq daily Edema of l ower extremity 056525334 R60.0 bumetanide 2 mg BIDKCl 10 meq qd.gerard wraps on am, off pmMonitor edema. [id number] JHOAN IBARRA NP [address] [address] 09/01/2022 11:32:04 09/06/2022 07:37:46 Pain in bilateral legs 0579497848 6310747 M79.604 M79.605 naproxyn 500 mg bid with food for 10 days-compl etedtyleno l 1000 mg n7qdowbmku ol 25 mg v55xgfmjiv erm patch daily [id number] JHOAN IBARRA NP [address] [address] 09/02/2022 11:00:47 09/06/2022 08:20:29 Pain in bilateral legs 7844898075 9390400 M79.604 M79.605 naproxyn 500 mg bid with food for 10 daystyleno l 1000 mg c9tsvlgazq ol 25 mg c2gigujijw rm patch daily Gout 33589490 M10.9 colchicine 0.6 mg bid prnnaproxy n 500 mg bid with food for 10 days Asthenia 60955315 R53.1 PT OT eval and treatfall precaution sfrequent safety checks Atrial fibrillation 4943 6004 I48.91 asa 81 mg dailyateno lol 100 mg dailywarfa rin 5 mg dailyinr checksmoni tor heart rate Congestive heart failure 62233426 I50.9 bumetanide 2 mg bidkcl 10 meq daily Essential hypertension 27522886 I10 amlodipine 10 mg dailyateno lol 100 mg dailyhydra lazine 25 mg tidvalsart an 320 mg dailymonit or bp Glaucoma 19259950 H40.9 dorzolamid e 2% bid right eyelatanap timothy 0.005% hs Urinary tr act infectious disease 91355886 N39.0 nirtofuran toin 50 mg hsmonitor for symptoms Constipation 16645763 K5 9.00 bowel protocol Gastroesop hageal reflux disease without esophagitis 644568379 K21.9 omeprazole 20 mg daily [id number] JHOAN IBARRA NP [address] [place] [address] 10/03/2022 15:08:24 10/05/2022 15:03:53 Abscess 720354932 L02.91 rocephin 2 gm iv daily to 11/08vanco 1gm iv daily to 11/08trough before 4th dosedilaud id 2 mg q4hr prnoxycodo ne er 20 mg bid Polymyalgi a rheumatica 94225683 M35.3 prednisone 40 mg daily Gout 85375264 M10.9 colchicine 0.6 mg bid prn Asthenia 70124926 R53.1 PT OT eval and treatfall precaution sfrequent safety checks Atrial fibrillation 4943 6004 I48.91 asa 81 mg dailyateno lol 50 mg dailywarfa rin 3 mg dailyinr checksmoni tor heart rate Congestive heart failure 78669358 I50.9 kcl 10 meq daily Essential hypertension 85219741 I10 amlodipine 10 mg dailyateno lol 50 mg dailyhydra lazine 25 mg tidvalsart an 320 mg dailymonit or bp Glaucoma 89674332 H40.9 dorzolamid e 2% bid oulatanapr ost 0.005% hs ou Urinary tr act infectious disease 87112133 N39.0 monitor for symptoms Constipation 12841181 K5 9.00 bowel protocol Gastroesop hageal reflux disease without esophagitis 002054531 K21.9 omeprazole 20 mg dailyproto nix 20 mg daily [id number] Brianna Manning MD [facility] [address] [place] [address] 10/04/2022 20:42:17 10/07/2022 15:23:34 Abscess 251774420 G06.1 Continue ceftriaxon e 2 gm IV qd and vanco IV-titrate d to troughs 15-20, for 6 wk course-end date 11/08.Vanco is dosed daily, but with nl GFR today, may need to increase to q 12 hrs.Pt. doesn't like narcotics, wants tramadol, will start 50 mg q 4 hrs prn.Will also continue dilaudid 2 mg q 4 hrs prn and oxycodone ER 20 mg BID in case she chooses to continue them.Monit or sxs and labs. Polymyalgi a rheumatica 87321097 M35.3 No current sxs.Curren tly on prednisone as above.Gayatri tor Gout 77120437 M10.09 Continue colchicine 0.6 mg BID prn gout flares.No current sxs.Monito r. Asthenia 39719771 R53.1 Very deconditio jacobo.Needs PT/OT for strengthen ing, balance, gait training, safety and function.C ontinue fall precaution s.Monitor for safety. Atrial fibrillation 4943 6004 I48.91 Rate in good control on atenolol 50 mg qd.Continu e coumadin for AC, titrated to INR 2-3.Monito r HR and bleeding risk. Congestive heart failure 70682003 I50.32 Appears euvolemic. Continue meds as above.Gayatri tor resp. status, fluid status, wts and labs. Essential hypertension 32311481 I10 BP in good control on amlodipine 10 mg qd, atenolol 100 mg qd, hydralazin e 25 mg TID.Valsar bender and bumex were stopped inpt.Monit or BP and labs Glaucoma 84609607 H40.89 Continue dorzolamid e 2% bid ou and latanopros t 0.005% hs ouF/U with eye dr. as planned. Gastroesop hageal reflux disease without esophagitis 019834308 K21.9 Continue omeprazole 20 mg qd and pantoprazo le 20 mg qd until off prednisone , then d/c pantoprazo le.Monitor for sxs. Chronic ki dney disease stage 3 044020284 N18.31 Renal function WNL today, was taken off valsartan and bumex inpt.George nue to avoid nephrotoxi c meds as able.Renal consult prn. Pain of bi lateral knee regions 5140207594 41190 M25.561 M25.562 Pain meds and PT/OT as above.Will also add diclofenac gel 1% 4 gms TID to both knees.Gayatri tor sxs. 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 Hypokalemia 20351880 E87 .6 Is on KCl 10 meq qd for hx of hypokalemi a while on Bumex. But now is off bumex. K+ high nl today.Gayatri tor K+ as we may need to d/c K+ supplement . [id number] JHOAN IBARRA NP [address] [address] 10/07/2022 11:11:29 10/11/2022 12:39:39 Abscess 889548134 G06.1 rocephin 2 gm iv daily to 5/2vanco 1gm iv daily to 5/2trough before 4th dosedilaud id 2 mg q4hr prnoxycodo ne er 20 mg bidtramado l 50 mg q4hr prnPT OT eval and treat JHOAN IBARRA NP [address] [address] 10/10/2022 12:48:55 10/12/2022 12:45:20 Abscess 247364834 G06.1 rocephin 2 gm iv daily to 5/2vanco 1gm iv daily to 5/2trough before 4th dosedilaud id 2 mg q4hr prnoxycodo ne er 20 mg bidtramado l 50 mg q4hr prnPT OT eval and treat Edema of l ower extremity 786026142 R60.0 bumetanide 2 mg BIDKCl 10 meq qd.gerard wraps on am, off pmMonitor edema. [id number] JHOAN IBARRA NP [address] [address] 10/14/2022 12:02:07 10/19/2022 16:19:29 Abscess 278176116 G06.1 rocephin 2 gm iv daily to 5/2vanco 1gm iv daily to 5/2trough before 4th dosedilaud id 2 mg q4hr prnoxycodo ne er 20 mg bidtramado l 50 mg q4hr prnPT OT eval and treat Edema of l ower extremity 414784437 R60.0 bumetanide 2 mg BIDKCl 10 meq qd.gerard wraps on am, off pmMonitor edema. [id number] JHOAN IBARRA NP [facility] [address] [place] [address] [place] [address] 10/24/2022 14:19:42 10/27/2022 15:40:38 Congestive heart failure 73003972 I50.32 kcl 10 meq dailylasix 20 mg bid [id number] JHOAN IBARRA NP [address] [place] [address] 10/28/2022 13:52:53 11/01/2022 15:31:53 Abscess 900166991 L02.91 rocephin 2 gm iv daily to 5/2vanco 1gm iv daily to 5/2trough before 4th dosedilaud id 2 mg q4hr prnoxycodo ne er 20 mg bid Polymyalgi a rheumatica 59846209 M35.3 prednisone 40 mg daily Gout 17758088 M10.9 colchicine 0.6 mg bid prn Asthenia 07102518 R53.1 PT OT eval and treatfall precaution sfrequent safety checks Atrial fibrillation 4943 6004 I48.91 asa 81 mg dailyateno lol 50 mg dailywarfa rin 3 mg dailyinr checksmoni tor heart rate Congestive heart failure 61617136 I50.9 kcl 10 meq dailylasix 20 mg bid Essential hypertension 39111548 I10 amlodipine 10 mg dailyateno lol 50 mg dailyhydra lazine 25 mg tidvalsart an 320 mg dailymonit or bp Glaucoma 74027950 H40.9 dorzolamid e 2% bid oulatanapr ost 0.005% hs ou Urinary tr act infectious disease 29268972 N39.0 monitor for symptoms Constipation 58063336 K5 9.00 bowel protocol Gastroesop hageal reflux disease without esophagitis 059445582 K21.9 omeprazole 20 mg dailyproto nix 20 mg daily Edema of l ower extremity 563302443 R60.0 lasix 20 mg bidKCl 10 meq qd.gerard wraps on am, off pmMonitor edema. [id number] Brianna Manning MD [facility] on [address] [place] [address] 11/01/2022 13:30:57 11/03/2022 16:28:00 Congestive heart failure 95437423 I50.32 With increased edema, lasix increased yesterday. Pt agrees we should give it a chance before further changes.Co ntinue Lasix 20 mg BID, hydralazin e 25 mg TID, atenolol 50 mg qd, and KCl 10 meq qd.Monitor resp. status, fluid status, wts and labs.Will order daily wts. Edema of l ower extremity 682807340 R60.0 As above.Gayatri tor edema.Cons ider d/c amlodipine . [id number] GILL CASAS [address] [facility] [address] [place] [address] 11/14/2022 08:54:25 11/16/2022 17:50:57 Abscess 579230591 L02.91 rocephin 2 gm iv daily to 11/14vanco 1gm iv daily to 8trough before 4th doseoxycod one er 20 mg bid Polymyalgi a rheumatica 64849909 M35.3 prednisone 40 mg daily Gout 27678248 M10.9 colchicine 0.6 mg bid prn Asthenia 94452132 R53.1 PT OT eval and treatfall precaution sfrequent safety checks Atrial fibrillation 4943 6004 I48.91 asa 81 mg dailyateno lol 50 mg dailywarfa rin 3 mg dailyinr checksmoni tor heart rate Congestive heart failure 09551519 I50.9 kcl 10 meq dailylasix 20 mg bid Essential hypertension 85849504 I10 amlodipine 10 mg dailyateno lol 50 mg dailyhydra lazine 25 mg tidvalsart an 320 mg dailymonit or bp Glaucoma 79663028 H40.9 dorzolamid e 2% bid oulatanapr ost 0.005% hs ou Urinary tr act infectious disease 12656503 N39.0 monitor for symptoms Constipation 30316593 K5 9.00 bowel protocol Gastroesop hageal reflux disease without esophagitis 881311947 K21.9 omeprazole 20 mg dailyproto nix 20 mg daily Edema of l ower extremity 437823650 R60.0 lasix 20 mg bidKCl 10 meq qd.gerard wraps on am, off pmMonitor edema. Health Concerns Section Related Observation LastModified by Organization Detai ls LastModified Time None Recorded Concern Status LastModified by Organization Details LastModified Time None Recorded Advance Directives Directive Y: Payers Insurance Date Sequence Insurance Name Policy Number Policy Ludwig Covered Member ID Ludwig Member ID Guarantor Name 11/14/2022 1 [place] [employer] Ruth Ann Nunes [id number] Ruth Ann Stubbstai 11/14/2022 2 [place] [id number] Ruth Ann Nunes [id number] Ruth Ann Nunes Notes Date Note Type Note Provider Name and Address Organization Details Recorded Time 10/14/2022 text/html ROS as noted in the HPI seen today for acute rounding visit, CAOx3 sitting up in wheelchair, she is tolerating her current abx therapy and picc line intact, lungs clear, edema unchanged JHOAN IBARRA, GILL [address], [address], [place], [address], [facility] [email or web address] [facility] 10/14/2022 12:05:15 10/24/2022 text/html ROS as noted in the HPI seen today for acute rounding visit, CAOx3 some sob noted, edema BLE worse, will increase lasix to bid for 5 days and continue to monitor,cxr showed ? pulm edema, ?atelectasis, ordered ispiro JHOAN IBARRA NP [address], [address], [place], [address], [facility] [email or web address] [facility] 10/24/2022 14:32:18 10/28/2022 text/html ROS as noted in the HPI seen today for 30 day routine rounding visit-87 yo F w pmh of Afib on Coumadin and atenolol, OA on chronic colchicine, HTN, recurrent UTI with Nitrofurantoin in and Cephalexin in Aug 01 and stopped taking suppressive treatment presented to our ED with lumbar back pain getting progressively worse. Pt is treated with Dilaudid 1 mg IV and sleeping comfortably, hemodynamically appears stable too. Son was present earlier and reported that patient stating this all began about 7-8 weeks ago with worsening groin pain. Per record. she noted no urinary symptoms at the time. But then noted interval development of lumbar back pain radiating down to her BLE to the feet. She noted again no urinary or stool issues. She stated that she went several times to [facility]. They did imaging studies but don't remember any acute intra-abdominal pathologies being reported to them. She was told that she had a UTI despite absence of symptoms but never said she had stones or other pathologies. She was finally sent to rehab about 3 weeks ago. She stated that before rehab her pain was 9/10 but that the 2 weeks of rehab brought it down to 1/10. She was able to ambulate and drive just fine until 3 days ago she notes acute onset lumbar pain radiating down to her BLE. She also noted interval worsening persistent pain of her RLE that is exacerbated with motion. She also noted shaking chills as well as nausea. She denied any constitutional symptoms of fevers, night sweats, chest pain, abdominal pain, urinary/stool changes. On presentation she was afebrile and not in shock. She had no leukocytosis. CRP of 12.3.MRI was concerning for diffuse T1 and T2 prolongation of the osseous elements of the left L5-S1 facet joint with avid enhancement. This is associated with mild enhancement of the adjacent posterior paraspinal soft tissues with a small 7 mm nonenhancing focus within the medial left erector spinae muscle at L4 which may represent a pocket of fluid or abscess. The constellation of findings is worrisome for left L5-S1 (and to a lesser at L4-L5) septic facet joint arthritis. Dorsal epidural enhancement at L4, L5, and S1 is most pronounced on the left at S1, and this may represent epidural phlegmon. There is asymmetrical T2 bright signal involving the sacral margin of the right sacroiliac joint space with asymmetrical enhancement of the right sacroiliac joint space. Given the aforementioned findings, this could represent infectious sacroiliitis of the right sacroiliac joint.-- Neurosurgery was consulted who recommended no acute surgical intervention as patient does not have any neurological deficits-- Discussed with IR for drainage but IR feels phlegmon is too small for drainage-- Discussed with infectious disease team ; as we do not have a culture for microbiology we are going to treat it for 6 weeks with broad-spectrum IV antibiotics-- Got PICC line for ceftriaxone and vancomycin for 6 weeks end date : 11/08 CAOx3 weaned off O2 and on distress or discomfort reported or noted, lungs clear, she is participating with PT and her ankle edema has lessened, will continue to the afternoon hardik IBARRA, GILL [address], [address], [place], [id number], [facility] [email or web address] [facility] 10/28/2022 14:00:33 11/01/2022 text/html Pt asks me to see her because of night time cough and increased leg swelling with weeping. Her lasix was just increased yesterday. She denies SOB or CP.Last wt. 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 Brianna Manning MD [address], [address], [place], [address], [facility] [email or web address] [facility] 11/01/2022 13:45:26 11/14/2022 text/html ROS as noted in the HPI seen today for discharge summary-87 yo F w pmh of Afib on Coumadin and atenolol, OA on chronic colchicine, HTN, recurrent UTI with Nitrofurantoin in and Cephalexin in Aug 01 and stopped taking suppressive treatment presented to our ED with lumbar back pain getting progressively worse. Pt is treated with Dilaudid 1 mg IV and sleeping comfortably, hemodynamically appears stable too. Son was present earlier and reported that patient stating this all began about 7-8 weeks ago with worsening groin pain. Per record. she noted no urinary symptoms at the time. But then noted interval development of lumbar back pain radiating down to her BLE to the feet. She noted again no urinary or stool issues. She stated that she went several times to [facility]. They did imaging studies but don't remember any acute intra-abdominal pathologies being reported to them. She was told that she had a UTI despite absence of symptoms but never said she had stones or other pathologies. She was finally sent to rehab about 3 weeks ago. She stated that before rehab her pain was 9/10 but that the 2 weeks of rehab brought it down to 1/10. She was able to ambulate and drive just fine until 3 days ago she notes acute onset lumbar pain radiating down to her BLE. She also noted interval worsening persistent pain of her RLE that is exacerbated with motion. She also noted shaking chills as well as nausea. She denied any constitutional symptoms of fevers, night sweats, chest pain, abdominal pain, urinary/stool changes. On presentation she was afebrile and not in shock. She had no leukocytosis. CRP of 12.3.MRI was concerning for diffuse T1 and T2 prolongation of the osseous elements of the left L5-S1 facet joint with avid enhancement. This is associated with mild enhancement of the adjacent posterior paraspinal soft tissues with a small 7 mm nonenhancing focus within the medial left erector spinae muscle at L4 which may represent a pocket of fluid or abscess. The constellation of findings is worrisome for left L5-S1 (and to a lesser at L4-L5) septic facet joint arthritis. Dorsal epidural enhancement at L4, L5, and S1 is most pronounced on the left at S1, and this may represent epidural phlegmon. There is asymmetrical T2 bright signal involving the sacral margin of the right sacroiliac joint space with asymmetrical enhancement of the right sacroiliac joint space. Given the aforementioned findings, this could represent infectious sacroiliitis of the right sacroiliac joint.-- Neurosurgery was consulted who recommended no acute surgical intervention as patient does not have any neurological deficits-- Discussed with IR for drainage but IR feels phlegmon is too small for drainage-- Discussed with infectious disease team ; as we do not have a culture for microbiology we are going to treat it for 6 weeks with broad-spectrum IV antibiotics-- Got PICC line for ceftriaxone and vancomycin for 6 weeks end date : 11/08 CAOx3 weaned off O2 and no distress or discomfort reported or noted, lungs clear, she is participating with PT and her ankle edema has lessened, abx finished tomorrow and picc line can be d/c then JHOAN IBARRA NP [address], [address], [place], [address], [place] [employer] 11/14/2022 11:44:33 OBGyn Episode No OBEpisode recorded.
[2025-04-24 11:36] LABS: Anion Gap 12 (12-20); Blood Urea Nitrogen 30 mg/dL (9-16); Calcium 10.8 mg/dL (8.4-10.2); Carbon Dioxide 27 mmol/L (22-29); Chloride 106 mmol/L (96-108); Estimated Glomerular Filt Rate > 60; Potassium 3.9 mmol/L (3.3-5.1); Sodium 141 mmol/L (135-145)
[2025-04-24 11:38] LABS: NT Pro B Type Natriuretic Pept 2550.2 pg/mL (<300)
== END 2025-04-24 08:51 | disposition home or self-care (01) ==
LOC: HO.LAB 08:50
PROVIDERS: PCP Family Medicine; Visit Provider Internal Medicine
DX: I11.0 Hypertensive heart disease with heart failure (principal); I50.32 Chronic diastolic (congestive) heart failure; I48.19 Other persistent atrial fibrillation; R94.39 Abnormal result of other cardiovascular function study; Z79.01 Long term (current) use of anticoagulants
CPT/HCPCS: 36415; 80048; 83880; 93005; 99212